=== PATIENT | female | born 1955 | race Caucasian/White ===

== ENCOUNTER 2017-12-07 09:56 | Day surgery (SDC) | payer SELFPAY ==
[2017-12-07] VITALS (9 sets, daily range): BP systolic 157–193; BP diastolic 56–84; PULSE 61–69; RESP 16–18; TEMP 35.9–36.9; O2SAT 90–99; BMI 27.3
--- NOTE | 2017-12-07 | THYROID_PTH ---
PATIENT: ABISAI LAMAS [place]: [facility] [place][id number] AGE/SX: 62/F ROOM: RE12/07/[address]: Dr. Anatoliy Becerra MD : [id number] BED: DIS: 12/08/2017 SPEC #: [id number] RECD: 12/07/17 12:52 STATUS: ZACHARIAH SIMONE #: [id number] LARA: 12/07/17 00:[address]: Anatoliy Becerra DEPT: SURGICAL PATHOLOGY RECD BY: Franca Srinivasan ENTERED: 12/07/17 15:34 SP TYPE: THYROID OTHR DR: Dr. Gunnar Mabry III, MD Tissues: Thyroid gland, NOS Procedures: Frozen Section (charge) Surgery Specimen Level V Frozen (no charge) HEADER OPERATION: Thyroidectomy, lobectomy PRE-OP DIAGNOSIS: Multinodular goiter TISSUE SUBMITTED: Thyroid, right lobe, sent to lab for FS at 1250 FROZEN SECTION DIAGNOSIS Right lobe of thyroid, lobectomy: Colloid nodule. AM:hayden 12/07/17 MICROSCOPIC DIAGNOSIS Right lobe of thyroid, lobectomy: Colloid nodule with degenerative change (2.5 cm in greatest dimension). Isthmic margin with no significant pathologic change. Remainder of thyroid gland with smaller colloid nodules. AM:hayden 12/09/17 COMMENT No parathyroid glands are identified. Case has been reviewed in consultation with Dr. Johnson who concurs with the above diagnosis. IDC:SJ MICROSCOPIC DESCRIPTION Slides are reviewed. GROSS DESCRIPTION Received fresh for frozen section consultation labeled with the patient's name is a specimen designated right thyroid lobe. The specimen consists of a lobe of thyroid measuring 7 x 3 x 2 cm and weighing 12.7 gm. The specimen is differentially inked as follows: anterior ? blue, posterior ? black and isthmus ? yellow. The specimen is serially sectioned to reveal a gelatinous, ojeda nodule measuring 2.5 x 2 cm. User Experience Architect section of the nodule is submitted for frozen section consultation in one block. The remainder of the nodule is submitted in cassettes 2-4, 5 ? isthmus, 6-8 ? remainder of the specimen. / AM:hayden 12/07/17 TC:1 CPT: 63324, 90031
--- NOTE | 2017-12-07 10:13 | EKG12_ITS ---
Test Reason : PREOP Blood Pressure : / mmHG Vent. Rate : 071 BPM Atrial Rate : 071 BPM P-R Int : 166 ms QRS Dur : 076 ms QT Int : 390 ms P-R-T Axes : 042 012 050 degrees QTc Int : 423 ms Normal sinus rhythm Poor R wave progression Confirmed by CINDY DIXON, DEVYN ([id number]), copy editor MICHELE LAMAS ([id number]) on 12/08/2017 1:38:09 PM Referred By: Anatoliy Becerra Confirmed By:DEVYN WHITE MD
[2017-12-07 10:29] LABS: Hematocrit 39.6 % (37-47); Hemoglobin 13.1 g/dl (12.0-15.0); Mean Corp Hgb Conc 33.1 g/gl (32-36); Mean Corpuscular Hgb 28.7 pg (27.0-32.0); Mean Corpuscular Volume 86.7 fL (81-99); Mean Platelet Vol. 9.7 fl (6.2-12.0); Platelet Count 196 K/mm3 (150-450); RBC Distribution Width CV 15.2 % (11.6-14.6); RBC Distribution Width SD 48.1 fl (35.1-43.9); Red Blood Count 4.57 M/mm3 (4.2-5.4); White Blood Count 5.2 K/mm3 (4.4-11.0)
[2017-12-07 10:32] LABS: Scan Indicated on CBC? Y/N NO
[2017-12-07 10:36] LABS: Prothrombin Time (Protime)PT. 13.1 SECONDS (11.7-14.9)
[2017-12-07 10:37] LABS: Partial Thromboplast Time 32.6 Seconds (24.1-36.2)
[2017-12-07 10:43] LABS: Anion Gap 8 (5-15); BUN 18 mg/dL (7-18); Calcium,Total 9.5 mg/dL (8.5-10.1); Chloride 101 mmol/L (98-107); Creatinine, Serum 0.62 mg/dL (0.55-1.02); EST Glomerular Filtration Rate 104 mL/min (>60); Est Glom Filt Rate - Afr Amer 126 mL/min (>60); Glucose 179 mg/dL (74-106); Potassium 4.3 mmol/L (3.5-5.1); Sodium Level 138 mmol/L (136-145)
[2017-12-07 11:11] LABS: Bedside Glucose 183 mg/dL (70-110)
[2017-12-07] MEDS: Cefazolin 2 GM in 0.9% Normal Saline 100 ML IV (12:01)
--- NOTE | 2017-12-07 12:13 | OP.PCM_ITS ---
Problem List (1) Multinodular goiter (nontoxic) Status: Acute Report of Operation Date of Procedure: 12/07/17 Pre-Operative Diagnosis: e04.2 multinodular goiter Post-Operative Diagnosis: Name Surgery/Procedure Performed:: 66991 Right thyroid lobectomy Type of Anesthesia:: General Anesthesiologist: Arash Wells Estimated Blood Loss (mL): < 25 cc Description of Procedure: Patient was brought into the operating room and placed in the supine position. Under excellent general endotracheal intubation towel was placed underneath the shoulder blades and neck was extended and sterilely prepped and draped in the usual fashion. Local was injected a cervical incision was created. Subplatysmal flaps were created with use of electrocautery and Gelpi retractor was placed inside the wound. Midline strap muscles were opened. I started on the right side I dissected the strap muscles off of the thyroid itself I went to the superior pole vessels and took these down with a harmonic dissector. I stay directly onto the gland making sure to spare the superior parathyroid gland. Went to the inferior thyroid gland of the inferior thyroid vessels down with a harmonic dissector once again staying directly on the gland making sure not to injure the inferior parathyroid. I came up took the gland off of Joshi' s ligaments identifying the recurrent laryngeal nerve and the process. I took down Joshi's ligaments with a harmonic dissector. I came to the left side of the thyroid. I transected the isthmus with a harmonic dissector. I inspected the gland I did not see any parathyroid tissue. I sent this for frozen section. The frozen section came back as a goiter with nothing that looks suspicious for papillary thyroid cancer. I placed a few small clips on a superficial vein. I irrigated out the wound. I placed Surgicel in the wound. Midline strap muscles were brought together with a 2-0 Vicryl. Local was injected. Subplatysmal flaps were brought together with 3-0 Vicryl. Deep dermal stitches of 3-0 Vicryl on the skin. Then a running 4-0 Monocryl on the skin. Dermabond was applied. Sterile dressings were applied. The patient tolerated the procedure well. - Admit VTE Documentation VTE Present on Admission: No VTE Mechan Device Prophylaxis: SCD's VTE Pharm Prophylaxis ordered?: No Reason prophylaxis not ordered:: Treatment Not Indicated
[2017-12-07 13:51] LABS: Bedside Glucose 162 mg/dL (70-110)
[2017-12-07] MEDS: Ondansetron 4 MG/2 ML Vial IV (14:46)
[2017-12-07] MEDS: Lactated Ringers 1,000 ML 65 ML IV (14:50)
[2017-12-07] MEDS: BUPIVACAINE LIPOSOME/PF 20 ML VIAL OPERA.SITE (15:10)
[2017-12-07 17:46] LABS: Bedside Glucose 158 mg/dL (70-110)
[2017-12-07] MEDS: Carvedilol 3.125 MG TABLET PO (19:31)
[2017-12-07] MEDS: Cefazolin 1 GM/50 ML BAG IV (19:36)
[2017-12-07] MEDS: Atorvastatin Calcium 20 MG Tablet PO (21:16)
[2017-12-07] MEDS: FLUoxetine 10 MG Capsule PO (21:16)
[2017-12-07] MEDS: HYDROcodone Bitartrate/Apap 5/325 Tablet PO (21:21)
[2017-12-08 03:10] VITALS: BP 144/54; PULSE 69; RESP 16; TEMP 36.9; O2SAT 97
[2017-12-08] MEDS: Cefazolin 1 GM/50 ML BAG IV (03:15)
--- NOTE | 2017-12-08 06:57 | PN.SURG_ITS ---
Patient Problems: Active and Suspected Problems (Last Reviewed 11/18/17 @ 09:30 by Carlton Meade MD ) Multinodular goiter (nontoxic) (Acute) Subjective: Patient evaluated resting comfortably in bed. She notes sore throat. She denies fever, nausea, vomiting. She denies incisional discomfort. - Physical Exam General: Alert, Oriented x3, Cooperative Neck: - - Anterior cervicla neck incision- c/d/i. Minimal amount of ecchymosis. No infection noted Vital Signs Temp Pulse Resp BP Pulse Ox 98.5 F 69 16 144/54 H 97 12/08/17 03:10 12/08/17 03:10 12/08/17 03:10 12/08/17 03:10 12/08/17 03:10 Oxygen Flow Rate 2 Oxygen Delivery Method Room Air Weight: 159 lb 2.78 oz Body Mass Index (BMI) 27.3 Finger Stick Blood Glucose 162 Intake and Output for Last 24 Hours 12/06/17 12/07/17 12/08/17 23:59 23:59 23:59 Intake Total 1800 / 1800 1825 / 1825 Output Total 1800 / 1800 900 / 900 Balance 0 / 0 925 / 925 Laboratory Tests Past 24 Hrs 12/07/17 12/07/17 12/07/17 10:20 10:20 10:20 WBC 5.2 RBC 4.57 Hgb 13.1 Hct 39.6 MCV 86.7 MCH 28.7 MCHC 33.1 RDW 15.2 H RDW Differential 48.1 H Plt Count 196 MPV 9.7 PT 13.1 INR 1.0 APTT 32.6 Sodium 138 Potassium 4.3 Chloride 101 Carbon Dioxide 29.0 Anion Gap 8 BUN 18 Creatinine 0.62 Est GFR (MDRD) Af Amer 126 Est GFR (MDRD) Non-Af 104 BUN/Creatinine Ratio 29.0 H Glucose 179 H Hemoglobin A1c Calcium 9.5 12/07/17 10:20 WBC RBC Hgb Hct MCV MCH MCHC RDW RDW Differential Plt Count MPV PT INR APTT Sodium Potassium Chloride Carbon Dioxide Anion Gap BUN Creatinine Est GFR (MDRD) Af Amer Est GFR (MDRD) Non-Af BUN/Creatinine Ratio Glucose Hemoglobin A1c 8.0 H Calcium POC Glucose 12/07/17 12/07/17 12/07/17 17:39 13:47 10:42 POC Glucose 158 H 162 H 183 H Assessment/Plan Active and Suspected Problems (Last Reviewed 11/18/17 @ 09:30 by Carlton Meade MD ) Multinodular goiter (nontoxic) (Acute) I am following this patient in conjunction with Dr. Becerra. S/p right thyroid lobectomy Ready for discharge Patient has declined discharge narcotic pain medication and will take Motrin at home as needed for pain
--- NOTE | 2017-12-08 06:57 | PCM.DC.GS ---
Discharge Diet: Light diet - advance as tolerated - Soft foods for 2 days until sore throat resolves Discharge Activity: May Not Drive - for 5 days May shower in (days): 1 Lifting Restrictions: 10 pounds Call your doctor if your incision/area has: Continuous Slow Oozing, Increased Pain/ Swelling, Increased Redness, Foul Smelling Discharge Suture Line Care: Avoid Pulling/Pushing, Avoid Pinching/Bending Allergies/Adverse Reactions: Allergies lisinopril Adverse Reaction (Intermediate, Verified 11/23/17 13:26) cough Medications to take at Discharge Aspirin [Aspirin, Baby] 81 mg PO DAILY@0800 07/02/15 Carvedilol [Coreg (Beta Ceasar)] 3.125 mg PO BID 07/02/15 Clopidogrel Bisulfate [Plavix] 75 mg PO DAILY 07/02/15 Docusate Sodium [Dok] 100 mg PO BID PRN PRN 07/02/15 Folic Acid 0.8 mg PO DAILY 07/02/15 Glimepiride [Amaryl] 2 mg PO BIDAC 07/02/15 Lovastatin [Mevacor] 40 mg PO DAILY 07/02/15 Metformin HCl [Glucophage] 1,000 mg PO BIDCM 07/02/15 cholecalciferol (vitamin D3) 5,000 unit capsule 5,000 unit PO DAILY 11/05/17 ferrous sulfate 325 mg (65 mg iron) tablet 325 mg PO DAILY tab 11/05/17 fluoxetine 10 mg capsule 10 mg PO QHS 11/05/17 losartan 25 mg tablet 25 mg PO QDAY 11/05/17 multivitamin tablet 1 tab PO QAM 11/05/17 Primary Care Physician: Gunnar Mabry III, MD [Primary Care Provider] - Please Follow Up With: Joyce Yu PA-C - [phone] When: 7-10 days Proposed Discharge Date: 12/08/17
[2017-12-08 08:12] VITALS: BP 157/65; PULSE 68; RESP 16; TEMP 36.9; O2SAT 95
[2017-12-08] MEDS: Losartan Potassium 25 MG Tablet PO (08:21)
[2017-12-08] MEDS: Carvedilol 3.125 MG TABLET PO (08:21)
[2017-12-08] MEDS: metFORMIN HCl 1,000 MG Tablet 1000 MG PO (08:21)
[2017-12-08] MEDS: Glimepiride 2 MG Tablet PO (08:21)
== END 2017-12-08 09:24 | disposition home or self-care (01) ==
LOC: SDC 10:01 → AC 10:02 → MS2 10:31
PROVIDERS: Anesthesiology; Family Provider Family Medicine; PCP Family Medicine; Visit Provider Surgery
PROC: (CPT 60220; principal; 2017-12-07 11:45)
DX: E04.2 Nontoxic multinodular goiter (principal); I25.10 Atherosclerotic heart disease of native coronary artery without angina pectoris; I49.9 Cardiac arrhythmia, unspecified; I10 Essential (primary) hypertension; Z95.1 Presence of aortocoronary bypass graft; E11.9 Type 2 diabetes mellitus without complications; Z79.84 Long term (current) use of oral hypoglycemic drugs; I69.311 Memory deficit following cerebral infarction; I69.398 Other sequelae of cerebral infarction; R26.81 Unsteadiness on feet; D68.9 Coagulation defect, unspecified; E78.00 Pure hypercholesterolemia, unspecified; F41.9 Anxiety disorder, unspecified; E06.9 Thyroiditis, unspecified; Z79.01 Long term (current) use of anticoagulants; Z79.82 Long term (current) use of aspirin; Z79.899 Other long term (current) drug therapy; Z80.3 Family history of malignant neoplasm of breast
CPT/HCPCS: 60220; 80048; 82962; 83036; 85027; 85610; 85730; 88307; 88331; 93005; J7120; J2405

== ENCOUNTER → 2021-06-12 09:18 | Outpatient (CLI) | payer OTHER, SELFPAY ==
[2021-06-12 11:20] LABS: AST(SGOT) 29 U/L (15-37); Alanine Aminotransfer ALT/SGPT 51 U/L (13-56); Albumin, Serum 3.8 g/dL (3.2-5.0); Alkaline Phosphatase 56 U/L (45-117); Bilirubin, Direct 0.11 mg/dL (0.00-0.30); Cholesterol 140 mg/dL (200); Globulin 3.3 g/dL (2.2-4.2); High Density Lipoprotein 53 mg/dL; Protein, Total 7.1 g/dL (6.4-8.2); Triglycerides 128 mg/dL; Very Low Density Lipoprotein 26 mg/dL (5-40)
== END ==
PROVIDERS: Referring Provider Internal Medicine Cardiovascular Disease; Visit Provider Internal Medicine Cardiovascular Disease
DX: E78.00 Pure hypercholesterolemia, unspecified (principal)
CPT/HCPCS: 36415; 80061; 80076

== ENCOUNTER 2025-04-22 20:20 | Emergency (ER) | payer OTHER, SELFPAY ==
[2025-04-22 20:22] VITALS: BP 161/87; PULSE 78; RESP 18; TEMP 37.1; O2SAT 97
--- NOTE | 2025-04-22 20:40 | CT_ITS ---
PROCEDURE: CT CHEST, ABD, PEL W/CONTRAST 04/22/2025 REASON FOR EXAM: FALL ON WEDNESDAY, RIGHT RIB PAIN, RIGHT SIDE PAIN TECHNIQUE: Chest, abdomen and pelvis CT with intravenous contrast. Coronal and Sagittal reconstruction series were provided. One or more dose reduction techniques were used (e.g., Automated exposure control, adjustment of the mA and/or kV according to patient size, use of iterative reconstruction technique. PATIENT PREPARATION: Per protocol ORAL CONTRAST TYPE: None. AMOUNT: mL CONTRAST: Isovue 370 VOLUME: 97mL Gauge IV RADIATION DOSE SUMMARY: CTDlvol: 60 mGy DLP: 1594 mGycm COMPARISON: No FINDINGS: Unremarkable base of neck and axilla. Thoracic spine scoliosis and degeneration. Normal esophagus. Borderline prominent heart size. Status post CABG. No acute vascular injury. Acute right 10th and 11th rib fracture. Central airways are patent. Dependent atelectasis. No contusion, pneumothorax,. Tiny right-sided effusion. Status post cholecystectomy. Upper abdominal solid organs show no acute findings. Bilateral renal scarring. No hydronephrosis. Unremarkable bladder. Normal uterus and ovaries. No retroperitoneal or pelvic adenopathy. No free air. Nondistended bowel. Moderate stool. No acute large bowel findings otherwise. Lumbar spine degeneration. CT/CT Chest, Abd, Pel w/Contrast IMPRESSION: Right-sided chest wall injury and tiny right effusion. Reading Location: [place] [address]
[2025-04-22 20:42] LABS: Bacteria 0 SEEN /hpf (None Seen); Mucous, Urine 0 SEEN /hpf (<or=2+); Red Blood Cells-Urine 0 SEEN /hpf (0-5)
--- NOTE | 2025-04-22 20:46 | EX.ED.DYSGE1 ---
HPI History of Present Illness Chief Complaint: Abd Pain Narrative Narrative: Patient is a 69-year-old female with past medical history of CVA, hypothyroidism, type 2 diabetes, hypertension, CAD who presents to the emergency department the chief complaint of right-sided abdominal pain and rib pain. States on she slipped and fell down concrete stairs and originally states that she was having right sided flank pain. She notes that she originally started to get better however noted that recently the pain became severe again prompting her to come here for further evaluation management. She states that the Motrin is not helping her pain anymore. [facility] Medical History Anemia History of CVA (cerebrovascular accident) (06/2015) Hypothyroidism Type 2 diabetes mellitus Essential (primary) hypertension Multinodular goiter (nontoxic) Atherosclerotic heart disease of [place] coronary artery without angina pectoris Home Medications ?Medication ?Instructions ?Recorded ?Last Taken ?Type aspirin 81 mg chewable tablet 81 mg PO DAILY@0800 07/02/15 07/02/15 History folic acid 0.8 mg capsule 0.8 mg PO DAILY 07/02/15 07/02/15 History lovastatin 40 mg tablet 40 mg PO DAILY 07/02/15 07/01/15 History metformin 1,000 mg tablet 1,000 mg PO BIDCM 07/02/15 07/02/15 History cholecalciferol (vitamin D3) 125 5,000 unit PO DAILY 11/05/17 Unknown History mcg (5,000 unit) capsule ferrous sulfate 325 mg (65 mg 325 mg PO DAILY 11/05/17 Unknown History iron) tablet fluoxetine 10 mg capsule 10 mg PO QHS 11/05/17 Unknown History multivitamin 1 tab PO QAM 11/05/17 Unknown History insulin glargine 100 unit/mL (3 unit subcut 10/14/23 Unknown History mL) subcutaneous pen (Lantus Solostar U-100 Insulin) insulin lispro 100 unit/mL 1 sliding scale dose subcut 10/14/23 Unknown History subcutaneous pen (Admelog SoloStar U-100 Insulin lispro) levothyroxine 25 mcg tablet 50 mcg PO DAILY 10/14/23 Unknown History carvedilol 6.25 mg tablet 6.25 mg PO BID #180 tabs 05/29/24 Unknown Rx losartan 50 mg tablet See Rx Instructions .Route 05/29/24 Unknown Rx .COMPLEX #90 tabs clopidogrel 75 mg tablet 75 mg PO DAILY #90 tabs 03/21/25 Unknown Rx cyclobenzaprine 10 mg tablet 10 mg PO TID PRN muscle spasm #14 04/22/25 Unknown Rx tabs lidocaine 5 % topical patch 1 patch topical DAILY #15 ea 04/22/25 Unknown Rx (Lidoderm) ondansetron 4 mg disintegrating 4 mg PO Q6H PRN nausea and 04/22/25 Unknown Rx tablet vomiting #20 tabs oxycodone-acetaminophen 5 mg-325 1 tab PO Q6H PRN pain 3 days #12 04/22/25 Unknown Rx mg tablet (Endocet) tabs Allergy/AdvReac Type Severity Reaction Status Date / Time lisinopril AdvReac Intermediate cough Verified 04/22/25 20:22 Family History Sister Breast cancer Brother Diabetes Cancer Father CAD (coronary artery disease) Surgical History History of bilateral cataract extraction H/O partial thyroidectomy History of tonsillectomy History of cholecystectomy History of appendectomy H/O coronary artery bypass surgery (06/25/15) History of left heart catheterization (06/25/15) Hx of biopsy Hx of section Social History household members: spouse housing: house Smoking Status: Never smoker second hand exposure: No alcohol intake: never substance use type: does not use caffeine: No what type of physical activity do you participate in: none frequency: does not exercise seatbelt use: always ROS ROS ED ROS Narrative Constitutional: Denies any fevers, chills Eyes: Denies changes double vision blurred vision Cardiovascular: Denies chest pain Respiratory: Denies shortness of breath Abdomen: Complains of right side abdominal pain as noted above : Denies urinary symptoms Neurological: Denies numbness, weeks, tingling Musculoskeletal: Complains of right flank pain/rib pain as noted above Skin: Denies any rashes or lesions EXAM Physical Exam Narrative Exam Narrative: General: Patient was lying bed rest comfortably did appear to be uncomfortable secondary to her pain Head: Atraumatic, normocephalic Eyes: PERRL bilaterally, EOMI bilaterally, no conjunctival injection noted Neck: Soft, supple, trachea midline Cardiovascular: Regular rate and rhythm Respiratory: Clear to auscultation bilaterally Abdomen: Soft, nondistended, tenderness to palpation the right upper quadrant and lower quadrant no rebound or guarding on exam Musculoskeletal: Patient has tenderness palpation over the right rib cage Extremities: +5/5 strength noted in the bilateral upper and lower extremities Neurological: Patient following commands and that she was at [facility] year is 2024 Skin: Warm, dry, tact no rashes or lesions noted no bruising or ecchymosis noted Const Vital Signs: 04/22/25 20:22 04/22/25 20:26 Temperature 98.7 F Temperature Source Oral Pulse Rate 78 Respiratory Rate 18 Respiratory Effort Normal Non-Labored Respiratory Depth Normal Respiratory Pattern Normal Blood Pressure 161/87 H Blood Pressure Mean 111 Pulse Ox 97 Oxygen Delivery Method Room Air MDM MDM MDM Narrative Medical decision making narrative: Patient is a 69-year-old female who presented to the emergency department with a chief complaint of right rib pain and back/abdomen pain after a fall on . On the differential diagnosis includes but not limited to rib fractures, pneumothorax, liver laceration, cholecystitis, pancreatitis. Once workup is obtained reviewed she will be reevaluated. Patient given IV fluids, morphine Zofran. Patient's CBC reviewed showed no evidence of leukocytosis white blood count normal at 6.5, hemoglobin was stable at 12.7, platelet count was 245. Patient's INR normal at 0.9, PT 12.7. Patient sodium was normal 139, potassium normal 4.8, creatinine normal at 0.88. Patient's AST and ALT were 32 and 20 respectively. Patient lipase normal at 42, urinalysis reviewed and showed no evidence of infection. Patient's CT chest, abdomen and pelvis was reviewed which showed acute right 10th and 11th rib fractures tiny right sided effusion. Discussed results with the patient she would like to go home at this point in time we will use multimodal pain therapy with rotating Tylenol and ibuprofen [id number], Lidoderm patch, Endocet and Zofran for severe pain. She is encouraged to use the incentive spirometer as well. She was encouraged follow-up with her doctor outpatient setting return with worsening symptoms or concerns. She is agreeable to plan all question concerns answered she was discharged home in stable condition. Lab Data Labs: Laboratory Results - last 24 hr 04/22/25 04/22/25 20:32 20:48 WBC 6.5 RBC 4.52 Hgb 12.7 Hct 38.5 MCV 85.2 MCH 28.1 MCHC 33.0 RDW Std Deviation 45.3 H RDW Coeff of Michael 14.7 H Plt Count 245 MPV 10.1 Immature Gran % (Auto) 0.500 Neut % (Auto) 56.6 Lymph % (Auto) 26.8 [place] % (Auto) 7.2 Eos % (Auto) 8.1 H Baso % (Auto) 0.8 Absolute Neuts (auto) 3.7 Absolute Lymphs (auto) 1.75 Nucleated RBC % 0 PT 12.7 INR 0.9 APTT 25.7 Sodium 139 Potassium 4.8 Chloride 103 Carbon Dioxide 22.2 Anion Gap 14 BUN 22 H Creatinine 0.88 Est GFR (MDRD) Non-Af 72 BUN/Creatinine Ratio 24.7 H Glucose 177 H Calcium 9.3 Total Bilirubin 0.52 AST 32 ALT 20 Alkaline Phosphatase 65 Total Protein 6.9 Albumin 4.1 Globulin 2.9 Albumin/Globulin Ratio 1.4 Lipase 42 Urine Color Yellow Urine Clarity Clear Urine pH 6.5 Ur Specific [place] 1.010 Urine Protein 15 H Urine Glucose (UA) 50 H Urine Ketones Negative Urine Occult Blood Negative Urine Nitrite Negative Urine Bilirubin Negative Urine Urobilinogen Normal Ur Leukocyte Esterase Negative Urine RBC 0 SEEN Urine WBC 0-5 SEEN Ur Squamous Epith Cells 0-5 SEEN Urine Bacteria 0 SEEN Urine Mucus 0 SEEN Radiography Diagnostic Testing: Clinical Impression(s) from Imaging Studies Chest/Abdomen/Pelvis CT 04/22/25 20:40 IMPRESSION: Right-sided chest wall injury and tiny right effusion. Reading Location: [place] [address] Discharge Plan Triage Chief Complaint: Abd Pain Other Complaint: Fall ED Provider: Nilson Grullon Dx/Rx/DC Orders Clinical Impression: Fracture, ribs, Essential (primary) hypertension, Fall, Pleural effusion Prescriptions: New lidocaine [Lidoderm] 5 % adhesive patch,medicated 1 patch topical DAILY Qty: 15 0RF Rx Instructions: leave on most painful area for up to 12 hrs oxycodone-acetaminophen [Endocet] 5-325 mg tablet 1 tab PO Q6H PRN (Reason: pain) 3 Days Qty: 12 0RF ondansetron 4 mg tablet,disintegrating 4 mg PO Q6H PRN (Reason: nausea and vomiting) Qty: 20 0RF cyclobenzaprine 10 mg tablet 10 mg PO TID PRN (Reason: muscle spasm) Qty: 14 0RF No Action fluoxetine 10 mg capsule 10 mg PO QHS cholecalciferol (vitamin D3) 5,000 unit capsule 5,000 unit PO DAILY multivitamin tablet 1 tab PO QAM levothyroxine 25 mcg tablet 50 mcg PO DAILY Patient Comments: take 1 tablet by mouth once daily insulin lispro [Admelog SoloStar U-100 Insulin] 100 unit/mL insulin pen 1 sliding scale dose subcut Patient Comments: inject 4 to 6 units subcutaneously three times a day before meals as directed insulin glargine [Lantus Solostar U-100 Insulin] 100 unit/mL (3 mL) insulin pen subcut Patient Comments: inject 18 units subcutaneously once daily lovastatin 40 MG tablet 40 mg PO DAILY Patient Comments: cholesterol metformin 1,000 MG tablet 1,000 mg PO BIDCM Patient Comments: diabetes aspirin 81 MG tablet,chewable 81 mg PO DAILY@0800 Patient Comments: WILL STOP 1 WEEK PRIOR TO SURGERY folic acid 0.8 MG capsule 0.8 mg PO DAILY Patient Comments: supplement ferrous sulfate 325 MG tablet 325 mg PO DAILY Patient Comments: supplement losartan 50 mg tablet See Rx Instructions .ROUTE .COMPLEX Qty: 90 3RF Dose Instruction: take 1 tablet by mouth once daily Rx Instructions: take 1 tablet by mouth once daily carvedilol 6.25 mg tablet 6.25 mg PO BID Qty: 180 3RF clopidogrel 75 mg tablet 75 mg PO DAILY Qty: 90 3RF Primary Care Provider: Joyce Washburn NP Referrals: Care Physician,No Primary [Non-Staff] - Activity Restrictions/Additional Instructions: Follow-up your doctor in outpatient setting. Your CT scan did show that you broke your 10th and 11th rib on the right side. Use incentive spirometry as we discussed. Rotate Tylenol and ibuprofen [id number] when you do this can take some every 3 hours max dose of Tylenol in 24 hours 4000 mg max dose of ibuprofen in 24 hours 3200 mg. Use the Endocet and Zofran for severe pain. Use the muscle relaxer as prescribed. Return with worsening symptoms and concerns Print Language: [place] Disposition Disposition: Home, Self Care
[2025-04-22] MEDS: Morphine 4 MG/ML Syringe IV ×2 (20:52→22:38)
[2025-04-22] MEDS: Ondansetron 4 MG/2 ML Vial IV ×2 (20:52→22:37)
[2025-04-22 20:53] LABS: Color, Urine Yellow (Yellow); Glucose, Dipstick 50 mg/dl (Normal); Ketone-Dipstick Negative (Negative); Leukocyte Esterase-Dipstick Negative /ul (Negative); Nitrite-Dipstick Negative (Negative); Occult Blood-Urine Negative /ul (Negative); Protein-Dipstick 15 mg/dl (Negative); Urine Bilirubin Dipstick Negative (Negative); Urine Clarity Clear (Clear); Urine Urobilinogen Normal (Normal); Urine pH 6.5 (5.0 - 8.0)
[2025-04-22] MEDS: 0.9% Normal Saline (1000mL) 1,000 ML 999 ML IV (20:53)
--- OUTSIDE RECORDS SUMMARY | 2025-04-22 20:54 | XMS RPT_ITS | CCD ---
Author Organization [facility] Care Team Providers Care Water Team Leader Name Role Phone Jj, Jennifer Unavailable Unavailable Jj, Jennifer Unavailable Unavailable Jj, Jennifer Unavailable Unavailable Jj, Jennifer Unavailable Unavailable DeFinis, Harumi Y Unavailable Unavailable JUSTYNA DIXON, KARTHIKEYAN Rosenthal III Primary Care Physician JUSTYNA DIXON, KARTHIKEYAN Rosenthal III Primary Care Physician ANNA DIXON, ROHAN Attending Sadia JANSEN MD, KARTHIKEYAN Rosenthal III Primary Care Unavaildawn CASTILLO MD, ROHAN Attending Sadia JANSEN MD, KARTHIKEYAN Rosenthal III Primary Care UnavailBing Hein Attending Unavail able Care Physician, No Primary Referring Unava ilable Care Physician, No Primary Primary Care Unava ilable Allergies Allergy Classification Reported Allergen(s) Allergy Type Date of Onset Reaction(s) Facility (6 sources) lisinopril; 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: [lisinopril] drug allergy 06-19-2015 cough [facility] Work Phone: (4 sources) NKDA drug allergy 06-19-2015 [facility] Work Phone: Medications Current Medications Medication Drug Class(es) Dates Sig (Normalized) Sig (Original) carvedilol 3.125 mg oral tablet (13 sources) alpha-Adrenergic Ceasar, beta-Adrenergic Ceasar Start: 08-21-2021 take 1 tablet by mouth twice daily carvedilol 3.125 mg oral tablet take 1 tablet by mouth twice a day Start Date: 08/21/21 Status: Ordered Start: 08-21-2021 take 1 tablet by [facility] twice daily carvedilol 3.125 mg oral tablet take 1 tablet by mouth twice a day Start Date: 08/21/21 Status: Ordered Start: 07-08-2015 take 1 tablet by dwayne th twice daily COREG 3.125 MG TABS One tablet by mouth twice daily CARVEDILOL [id number] Bing Peace PA-C clopidogrel 75 mg oral tablet (13 sources) P2Y12 Platelet Inhibitor Start: 06-30-2015 Plavix 75 mg oral tablet Dose : 75 mg = 1 tab(s), Oral, qDay, # 30 tab(s), 0 Refill(s) Start Date: 06/30/15 Status: Ordered FLUoxetine 10 mg oral tablet (3 sources) Serotonin Reuptake Inhibitor Start: 02-02-2022 FLUoxetine 10 mg ora l tablet Dose : 10 mg = 1 tab(s), Oral, qHS, # 90 tab(s), 3 Refill(s), Pharmacy: [id number] 162.7, cm, 12/18/21 10:28:00 EST, Height, kg, 12/18/21 10:28:00 EST, Dosing Weight Start Date: 02/02/22 Status: Ordered Start: 10-24-2021 FLUoxetine 10 mg oral tablet Dose : 10 mg = 1 tab(s), Oral, qHS, # 90 tab(s), 3 Refill(s), called to pharmacy (Rx), Dosing Weight Start Date: 10/24/21 Status: Ordered glimepiride 4 mg oral tablet (11 sources) Sulfonylurea Start: 03-27-2021 take 1 tablet by mouth twice daily glimepiride 4 mg oral tablet See Instructions, take 1 tablet by mouth twice a day, # 60 tab(s), 3 Refill(s), Pharmacy: [facility] 162.6, cm, 03/18/21 10:50:00 EDT, Height, kg, 03/18/21 10:50:00 EDT, Dosing Weight Start Date: 03/27/21 Status: Ordered Start: 06-19-2015 take 1 tablet by dwayne th twice daily GLIMEPIRIDE 1 MG TABS One tablet by mouth twice daily GLIMEPIRIDE [id number] Jerrica Jorge RN Start: 06-19-2015 take 1 tablet by dwayne th twice daily GLIMEPIRIDE 2 MG TABS One tablet by mouth twice daily GLIMEPIRIDE [id number] Carlton Meade MD 3 ml insulin isophane, human 70 unt/ml / insulin, regular, human 30 unt/ml pen injector (2 sources) Insulin Start: 06-08-2022 ReliOn/NovLIN 70/30 FlexPen subcutaneous suspension 20-15 unit(s), Subcutaneous, BIDAC, # 15 mL, 4 Refill(s), [facility]: [facility] #[id number], 163, cm, 04/16/22 11:39:00 EDT, Height, kg, 04/16/22 11:39:00 EDT, Dosing Weight Start Date: 06/08/22 Status: Ordered Start: 12-18-2021 ReliOn/NovLIN 70/30 FlexPen subcutaneous suspension Dose : 18 unit(s) =, Subcutaneous, BIDAC, # 15 mL, 4 Refill(s), [facility]acy: [facility] [facility], 162.7, cm, 12/18/21 10:28:00 EST, Height, kg, 12/18/21 10:28:00 EST, Dosing Weight Start Date: 12/18/21 Status: Ordered levothyroxine sodium 0.025 mg oral tablet (3 sources) l-Thyroxine Start: 10-01-2022 levothyroxine 25 mcg (0.025 mg) oral tablet Dose : 25 mcg = 1 tab(s), Oral, qDay, take 1 tablet by mouth daily, # 90 tab(s), 2 Refill(s), [facility]: [facility] #[id number], Hypothyroid, 163, cm, 04/16/22 11:39:00 EDT, Height, kg, 04/16/22 11:39:00 EDT, Dosing Weight Start Date: 10/01/22 Status: Ordered Start: 01-19-2022 levothyroxine 25 mcg (0.025 mg) oral tablet Dose : 25 mcg = 1 tab(s), Oral, qDay, take 1 tablet by mouth daily, # 90 tab(s), 2 Refill(s), called to pharmacy (Rx), Hypothyroid, Dosing Weight Start Date: 01/19/22 Status: Ordered Start: 04-24-2021 levothyroxine 25 mcg (0.025 mg) oral tablet Dose : 25 mcg = 1 tab(s), Oral, qDay, take 1 tablet by mouth daily, # 90 tab(s), 2 Refill(s), Pharmacy: [facility] Hypothyroid, 162.6, cm, 03/18/21 10:50:00 EDT, Height, kg, 03/18/21 10:50:00 EDT, Dosing Weight Start Date: 04/24/21 Status: Ordered losartan potassium 25 mg oral tablet (13 sources) Angiotensin 2 Receptor Ceasar Start: 08-21-2021 take 1 tablet by mouth once daily losartan 25 mg oral tablet take 1 tablet by mouth once daily Start Date: 08/21/21 Status: Ordered Start: 10-10-2015 take 1 tablet by dwayne once daily LOSARTAN POTASSIUM 25 MG TABS One tablet by mouth daily LOSARTAN POTASSIUM [id number] CODY FofanaC lovastatin 40 mg oral tablet (8 sources) HMG-CoA Reductase Inhibitor Start: 10-01-2022 take 1 tablet by mouth once daily lovastatin 40 mg oral tablet See Instructions, take 1 tablet by mouth once daily, # 30 tab(s), 3 Refill(s), Pharmacy: [facility] #[id number], 163, cm, 04/16/22 11:39:00 EDT, Height, kg, 04/16/22 11:39:00 EDT, Dosing Weight Start Date: 10/01/22 Status: Ordered Start: 02-02-2022 take 1 tablet by dwayne once daily lovastatin 40 mg oral tablet See Instructions, take 1 tablet by mouth once daily, # 30 tab(s), 3 Refill(s), Pharmacy: [facility] 162.7, cm, 12/18/21 10:28:00 EST, Height, kg, 12/18/21 10:28:00 EST, Dosing Weight Start Date: 02/02/22 Status: Ordered Start: 10-02-2021 take 1 tablet by dwayne once daily lovastatin 40 mg oral tablet See Instructions, take 1 tablet by mouth once daily, # 30 tab(s), 3 Refill(s), Pharmacy: [facility] 162.6, cm, 08/21/21 11:42:00 EDT, Height, kg, 08/21/21 11:42:00 EDT, Dosing Weight Start Date: 10/02/21 Status: Ordered Start: 06-19-2015 take 1 tablet by dwayne th once daily LOVASTATIN 40 MG TABS One tablet by mouth daily LOVASTATIN [id number] Carlton Meade MD metFORMIN hydrochloride 1000 mg oral tablet (8 sources) Biguanide Start: 07-07-2022 take 1 tablet by mouth twice daily metFORMIN 1000 mg oral tablet (IR) See Instructions, take 1 tablet by mouth twice a day, # 240 tab(s), 2 Refill(s), Pharmacy: [facility] #[id number], 163, cm, 04/16/22 11:39:00 EDT, Height, kg, 04/16/22 11:39:00 EDT, Dosing Weight Start Date: 07/07/22 Status: Ordered Start: 04-24-2021 take 1 tablet by dwayne th twice daily metFORMIN 1000 mg oral tablet (IR) See Instructions, take 1 tablet by mouth twice a day, # 240 tab(s), 2 Refill(s), Pharmacy: [facility] 162.6, cm, 03/18/21 10:50:00 EDT, Height, kg, 03/18/21 10:50:00 EDT, Dosing Weight Start Date: 04/24/21 Status: Ordered Start: 06-19-2015 take 1 tablet by dwayne th twice daily GLUCOPHAGE 1000 MG TABS One tablet by mouth twice daily METFORMIN HCL [id number] Jerrica Jorge RN potassium chloride 10 meq or al tablet (3 sources) Start: 06-30-2015 potassium chlo ride 10 mEq oral tablet, extended release Dose : 10 mEq = 1 tab(s), Oral, qDay, # 10 tab(s), 0 Refill(s) Start Date: 06/30/15 Status: Ordered Completed/Discontinued Medications Medication Drug Class(es) Dates Sig (Normalized) Sig (Original) HYDROCODONE-ACETAM INOPHEN (10 sources) Opioid Agonist Start: 07-08-2015 take 1 tablet by mouth every four hours as needed NORCO 5-325 MG TABS One tablet by mouth every 4 hours as needed HYDROCODONE-ACETAMI NOPHEN [id number] Jerrica Jorge RN Start: 07-08-2015 End: 07-18-2015 take 1 tablet by mouth every four hours as needed NORCO 5-325 MG TABS One tablet by mouth every 4 hours as needed HYDROCODONE-ACETAMINOPHEN [id number] Carlton Meade MD Start: 07-08-2015 End: 07-18-2015 take 1 tablet by mouth every four hours as needed NORCO 5-325 MG TABS One tablet by mouth every 4 hours as needed HYDROCODONE-ACETAMINOPHEN [id number] Jerrica Jorge RN ALPRAZolam 0.25 mg oral tablet (5 sources) Benzodiazepine Start: 07-18-2015 XANAX 0.25 MG TABS As needed ALPRAZOLAM [id number] Carlton Meade MD aspirin 81 mg oral strip (18 sources) Platelet Aggregation Inhibitor, Nonsteroidal Anti-inflammatory Drug Start: 07-08-2015 take 1 tablet by mouth once daily ASPIRIN 81 MG TABS One tablet by mouth daily ASPIRIN [id number] Alana Ware RN Start: 07-08-2015 take 1 tablet by dwayne th once daily ASPIRIN EC 81 MG TBEC One tablet by mouth daily ASPIRIN [id number] Keyonna Busby RN Start: 06-25-2015 aspirin 81 mg oral tablet (chewable) Dose : 81 mg = 1 tab(s), Oral, Daily, 0 Refill(s) Start Date: 06/25/15 Status: Ordered docusate sodium 100 mg oral tablet (10 sources) Start: 07-08-2015 End: 10-10-2015 take 1 tablet by mouth twice daily COLACE 100 MG CAPS One tablet by mouth twice daily DOCUSATE SODIUM [id number] Carlton Meade MD Start: 07-08-2015 End: 10-10-2015 take 1 tablet by mouth twice daily COLACE 100 MG CAPS One tablet by mouth twice daily DOCUSATE SODIUM [id number] Jerrica Jorge RN ferrous sulfate (20 sources) Start: 05-01-2016 take 1 tablet by dwayne th once daily IRON 325 (65 Fe) MG TABS One tablet by mouth daily FERROUS SULFATE [id number] Carlton Meade MD Start: 05-01-2016 take 1 tablet by dwayne th every other day IRON 325 (65 Fe) MG TABS One tablet by mouth every other day FERROUS SULFATE [id number] Bing Peace PA-C Start: 07-08-2015 End: 10-10-2015 take 1 tablet by mouth twice daily FERROUS SULFATE 325 (65 Fe) MG TABS One tablet by mouth twice daily FERROUS SULFATE [id number] Jerrica Jorge RN Start: 06-30-2015 ferrous sulfat e 325 mg (65 mg elemental iron) oral tablet Dose : 325 mg = 1 tab(s), Oral, BIDM, # 60 tab(s), 0 Refill(s) Start Date: 06/30/15 Status: Ordered folic acid 0.8 mg oral tablet (8 sources) Start: 07-08-2015 take 1 tablet by mouth once daily FOLIC ACID 800 MCG TABS One tablet by mouth daily FOLIC ACID [id number] Jerrica Jorge RN Start: 06-30-2015 folic acid 0.8 mg oral tablet Dose : 0.8 mg = 1 tab(s), Oral, Daily, # 30 tab(s), 0 Refill(s) Start Date: 06/30/15 Status: Ordered furosemide 20 mg oral tablet (10 sources) Loop Diuretic Start: 07-08-2015 End: 07-18-2015 take 1 tablet by mouth once daily LASIX 20 MG TABS One tablet by mouth daily FUROSEMIDE [id number] Carlton Meade MD insulin, regular, human 100 unt/ml injectable solution (1 source) Insulin Start: 08-21-2021 ReliOn/NovoLIN R FlexPen 100 units/mL injectable solution See Instructions, 10 units at breakfast BG 80-100- takes 8 units BG 100-150- take -10 units BG 150-200- take -13 units BG 200-250- take -15 units, # 15 mL, 1 Refill(s), Pharmacy: [facility] [id number] [facility], 162.6, cm, 08/21/21 11:42:00 Shannon CAGE Start Date: 08/21/21 Status: Ordered lisinopril 2.5 mg oral tablet (10 sources) Angiotensin Converting Enzyme Inhibitor Start: 07-08-2015 End: 07-18-2015 take 1 tablet by mouth once daily LISINOPRIL 2.5 MG TABS One tablet by mouth daily LISINOPRIL [id number] Carlton Meade MD Problems Active Problems Problem Classification Problem Date Documented Date Episodic/Chronic Acute cerebrovascular disease (5 sources) Cerebrovascular accident; 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: [Cerebral infarction, unspecified] Onset: 07-02-2015 07-02-2015 Chronic Coronary atherosclerosis and other heart disease (11 sources) 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; 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: [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] Onset: 07-02-2015 07-02-2015 Chronic Diabetes mellitus without complication (8 sources) Diabetes mellitus; 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: [Type 2 diabetes mellitus without complications] Onset: 06-19-2015 06-19-2015 Chronic Disorders of lipid metabolism (8 sources) Hyperlipidemia; 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: [Hyperlipidemia, unspecified] Onset: 06-19-2015 06-19-2015 Chronic Essential hypertension (1 source) Essential (primary) hypertension; 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: [Essential (primary) hypertension] Onset: 10-12-2024 Chronic Nutritional deficiencies (4 sources) Vitamin D deficiency 01-24-2020 Chronic Thyroid disorders (3 sources) Goiter 01-24-2020 Chronic Unclassified (1 source) Long-term drug therapy; 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: [Other prison (current) drug therapy] Onset: 06-19-2015 06-19-2015 Past or Other Problems Problem Classification Problem Date Documented Da te Episodic/Chronic Coronary atherosclerosis and other heart disease (5 sources) Presence of aortocoronary bypass graft; 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: [Presence of aortocoronary bypass graft] Onset: 07-02-2015 07-02-2015 Episodic Nonspecific chest pain (20 sources) Chest discomfort; 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: [Other chest pain] Onset: 06-18-2015 Resolved: 05-01-2016 06-19-2015 Episodic Other aftercare (4 sources) Other prison (current) drug therapy; 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: [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] Onset: 06-19-2015 06-19-2015 Episodic Other nutritional; endocrine; and metabolic disorders (4 sources) Body mass index (BMI) 27.0-27.9, adult; 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: [Body mass index (BMI) 27.0-27.9, adult] Onset: 04-30-2017 04-30-2017 Episodic Other screening for suspected conditions (not mental disorders or infectious disease) (10 sources) Abnormal result of cardiovascular function study, unspecified; 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: [Abnormal result of cardiovascular function study, unspecified] Onset: 06-24-2015 Resolved: 10-05-2015 10-05-2015 Episodic Results Test Name Value Interpretation Reference Range Facility Cardiology Visit Reporton Cardiology Visit Report [facility] [place] [id number] [facility] [place] [address] OFFICE VISIT Date of Service: 10/12/24 MR#: [id number] Acct: [id number] Name: ABISAI LAMAS Rep #: [id number] : 1955 Provider: BRIONNA Giles Age/Sex: 68/F Location[place] [facility] Status: Signed HPI HPI History of Present Illness Details: ABISAI LAMAS, is a 68 F who presents to the office today for follow-up visit. She has a history of coronary artery bypass surgery in 2004 with a left internal mammary artery to the left anterior descending artery, saphenous vein graft to first diagonal vessel, saphenous vein grafts to ramus intermedius, saphenous vein graft to lateral circumflex artery. She unfortunately did have a postoperative cerebrovascular accident for which she has recovered. She tells me that she did undergo a right thyroid lobectomy. She has been following with the rouge sifter regarding her thyroid issues. She tells me that she has discontinued the glimepiride. She does have chest burning with the cold air. She does not have have these symptoms with warm air. She is able to do chores without issues. She does not have any palpitations. She does not have any worsening SOB. She does not have any lightheadedness/diz ziness. 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 Required: No Is patient in pain?: No Allergies lisinopril Adverse Reaction (Intermediate, Verified 10/12/24 14:22) cough Medications ???Medication ???Instructions ???Recorded ???Confirmed ???Type aspirin 81 mg chewable tablet 81 mg PO DAILY@0800 07/02/15 10/12/24 History folic acid 0.8 mg capsule 0.8 mg PO DAILY 07/02/15 10/12/24 History lovastatin 40 mg tablet 40 mg PO DAILY 07/02/15 10/12/24 History metformin 1,000 mg tablet 1,000 mg PO BIDCM 07/02/15 10/12/24 History cholecalciferol (vitamin D3) 125 5,000 unit PO DAILY 11/05/17 10/12/24 History mcg (5,000 unit) capsule ferrous sulfate 325 mg (65 mg 325 mg PO DAILY 11/05/17 10/12/24 History iron) tablet fluoxetine 10 mg capsule 10 mg PO QHS 11/05/17 10/12/24 History multivitamin 1 tab PO QAM 11/05/17 10/12/24 History insulin glargine 100 unit/mL (3 unit subcut 10/14/23 10/12/24 History mL) subcutaneous pen (Lantus Solostar U-100 Insulin) insulin lispro 100 unit/mL 1 sliding scale dose subcut 10/14/23 10/12/24 History subcutaneous pen (Admelog SoloStar U-100 Insulin lispro) levothyroxine 25 mcg tablet 50 mcg PO DAILY 10/14/23 10/12/24 History clopidogrel 75 mg tablet 75 mg PO DAILY #90 tabs 02/09/24 10/12/24 Rx carvedilol 6.25 mg tablet 6.25 mg PO BID #180 tabs 05/29/24 10/12/24 Rx losartan 50 mg tablet See Rx Instructions .Route 05/29/24 10/12/24 Rx .COMPLEX #90 tabs Have you fallen in the past year?: No PFSH Medical History Anemia History of CVA (cerebrovascular accident) (06/2015) Hypothyroidism Type 2 diabetes mellitus Essential (primary) hypertension Multinodular goiter (nontoxic) 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 Surgical History History of bilateral cataract extraction H/O partial thyroidectomy History of tonsillectomy History of cholecystectomy History of appendectomy H/O coronary artery bypass surgery (06/25/15) History of left heart catheterization (06/25/15) Hx of biopsy Hx of section Family History Sister Breast cancer Brother Diabetes Cancer Father CAD (coronary artery disease) Social History Smoking Status: Never smoker second hand exposure: No alcohol intake: never substance use type: does not use caffeine: No what type of physical activity do you participate in: none frequency: does not exercise seatbelt use: always ROS Const Const: Negative for fatigue, weakness, headache(s), daytime sleepiness or difficulty sleeping Eyes Eyes: Negative for change in vision ENT ENT: Negative for headache(s), dizziness or Nosebleed/epistaxis Cardio Chest Pain: No Palpitations: No Edema: None Resp Respiratory: Negative for SOB with activity, SOB at rest, SOB orthopnea SOB lying down or Cough GI GI: Negative nausea, vomiting or heartburn Neuro Neuro: Negative for dizziness, lightheadedness, near syncope, headache(s) or wea (more content not included)... Normal [facility] A1Con 09-15-2023 HbA1c (Bld) [Mass fraction] 8.8 % High 4.3-6.4 [facility] ([place]) Comment on above: Performed By: #### L IPID, TSH, A1C #### [address] [place], [place] [address] LIPIDon 09-15-2023 Cholesterol [Mass/Vol] 158 mg/dL Normal 0-200 [facility] ([place]) Comment on above: Result Comment: Chol esterol Reference Interval: Less than 200 Desirable 200-239 Borderline high risk 240 and above High risk Performed By: #### L IPID, TSH, A1C #### [address] [address] Cholesterol in HDL [Mass/Vol] 63 mg/dL High 40-60 [facility] ([place] Comment on above: Performed By: #### L IPID, TSH, A1C #### [address] [address] Cholesterol in LDL [Mass/Vol] 66 mg/dL Normal 0-130 [facility] ([place] Comment on above: Performed By: #### L IPID, TSH, A1C #### [address] [address] Triglyceride [Mass/Vol] 144 mg/dL Normal 0-150 [facility] ([place]) Comment on above: Result Comment: Trig lyceride Reference Interval: Less than 150 Normal 150-199 Borderline high risk 200-499 High risk 500 or higher Very high risk Performed By: #### L IPID, TSH, A1C #### [address] [address] MALBRon 09-15-2023 U Creatinine 24.5 mg/dL Low 28.0-117.0 [facility] ([place]) Comment on above: Performed By: #### G FR, TSH, A1C, CMP, LIPID, VIDH, FT4 #### [address] [address] U Microalb 832 mcg/dL Normal [facility] ([place]) Comment on above: Performed By: #### G FR, TSH, A1C, CMP, LIPID, VIDH, FT4 #### [address] [address] U Ratio Alb/Cre 34 mcg/mg High 0-30 [facility] ([place]) Comment on above: Performed By: #### G FR, TSH, A1C, CMP, LIPID, VIDH, FT4 #### [address] [address] TSHon 09-15-2023 TSH Qn 0.97 m[IU]/L Normal 0.36-3.74 [facility] ([place]) Comment on above: Performed By: #### L IPID, TSH, A1C #### [address] [address] .GFRon 11-20-2022 GFR 91 ml/min/1.73sqm Normal [facility] ([place]) Comment on above: Result Comment: GFR Population mean for , Non- Americans Ages 20-29 = 116 mL/min/1.73 sq.m. Ages 30-39 = 107 mL/min/1.73 sq.m. Ages 40-49 = 99 mL/min/1.73 sq.m. Ages 50-59 = 93 mL/min/1.73 sq.m. Ages 60-69 = 85 mL/min/1.73 sq.m. Ages 70+ = 75 mL/min/1.73 sq.m. Chronic Kidney Disease: Less than 60 mL/min/1.73 square meters End Stage Renal Disease: Less than 15 mL/min/1.73 square meters Performed By: #### G FR, TSH, A1C, CMP, LIPID, VIDH, FT4 #### [address] [address] GFR Non- 75 ml/min/1.73sqm Normal [facility] ([place]) Comment on above: Result Comment: GFR Population mean for , Non- Americans Ages 20-29 = 116 mL/min/1.73 sq.m. Ages 30-39 = 107 mL/min/1.73 sq.m. Ages 40-49 = 99 mL/min/1.73 sq.m. Ages 50-59 = 93 mL/min/1.73 sq.m. Ages 60-69 = 85 mL/min/1.73 sq.m. Ages 70+ = 75 mL/min/1.73 sq.m. Chronic Kidney Disease: Less than 60 mL/min/1.73 square meters End Stage Renal Disease: Less than 15 mL/min/1.73 square meters Performed By: #### G FR, TSH, A1C, CMP, LIPID, VIDH, FT4 #### [address] [address] A1Con 11-20-2022 HbA1c (Bld) [Mass fraction] 9.6 % High 4.3-6.4 [facility] ([place]) Comment on above: Performed By: #### G FR, TSH, A1C, CMP, LIPID, VIDH, FT4 #### [address] [address] CMPon 11-20-2022 Albumin Level 3.8 G/dL Normal 3.4-4.8 [facility] ([place]) Comment on above: Performed By: #### G FR, TSH, A1C, CMP, LIPID, VIDH, FT4 #### [address] [address] Albumin/Globulin [Mass ratio] 1.3 {ratio} Normal 1.1-2.5 [facility] ([place]) Comment on above: Performed By: #### G FR, TSH, A1C, CMP, LIPID, VIDH, FT4 #### [address] [address] ALP [Catalytic activity/Vol] 54 U/L Normal 40-135 [facility] ([place]) Comment on above: Performed By: #### G FR, TSH, A1C, CMP, LIPID, VIDH, FT4 #### [address] [address] ALT [Catalytic activity/Vol] 44 U/L Normal 14-59 [facility] ([place]) Comment on above: Performed By: #### G FR, TSH, A1C, CMP, LIPID, VIDH, FT4 #### [address] [address] AST [Catalytic activity/Vol] 29 U/L Normal 10-40 [facility] ([place]) Comment on above: Performed By: #### G FR, TSH, A1C, CMP, LIPID, VIDH, FT4 #### [address] [address] Bili Total 0.7 mg/dL Normal 0.2-1.0 [facility] ([place]) Comment on above: Result Comment: Use of this assay is not recommended for patients undergoing treatment with eltrombopag due to the potential for falsely elevated results. Performed By: #### G FR, TSH, A1C, CMP, LIPID, VIDH, FT4 #### [address] [address] BUN/Creatinine Ratio 21 ratio Normal 7-27 [facility] ([place]) Comment on above: Performed By: #### G FR, TSH, A1C, CMP, LIPID, VIDH, FT4 #### [address] [address] Calcium [Mass/Vol] 9.0 mg/dL Normal 8.4-10.2 [facility] ([place]) Comment on above: Performed By: #### G FR, TSH, A1C, CMP, LIPID, VIDH, FT4 #### [address] [address] Chloride [Moles/Vol] 102 mmol/L Normal 98-107 [facility] ([place]) Comment on above: Performed By: #### G FR, TSH, A1C, CMP, LIPID, VIDH, FT4 #### [address] [address] CO2 [Moles/Vol] 30 mmol/L Normal 23-31 [facility] ([place]) Comment on above: Performed By: #### G FR, TSH, A1C, CMP, LIPID, VIDH, FT4 #### [address] [address] Creatinine [Mass/Vol] 0.77 mg/dL Normal 0.55-1.02 [facility] ([place]) Comment on above: Performed By: #### G FR, TSH, A1C, CMP, LIPID, VIDH, FT4 #### [address] [address] Electrolyte Balance 8.0 mEq/L Normal 4.0-15.0 [facility] [facility] ([place]) Comment on above: Performed By: #### G FR, TSH, A1C, CMP, LIPID, VIDH, FT4 #### [address] [address] Globulin 2.9 G/dL Normal [facility] ([place]) Comment on above: Performed By: #### G FR, TSH, A1C, CMP, LIPID, VIDH, FT4 #### [address] [address] Glucose [Mass/Vol] 159 mg/dL High 80-115 [facility] ([place]) Comment on above: Performed By: #### G FR, TSH, A1C, CMP, LIPID, VIDH, FT4 #### [address] [address] Potassium [Moles/Vol] 4.5 mmol/L Normal 3.5-5.1 [facility] ([place]) Comment on above: Performed By: #### G FR, TSH, A1C, CMP, LIPID, VIDH, FT4 #### [address] [address] Sodium [Moles/Vol] 140 mmol/L Normal 136-145 [facility] ([place]) Comment on above: Performed By: #### G FR, TSH, A1C, CMP, LIPID, VIDH, FT4 #### [address] [address] Total Protein 6.7 G/dL Normal 6.4-8.2 [facility] ([place]) Comment on above: Performed By: #### G FR, TSH, A1C, CMP, LIPID, VIDH, FT4 #### [address] [address] Urea nitrogen [Mass/Vol] 16 mg/dL Normal 7-18 [facility] ([place]) Comment on above: Performed By: #### G FR, TSH, A1C, CMP, LIPID, VIDH, FT4 #### [address] [address] FT4on 11-20-2022 Free T4 [Mass/Vol] 0.85 ng/dL Normal 0.76-1.46 [facility] ([place]) Comment on above: Performed By: #### G FR, TSH, A1C, CMP, LIPID, VIDH, FT4 #### [address] [place] [address] LABORATORYOrdered By: SYSTEM SYSTEM on 11-20-2022 Albumin BCP dye [Mass/Vol] 3.8 G/dL Invalid Interpretation Code 3.4 - 4.8 G/dL AO ADM SS Albumin/Globulin [Mass ratio] 1.3 {ratio} Invalid Interpretation Code 1.1 - 2.5 ratio AO ADM SS ALP [Catalytic activity/Vol] 54 U/L Invalid Interpretation Code 40 - 135 U/L AO ADM SS ALT With P-5'-P [Catalytic activity/Vol] 44 U/L Invalid Interpretation Code 14 - 59 U/L AO ADM SS AST With P-5'-P [Catalytic activity/Vol] 29 U/L Invalid Interpretation Code 10 - 40 U/L AO ADM SS Bilirubin [Mass/Vol] 0.7 mg/dL Invalid Interpretation Code 0.2 - 1.0 mg/dL AO ADM SS Calcium [Mass/Vol] 9.0 mg/dL Invalid Interpretation Code 8.4 - 10.2 mg/dL AO ADM SS Chloride [Moles/Vol] 102 mmol/L Invalid Interpretation Code 98 - 107 mmol/L AO ADM SS CO2 [Moles/Vol] 30 mmol/L Invalid Interpretation Code 23 - 31 mmol/L AO ADM SS Creatinine [Mass/Vol] 0.77 mg/dL Invalid Interpretation Code 0.55 - 1.02 mg/dL AO ADM SS Electrolyte Balance 8.0 mEq/L Invalid Interpretation Code 4.0 - 15.0 mEq/L AO ADM SS Free T4 [Mass/Vol] 0.85 ng/dL Invalid Interpretation Code 0.76 - 1.46 ng/dL AO ADM SS GFR 91 ml/min/1.73sqm Invalid Interpretation Code AO Chemistry S GFR Non- 75 ml/min/1.73sqm Invalid Interpretation Code AO Chemistry S Globulin 2.9 G/dL Invalid Interpretation Code AO ADM SS Glucose [Mass/Vol] 159 mg/dL Invalid Interpretation Code 80 - 115 mg/dL AO ADM SS HbA1c (Bld) [Mass fraction] 9.6 % Invalid Interpretation Code 4.3 - 6.4 % AO ADM SS Potassium [Moles/Vol] 4.5 mmol/L Invalid Interpretation Code 3.5 - 5.1 mmol/L AO ADM SS Protein [Mass/Vol] 6.7 G/dL Invalid Interpretation Code 6.4 - 8.2 G/dL AO ADM SS Sodium [Moles/Vol] 140 mmol/L Invalid Interpretation Code 136 - 145 mmol/L AO ADM SS TSH Qn 1.68 m[IU]/L Invalid Interpretation Code 0.36 - 3.74 mcIU/mL AO ADM SS Urea nitrogen [Mass/Vol] 16 mg/dL Invalid Interpretation Code 7 - 18 mg/dL AO ADM SS Urea nitrogen/Creatinine [Mass ratio] 21 ratio Invalid Interpretation Code 7 - 27 ratio AO ADM SS Vit. D 25-Hydroxy 104.6 ng/mL Invalid Interpretation Code AO ADM SS LABORATORYOrdered By: Kerry Sandy on 11-20-2022 Cholesterol [Mass/Vol] 154 mg/dL Invalid Interpretation Code 0 - 200 mg/dL AO ADM SS Cholesterol in HDL [Mass/Vol] 70 mg/dL Invalid Interpretation Code 40 - 60 mg/dL AO ADM SS Cholesterol in LDL [Mass/Vol] 64 mg/dL Invalid Interpretation Code 0 - 130 mg/dL AO ADM SS Triglyceride [Mass/Vol] 101 mg/dL Invalid Interpretation Code 0 - 150 mg/dL AO ADM SS LIPIDon 11-20-2022 Cholesterol [Mass/Vol] 154 mg/dL Normal 0-200 [facility] ([place]) Comment on above: Result Comment: Chol esterol Reference Interval: Less than 200 Desirable 200-239 Borderline high risk 240 and above High risk Performed By: #### G FR, TSH, A1C, CMP, LIPID, VIDH, FT4 #### [address] [address] Cholesterol in HDL [Mass/Vol] 70 mg/dL High 40-60 [facility] ([place]) Comment on above: Performed By: #### G FR, TSH, A1C, CMP, LIPID, VIDH, FT4 #### [id number] [place], [place] [address] Cholesterol in LDL [Mass/Vol] 64 mg/dL Normal 0-130 [facility] ([place]) Comment on above: Performed By: #### G FR, TSH, A1C, CMP, LIPID, VIDH, FT4 #### [address] [place], [place] [address] Triglyceride [Mass/Vol] 101 mg/dL Normal 0-150 [facility] ([place]) Comment on above: Result Comment: Trig lyceride Reference Interval: Less than 150 Normal 150-199 Borderline high risk 200-499 High risk 500 or higher Very high risk Performed By: #### G FR, TSH, A1C, CMP, LIPID, VIDH, FT4 #### [address] [place], [place] [address] TSHon 11-20-2022 TSH Qn 1.68 m[IU]/L Normal 0.36-3.74 [facility] ([place]) Comment on above: Performed By: #### G FR, TSH, A1C, CMP, LIPID, VIDH, FT4 #### [address] [place], [place] [address] VIDHon 11-20-2022 Vit. D 25-Hydroxy 104.6 ng/mL Normal [facility] ([place]) Comment on above: Result Comment: Inte rpretive Values Based on Total 25(OH) Vitamin D: Deficient <20 ng/mL Insufficient 20 - <30 ng/mL Sufficient 30-100 ng/mL Performed By: #### G FR, TSH, A1C, CMP, LIPID, VIDH, FT4 #### [address] [place], [place] [address] LABORATORYOrdered By: Alix Ferris on 04-10-2022 Albumin BCP dye [Mass/Vol] 4.0 G/dL Invalid Interpretation Code 3.4 - 4.8 G/dL AO ADM SS Albumin/Globulin [Mass ratio] 1.5 {ratio} Invalid Interpretation Code 1.1 - 2.5 ratio AO ADM SS ALP [Catalytic activity/Vol] 48 U/L Invalid Interpretation Code 40 - 135 U/L AO ADM SS ALT With P-5'-P [Catalytic activity/Vol] 37 U/L Invalid Interpretation Code 14 - 59 U/L AO ADM SS AST With P-5'-P [Catalytic activity/Vol] 31 U/L Invalid Interpretation Code 10 - 40 U/L AO ADM SS Bilirubin [Mass/Vol] 0.6 mg/dL Invalid Interpretation Code 0.2 - 1.0 mg/dL AO ADM SS Calcium [Mass/Vol] 9.4 mg/dL Invalid Interpretation Code 8.4 - 10.2 mg/dL AO ADM SS Chloride [Moles/Vol] 105 mmol/L Invalid Interpretation Code 98 - 107 mmol/L AO ADM SS CO2 [Moles/Vol] 27 mmol/L Invalid Interpretation Code 23 - 31 mmol/L AO ADM SS Creatinine [Mass/Vol] 0.77 mg/dL Invalid Interpretation Code 0.55 - 1.02 mg/dL AO ADM SS Electrolyte Balance 10.0 mEq/L Invalid Interpretation Code 4.0 - 15.0 mEq/L AO ADM SS Free T4 [Mass/Vol] 0.81 ng/dL Invalid Interpretation Code 0.76 - 1.46 ng/dL AO ADM SS Globulin 2.6 G/dL Invalid Interpretation Code AO ADM SS Glucose [Mass/Vol] 114 mg/dL Invalid Interpretation Code 80 - 115 mg/dL AO ADM SS HbA1c (Bld) [Mass fraction] 7.5 % Invalid Interpretation Code 4.3 - 6.4 % AO ADM SS Potassium [Moles/Vol] 4.1 mmol/L Invalid Interpretation Code 3.5 - 5.1 mmol/L AO ADM SS Protein [Mass/Vol] 6.6 G/dL Invalid Interpretation Code 6.4 - 8.2 G/dL AO ADM SS Sodium [Moles/Vol] 142 mmol/L Invalid Interpretation Code 136 - 145 mmol/L AO ADM SS TSH Qn 1.69 m[IU]/L Invalid Interpretation Code 0.36 - 3.74 mcIU/mL AO ADM SS Urea nitrogen [Mass/Vol] 19 mg/dL Invalid Interpretation Code 7 - 18 mg/dL AO ADM SS Urea nitrogen/Creatinine [Mass ratio] 25 ratio Invalid Interpretation Code 7 - 27 ratio AO ADM SS LABORATORYOrdered By: SYSTEM SYSTEM on 04-10-2022 GFR 91 ml/min/1.73sqm Invalid Interpretation Code AO Chemistry S GFR Non- 75 ml/min/1.73sqm Invalid Interpretation Code AO Chemistry S LABORATORYOrdered By: Kerry Sandy on 12-11-2021 Albumin BCP dye [Mass/Vol] 3.9 G/dL Invalid Interpretation Code 3.4 - 4.8 G/dL AO ADM SS Albumin/Globulin [Mass ratio] 1.4 {ratio} Invalid Interpretation Code 1.1 - 2.5 ratio AO ADM SS ALP [Catalytic activity/Vol] 52 U/L Invalid Interpretation Code 40 - 135 U/L AO ADM SS ALT With P-5'-P [Catalytic activity/Vol] 45 U/L Invalid Interpretation Code 14 - 59 U/L AO ADM SS AST With P-5'-P [Catalytic activity/Vol] 32 U/L Invalid Interpretation Code 10 - 40 U/L AO ADM SS Bilirubin [Mass/Vol] 0.7 mg/dL Invalid Interpretation Code 0.2 - 1.0 mg/dL AO ADM SS Calcium [Mass/Vol] 9.3 mg/dL Invalid Interpretation Code 8.4 - 10.2 mg/dL AO ADM SS Chloride [Moles/Vol] 104 mmol/L Invalid Interpretation Code 98 - 107 mmol/L AO ADM SS Cholesterol [Mass/Vol] 156 mg/dL Invalid Interpretation Code 0 - 200 mg/dL AO ADM SS Cholesterol in HDL [Mass/Vol] 64 mg/dL Invalid Interpretation Code 40 - 60 mg/dL AO ADM SS Cholesterol in LDL [Mass/Vol] 78 mg/dL Invalid Interpretation Code 0 - 130 mg/dL AO ADM SS CO2 [Moles/Vol] 29 mmol/L Invalid Interpretation Code 23 - 31 mmol/L AO ADM SS Creatinine [Mass/Vol] 0.77 mg/dL Invalid Interpretation Code 0.55 - 1.02 mg/dL AO ADM SS Electrolyte Balance 11.0 mEq/L Invalid Interpretation Code 4.0 - 15.0 mEq/L AO ADM SS Globulin 2.8 G/dL Invalid Interpretation Code AO ADM SS Glucose [Mass/Vol] 83 mg/dL Invalid Interpretation Code 80 - 115 mg/dL AO ADM SS HbA1c (Bld) [Mass fraction] 8.7 % Invalid Interpretation Code 4.3 - 6.4 % AO ADM SS Potassium [Moles/Vol] 4.3 mmol/L Invalid Interpretation Code 3.5 - 5.1 mmol/L AO ADM SS Protein [Mass/Vol] 6.7 G/dL Invalid Interpretation Code 6.4 - 8.2 G/dL AO ADM SS Sodium [Moles/Vol] 144 mmol/L Invalid Interpretation Code 136 - 145 mmol/L AO ADM SS Triglyceride [Mass/Vol] 72 mg/dL Invalid Interpretation Code 0 - 150 mg/dL AO ADM SS Urea nitrogen [Mass/Vol] 14 mg/dL Invalid Interpretation Code 7 - 18 mg/dL AO ADM SS Urea nitrogen/Creatinine [Mass ratio] 18 ratio Invalid Interpretation Code 7 - 27 ratio AO ADM SS Vit. D 25-Hydroxy 67.8 ng/mL Invalid Interpretation Code AO ADM SS LABORATORYOrdered By: SYSTEM SYSTEM on 12-11-2021 GFR 91 ml/min/1.73sqm Invalid Interpretation Code AO Chemistry S GFR Non- 75 ml/min/1.73sqm Invalid Interpretation Code AO Chemistry S Office Visit: [facility] 04-30-20 17 Documentation of current medications (procedure) Done Invalid Interpretation Code [employer] Phone: Fall risk assessment No Invalid Interpretation Code [employer] Work Phone: Replaced Document: Brenda Nicholson CG Observationson 04-30-2017 electrocardiogram interpretation Sinus Rhythm WITHIN NORMAL LIMITS Invalid Interpretation Code [employer] Phone: GE use only - for [employer] import when terms are not otherwise specified 401 ms Invalid Interpretation Code [employer] Phone: P wave axis, electrocardiogram 50 deg Invalid Interpretation Code [employer] Phone: CO interval, electrocardiogram 164 ms Invalid Interpretation Code [employer] Work Phone: Pulse (Heart Rate) 62 /min Invalid Interpretation Code [employer] Phone: QRS axis, electrocardiogram 5 deg Invalid Interpretation Code [employer] Phone: QRS duration, electrocardiogram 86 ms Invalid Interpretation Code [employer] Work Phone: QT interval, electrocardiogram new path ms Invalid Interpretation Code [employer] Phone: T wave axis, electrocardiogram 41 deg Invalid Interpretation Code [employer] Phone: Office Visiton 10-29-2016 Documentation of current medications (procedure) Done Invalid Interpretation Code [employer] Phone: Protein mass conc Done [employer] Phone: Office Visit: [facility] 05-01-20 16 Tobacco smoking status NHIS Never smoker [employer] Work Phone: Tobacco use CPHS Never smoker Invalid Interpretation Code [employer] Phone: Clinical Lists Update: 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 Left ventricular Ejection fraction 65 % Invalid Interpretation Code [employer] Work Phone: Office Visiton 10-10-2015 Dietary management education, guidance, and counseling (procedure) yes Invalid Interpretation Code [employer] Work Phone: Office Visiton 07-18-2015 General cardiovascular disease 10Y risk [#] CodeyChrystalNikiMillydonovan N/A Invalid Interpretation Code [employer] Work Phone: Clinical Lists Update: 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 07-04-2015 Anion gap 6 mmol/L Invalid Interpretation Code [employer] Work Phone: Anion gap molar conc 6 mmol/L [employer] Work Phone: basophils as percent of blood leukocytes, manual count 0.3 % Invalid Interpretation Code [employer] Work Phone: Calcium mass conc 8.8 mg/dL Invalid Interpretation Code [employer] Work Phone: Chloride molar conc 104 mmol/L Invalid Interpretation Code [employer] Work Phone: CO2 28.0 mmol/L Invalid Interpretation Code [employer] Work Phone: CO2 ppres (BldV) 28.0 mmol/L [employer] Work Phone: Creatinine mass conc 0.60 mg/dL Invalid Interpretation Code [employer] Work Phone: eGFR (non-black) 133 mL/min/{1.73_m2} Invalid Interpretation Code [employer] Work Phone: eosinophils as percent of blood leukocytes, manual count 4.2 % Invalid Interpretation Code [employer] Work Phone: Erythrocyte distribution width Ratio (RBC) 14.9 % High [employer] Work Phone: Erythrocytes (RBC) 3.35 10*6/uL Low [employer] Work Phone: GFR/1.73 sq M predicted among non-blacks MDRD vol rate/area (S/P/Bld) 110 mL/min/{1.73_m2} Invalid Interpretation Code [employer] Work Phone: Glomerular Filtration Rate 133 mL/min/1.73m2 [facility] Work Phone: Glucose 206 mg/dL High [facility] Work Phone: Glucose mass conc 206 mg/dL High [facility] Work Phone: Hematocrit (HCT) 28.3 % Low [facility] Work Phone: Hematocrit Volume Fraction (Bld) 28.3 % Low [facility] Work Phone: Hemoglobin mass conc (Bld) 9.2 g/dL Low [facility] Work Phone: Lymphocytes/100 leukocytes 28.5 % Invalid Interpretation Code [facility] Work Phone: Lymphocytes/100 WBC (Bld) 28.5 % [facility] Work Phone: MCH 27.5 pg Invalid Interpretation Code [facility] Work Phone: MCH Entitic mass (RBC) 27.5 pg [facility] Work Phone: MCHC 32.5 g/dL Invalid Interpretation Code [facility] Work Phone: MCHC mass conc (RBC) 32.5 g/dL [facility] Work Phone: MCV 84.5 fL Invalid Interpretation Code [facility] Work Phone: MCV Entitic volume (RBC) 84.5 fL [facility] Work Phone: Monocytes/100 leukocytes 11.1 % High [facility] Work Phone: Monocytes/100 WBC (Bld) 11.1 % High [facility] Work Phone: neutrophils, band form as percent of blood leukocytes, manual count 53.3 % Invalid Interpretation Code [facility] Work Phone: Platelet mean volume Entitic volume (Bld) 8.5 fL [facility] Work Phone: Platelets 273 10*3/mm3 Invalid Interpretation Code [facility] Work Phone: Platelets #/vol (Bld) 273 10*3/mm3 [facility] Work Phone: PMV by Justyn 8.5 fL Invalid Interpretation Code [facility] Work Phone: Potassium molar conc 4.4 mmol/L Invalid Interpretation Code [facility] Work Phone: RBC #/vol (Bld) 3.35 10*6/uL Low [facility] Work Phone: RDW-CA 14.9 % High [facility] Work Phone: Sodium molar conc 138 mmol/L Invalid Interpretation Code [facility] Work Phone: Urea nitrogen mass conc 11 mg/dL Invalid Interpretation Code [facility] Work Phone: Urea nitrogen/Creatinine mass ratio 18.3 mg/mg Invalid Interpretation Code [facility] Work Phone: WBC #/vol (Bld) 5.8 10*3/uL [facility] Work Phone: WBC (Leukocytes) 5.8 10*3/uL Invalid Interpretation Code [facility] Work Phone: Lab Report: Serum Creatinine AND GFRon 07-02-2015 eGFR (non-black) 84 mL/min/{1.73_m2} Invalid Interpretation Code >60 [facility] Work Phone: EST GFR - AA 84 mL/min >60 [facility] Work Phone: GFR/1.73 sq M predicted among non-blacks MDRD vol rate/area (S/P/Bld) 69 mL/min/{1.73_m2} Invalid Interpretation Code >60 [facility] Work Phone: Lab Report: CBC-Complete Blo od Cnt No Diffon 06-24-2015 Erythrocyte distribution width Ratio (RBC) 42.6 fL 35.1-43.9 [facility] Work Phone: red blood cell distribution width, size density 42.6 fL Invalid Interpretation Code 35.1-43.9 [facility] Work Phone: Lab Report: Prothrombin Time w/INRon 06-24-2015 INR Coag RelTime (PPP) 1.0 {INR} [facility] Work Phone: INR in blood by coagulation 1.0 {INR} Invalid Interpretation Code [facility] Work Phone: Prothrombin time (PT) Coag time (PPP) 13.2 s Invalid Interpretation Code 11.7-14.9 [facility] Work Phone: Office Visiton 06-19-2015 cardiac risk group C Invalid Interpretation Code [facility] Work Phone: Replaced Document: Midmark E CG Observationson 06-19-2015 EKG QRS axis 19 deg [facility] Work Phone: Interpretation Sinus Rhythm WITHIN NORMAL LIMITS [facility] Work Phone: P Armbrust -1 deg [facility] Work Phone: CO Interval 142 ms [facility] Work Phone: QRS Duration 86 ms [facility] Work Phone: QT Interval new path ms [facility] Work Phone: QTc Coles 402 ms [facility] Work Phone: T Armbrust 34 deg [facility] Work Phone: Vital Signs Date Time Vital Sign Value Performing Clinician Daniel alberto 04-30-2017 09:22-0400 BMI (Body Mass Index) 27.19 kg/m2 [facility] Work Phone: 04-30-2017 09:22-0400 BP Diastolic 62 mm[Hg] Jennifer [facility] Work Phone: 04-30-2017 09:22-0400 BP Systolic 140 mm[Hg] Jenniferzeeshan Jj [facility] Work Phone: 04-30-2017 09:22-0400 Height 162.56 cm Jennifer Parviz [facility] Work Phone: 04-30-2017 09:22-0400 Pulse (Heart Rate) 62 /min Jennifer Jj [facility] Work Phone: 04-30-2017 09:22-0400 Respiratory Rate 18 /min [facility] Work Phone: 04-30-2017 09:22-0400 Weight 71.85 kg Jennifer [facility] Work Phone: 10-29-2016 09:38-0500 BMI (Body Mass Index) 27.29 kg/m2 Daryl DeFinlino [facility] Work Phone: 10-29-2016 09:38-0500 BP Diastolic 60 mm[Hg] Alexumi DeFinis [facility] Work Phone: 10-29-2016 09:38-0500 BP Systolic 124 mm[Hg] Alexumi DeFinis [facility] Work Phone: 10-29-2016 09:38-0500 BSA (Body Surface Area) 1.78 m2 Daryl DeFinis [facility] Work Phone: 10-29-2016 09:38-0500 Pulse (Heart Rate) 68 /min Alexumi DeFinis [facility] Work Phone: 10-29-2016 09:38-0500 Respiratory Rate 20 /min Alexumi DeFinis [facility] Work Phone: 10-29-2016 09:38-0500 Weight 72.12 kg Alexumi DeFinis [facility] Work Phone: 05-01-2016 08:42-0400 Height 162.56 cm Alexumi DeFinis [facility] Work Phone: 07-18-2015 15:23-0400 Pulse Oximetry 97 % Harumi DeFinis [facility] Work Phone: 06-19-2015 10:16-0400 Heart rate 76 /min Harumi DeFinis [facility] Work Phone: Encounters Encounter Date Encounter Type Care Provider Facility Start: 10-12-2024 End: 10-12-2024 ambulatory Bing STATON Facility:[facility] Start: 09-15-2023 End: 09-16-2023 ambulatory ROHAN CASTILLO MD Facility:[facility] Start: 11-20-2022 End: 11-21-2022 ambulatory ROHAN CASTILLO MD Facility:[facility] Start: 11-20-2022 End: 11-20-2022 Patient encounter procedure ROHAN CASTILLO MD [facility] Start: 04-10-2022 End: 04-10-2022 Patient encounter procedure ROHAN CASTILLO MD [facility] Start: 12-11-2021 End: 12-11-2021 Patient encounter procedure ROHAN CASTILLO MD [facility] Procedures Date Procedure Procedure Detail Performing Clinician Start: 12-07-2017 Thyroidectomy ROHAN HIDALGO MD Start: 04-30-2017 End: 04-30-2017 FIELD MACHINISTMarkel Peace PA-C Work Phone: Start: 04-30-2017 End: 04-30-2017 Electrocardiogram, complete Bing Peace PA-C Work Phone: Start: 04-30-2017 End: 04-30-2017 Follow Up Appt 6 months Bing reece PA-C Work Phone: Start: 10-29-2016 End: 10-29-2016 Follow Up Appt 6 months Dakota Vazquez Start: 10-29-2016 End: 10-29-2016 MARCELLE Meade MD Start: 05-01-2016 End: 05-01-2016 CHESTER Peace PA-C Work Phone: Start: 05-01-2016 End: 05-01-2016 Follow Up Appt 6 months Bing reece PA-C Work Phone: Start: 10-10-2015 End: 10-10-2015 Dietary management education, guidance, and counseling Daryl Gil Start: 10-10-2015 End: 10-10-2015 Follow Up Appt 6 months Dakota Vazquez Start: 10-10-2015 End: 10-10-2015 MMM Carlton Meade MD Start: 07-18-2015 End: 07-18-2015 FIELD MACHINIST Carlton Meade MD Start: 07-18-2015 End: 07-19-2015 Documentation of current medications Carlton Meade MD Start: 07-18-2015 End: 07-18-2015 Follow Up Appt 3 months Dakota Vazquez Start: 07-18-2015 End: 07-19-2015 Pedal pulse taking Carlton Meade MD Start: 07-02-2015 End: 07-18-2015 *Creatinine, Serum Carlton Meade MD Start: 07-02-2015 End: 07-18-2015 Mri brain w/dye Carlton Meade MD Start: 06-25-2015 Coronary artery bypa ss grafts x 4 ROHAN CASTILLO MD Comment on above: emergent LAI LSVG Start: 06-24-2015 End: 07-02-2015 Left Heart Cath Carlton Meade MD Start: 06-24-2015 End: 06-24-2015 Nurse, Teaching, Wound Check (no charge) Carlton Meade MD Start: 06-19-2015 End: 06-20-2015 Documentation of current medications Carlton Meade MD Start: 06-19-2015 End: 06-19-2015 Electrocardiogram, complete Carlton Meade MD Start: 06-19-2015 End: 06-19-2015 Follow Up Appt 6 weeks Carlton Meade MD Start: 06-19-2015 End: 06-19-2015 MMM Carlton Meade MD Start: 06-19-2015 End: 06-20-2015 Pedal pulse taking Carlton Meade MD Start: 06-19-2015 End: 06-24-2015 Stress Echocardiogram (treadmill) Carlton Meade MD 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 ) ROHAN CASTILLO MD Tonsillectomy ROHAN ORTIZ MD Plan of Treatment Date Care Activity Detail Author Start: 11-18-2017 End: 11-18-2017 Appointment Appointment [facility] Work Phone: Start: 04-30-2017 End: 04-30-2017 Appointment Appointment [facility] Work Phone: Start: 04-30-2017 End: 04-30-2017 FIELD MACHINIST FIELD MACHINIST [facility] Work Phone: Start: 04-30-2017 End: 04-30-2017 Electrocardiogram, complete EKG (In office) [facility] Work Phone: Start: 04-30-2017 End: 04-30-2017 Follow Up Appt 6 months Follow Up Appt 6 months [facility] Work Phone: Start: 10-29-2016 End: 10-29-2016 Follow Up Appt 6 months Follow Up Appt 6 months [facility] Work Phone: Start: 10-29-2016 End: 10-29-2016 MMM MMM [facility] Work Phone: Start: 05-01-2016 End: 05-01-2016 FIELD MACHINIST FIELD MACHINIST [facility] Work Phone: Start: 05-01-2016 End: 05-01-2016 Follow Up Appt 6 months Follow Up Appt 6 months [facility] Work Phone: Start: 10-10-2015 End: 10-10-2015 Follow Up Appt 6 months Follow Up Appt 6 months [facility] Work Phone: Start: 10-10-2015 End: 10-10-2015 MMM MMM [facility] Work Phone: Start: 07-18-2015 End: 07-18-2015 FIELD MACHINIST FIELD MACHINIST [facility] [employer] Work Phone: Start: 07-18-2015 End: 07-18-2015 Follow Up Appt 3 months Follow Up Appt 3 months [facility] [employer] Work Phone: Start: 07-02-2015 End: 07-18-2015 *Creatinine, Serum *Creatinine, Serum [facility] [employer] Work Phone: Start: 07-02-2015 End: 07-02-2015 Mri brain w/dye MRI Brain with and without Contrast [facility] [employer] Work Phone: Start: 06-24-2015 End: 07-02-2015 Left Heart Cath Left Heart Cath [facility] [employer] Work Phone: Start: 06-19-2015 End: 06-19-2015 Electrocardiogram, complete EKG (In office) [facility] [employer] Work Phone: Start: 06-19-2015 End: 06-19-2015 Follow Up Appt 6 weeks Follow Up Appt 6 weeks [facility] [employer] Work Phone: Start: 06-19-2015 End: 06-19-2015 MMM MMM [facility] [employer] Work Phone: Start: 06-19-2015 End: 06-19-2015 Stress Echocardiogram (treadmill) Stress Echocardiogram (treadmill) [facility] [employer] Work Phone: Payers Date Payer Category Payer Self-pay 2024 Unknown [id number] 2022 Unknown [id number] 1955 Unknown [id number] 1955 Unknown [id number] Unknown [id number] Social History Date Type Detail Facility Start: 01-24-2020 Never smoked t obacco (finding) [facility] Sex Assigned At Female [facility] Evaluation + Plan note Note Date & Type Note Facility Evaluation + Plan note Future Appointments Appointment Date:12/18/2021 10:30:00 AM Scheduled Provider:ROHAN CASTILLO MD Location:[facility] Appointment Type:ENDO OV [facility] Evaluation + Plan note Laboratory Note Date & Type Note Facility Evaluation + Plan note Future Appointments Appointment Date:04/16/2022 11:30:00 AM Scheduled Provider:ROHAN CASTILLO MD Location:[facility] Appointment Type:ENDO OV Future Scheduled TestsThyroid Stimulating Hormone 03/17/22 [facility] Evaluation + Plan note Laboratory Note Date & Type Note Facility Evaluation + Plan note Future Appointments Appointment Date:11/26/2022 10:15:00 AM Scheduled Provider:ROHAN CASTILLO MD Location:[facility] Appointment Type:ENDO OV Future Scheduled TestsThyroid Stimulating Hormone 03/17/22Microalbumin Level Urine 10/16/22 [facility] Hospital course Narrative Note Date & Type Note Facility Hospital course Narrative No data available for this section [facility] Hospital Discharge instructions Note Date & Type Note Facility Hospital Discharge instructions No data available for this section [facility] Progress note Note Date & Type Note Facility Progress note No data available for this section [facility] Summary Purpose Family History No Family History Records FoundNo Family History Records Found Advance Directives No Advanced Directives Records FoundNo Advanced Directives Records Found Additional Source Comments Care Team (unrecognized sect ion and content) Personnel Name: KARTHIKEYAN JANSEN III, MD Address: [address] [place] [address]- Care Team (unrecognized sect ion and content) Care Team Personnel Name: KARTHIKEYAN JANSEN III, MD Member Role: Primary Care Physician Address: Address: [address] [place] [id number]- Care Team Related Persons Name: VÍCTOR LAMAS Address: Home [address] [place] [phone] INFORMATION SOURCE (unrecogn ized section and content) DATE CREATED AUTHOR 09/19/2023 [facility] ([place]) DATE CREATED AUTHOR AUTHOR'S ORGANIZ ATION 10/15/2024 [facility] FOR RECORDS PERTAINING TO PATIENTS WHO ARE OR HAVE BEEN ENROLLED IN A CHEMICAL DEPENDENCY/SUBSTANCEABUSE PROGRAM, SOME INFORMATION MAY BE OMITTED. This clinical summary was aggregated from multiple sources. Caution should be exercised in using it in the provision of clinical care. This summary normalizes information from multiple sources, and as a consequence, information in this document may materially change the coding, format and clinical context of patient data. In addition, data may be omitted in some cases. CLINICAL DECISIONS SHOULD BE BASED ON THE PRIMARY CLINICAL RECORDS. [facility] [employer] provides no warranty or guarantee of the accuracy or completeness of information in this document.
[2025-04-22 21:00] LABS: Absolute Lymphocyte Count 1.75 X10^3/uL (0.83-4.51); Absolute Neutrophil Count 3.7 X10^3/uL (2.0-7.7); Basophil# 0.05 X10^3/uL; Basophil% 0.8 % (0-1); Eosinophil# 0.53 X10^3/uL; Eosinophils% 8.1 % (0-5); Hematocrit 38.5 % (37-47); Hemoglobin 12.7 g/dL (12.0-15.0); Lymphocyte # 1.75 X10^3/ul (0.83-4.51); Lymphocyte % 26.8 % (19-41); Mean Corpuscular Hgb 28.1 pg (27.0-32.0); Mean Corpuscular Volume 85.2 fL (81-99); Mean Platelet Vol. 10.1 fl (6.2-12.0); Monocyte# 0.47 X10^3/uL; Monocyte% 7.2 % (0-10); NRBC Flagged by Analyzer 0 % (0-5); Neutrophil # 3.71 X10^3/uL (2.7-7.7); Neutrophil % 56.6 % (47-70); Platelet Count 245 K/mm3 (150-450); RBC Distribution Width CV 14.7 % (11.6-14.6); RBC Distribution Width SD 45.3 fl (35.1-43.9); Red Blood Count 4.52 M/mm3 (4.2-5.4); White Blood Count 6.5 K/mm3 (4.4-11.0)
[2025-04-22 21:38] LABS: International Normalized Ratio 0.9; Partial Thromboplast Time 25.7 Seconds (24.1-36.2); Prothrombin Time (Protime)PT. 12.7 SECONDS (11.7-14.9)
[2025-04-22 21:40] LABS: Squamous Epithelial Cells - UA 0-5 SEEN /hpf (5-10); White Blood Cells 0-5 SEEN /hpf (0-5)
[2025-04-22 21:45] LABS: Lipase 42 U/L (13-75)
[2025-04-22 21:46] LABS: ALB/GLOB Ratio 1.4 RATIO (0.9-2.4); AST(SGOT) 32 U/L (<=31); Alanine Aminotransfer ALT/SGPT 20 U/L (<=34); Albumin, Serum 4.1 g/dL (3.4-4.8); Alkaline Phosphatase 65 U/L (35-104); Anion Gap 14 (5-15); BUN 22 mg/dL (4-19); BUN/Creat Ratio 24.7 RATIO (10-20); Calcium,Total 9.3 mg/dL (7.6-11.0); Carbon Dioxide 22.2 mmol/L (21.0-32.0); Chloride 103 mmol/L (98-108); Creatinine, Serum 0.88 mg/dL (0.70-1.20); EST Glomerular Filtration Rate 72 (>60); Globulin 2.9 g/dL (2.2-4.2); Glucose 177 mg/dL (70-99); Potassium 4.8 mmol/L (3.3-5.1); Protein, Total 6.9 g/dL (5.9-8.4); Sodium Level 139 mmol/L (133-145); Total Bilirubin 0.52 mg/dL (0.00-1.30)
[2025-04-22 22:21] VITALS: BP 128/70; PULSE 70; RESP 16; O2SAT 99
[2025-04-22 22:34] VITALS: BP 128/70; PULSE 70; RESP 16; TEMP 37; O2SAT 99
== END 2025-04-22 22:41 | disposition home or self-care (01) ==
PROVIDERS: Emergency Provider Emergency Medicine; PCP Nurse Practitioner Family; Visit Provider Emergency Medicine
DX: S22.41XA Multiple fractures of ribs, right side, initial encounter for closed fracture (principal); E11.9 Type 2 diabetes mellitus without complications; Z79.4 Long term (current) use of insulin; W10.8XXA Fall (on) (from) other stairs and steps, initial encounter; J90 Pleural effusion, not elsewhere classified; I25.10 Atherosclerotic heart disease of native coronary artery without angina pectoris; I10 Essential (primary) hypertension; Z79.02 Long term (current) use of antithrombotics/antiplatelets; Z79.82 Long term (current) use of aspirin; Z79.84 Long term (current) use of oral hypoglycemic drugs; Z79.899 Other long term (current) drug therapy
CPT/HCPCS: 71260; 74177; 80053; 81001; 83690; 85025; 85610; 85730; 96361; 96374; 96375; 96376; 99284; Q9967; A4216; J2405

== ENCOUNTER 2025-08-20 11:35 | Emergency (ER) | payer OTHER, SELFPAY ==
[2025-08-20] VITALS (7 sets, daily range): BP systolic 121–200; BP diastolic 56–83; PULSE 74–82; RESP 15–18; TEMP 36.6; O2SAT 96–98; BMI 30.4
--- NOTE | 2025-08-20 12:03 | CT_ITS ---
EXAM: NONCONTRAST CT SCAN OF THE HEAD CLINICAL HISTORY: Trauma COMPARISON: None TECHNIQUE: Serial axial series through the head were obtained without contrast. 2-D coronal and sagittal reformats were then obtained. DLP = 779 mGy-cm FINDINGS: Brain: There is acute subdural hemorrhage in the left posterior parietal and occipital region, measuring 0.4 cm in depth, image 30/42. There is no acute large territorial infarct, intracranial hemorrhage, midline shift or mass effect. There are atherosclerotic vascular calcifications involving the bilateral carotid siphons. The sella and pineal gland regions appear unremarkable. There is no evidence of cerebellar tonsillar herniation. Ventricles: There is no acute hydrocephalus. Basilar cisterns are patent. Paranasal sinuses: Mucosal thickening is visible in the right maxillary sinus. Mastoid air cells: Well-aerated. Calvarium: The bony calvarium is intact. There is a 1.8 x 1.2 cm subcutaneous hematoma overlying the left orbit, with adjacent significant soft tissue swelling. There is no associated fracture. Orbits: The bilateral globes are symmetric, without retrobulbar compressive mass lesion or hemorrhage. CT/Brain/Head without Contrast IMPRESSION: There is acute subdural hemorrhage in the left posterior parietal and occipital region, measuring 0.4 cm in depth, image 30/42. There is a 1.8 x 1.2 cm subcutaneous hematoma overlying the left orbit, with ad jacent significant soft tissue swelling. There is no associated fracture. Critical results were discussed with Dr. Bass by Dr. Stewart at the time o f dictation. Reading Location: [facility]
--- NOTE | 2025-08-20 12:05 | EX.ED.GENINJ ---
HPI History of Present Illness Chief Complaint: Trauma Informant: patient and family Narrative Narrative: Patient is a 69-year-old female with a history of DM, HTN, and CABG presenting after being trampled by a horse. Patient is accompanied by a family member who is supplementing history. - Incident occurred while handling a horse; horse became startled. - Horse attempted to pass , who was unaware of 's position behind her; patient was knocked down and trampled. - Unsure if the horse struck her head; family member reports possible brief loss of consciousness, but very brief if occured; patient remembers the event. - Sustained injuries to the face, knees, and abdomen; reports significant pain in the forehead and knees. - Denies chest, arm, neck, or back pain. - Able to ambulate since the incident. - Taking metformin, losartan, carvedilol, and a diuretic. - Underwent CABG in 2014. 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 Home Medications ?Medication ?Instructions ?Recorded ?Last Taken ?Type aspirin 81 mg chewable tablet 81 mg PO DAILY@0800 07/02/15 07/02/15 History folic acid 0.8 mg capsule 0.8 mg PO DAILY 07/02/15 07/02/15 History lovastatin 40 mg tablet 40 mg PO DAILY 07/02/15 07/01/15 History metformin 1,000 mg tablet 1,000 mg PO BIDCM 07/02/15 07/02/15 History cholecalciferol (vitamin D3) 125 5,000 unit PO DAILY 11/05/17 Unknown History mcg (5,000 unit) capsule ferrous sulfate 325 mg (65 mg 325 mg PO DAILY 11/05/17 Unknown History iron) tablet fluoxetine 10 mg capsule 10 mg PO QHS 11/05/17 Unknown History multivitamin 1 tab PO QAM 11/05/17 Unknown History insulin glargine 100 unit/mL (3 unit subcut 10/14/23 Unknown History mL) subcutaneous pen (Lantus Solostar U-100 Insulin) insulin lispro 100 unit/mL 1 sliding scale dose subcut 10/14/23 Unknown History subcutaneous pen (Admelog SoloStar U-100 Insulin lispro) clopidogrel 75 mg tablet 75 mg PO DAILY #90 tabs 03/21/25 Unknown Rx lidocaine 5 % topical patch 1 patch topical DAILY #15 ea 04/22/25 Unknown Rx (Lidoderm) ondansetron 4 mg disintegrating 4 mg PO Q6H PRN nausea and 04/22/25 Unknown Rx tablet vomiting #20 tabs oxycodone-acetaminophen 5 mg-325 1 tab PO Q6H PRN pain 3 days #12 04/22/25 Unknown Rx mg tablet (Endocet) tabs carvedilol 6.25 mg tablet 6.25 mg PO BID #180 tabs 06/18/25 Unknown Rx losartan 50 mg tablet See Rx Instructions .Route 06/18/25 Unknown Rx .COMPLEX #90 tabs insulin human U-100 NPH-regulr subcut 08/20/25 Unknown History 70-30 mix 100 unit/mL subcutaneous susp (Novolin 70/30 U-100 Insulin) levothyroxine 50 mcg tablet 50 mcg PO DAILY 08/20/25 Unknown History Allergy/AdvReac Type Severity Reaction Status Date / Time lisinopril AdvReac Intermediate cough Verified 08/20/25 11:38 Family History Sister Breast cancer Brother Diabetes Cancer Father CAD (coronary artery disease) Surgical History History of bilateral cataract extraction H/O partial thyroidectomy History of tonsillectomy History of cholecystectomy History of appendectomy H/O coronary artery bypass surgery (06/25/15) History of left heart catheterization (06/25/15) Hx of biopsy Hx of section Social History household members: spouse housing: house Smoking Status: Never smoker second hand exposure: No alcohol intake: never substance use type: does not use caffeine: No what type of physical activity do you participate in: none frequency: does not exercise seatbelt use: always ROS ROS ED Constitutional Constitutional ED: Denies chills or fever(s) Eyes Eyes: Reports other Details: Trouble seeing out of left eye due to swelling from trauma ; Denies change in vision or diplopia ENT ENT ED: Reports facial pain; Denies ear pain, epistaxis or rhinorrhea Cardiovascular Cardiovascular: Denies chest pain or palpitations Respiratory/Chest Respiratory/Chest: Denies cough or dyspnea Gastrointestinal Gastrointestinal: Reports abdominal pain; Denies diarrhea, melena, nausea or vomiting Genitourinary Genitourinary ED: Denies dysuria or hematuria Musculoskeletal Musculoskeletal: Reports extremity pain; Denies back pain or neck pain Integumentary Reports Abrasions; Denies abscess, laceration or rash Neurologic Neurologic: Denies confusion, headache(s), paresthesias or weakness EXAM Physical Exam Const Vital Signs: 08/20/25 11:36 08/20/25 11:46 08/20/25 11:46 Temperature 97.8 F Temperature Source Temporal Pulse Rate 76 74 Respiratory Rate 16 16 Respiratory Effort Normal Non-Labored Respiratory Depth Normal Respiratory Pattern Normal Blood Pressure 121/67 H 200/83 H Blood Pressure Mean 85 122 Pulse Ox 98 98 Oxygen Delivery Method Room Air Room Air Room Air 08/20/25 12:33 08/20/25 13:35 08/20/25 14:00 Temperature Temperature Source Pulse Rate 74 74 74 Respiratory Rate 16 15 18 Respiratory Effort Respiratory Depth Respiratory Pattern Blood Pressure 173/62 H 139/61 H 166/64 H Blood Pressure Mean 99 87 98 Pulse Ox 96 96 98 Oxygen Delivery Method Room Air Room Air Room Air Positive well nourished and well developed General Appearance ED: well developed and NAD HEENT Reports TM's clear and nasal mucous membranes and turbinates normal HEENT Narrative: Left periorbital ecchymosis to the point where her upper eyelid is swollen shut. Unable to lift it and verify her eye appears to be intact and atraumatic. There is tenderness at the superior orbital brim and the forehead around the left eyebrow, but no infraorbital hypoesthesia or tenderness, no zygomatic arch tenderness, no nasal tenderness or epistaxis or mid facial instability. No enophthalmos or exophthalmos. No hemotympanum no Dangelo sign. No other signs of head trauma. Face and Sinus: facial tenderness Tympanic Membrane ED: Yes TM's clear Eyes PERRL and EOMs intact bilaterally Visual Acuity: other Other Details: no entrapment or pain with extraocular movements Neck full ROM and supple General: Negative for tenderness Chest Wall inspection of chest normal and palpation of chest normal Chest: symmetrical chest wall rise; Negative for crepitus or tenderness Resp normal respiratory effort and clear to auscultation bilaterally Percussion: other equal BS bilat Cardio no murmurs Rate: regular rate Rhythm: regular rhythm GI soft to palpation GI Narrative: Soft no guarding or rebound tenderness but there is significant ecchymosis in the left lower quadrant and tenderness there. Abdomen is nondistended. Back/Spine normal ROM Cervical Spine: Negative for cervical spine tenderness Thoracic Spine / Upper Back: Negative for thoracic spinal tenderness Lumbar Spine / Lower Back: Negative for lumbar spinal tenderness Extremity normal to inspection and full ROM Extremity Narrative: Mild tenderness contusion medial right knee, no effusion full range of motion no other bony tenderness there. Full range of motion to the other extremities of the legs bilaterally, including the left knee which has some more minor abrasions and contusions of the lateral aspect without bony tenderness. Upper extremities are atraumatic. General Extremety ED: Negative for tenderness Neuro oriented x3, CN's II-XII intact bilaterally, moves all extremities, no focal motor deficits and no sensory deficits noted Andrea Coma Scale: document GCS findings Spontaneous Obeys Commands Oriented 15 Sensorium / Orientation: awake and alert Psych mental status grossly normal and thought process normal Skin no wounds Lesions: no lesions Rashes: no rashes MDM MDM MDM Narrative Medical decision making narrative: Assessment: The patient is a 69-year-old female with PMH of type 2 diabetes, hypertension, and coronary artery disease status post triple CABG in 2014 presenting for head, abdominal, and extremity trauma after being knocked down and stepped on by a horse. CT head demonstrates a small left subdural hematoma with approximately 3 mm midline shift; CT abdomen/pelvis shows an abdominal wall hematoma and suspected mild active bleeding or bruising near the left iliacus, correlating with her left thigh pain. Bilateral knee radiographs and chest radiograph are negative for acute injury. Hemoglobin is 11.8 g/dL and vital signs remain stable (BP 139/61 mmHg, HR 74). Given the intracranial hemorrhage and potential intra-abdominal bleeding, transfer to a trauma center for higher level care is warranted. Plan: - Administered 1 L IV crystalloid while in ED - Offered analgesia and antiemetics as needed - No antihypertensives or platelet products given at this time per discussion with accepting trauma service - Accepted for transfer to [facility] ICU for trauma/neurosurgical management; arranging transport Diagnostics: - Bilateral knee x-rays (4 views each): no acute fracture or dislocation. Independently interpreted by Ti castro; radiology concurs - Chest x-ray (1 view): no acute intrathoracic pathology. Independently interpreted by Ti castro - CT head without contrast: small left subdural hematoma with ~3 mm midline shift per radiology - CT abdomen/pelvis with IV contrast: abdominal wall hematoma; suspected mild active bleeding/bruising near left iliacus per radiology - Hemoglobin 11.8 g/dL Consultations: - Trauma surgery, Dr. Patel at [facility] ? accepted patient to ICU and agreed with no reversal agents prior to transfer Lab Data Attestation: I reviewed the patient's lab results. Labs: Laboratory Results - last 24 hr 08/20/25 08/20/25 12:25 13:45 WBC 12.5 H RBC 4.03 L Hgb 11.8 L Hct 35.3 L MCV 87.6 MCH 29.3 MCHC 33.4 RDW Std Deviation 46.3 H RDW Coeff of Michael 14.3 Plt Count 239 MPV 9.7 Immature Gran % (Auto) 0.400 Neut % (Auto) 80.7 H Lymph % (Auto) 11.1 L Saline % (Auto) 5.8 Eos % (Auto) 1.8 Baso % (Auto) 0.2 Absolute Neuts (auto) 10.1 H Absolute Lymphs (auto) 1.39 Nucleated RBC % 0 PT 14.6 INR 1.1 APTT 28.2 Sodium 139 Potassium 4.9 Chloride 101 Carbon Dioxide 27.2 Anion Gap 11 BUN 24 H Creatinine 0.79 Estim Creat Clear Calc 69.96 Est GFR (MDRD) Non-Af 83 BUN/Creatinine Ratio 30.2 H Glucose 250 H Calcium 9.2 Total Bilirubin 0.65 AST 36 H ALT 34 Alkaline Phosphatase 60 Total Protein 6.7 Albumin 4.1 Globulin 2.5 Albumin/Globulin Ratio 1.6 Urine Color Yellow Urine Clarity Clear Urine pH 6.0 Ur Specific [place] 1.015 Urine Protein 30 H Urine Glucose (UA) 250 H Urine Ketones Negative Urine Occult Blood Negative Urine Nitrite Negative Urine Bilirubin Negative Urine Urobilinogen Normal Ur Leukocyte Esterase Negative Urine RBC 0 SEEN Urine WBC 0 SEEN Ur Squamous Epith Cells 0-5 SEEN Urine Bacteria 0 SEEN Urine Mucus 0 SEEN Blood Type A POSITIVE Antibody Screen NEGATIVE Radiography Diagnostic Testing: Clinical Impression(s) from Imaging Studies Brain CT 10/27/25 12:03 IMPRESSION: There is acute subdural hemorrhage in the left posterior parietal and occipital region, measuring 0.4 cm in depth, image 30/42. There is a 1.8 x 1.2 cm subcutaneous hematoma overlying the left orbit, with adjacent significant soft tissue swelling. There is no associated fracture. Critical results were discussed with Dr. Bass by Dr. Stewart at the time of dictation. Reading Location[facility] Abdomen/Pelvis CT 08/20/25 12:50 IMPRESSION: Findings suggestive of subcutaneous hematoma and edema overlying the left lower abdominal wall with extension into the musculature at that site. There is thickening of the left iliacus muscle with possible focal bleeding site within it. Reading Location: [id number] Chest X-Ray 08/20/25 13:00 IMPRESSION: No acute abnormality Reading Location: [id number] Knee X-Ray 08/20/25 13:00 IMPRESSION: No fracture. Mild osteoarthritis patellofemoral joint. Advanced atherosclerosis. Reading Location: [id number] Knee X-Ray 08/20/25 13:00 IMPRESSION: No acute abnormality. Advanced atherosclerosis. Reading Location: [id number] Rhythm Strip Rhythm Strip: Sinus Rhythm Rate: 76 Ectopy: None EKG Initial EKG: Attestation: I personally reviewed and interpreted this EKG as follows: Interpretation: Sinus Rhythm and No Acute Injury Pattern Comments: Nml axis & intervals; nml EKG Management Discussion w/another healthcare provider: Dry House Tender (trauma surgery dr. patel, Odilon Olguin) and Radiologist Critical Care Time Critical Care Time: Yes Critical care time (excluding procedures): 30-74 minutes (35 min), Including time spent:, Discussing w/Patient &/or Family/Cod Clerk, Discussing w/Consultants, Arranging Admission or Transfer and Performing Direct Patient Care at Bedside Discharge Plan Triage Chief Complaint: Trauma ED Provider: Ti Bass Dx/Rx/DC Orders Clinical Impression: Traumatic subdural hematoma (SDH), Abdominal wall hematoma, Hematoma of left iliopsoas muscle, Victim of trampling from animal Prescriptions: No Action fluoxetine 10 mg capsule 10 mg PO QHS cholecalciferol (vitamin D3) 5,000 unit capsule 5,000 unit PO DAILY multivitamin tablet 1 tab PO QAM insulin lispro [Admelog SoloStar U-100 Insulin] 100 unit/mL insulin pen 1 sliding scale dose subcut Patient Comments: inject 4 to 6 units subcutaneously three times a day before meals as directed insulin glargine [Lantus Solostar U-100 Insulin] 100 unit/mL (3 mL) insulin pen subcut Patient Comments: inject 18 units subcutaneously once daily lovastatin 40 MG tablet 40 mg PO DAILY Patient Comments: cholesterol metformin 1,000 MG tablet 1,000 mg PO BIDCM Patient Comments: diabetes aspirin 81 MG tablet,chewable 81 mg PO DAILY@0800 Patient Comments: WILL STOP 1 WEEK PRIOR TO SURGERY folic acid 0.8 MG capsule 0.8 mg PO DAILY Patient Comments: supplement ferrous sulfate 325 MG tablet 325 mg PO DAILY Patient Comments: supplement lidocaine [Lidoderm] 5 % adhesive patch,medicated 1 patch topical DAILY Qty: 15 0RF Rx Instructions: leave on most painful area for up to 12 hrs oxycodone-acetaminophen [Endocet] 5-325 mg tablet 1 tab PO Q6H PRN (Reason: pain) 3 Days Qty: 12 0RF ondansetron 4 mg tablet,disintegrating 4 mg PO Q6H PRN (Reason: nausea and vomiting) Qty: 20 0RF Novolin 70/30 U-100 Insulin 100 unit/mL (70-30) suspension SUBCUT Patient Comments: inject SUBCUTANEOUSLY 20 units IN THE MORNING, AND 10 units IN THE EVENING levothyroxine 50 mcg tablet 50 mcg PO DAILY clopidogrel 75 mg tablet 75 mg PO DAILY Qty: 90 3RF carvedilol 6.25 mg tablet 6.25 mg PO BID Qty: 180 3RF losartan 50 mg tablet See Rx Instructions .ROUTE .COMPLEX Qty: 90 3RF Dose Instruction: take 1 tablet by mouth once daily Rx Instructions: take 1 tablet by mouth once daily Primary Care Provider: Joyce Washburn [facility] MATE Referrals: Joyce Washburn [facility] MATE, [facility]ATE-C [Primary Care Provider, Medical] Print Language: Guamanian Disposition Disposition: Acute Care Hospital
[2025-08-20] MEDS: 0.9% Normal Saline (1000mL) 1,000 ML 1000 ML IV (12:32)
--- NOTE | 2025-08-20 12:36 | CM.ED ---
Social work Reason for referral: trauma Referral source: case find SW identified patient presenting to [facility] ED after being trampled by a horse. FROYLAN called [facility] Liaison, Solange, at 1145 to inform Solange. Per RN at 1155, there was plenty of family support and SW should check in later. Around 1230, SW entered patient's room, introducing self and role at [facility]. Patient was observed sitting up in bed with family member holding ice pack on face. Patient and family denied needs at this time and thanked FROYLAN for support. Emma English, BOTTOM SAW OPERATOR, [employer]
[2025-08-20 12:39] LABS: Hematocrit 35.3 % (37-47); Hemoglobin 11.8 g/dL (12.0-15.0); Immature Granulocytes Count 0.050 X10^3/uL (0.0-0.0); Mean Corp Hgb Conc 33.4 g/dL (32-36); Mean Corpuscular Volume 87.6 fL (81-99); Mean Platelet Vol. 9.7 fl (6.2-12.0); NRBC Flagged by Analyzer 0 % (0-5); Platelet Count 239 K/mm3 (150-450); RBC Distribution Width CV 14.3 % (11.6-14.6); RBC Distribution Width SD 46.3 fl (35.1-43.9); Red Blood Count 4.03 M/mm3 (4.2-5.4); White Blood Count 12.5 K/mm3 (4.4-11.0)
[2025-08-20 12:42] LABS: Prothrombin Time (Protime)PT. 14.6 SECONDS (11.7-14.9)
[2025-08-20 12:43] LABS: Partial Thromboplast Time 28.2 Seconds (24.1-36.2)
--- NOTE | 2025-08-20 12:50 | CT_ITS ---
PROCEDURE: ABDOMEN/PELVIS W IV CONT ONLY 08/20/2025 REASON FOR EXAM: BLUNT TRAUMA, LLQ PAIN/TEND TECHNIQUE: Procedure Code: [id number] Modality: CT Procedure: ABDOMEN/PELVIS W IV CONT ONLY Coronal and Sagittal reconstruction series were provided. CONTRAST: Isovue-300 VOLUME: 95 mL One or more dose reduction techniques were used (e.g., Automated exposure control, adjustment of the mA and/or kV according to patient size, use of iterative reconstruction technique. RADIATION DOSE SUMMARY: CTDlvol: 22.6 mGy DLP: 1266.82 mGycm COMPARISON: Prior study dated April 22, 2025. FINDINGS: Lung bases: The lung bases are clear. Coronary artery calcification. Liver: Diffuse fatty infiltration. Borderline hepatomegaly Gallbladder: Surgically absent. Spleen: Borderline splenomegaly. Pancreas: Normal size without evidence of mass surrounding inflammation or ductal dilation. Adrenals: Unremarkable Kidneys: Stable focal scarring in the upper lateral aspect of the right kidney. Bladder: Unremarkable Reproductive Organs: Fibroid uterus. Bowel: Colonic diverticulosis without diverticulitis. Appendix: Status post appendectomy. Lymph nodes: Unremarkable Vasculature: Mild diffuse atherosclerotic calcifications are noted. Atherosclerotic calcification of the celiac and superior mesenteric arteries. Peritoneum / Retroperitoneum: There is evidence of soft tissue prominence overlying the subcutaneous fat in the left lower quadrant with thickening of the adjacent musculature. There is enlargement of the left iliacus muscle suggestive of possible hematoma. A focal area of increased attenuation is seen within the muscle. This may represent a possible active bleeding site. Bones: Unremarkable CT/Abdomen/Pelvis W IV Cont ONLY IMPRESSION: Findings suggestive of subcutaneous hematoma and edema overlying the left lower abdominal wall with extension into the musculature at that site. There is thickening of the left iliacus muscle with possible focal bleeding site within it. Reading Location: [facility]
[2025-08-20 12:54] LABS: AST(SGOT) 36 U/L (<=31); Alanine Aminotransfer ALT/SGPT 34 U/L (<=34); Albumin, Serum 4.1 g/dL (3.4-4.8); Alkaline Phosphatase 60 U/L (35-104); Anion Gap 11 (5-15); BUN 24 mg/dL (4-19); BUN/Creat Ratio 30.2 RATIO (10-20); Calcium,Total 9.2 mg/dL (7.6-11.0); Carbon Dioxide 27.2 mmol/L (21.0-32.0); Chloride 101 mmol/L (98-108); Estimated Creatinine Clearance 69.96 ml/min (50-250); Globulin 2.5 g/dL (2.2-4.2); Glucose 250 mg/dL (70-99); Potassium 4.9 mmol/L (3.3-5.1)
--- NOTE | 2025-08-20 13:00 | RAD_ITS ---
PROCEDURE: KNEE 4 OR MORE VIEWS 08/20/2025 REASON FOR EXAM: INJURY TECHNIQUE: Procedure Code: RADKN Modality: DX Procedure: KNEE 4 OR MORE VIEWS Laterality: Left COMPARISON: None FINDINGS: Bones: No fracture Joints: Mild joint space narrowing at the patellofemoral joint mainly at the lateral facet. Effusion: Small suprapatellar joint effusion. Soft tissues: Atherosclerosis of the arterial structures. Surgical clip adjacent to the medial femoral condyle. RAD/Knee 4 or More Views IMPRESSION: No fracture. Mild osteoarthritis patellofemoral joint. Advanced atheroscleros is. Reading Location: [id number]
--- NOTE | 2025-08-20 13:00 | RAD_ITS ---
PROCEDURE: CHEST 1 VIEW (PORTABLE) 08/20/2025 REASON FOR EXAM: FALL/TRAUMA TECHNIQUE: Frontal view of the chest. COMPARISON: April 22, 2025 FINDINGS: Hardware: EKG leads Heart: Mildly enlarged status post median sternotomy Lungs: Clear. No pneumothorax or pleural effusion Bones: The bones are unremarkable. RAD/Chest 1 View (Portable) IMPRESSION: No acute abnormality Reading Location: [id number]
--- NOTE | 2025-08-20 13:00 | RAD_ITS ---
PROCEDURE: KNEE 4 OR MORE VIEWS 08/20/2025 REASON FOR EXAM: INJURY TECHNIQUE: Procedure Code: RADKN Modality: DX Procedure: KNEE 4 OR MORE VIEWS Laterality: Right COMPARISON: None FINDINGS: Bones: No fracture seen Joints: Normal alignment. Effusion: No effusion. Soft tissues: Advanced atherosclerosis. Other: No foreign body RAD/Knee 4 or More Views IMPRESSION: No acute abnormality. Advanced atherosclerosis. Reading Location: [id number]
[2025-08-20 13:48] LABS: Mucous, Urine 0 SEEN /hpf (<or=2+); Red Blood Cells-Urine 0 SEEN /hpf (0-5)
[2025-08-20 13:58] LABS: Color, Urine Yellow (Yellow); Glucose, Dipstick 250 mg/dl (Normal); Ketone-Dipstick Negative (Negative); Leukocyte Esterase-Dipstick Negative /ul (Negative); Nitrite-Dipstick Negative (Negative); Occult Blood-Urine Negative /ul (Negative); Protein-Dipstick 30 mg/dl (Negative); Specific Gravity, Urine 1.015 (1.002-1.030); Urine Bilirubin Dipstick Negative (Negative)
[2025-08-20 14:06] LABS: Squamous Epithelial Cells - UA 0-5 SEEN /hpf (5-10)
--- NOTE | 2025-08-20 15:01 | ED.RN ---
Report called to receiving nurse at [phone].
[2025-08-20] MEDS: fentaNYL 100 MCG/2 ML Ampul 50 MCG IV (15:05)
== END 2025-08-20 15:21 | disposition short-term general hospital (02) ==
PROVIDERS: Emergency Provider Emergency Medicine; PCP Nurse Practitioner Family; Visit Provider Emergency Medicine
DX: S06.5X0A Traumatic subdural hemorrhage without loss of consciousness, initial encounter (principal); E11.9 Type 2 diabetes mellitus without complications; Z79.4 Long term (current) use of insulin; I10 Essential (primary) hypertension; Z79.899 Other long term (current) drug therapy; Z95.1 Presence of aortocoronary bypass graft; I25.10 Atherosclerotic heart disease of native coronary artery without angina pectoris; Z79.84 Long term (current) use of oral hypoglycemic drugs; S30.11XA Contusion of abdominal wall, initial encounter; W55.89XA Other contact with other mammals, initial encounter; Z86.73 Personal history of transient ischemic attack (TIA), and cerebral infarction without residual deficits; Z79.82 Long term (current) use of aspirin; Z79.02 Long term (current) use of antithrombotics/antiplatelets; E03.9 Hypothyroidism, unspecified; Z79.890 Hormone replacement therapy; Z98.41 Cataract extraction status, right eye; Z98.42 Cataract extraction status, left eye; Z90.49 Acquired absence of other specified parts of digestive tract; S70.02XA Contusion of left hip, initial encounter
CPT/HCPCS: 70450; 71045; 73564; 74177; 80053; 81001; 85025; 85610; 85730; 86850; 86900; 86901; 93005; 96361; 96374; 96375; 99285; A4216; J2405; J2597

== ENCOUNTER → 2025-09-04 | Outpatient (CLI) | payer SELFPAY, OTHER ==
--- NOTE | 2025-09-04 17:37 | CT_ITS ---
PROCEDURE: BRAIN/HEAD WITHOUT CONTRAST 09/04/2025 REASON FOR EXAM: SDH, STRUCK BY HORSE TECHNIQUE: Procedure Code: CTBR Modality: CT Procedure: BRAIN/HEAD WITHOUT CONTRAST Coronal and Sagittal reconstruction series were provided. One or more dose reduction techniques were used (e.g., Automated exposure control, adjustment of the mA and/or kV according to patient size, use of iterative reconstruction technique. RADIATION DOSE SUMMARY: DLP: 813 mGycm COMPARISON: None available at the time of this study FINDINGS: There is no acute infarct, intracranial hemorrhage, or mass effect. There is no hydrocephalus or significant midline shift. No acute, depressed calvarial fractures. Mild left zygomatic arch soft tissue contusion. The paranasal sinuses are clear. CT/Brain/Head without Contrast IMPRESSION: No acute intracranial process. Interval resolution of previously seen subdural hematoma. Reading Location: [facility]
--- OUTSIDE RECORDS SUMMARY | 2025-09-04 17:49 | XMS RPT_ITS | CCD ---
Author Organization [facility] Inform ion [facility] Care Team Providers Care Technical Training Coordinator Name Role Phone Jj, Jennifer Unavailable Unavailable Jj, Jennifer Unavailable Unavailable Jj, Ejnnifer Unavailable Unavailable Jj, Jennifer Unavailable Unavailable Daryl Gil Y Unavailable Unavailable JUSTYNA DIXON, KARTHIKEYAN Rosenthal III Primary Care Physician [phone] JUSTYNA DIXON, KARTHIKEYAN Rosenthal III Primary Care Physician ANNA DIXON, ROHAN Attending Sadia JANSEN MD, KATRHIKEYAN Rosenthal III Primary Care Unavaildawn CASTILLO MD, ROHAN Attending Sadia JANSEN MD, KARTHIKEYAN Rosenthal III Primary Care UnavailDr. Nilson Sands DO Emergency Provider [phone] Wu LICENSED CLINICIAN-C, Joyce Marte Primary Care Provider [phone] Unavailable Primary Care Provider UnavailELIO Mcallister Admitting Unavailable ELIO WILLS Attending Unavailable NONE, PCP Referring Unavailable CRUZ MARTINEZ Consulting Unavailable Wu LICENSED CLINICIAN, Joycemaria e Marte Primary Care UnavailTi Clark Attending Unavailable Wu [facility] UnavailNilson Sands Attending Unavailable Wu [facility], [facility] Primary Care UnavailJosé Miguel Garduno Referring Unavailable José Miguel GAONA Attending Unavailable Care Physician, No Primary Referring Unava ilable Care Physician, No Primary Primary Care Unava ilable Kobi STATON, Bing Duncan Attending Unavail able Allergies Allergy Classification Reported Allergen(s) Allergy Type Date of Onset Reaction(s) Facility (10 sources) lisinopril; 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: [lisinopril] drug allergy 06-19-2015 [facility] Work Phone: (4 sources) NKDA drug allergy 06-19-2015 [facility] Work Phone: (3 sources) Morphine Drug Allergy 08-20-2025 Vomiting Only [facility] (1 source) Morphine Drug Allergy 08-20-2025 [facility] Repository Medications Current Medications Medication Drug Class(es) Dates Sig (Normalized) Sig (Original) acetaminophen 325 mg / oxyCODONE hydrochloride 5 mg oral tablet (1 source) Opioid Agonist Start: 04-22-2025 take 1 tablet by mouth every six hours as needed for pain Oxycodone-Acetaminop hen (Endocet) 5-325 mg tablet Active 1 {tbl} PO EVERY 6 HOURS as needed for pain 12 3 0 April 22, 2025 Fall Fracture of multiple ribs Unspecified fall, initial encounter cholecalciferol 0.125 mg oral capsule (4 sources) Vitamin D Start: 11-05-2017 take 1 capsule by mouth once daily Cholecalciferol (Vitamin D3) 5,000 unit capsule Active 5000 U PO DAILY November 05, 2017 1:00am take 1 tablet by mouth once taiwo y cholecalciferol (Vitamin D-3) 125 MCG (5000 UT) tablet Take 5,000 Units by mouth daily. Active clopidogrel 75 mg oral tablet (20 sources) P2Y12 Platelet Inhibitor Start: 06-30-2015 End: 03-21-2025 take 1 tablet by mouth once daily Clopidogrel 75 mg tablet Active 75 mg PO DAILY 90 3 March 21, 2025 2:43pm cyclobenzaprine hydrochloride 10 mg oral tablet (1 source) Muscle Relaxant Start: 04-22-2025 take 1 tablet by mouth three times daily as needed for muscle spasms Cyclobenzaprine 10 mg tablet Active 10 mg PO THREE TIMES A DAY as needed for muscle spasm 14 0 April 22, 2025 12:00am ferrous sulfate 325 mg oral tablet (20 sources) Start: 05-01-2016 take 1 tablet by mouth once daily IRON 325 (65 Fe) MG TABS One tablet by mouth daily FERROUS SULFATE [id number] Carlton Meade MD Start: 05-01-2016 take 1 tablet by dwayne th every other day IRON 325 (65 Fe) MG TABS One tablet by mouth every other day FERROUS SULFATE [id number] Bing Peace PA-C Start: 07-02-2015 End: 11-05-2017 take 1 tablet by mouth twice daily FERROUS SULFATE 325 (65 Fe) MG TABS One tablet by mouth twice daily FERROUS SULFATE [id number] Jerrica Jorge RN Start: 06-30-2015 take 1 tablet by dwayne th once daily Ferrous Sulfate 325 MG tablet Active 325 mg PO DAILY November 05, 2017 12:22pm glimepiride 4 mg oral tablet (12 sources) Sulfonylurea Start: 03-27-2021 take 1 tablet by mouth twice daily glimepiride 4 mg oral tablet See Instructions, take 1 tablet by mouth twice a day, # 60 tab(s), 3 Refill(s), Pharmacy: [address], 162.6, cm, 03/18/21 10:50:00 EDT, Height, kg, 03/18/21 10:50:00 EDT, Dosing Weight Start Date: 03/27/21 Status: Ordered Start: 06-19-2015 End: 06-12-2021 take 1 tablet by mouth twice daily before mealtime Glimepiride 2 MG tablet Discontinued 2 mg PO TWICE DAILY BEFORE MEALS July 02, 2015 12:00am June 12, 2021 8:51am Start: 06-19-2015 take 1 tablet by dwayne th twice daily GLIMEPIRIDE 1 MG TABS One tablet by mouth twice daily GLIMEPIRIDE [id number] Jerrica Jorge RN 3 ml insulin glargine 100 unt/ml pen injector (4 sources) Insulin Analog Start: 10-14-2023 Insulin Glargi ne (Lantus Solostar U-100 Insulin) 100 unit/mL (3 mL) insulin pen Active U SC October 14, 2023 1:00am insulin glargine (Lantus) 100 UNIT/ML injection Inject under the skin Nightly. Active insulin isophane, human 100 unt/ml injectable suspension (3 sources) insulin NPH, Iso phane, (HumuLIN N,NovoLIN N) 100 UNIT/ML injection Inject under the skin 2 times daily (before meals). Active 3 ml insulin isophane, human 70 unt/ml / insulin, regular, human 30 unt/ml pen injector (3 sources) Insulin Start: 06-08-2022 ReliOn/NovLIN 70/30 FlexPen subcutaneous suspension 20-15 unit(s), Subcutaneous, BIDAC, # 15 mL, 4 Refill(s), [facility]: [facility][id number], 163, cm, 04/16/22 11:39:00 EDT, Height, kg, 04/16/22 11:39:00 EDT, Dosing Weight Start Date: 06/08/22 Status: Ordered Start: 02-18-2022 End: 10-14-2023 Insulin Nph And Regular Deanna n (Novolin 70-30 Flexpen U-100) 100 unit/mL (70-30) insulin pen Discontinued 0 SC .COMPLEX February 18, 2022 12:00am October 14, 2023 2:58pm inject 18 units subcutaneously AM and 10 units with dinner. Varies based on meals Start: 12-18-2021 ReliOn/NovLIN 70/30 FlexPen subcutaneous suspension Dose : 18 unit(s) =, Subcutaneous, BIDAC, # 15 mL, 4 Refill(s), Pharmacy: [facility] 162.7, cm, 12/18/21 10:28:00 EST, Height, kg, 12/18/21 10:28:00 EST, Dosing Weight Start Date: 12/18/21 Status: Ordered lidocaine 0.05 mg/mg medicated patch (1 source) Antiarrhythmic, Amide Local Anesthetic Start: 04-22-2025 Lidocaine (Lidoderm) 5 % adhesive patch,medicated Active 1 NMA TOPICAL DAILY 15 0 April 22, 2025 12:00am leave on most painful area for up to 12 hrs lovastatin 40 mg oral tablet (12 sources) HMG-CoA Reductase Inhibitor Start: 06-19-2015 take 1 tablet by mouth once daily lovastatin 40 mg oral tablet See Instructions, take 1 tablet by mouth once daily, # 30 tab(s), 3 Refill(s), [facility]: [facility] #[id number], 163, cm, 04/16/22 11:39:00 EDT, Height, kg, 04/16/22 11:39:00 EDT, Dosing Weight Start Date: 10/01/22 Status: Ordered metFORMIN hydrochloride 1000 mg oral tablet (12 sources) Biguanide Start: 06-19-2015 take 1 tablet by mouth twice daily metFORMIN 1000 mg oral tablet (IR) See Instructions, take 1 tablet by mouth twice a day, # 240 tab(s), 2 Refill(s), [facility]acy: [facility] #[id number], 163, cm, 04/16/22 11:39:00 EDT, Height, kg, 04/16/22 11:39:00 EDT, Dosing Weight Start Date: 07/07/22 Status: Ordered take 2 tablets by [facility] twice daily at mealtime metFORMIN (Glucophage) 500 MG tablet Markel e 1,000 mg by mouth 2 times daily (with meals). Active multivitamin (Theragran) tablet (3 sources) take 1 tablet by mouth once daily multivitamin (Theragran) tablet Take 1 tablet by mouth daily. Active Multivitamin tablet (1 source) Start: 11-05-19 Multivitamin tablet Active 1 {tbl} PO EVERY MORNING November 05, 2017 1:00am ondansetron 4 mg disintegrating oral tablet (1 source) Serotonin-3 Receptor Antagonist Start: 04-22-20 take 1 tablet by mouth every six hours as needed for nausea and vomiting Ondansetron 4 mg tablet,disintegratin g Active 4 mg PO EVERY 6 HOURS as needed for nausea and vomiting April 22, 2025 12:00am oxyCODONE hydrochloride 5 mg oral tablet (6 sources) Opioid Agonist Start: 08-21-20 End: 08-26-20 take 1 tablet by mouth every four hours as needed for pain oxyCODONE (Roxicodone) 5 MG immediate release tablet Indications: Struck by horse, initial encounter Take 1 tablet (5 mg) by mouth every 4 hours as needed for moderate pain (4-6) for up to 5 days. 10 tablet 08/21/2025 08/26/2025 Active Start: 08-20-2025 End: 08-21-2025 take 1 tablet by mouth every four hours as needed for pain oxyCODONE (Roxicodone) immediate release tablet 5 mg Completed/Discontinued Medications Medication Drug Class(es) Dates Sig (Normalized) Sig (Original) acetaminophen 500 mg oral tablet (2 sources) Start: 08-20-2025 End: 08-21-2025 take 1 tablet by mouth every eight hours 1,000 mg, Oral, Every 8 hours, First dose on 08/20/25 at 1630, Maximum dose of acetaminophen is 4000 mg from all sources in 24 hours. HYDROCODONE-ACETAMIN OPHEN (11 sources) Opioid Agonist Start: 07-08-2015 take 1 tablet by mouth every four hours as needed NORCO 5-325 MG TABS One tablet by mouth every 4 hours as needed HYDROCODONE-ACETAMI NOPHEN [id number] Jerrica Jorge RN Start: 07-08-2015 End: 07-18-2015 take 1 tablet by mouth every four hours as needed NORCO 5-325 MG TABS One tablet by mouth every 4 hours as needed HYDROCODONE-ACETAMINOPHEN [id number] Carlton Meade MD Start: 07-02-2015 End: 11-05-2017 take 1 tablet by mouth every four hours as needed NORCO 5-325 MG TABS One tablet by mouth every 4 hours as needed HYDROCODONE-ACETAMINOPHEN [id number] Jerrica Jorge RN ALPRAZolam 0.25 mg oral tablet (5 sources) Benzodiazepine Start: 07-18-2015 XANAX 0.25 MG TABS As needed ALPRAZOLAM [id number] Carlton Meade MD aspirin 81 mg oral strip (20 sources) Platelet Aggregation Inhibitor, Nonsteroidal Anti-inflammatory Drug Start: 07-08-2015 take 1 tablet by mouth once daily ASPIRIN 81 MG TABS One tablet by mouth daily ASPIRIN [id number] Alana Ware RN Start: 07-08-2015 take 1 tablet by dwayne th once daily ASPIRIN EC 81 MG TBEC One tablet by mouth daily ASPIRIN [id number] Keyonna Busby RN Start: 07-02-2015 take 1 tablet by dwayne th once daily Aspirin 81 MG tablet,chewable Active 81 mg PO DAILY@0800 July 02, 2015 12:00am Start: 06-25-2015 aspirin 81 mg oral tablet (chewable) Dose : 81 mg = 1 tab(s), Oral, Daily, 0 Refill(s) Start Date: 06/25/15 Status: Ordered atorvastatin 10 mg oral tablet (2 sources) HMG-CoA Reductase Inhibitor Start: 08-20-2025 End: 08-21-2025 10 mg, Oral, Nightly, First dose on Wed08/20/25 at 2100, Substituted for lovastatin (Mevacor). carvedilol 6.25 mg oral tablet (20 sources) alpha-Adrenergic Ceasar, beta-Adrenergic Ceasar Start: 08-20-2025 End: 08-21-2025 Start: 02-18-2022 End: 05-29-2024 take 1 tablet by mouth twice daily Carvedilol 6.25 mg tablet Discontinued 6.25 mg PO TWICE A DAY 180 3 May 29, 2024 10:54am May 29, 2024 11:44am Start: 08-21-2021 take 1 tablet by dwayne th twice daily carvedilol 3.125 mg oral tablet take 1 tablet by mouth twice a day Start Date: 08/21/21 Status: Ordered Start: 08-21-2021 take 1 tablet by dwayne th twice daily carvedilol 3.125 mg oral tablet take 1 tablet by mouth twice a day Start Date: 08/21/21 Status: Ordered Start: 07-02-2015 End: 02-18-2022 take 1 tablet by mouth twice daily Carvedilol 3.125 mg tablet Discontinued 3.125 mg PO TWICE A DAY 180 3 February 02, 2022 2:33pm February 18, 2022 2:58pm cholecalciferol 9.52 unt/ml / glucose 357 mg/ml oral gel (2 sources) Vitamin D Start: 08-20-2025 End: 08-21-2025 15 g, Oral, As needed, low blood sugar, Starting on 08/20/25 at 1655, If blood glucose less than 50 mg/dL and patient ALERT and NOT NPO, give 2 tubes glucose gel. If blood glucose less than 70 mg/dL and patient ALERT and NOT NPO, give 1 tube glucose gel. Repeat blood glucose in 15 minutes. If blood glucose is less than 70 mg/dL, repeat treatment and recheck blood glucose in 15 minutes x2 and notify provider. docusate sodium 100 mg oral tablet (11 sources) Start: 07-08-2015 End: 10-10-2015 take 1 tablet by mouth twice daily COLACE 100 MG CAPS One tablet by mouth twice daily DOCUSATE SODIUM [id number] Carlton Meade MD Start: 07-02-2015 End: 06-12-2021 take 1 tablet by mouth twice daily COLACE 100 MG CAPS One tablet by mouth twice daily DOCUSATE SODIUM [id number] Jerrica Jorge RN FLUoxetine 10 mg oral capsule (9 sources) Serotonin Reuptake Inhibitor Start: 02-02-2022 FLUoxetine 10 mg ora l tablet Dose : 10 mg = 1 tab(s), Oral, qHS, # 90 tab(s), 3 Refill(s), Pharmacy: [facility] [id number] [facility], 162.7, cm, 12/18/21 10:28:00 EST, Height, kg, 12/18/21 10:28:00 EST, Dosing Weight Start Date: 02/02/22 Status: Ordered Start: 10-24-2021 FLUoxetine 10 mg oral tablet Dose : 10 mg = 1 tab(s), Oral, qHS, # 90 tab(s), 3 Refill(s), called to pharmacy (Rx), Dosing Weight Start Date: 10/24/21 Status: Ordered Start: 11-05-2017 End: 08-21-2025 take 10 mg by mouth once daily 10 mg, Oral, Nightly, F irst dose on 08/20/25 at 2100 folic acid 0.8 mg oral tablet (12 sources) Start: 07-08-2015 take 1 tablet by mouth once daily FOLIC ACID 800 MCG TABS One tablet by mouth daily FOLIC ACID [id number] Jerrica Jorge RN Start: 07-02-2015 take 1 capsule by [facility] once daily Folic Acid 0.8 MG capsule Active 0.8 mg PO DAILY July 02, 2015 12:00am Start: 06-30-2015 folic acid 0.8 mg oral tablet Dose : 0.8 mg = 1 tab(s), Oral, Daily, # 30 tab(s), 0 Refill(s) Start Date: 06/30/15 Status: Ordered take 0.8 mg by mouth once daily folic acid (Folvite) 800 MCG tablet Take 0.8 mg by mouth daily. Active furosemide 20 mg oral tablet (11 sources) Loop Diuretic Start: 07-02-2015 End: 11-05-2017 take 1 tablet by mouth once daily LASIX 20 MG TABS One tablet by mouth daily FUROSEMIDE [id number] Carlton Meade MD glucagon (rdna) 1 mg injection (2 sources) Antihypoglycemic Agent Start: 08-20-2025 End: 08-21-2025 1 mg, IntraMUSCular, PRN, low blood sugar, Blood glucose less than 70 mg/dL and patient NOT ALERT or NPO and does not have IV access., Starting on Wed08/20/25 at 1655, After administration, attempt intravenous access and start D5W at 100 mL/hr. Repeat blood glucose in 15 minutes x2 and notify provider. 50 ml glucose 50 mg/ml injection (4 sources) Start: 08-20-2025 End: 08-21-2025 100 mL/hr, IntraVENous, PRN, Blood sugar less than 70mg/dL, Starting on Wed08/20/25 at 1655, Start infusion following administration of dextrose 50% or glucagon. Start: 08-20-2025 End: 08-21-2025 12.5 g, IntraVENous, PRN, lo w blood sugar, Blood glucose less than 70 mg/dL and patient NOT ALERT or NPO., Starting on Wed08/20/25 at 1655, If patient does not respond within 5 minutes, repeat dose x1. Start D5W at 100 mL/hour until ordering provider can be reached. Repeat blood glucose in 15 minutes. If blood glucose is less than 70 mg/dL, repeat treatment and recheck blood glucose in 15 minutes x2. If using Glucostabilizer, dose as instructed per system. 1 ml hydrALAZINE hydrochloride 20 mg/ml injection (2 sources) Arteriolar Vasodilator Start: 08-20-2025 End: 08-21-2025 10 mg, IntraVENous, Every 2 hour PRN, high blood pressure, Second line, give for blood pressure greater than 140 hold for heart greater than 100 bpm, Starting on Wed08/20/25 at 1647 insulin lispro 100 unt/ml injectable solution (6 sources) Insulin Analog Start: 08-20-2025 End: 08-21-2025 0-12 Units, SubCUTAneous, Every 6 hours, First dose on Wed08/20/25 at 1700, NPO Medium Dose Correction Algorithm Glucose: Dose: If LESS than 150 No Insulin 150-199 2 Units 200-249 4 Units 250-299 6 Units 300-349 8 Units 350-400 10 Units Above 400 12 Units Start: 10-14-2023 Insulin Lispro (Admelog Solostar U-100 Insulin) 100 unit/mL insulin pen Active 1 sliding scale dose SC October 14, 2023 1:00am Insulin Lispro ( Humalog) 100 UNIT/ML solution injection Inject under the skin 3 times daily (with meals). Active insulin, regular, human 100 unt/ml injectable solution (1 source) Insulin Start: 08-21-2021 ReliOn/NovoLIN R FlexPen 100 units/mL injectable solution See Instructions, 10 units at breakfast BG 80-100- takes 8 units BG 100-150- take -10 units BG 150-200- take -13 units BG 200-250- take -15 units, # 15 mL, 1 Refill(s), Pharmacy: [facility] [id number] [facility], 162.6, cm, 08/21/21 11:42:00 EDTSukhi... Start Date: 08/21/21 Status: Ordered iopamidol (Isovue-370) 76 % injection 75 mL (2 sources) Start: 08-20-2025 End: 08-20-2025 take 75 mL intravenously once as needed 75 mL, IntraVENous, IMG once PRN, contrast, Starting on Wed08/20/25 at 2018, For 1 dose labetalol hydrochloride 5 mg/ml injectable solution (2 sources) beta-Adrenerg ic Ceasar Start: 08-20-2025 End: 08-21-2025 10 mg, IntraVENous, Every 2 hour PRN, high blood pressure, First line, give for blood pressure greater than 140 hold for heart rate less than 60 bpm, Starting on Wed08/20/25 at 1647 levothyroxine sodium 0.025 mg oral tablet (11 sources) l-Thyroxine Start: 08-21-2025 End: 08-21-2025 take 50 ug by mouth once daily 50 mcg, Oral, Daily, First dose on Wed08/21/25 at 0900, Tube feeding (TF) interaction, obtain physician order to manage, recommend holding TF for 30 minutes before and after dose. Start: 10-14-2023 take 2 tablets by [facility] once daily Levothyroxine 25 mcg tablet Active 50 ug PO DAILY October 14, 2023 2:59pm Start: 10-01-2022 levothyroxine 25 mcg (0.025 mg) oral tablet Dose : 25 mcg = 1 tab(s), Oral, qDay, take 1 tablet by mouth daily, # 90 tab(s), 2 Refill(s), [facility]: [facility][id number], Hypothyroid, 163, cm, 04/16/22 11:39:00 EDT, Height, kg, 04/16/22 11:39:00 EDT, Dosing Weight Start Date: 10/01/22 Status: Ordered Start: 02-18-2022 End: 10-14-2023 take 1 tablet by mouth once daily Levothyroxine 25 mcg tablet Discontinued 25 ug PO DAILY February 18, 2022 12:00am October 14, 2023 2:59pm Start: 01-19-2022 levothyroxine 25 mcg (0.025 mg) [...] # 90 tab(s), 2 Refill(s), Pharmacy: [facility] [facility], Hypothyroid, 162.6, cm, 03/18/21 10:50:00 EDT, Height, kg, 03/18/21 10:50:00 EDT, Dosing Weight Start Date: 04/24/21 Status: Ordered Start: 06-07-2020 End: 02-18-2022 take 1 capsule by mouth once daily Levothyroxine 25 mcg capsule Discontinued 25 ug PO DAILY June 07, 2020 12:00am February 18, 2022 2:22pm take 1 tablet by dwayne th once daily levothyroxine (Synthroid, Levoxyl) 50 MCG tablet Take 50 mcg by mouth daily. Active lisinopril 2.5 mg oral tablet (11 sources) Angiotensin Converting Enzyme Inhibitor Start: 07-04-2015 End: 11-05-2017 take 1 tablet by mouth once daily LISINOPRIL 2.5 MG TABS One tablet by mouth daily LISINOPRIL [id number] Carlton Meade MD losartan potassium 25 mg oral tablet (20 sources) Angiotensin 2 Receptor Ceasar Start: 08-21-2025 End: 08-21-2025 take 50 mg by mouth once daily 50 mg, Oral, Daily, First dose on Wed08/21/25 at 0900 Start: 08-21-2021 take 1 tablet by dwayne th once daily losartan 25 mg oral tablet take 1 tablet by mouth once daily Start Date: 08/21/21 Status: Ordered Start: 06-12-2021 End: 05-29-2024 take 1 tablet by mouth once daily Losartan 50 mg tablet Discontinued 0 .ROUTE .COMPLEX 90 3 May 29, 2024 10:54am May 29, 2024 11:44am take 1 tablet by mouth once daily Start: 11-05-2017 End: 06-12-2021 take 1 tablet by mouth once daily Losartan 25 mg tablet Discontinued 25 mg PO daily 90 3 March 27, 2021 9:37am June 12, 2021 9:14am Start: 10-10-2015 take 1 tablet by dwayne th once daily LOSARTAN POTASSIUM 25 MG TABS One tablet by mouth daily LOSARTAN POTASSIUM [id number] Bing Peace PA-C meclizine hydrochloride 12.5 mg oral tablet (1 source) Antiemetic Start: 07-02-2015 End: 11-05-2017 take 1 tablet by mouth three times daily as needed for dizziness Meclizine 12.5 MG tablet Discontinued 12.5 mg PO 3 TIMES DAILY NEEDED as needed for Dizziness July 02, 2015 12:00am November 05, 2017 10:36am methocarbamol 500 mg oral tablet (2 sources) Muscle Relaxant Start: 08-21-2025 End: 08-21-2025 take 1 dose by mouth three times daily 500 mg, Oral, Every 8 hours scheduled (3 times per day), First dose on Wed08/21/25 at 0630 mupirocin 0.02 mg/mg topical ointment (2 sources) RNA Synthetase Inhibitor Antibacterial Start: 08-20-2025 End: 08-21-2025 1 Application, Nasal, 2 times daily, First dose on Wed08/20/25 at 2100, For 5 days, Apply to: nares, Indications: MRSA Nasal Decolonization 1 ml naloxone hydrochloride 0.4 mg/ml injection (2 sources) Opioid Antagonist Start: 08-20-2025 End: 08-21-2025 0.4 mg, IntraVENous, Every 5 min PRN, opioid reversal, respiratory depression, Starting on Wed08/20/25 at 1633, +++ For RR ondansetron ODT (Zofran-ODT) disintegrating tablet 4 mg (2 sources) Start: 08-20-2025 End: 08-21-2025 take 1 tablet by mouth every eight hours as needed for nausea and vomiting ondansetron ODT (Zofran-ODT) disintegrating tablet 4 mg polyethylene glycol [id number] mg powder for oral solution (2 sources) Osmotic Laxative Start: 08-20-2025 End: 08-21-2025 take 17 g by mouth every twenty-four hours as needed for constipation 17 g, Oral, Daily PRN, constipation, Starting on Wed08/20/25 at 1624, 1st line for treatment of constipation - give scheduled if no bowel movement in past 24 hours. potassium chloride 10 meq extended release oral tablet (4 sources) Start: 07-02-2015 End: 07-04-2015 Potassium Chloride (K-Tab Er) 10 MEQ Tablet.Er Discontinued 10 meq PO DAILY July 02, 2015 12:00am July 04, 2015 1:03pm Start: 06-30-2015 potassium chlo ride 10 mEq oral tablet, extended release Dose : 10 mEq = 1 tab(s), Oral, qDay, # 10 tab(s), 0 Refill(s) Start Date: 06/30/15 Status: Ordered 50 ml sodium chloride 9 mg/ml injection (2 sources) Start: 08-20-2025 End: 08-21-2025 take 100 mL intravenously every hour 100 mL/hr, IntraVENous, Continuous, Starting on Wed08/20/25 at 1645 Problems Active Problems Problem Classification Problem Date Documented Date Episodic/Chronic Acute cerebrovascular disease (9 sources) Cerebrovascular accident; 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: [Hematoma of subdural space of neuraxis] Onset: 07-02-2015 07-02-2015 Chronic Coronary atherosclerosis and other heart disease (12 sources) Atherosclerotic heart disease of lime coronary artery without angina pectoris; 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: [Coronary atherosclerosis] Onset: 07-02-2015 07-02-2015 Chronic Diabetes mellitus without complication (8 sources) Diabetes mellitus; 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: [Type 2 diabetes mellitus without complications] Onset: 06-19-2015 06-19-2015 Chronic Disorders of lipid metabolism (8 sources) Hyperlipidemia; 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: [Hyperlipidemia, unspecified] Onset: 06-19-2015 06-19-2015 Chronic E Codes: Fall (1 source) Fall; 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: [Unspecified fall, initial encounter] 04-22-2025 Episodic E Codes: Natural/environment (10 sources) Struck by horse, initial encounter; 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: [Other specified injury caused by animal] Onset: 08-20-2025 08-21-2025 Episodic Essential hypertension (2 sources) Essential hypertension; 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: [Essential (primary) hypertension] Onset: 10-12-2024 06-13-2021 Chronic Intracranial injury (4 sources) Traumatic hematoma of subdural space of neuraxis; 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: [Traumatic subdural hemorrhage with loss of consciousness of 30 minutes or less, initial encounter] Onset: 08-21-2025 08-21-2025 Episodic Nutritional deficiencies (4 sources) Vitamin D deficiency 01-24-2020 Chronic Other female genital disorders (3 sources) Pelvic hematoma; 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: [Other specified conditions associated with female genital organs and menstrual cycle] Onset: 08-21-2025 08-21-2025 Episodic Other fractures (1 source) Fracture of multiple ribs ; 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: [Multiple fractures of ribs, unspecified side, initial encounter for closed fracture] 04-22-2025 Episodic Pleurisy; pneumothorax; pulmonary collapse (1 source) Pleural effusion; 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: [Pleural effusion, not elsewhere classified] 04-22-2025 Episodic Thyroid disorders (3 sources) Goiter 01-24-2020 Chronic Unclassified (1 source) Long-term drug therapy; 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: [Other emt intermediate (current) drug therapy] Onset: 06-19-2015 06-19-2015 Unclassified (1 source) Traumatic subdural hemorrhage with loss of consciousness status unknown, initial encounter ([facility]); 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: [Traumatic subdural hemorrhage with loss of consciousness status unknown, initial encounter ([facility])] Onset: 08-20-2025 Unclassified (1 source) Traumatic subdural hemorrhage with loss of consciousness status unknown, initial encounter; 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: [Traumatic subdural hemorrhage with loss of consciousness status unknown, initial encounter] Onset: 08-31-2025 Past or Other Problems Problem Classification Problem Date Documented Date Episodic/Chronic Abdominal pain (1 source) Unspecified abdominal pain; 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: [Unspecified abdominal pain] Onset: 04-25-2025 Episodic Coronary atherosclerosis and other heart disease (5 sources) Presence of aortocoronary bypass graft; 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: [Presence of aortocoronary bypass graft] Onset: 07-02-2015 07-02-2015 Episodic Nonspecific chest pain (20 sources) Chest discomfort; 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: [Other chest pain] Onset: 06-18-2015 Resolved: 05-01-2016 06-19-2015 Episodic Other aftercare (4 sources) Other prison (current) drug therapy; 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: [Other prison (current) drug therapy] Onset: 06-19-2015 06-19-2015 Episodic Other circulatory disease (1 source) History of cerebrovascular accident; 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: [Personal history of transient ischemic attack (TIA), and cerebral infarction without residual deficits] Onset: 06-25-2015 06-06-2020 Episodic Comment on above: post op CABG Other nutritional; endocrine; and metabolic disorders (4 sources) Body mass index (BMI) 27.0-27.9, adult; 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: [Body mass index (BMI) 27.0-27.9, adult] Onset: 04-30-2017 04-30-2017 Episodic Other screening for suspected conditions (not mental disorders or infectious disease) (10 sources) Abnormal result of cardiovascular function study, unspecified; 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: [Abnormal result of cardiovascular function study, unspecified] Onset: 06-24-2015 Resolved: 10-05-2015 10-05-2015 Episodic Unclassified (2 sources) Struck by horse, initial encounter 08-21-2025 Unclassified (1 source) Traumatic subdural hemorrhage with loss of consciousness status unknown, initial encounter ([facility]); 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: [Traumatic subdural hemorrhage with loss of consciousness status unknown, initial encounter ([facility])] Onset: 08-20-2025 Results Test Name Value Interpretation Reference Range Facility 36on 08-30-[address] head wo contrast order and demographics faxed to [facility] per pt request [phone], . [facility] 36on 08-29-2025 36 Pt. Was seen in the ER for a head bleed. Pt. Has a hospital follow up appointment on 09/11. Pt. Needs an order for a CT head to be done at [facility] and pt. will get it on a disc and bring it to her appointment. Pt. is requesting the order be faxed to him at [phone] [facility] 36 Name of Caller: Christina Contact Reason for Appointment: Spouse called to scheduled LICENSED CLINICIAN appointment as follow up from ER. Please call Christina back to schedule Office Name: Neurosurgery [facility] [id number] 08-21-2025 [id number] Care Managment Initial Assessment Date: 08/21/2025 Patient Name: Abisai Lamas : 1955 Patient Information Source of Information: Patient Cognition/Language: WFL - Within Functional Limits Permission given to speak with patient dental detail representative/careg iver as indicated: Yes Confirmation of Payer with patient/family: Yes Payer Name: [employer] [facility] [place]: No Confirmation of Primary Care Physician: Confirmed PCP Name: Katherine Elkins Seen in last 2 years?: Yes Primary Caregiver: Self If assistance needed, confirmed caregiver ready, willing and able to care for patient at discharge: Yes Confirmed with: Abisai Living Arrangements Current Residence: House Number of Floors 1 Number of Entry Steps: 1 Bed/Bath Levels: Both first floor Facility: Facility Name: Plan to Return: Lives with: Spouse/significant other Support Systems: Spouse/significant other, Family members Activities of Daily Living Ambulation: Independent Bathing/Dressing: Independent Elimination/Continen ce/Toileting: Independent Feeding: Independent Who Assists with Activities of Daily Living: Abisai Instrumental Activities of Daily Living Prescription Coverage: Yes Pharmacy Used: [facility] [place], [place] - [address] Medication Management: Independent Transportation/Shopp ing: Independent Transportation Mode: Car Needs Assistance with Transportation at Discharge: No Meal Preparation: Independent Laundry/Cleaning: Independent Finances/Bill Paying: Independent Communication: Independent Types of Care Services/Equipment Utilized Care Services: Dialysis Type: Durable Medical Equipment: Patient's Goal/Discharge Plan Patient expects to be discharged to: home Discharge Planning Actions: Continue to follow Patient's Choice Rights and [employer] and Collaborative Relationships Disclosed as Indicated for Post-Acute Care: Interdisciplinary Team Engagement: PT/OT, Geriatric Assessment Social Work Referral for: Additional Information: Pt admitted s/p trampled by horse, L SDH, iliacus and rectus hematoma. Introduced myself and role. Pt lives with , who can provide assistance. Pt verbalizes she will have a ride home. PT/OT is pending. Will follow. Normal [facility] BASIC METABOLIC PANELon 10-2 Anion gap [Moles/Vol] 5 mmol/L Normal 3-13 [facility] Comment on above: Performed By: #### L AB15 ####Firer Low Pressure: CLARISA MABRY ([id number])[facility])[address] [place] [address] Calcium [Mass/Vol] 7.8 mg/dL Low 8.8-10.0 [facility] Comment on above: Performed By: #### L AB15 ####Firer Low Pressure: CLARISA MABRY ([id number])[facility])[address] [place] [address] Chloride [Moles/Vol] 107 mmol/L Normal 98-107 [facility] Comment on above: Performed By: #### L AB15 ####Firer Low Pressure: CLARISA MABRY ([id number])[facility])[address] [place] [address] CO2 [Moles/Vol] 26 mmol/L Normal 23-31 [facility] Comment on above: Performed By: #### L AB15 ####Firer Low Pressure: CLARISA MABRY ([id number])[facility])[address] [place] [address] Creatinine [Mass/Vol] 0.66 mg/dL Normal 0.58-1.12 [facility] Comment on above: Performed By: #### L AB15 ####Firer Low Pressure: CLARISA MABRY ([id number])[facility])[address] [place] [address] GLOMERULAR FILTRATION RATE ML/MIN/1.73 SQ M.PREDICTED >90.0 Normal >60.0 [facility] Comment on above: Result Comment: Calc ulation based on the Chronic Kidney Disease Epidemiology Collaboration (CKD-EPI) equation refit without adjustment for race Performed By: #### L AB15 ####Firer Low Pressure: CLARISA MABRY ([id number])[facility] ([facility])[address] [place] [address] Glucose [Mass/Vol] 127 mg/dL High 82-115 [facility] Comment on above: Performed By: #### L AB15 ####Firer Low Pressure: CLARISA MABRY ([id number])[facility])[address] [place] [address] Potassium [Moles/Vol] 3.7 mmol/L Normal 3.5-5.1 [facility] Comment on above: Result Comment: [facility] potassium values may be up to 0.5 mmol/L lower than serum values. Performed By: #### L AB15 ####Firer Low Pressure: CLARISA MABRY ([id number])[facility] ([facility])[address] [place] [address] Sodium [Moles/Vol] 138 mmol/L Normal 136-145 [facility] Comment on above: Performed By: #### L AB15 ####Firer Low Pressure: CLARISA MABRY ([id number])[facility])[address] [place] [address] Urea nitrogen [Mass/Vol] 25 mg/dL High 9-23 [facility] Comment on above: Performed By: #### L AB15 ####Firer Low Pressure: CLARISA MABRY ([id number])[facility])[address] [place] [address] Basic metabolic 1998 panelon 08-21-2025 Anion gap [Moles/Vol] 5 mmol/L 3 - 13 mmol/L [facility] Calcium [Mass/Vol] 7.8 mg/dL Low 8.8 - 10. 0 mg/dL [facility] Chloride [Moles/Vol] 107 mmol/L 98 - 10 7 mmol/L [facility] CO2 [Moles/Vol] 26 mmol/L 23 - 31 mmol/L [facility] Creatinine [Mass/Vol] 0.66 mg/dL 0.58 - 1.12 mg/dL [facility] [employer] GFR/1.73 sq M.predicted (S/P/Bld) [Vol rate/Area] - PINF [facility] Comment on above: Calculation based on the Chronic Kidney Disease Epidemiology Collaboration (CKD-EPI) equation refit without adjustment for race Glucose [Mass/Vol] 127 mg/dL High 82 - 115 mg/dL [facility] Interpretation and review of laboratory results Abnormal [facility] Potassium [Moles/Vol] 3.7 mmol/L 3.5 - 5.1 mmol/L [facility] Comment on above: Plasma potassium faby ues may be up to 0.5 mmol/L lower than serum values. Sodium [Moles/Vol] 138 mmol/L 136 - 145 mmol/L [facility] Urea nitrogen [Mass/Vol] 25 mg/dL High 9 - 23 mg/dL [facility] [employer] Consulton 08-21-2025 Consult [facility] Geriatric Medicine Inpatient Consult Service Admission Date:08/20/2025 Admission Status: INPATIENT Chief Complaint: injury from horse Reason for Appointment Geriatrics consulted for Trauma Assessment Principal Problem: Struck by horse, initial encounter Plan Acute pain due to trauma - patient reports pain is well controlled at time of visit - agree with scheduled acetaminophen - monitor closely for oversedation/confusi on with use of scheduled methocarbamol - PRN low dose oxycodone- assess for need for scheduled bowel regimen in setting of PRN opioid use L SDH/IPH - seen by neurosurgery- per note, no neurosurgical intervention indicated at this time - plan for outpatient follow up with neurosurgery for repeat head CT At risk for delirium - increased risk for delirium in setting of head injury, ICU environment - recommend delirium order set while inpatient - continue to assess and treat for pain - monitor for urinary retention/constipati on - Avoid sedating/anticholine rgic medications, encourage sleep hygiene, encourage family visits, optimize sensory input and access to assistive devices where indicated, encourage time up in chair as able and D/c Casarez, restraints, IV lines, as able Follow-up: will sign off, please call if questions Subjective: HPI 69 y.o. year-old female with past medical history of hypothyroidism, hypertension, type 2 diabetes mellitus presented from home for injury. Per review of H&P patient tripped near a horse and was trampled with + head stroke. Imaging revealed L subdural hematoma, CT abdomen and pelvis showing soft tissue injury to LLQ/L flank with multiple areas of active extravasation within the abdominal muscles and iliacus muscle. Soft tissue injury to R hip. Neurosurgery consulted- no neurosurgical intervention indicated at this time. Patient reports that her pain is well controlled at this time, reports that she was able to get some sleep overnight, appetite is good, she knows that she is in [place] at the hospital. She is eager to return to home- reports that she is very functional and independent in ADLs and IADLs at baseline. Hsb is at bedside at time of visit- reports there are no stairs in home and they have good family support with children living nearby and grandchildren that are able to assist if needed. Labs reviewed: Hgb 8.1, Hematocrit- 25.1 Allergies[1] Current Medications[2] Medical History[3] Surgical History[4] Social History Social History Tobacco Use Smoking status: Not on file Smokeless tobacco: Not on file Substance Use Topics Alcohol use: Not on file Social History Social History Narrative Not on file Family History Family History[5] No family status information on file. Family history reviewed as above Review of Systems Constitutional: Negative for appetite change and fatigue. HENT: Negative for trouble swallowing. Eyes: Negative for visual disturbance. Respiratory: Negative for cough and shortness of breath. Gastrointestinal: Negative for constipation and nausea. Genitourinary: Negative for difficulty urinating. Musculoskeletal: Positive for arthralgias. Negative for gait problem. Neurological: Negative for dizziness. Psychiatric/Behavior al: Negative for confusion and sleep disturbance. Objective: BP (!) 133/47 Pulse 78 Temp 36.7 ?C (98.1 ?F) (Temporal) Resp 16 Ht 5' 4 (1.626 m) Wt 180 lb 1.9 oz (81.7 kg) SpO2 92% BMI 30.92 kg/m? Intake/Output Summary (Last 24 hours) at 08/21/2025 1438 Last data filed at 08/21/2025 0600 Gross per 24 hour Intake 1503 ml Output 325 ml Net 1178 ml Wt Readings from Last 3 Encounters: 08/20/25 180 lb 1.9 oz (81.7 kg) Physical Exam Constitutional: General: She is not in acute distress. Comments: Sitting up in bedside chair, alert and cooperative with exam, family at bedside HENT: Right Ear: External ear normal. Left Ear: External ear normal. Mouth/Throat: Mouth: Mucous membranes are moist. Eyes: Comments: L periorbital ecchymosis Cardiovascular: Rate and Rhythm: Normal rate. Pulmonary: Effort: Pulmonary effort is normal. No respiratory distress. Breath sounds: No wheezing, rhonchi or rales. Comments: Auscultated anteriorly Abdominal: Comments: Abdominal binder in place Musculoskeletal: Right lower leg: No edema. Left lower leg: No edema. Skin: General: Skin is warm. Neurological: Mental Status: She is alert and oriented to person, place, and time. Sensory: No sensory deficit. Psychiatric: Attention and Perception: Attention normal. Mood and Affect: Mood normal. Behavior: Behavior normal. Labs and Imaging: Recent Results (from the past 24 hours) CBC Collection Time: 08/20/25 5:15 PM Result Value Ref Range Auto WBC 8.3 3.6 - 10.7 10*3/uL RBC 3.06 (L) 3.80 - 5.20 10*6/uL Hemoglobin 8.7 (L) 11.7 - 16.0 g/dL Hematocrit 26.9 (L) 35.0 - 47.0 % MCV (more content not included)... Normal [facility] Consult Palliative Care Initial Consult Chief Complaint: Abisai Lamas is a 69 y.o. female with chief complaint of trampled by horse. Palliative Care is signing off, please re-consult if needed. (add SIGNOFFTRANSITION dotphrase below) Assessment/Plan Goals of care Abisai Lamas retains capacity for medical decision-making -legal surrogate decision maker is , Christina Lamas [phone], does not have HCPOA filled out, would be NOK -see subjective for details of conversation -goals of care include: 1) continue current management 2) to remain independent at home 3) remain full code Acute pain -scheduled robaxin 500mg TID, tylenol 1g TID, oxycodone 5-10mg q4h PRN -pt reports only mild pain in left frontotemporal region and left flank/hip has not needed oxycodone pain controlled with tyelnol L SDH/IPH -on asa/plavix s/p DDAVP -Ct head stable, NSGY evaluated and no need for intervention or AED, followup outpatient CT and consider resuming ASA/plavix Palliative Care Encounter -Code Status: Full Code - will continue to follow for ongoing monitoring of progression of Pain as well as for appropriateness for hospice care due to Head Trauma Total of 45 minutes spent on this encounter including Chart review, Patient visit and exam, Documentation in EHR, Care coordination, Communicating with primary attending or other consultants, Obtaining and/or reviewing separately obtained history, and Counseling and educating patient/family/careg iver. Discharge planning: Signing off, discharge disposition per primary team Patient meets criteria for general inpatient hospice care: No Palliative Care IDT members involved: None Discussed the plan of care with the other interdisciplinary team (IDT) members of the Palliative Care and Hospice teams and Patient and Family. Subjective: Subjective/Events Abisai Lamas is a 69 y.o. female with Pmhx of DMII, hypothyroidism, HTN, CAD s/p CABG, hx of CVA who presented after accident on 08/20 where she fell and was stepped on by a horse found to have traumatic L SDH, L periorbital ecchymosis, L soft tissue injury to abdominal wall/iliacus muscle, and b/l knee echymoses/abrasions. Palliative care consulted for GOC. 08/21/25 Patient sitting up in chair. Reports mild pain in left side of head and left flank/hip but well controlled with tylenol. Feels her left eye swelling has improved s/p ice packs today. Pt accompanied by her at bedside. Shows me picture of her newest granddaughter and states she has 19 grandchildren total. Pt denies any CP, SOB, n/v. States they were updated on clinical plan and hoping to be able to go home today. No recent hospitalizations or decline in health. Pt has not filled out HCPOA/LW but is and is NOK. Pain Assessment Location: left forehead/periorbital Description: throbbing, aching Frequency:Daily Duration: day(s) Alleviating Factors: tylenol Exacerbating Factors: movement Effect:N/A Palliative Care Assessments: Goals of care: Continue Current Management and Remain at Home Advanced Directives: No Known Advance Directive Functional Assessment: PPS 80% Full Amb; Normal activity with effort, Some disease; Full Self-Care; Normal Intake; Full LOC Prognosis: years Spiritual Assessment: No spiritual distress identified Bereavement and Grief: Low Risk Bereavement PDMP/OARRS Reviewed: Xsg-Ubmuxhqfi-ljahtf inophen 5-325mg #12x 3d on 04/23/25 Social history: Marital status: Children: 5 adult child(chaz) and 19 grandchildren Living status: at home with family Work history: not assessed [place] status: No Islam: Zoroastrian ROS: See palliative care ROS/ESAS below; All other systems were reviewed and are negative. [place] Symptom Assessment Score [place] Score Pain Score (if non-verbal, add .FLACC below) 3 Tiredness Score 2 Nausea Score 0 Depression Score 0 Anxiety Score 0 Drowsiness Score 0 Anorexia Score (0= eating well, 10= not eating) 0 Wellbeing Score (10= worst sense of well-being) 0 Constipation 0 Dyspnea Score (0= no shortness of breath) 0 Family Meeting: Participants: NA Medical History[1] Surgical History[2] Family History[3] Unable to obtain family history due to N/A- family history available Allergies[4] Objective: BP 133/56 Pulse 78 Temp 36.7 ?C (98.1 ?F) (Temporal) Resp 18 Ht 1.626 m (5' 4) Wt 81.7 kg (180 lb 1.9 oz) SpO2 95% BMI 30.92 kg/m? Physical Exam General: Awake, resting in bed, NAD HEENT: left periorbital ecchymosis, MMM, no JVD Cards: RRR, no M/R/G Pulm: Lungs CTAB, no wheezes, rhonchi, on RA, no conversational dyspnea Abdominal: Soft, non-tender, abdominal binder in place, left flank ecchymosis, +BS x 4 Extremities: no edema in b/l LE's, DP pulses 2+ b/l Neuro: A&Ox3, MAEx4, no focal deficits Skin: no rashes, no lesions Psych: normal mood/ affect Medication information: 24-hour PRN med (more content not included)... Normal [facility] Consult NEUROSURGERY and SPINE CONSULT NOTE Patient Name: Abisai aLmas Patient : 1955 PCP: No primary care provider on file. Chief Complaint: trampled by horse History of Present Illness: 69 y.o. female with a PMHX as listed below presents from OSH s/p being trampled by horse. Pt states pt got spooked and pushed her over and was kicked and stepped on in the head and left hip. CT head shows a left SDH and small IVH. Pt is currently without any neuro deficits. at bedside. Pt does take asa/plavix daily-reversed with DDAVP Past Medical History: Medical History[1] Past Surgical History: Surgical History[2] Home Medications: Prior to Admission medications Medication Sig Start Date End Date Taking? Authorizing Provider aspirin 81 MG EC tablet Take 81 mg by mouth daily. Historical ProviderMD carvedilol (Coreg) 6.25 MG tablet Take 6.25 mg by mouth 2 times daily (with meals). Historical ProviderMD cholecalciferol (Vitamin D-3) 125 MCG (5000 UT) tablet Take 5,000 Units by mouth daily. Historical ProviderMD clopidogrel (Plavix) 75 MG tablet Take 75 mg by mouth daily. Historical ProviderMD FLUoxetine (PROzac) 10 MG capsule Take 10 mg by mouth Nightly. Historical ProviderMD folic acid (Folvite) 800 MCG tablet Take 0.8 mg by mouth daily. Historical ProviderMD insulin glargine (Lantus) 100 UNIT/ML injection Inject under the skin Nightly. Historical ProviderMD Insulin Lispro (Humalog) 100 UNIT/ML solution injection Inject under the skin 3 times daily (with meals). Historical ProviderMD insulin NPH, Isophane, (HumuLIN N,NovoLIN N) 100 UNIT/ML injection Inject under the skin 2 times daily (before meals). Historical ProviderMD levothyroxine (Synthroid, Levoxyl) 50 MCG tablet Take 50 mcg by mouth daily. Historical ProviderMD losartan (Cozaar) 50 MG tablet Take 50 mg by mouth daily. Historical ProviderMD lovastatin (Mevacor) 40 MG tablet Take 40 mg by mouth Nightly. Historical ProviderMD metFORMIN (Glucophage) 500 MG tablet Take 1,000 mg by mouth 2 times daily (with meals). Historical ProviderMD multivitamin (Theragran) tablet Take 1 tablet by mouth daily. Historical ProviderMD Allergies: Lisinopril and Morphine Social History: TOBACCO: has no history on file for tobacco use. ETOH: has no history on file for alcohol use. RECREATIONAL DRUG USE: Social History Substance and Sexual Activity Drug Use Not on file Family History: Family History[3] ROS: Left hip pain Physical Examination: Vitals: 08/21/25 0600 BP: 141/55 Pulse: 76 Resp: 16 Temp: SpO2: 95% Physical Exam Left eye ecchymosis NEURO: A&O x4 ARCE Strength 5/5 in all ext-pt is cautious with LLE due to left hip pain but does have 5/5 strength Sensation intact No drift noted Results Labs: Last 24hrs Recent Results (from the past 24 hours) CBC Collection Time: 08/20/25 5:15 PM Result Value Ref Range Auto WBC 8.3 3.6 - 10.7 10*3/uL RBC 3.06 (L) 3.80 - 5.20 10*6/uL Hemoglobin 8.7 (L) 11.7 - 16.0 g/dL Hematocrit 26.9 (L) 35.0 - 47.0 % MCV 87.9 77.0 - 99.0 fL MCH 28.4 26.0 - 34.0 pg MCHC 32.3 30.5 - 36.0 % RDW 14.4 11.5 - 15.0 % Platelets 190 140 - 440 10*3/uL MPV 9.7 9.0 - 12.7 fL Basic metabolic panel Collection Time: 08/20/25 5:15 PM Result Value Ref Range SODIUM 141 136 - 145 mmol/L POTASSIUM 3.6 3.5 - 5.1 mmol/L CHLORIDE 112 (H) 98 - 107 mmol/L CARBON DIOXIDE 23 23 - 31 mmol/L UREA NITROGEN 21 9 - 23 mg/dL CREATININE 0.58 0.58 - 1.12 mg/dL GLUCOSE 177 (H) 82 - 115 mg/dL CALCIUM 7.0 (L) 8.8 - 10.0 mg/dL ANION GAP 6 3 - 13 mmol/L eGFR >90.0 >60.0 mL/min/1.73m*2 Hemoglobin A1c Collection Time: 08/20/25 5:15 PM Result Value Ref Range HEMOGLOBIN A1C 7.7 (H) <5.7 %HbA1C ESTIMATED AVERAGE GLUCOSE 174 mg/dL Ethanol Collection Time: 08/20/25 5:15 PM Result Value Ref Range ETHANOL IN SER/PLAS <10 <10 mg/dL Type and Screen Collection Time: 08/20/25 5:16 PM Result Value Ref Range ABO Grouping A Antibody Screen NEG Rh Type POS Confirmatory ABO/Rh Collection Time: 08/20/25 5:16 PM Result Value Ref Range ABO Grouping A Rh Type POS POCT glucose meter Collection Time: 08/20/25 9:35 PM Result Value Ref Range Glucose 180 (H) 70 - 100 mg/dL CBC Collection Time: 08/20/25 10:39 PM Result Value Ref Range Auto WBC 6.9 3.6 - 10.7 10*3/uL RBC 2.94 (L) 3.80 - 5.20 10*6/uL Hemoglobin 8.5 (L) 11.7 - 16.0 g/dL Hematocrit 25.8 (L) 35.0 - 47.0 % MCV 87.8 77.0 - 99.0 fL MCH 28.9 26.0 - 34.0 pg MCHC 32.9 30.5 - 36.0 % RDW 14.6 11.5 - 15.0 % Platelets 199 140 - 440 10*3/uL MPV 9.5 9.0 - 12.7 fL Hemoglobin and hematocrit, blood Collection Time: 08/21/25 5:26 AM Result Value Ref Range Hemoglobin 8.1 (L) 11.7 - 16.0 g/dL Hematocrit 25.1 (L) 35.0 - 47.0 % Basic metabolic panel Collection Time: 08/21/25 5:26 AM Result Value Ref Range SODIUM 138 136 - 145 mmol/L POTASS (more content not included)... Normal [facility] HEMOGLOBIN AND HEMATOCRIT, B Ney 08-21-2025 Hematocrit (Bld) [Volume fraction] 25.1 % Low 35.0-47.0 [facility] Comment on above: Performed By: #### L [id number] ####Firer Low Pressure: CLARISA MABRY ([id number])[address] Hemoglobin (Bld) [Mass/Vol] 8.1 g/dL Low 11.7-16.0 [facility] Comment on above: Performed By: #### L AB753 ####Firer Low Pressure: CLARISA MABRY ([id number])[facility] ([facility])[address] [place] [address] Hemoglobin (Bld) [Mass/Vol]o n 08-21-2025 Hematocrit (Bld) [Volume fraction] 25.1 % Low 35.0 - 47.0 % [facility] Interpretation and review of laboratory results Abnormal [facility] Laboratory - Chemistry and C hemistry - challengeon 08-21-2025 Glucose [Mass/Vol] 142 mg/dL High 70 - 100 mg/dL [facility] Laboratory - Hematology and Cell countson 08-21-2025 Hemoglobin (Bld) [Mass/Vol] 8.1 g/dL Low 11.7 - 16.0 g/dL [facility] No Panel Informationon 08-21 Interpretation and review of laboratory results Abnormal [facility] Performed by: [facility], [address] [place] [address] CLIA ID: [id number] [facility] Nursing Noteon 08-21-2025 Nursing Note Patient discharged to home. Instructions and medications reviewed with the patient. No questions voiced. Patient waiting for transportation. Normal [facility] Progress Noteon 08-21-2025 Progress Note Low Risk Nutrition Note Nutrition Assessment/Recommend ations/Plan: pt with PMH significant for hypothyroidism, depression, DM (on metformin and insulin), CAD (s/p three-vessel bypass), HTN, stroke (residual right sided weakness for which she takes aspirin and plavix) and anemia who presented directly to [facility] ICU on 08/20/25 status post assault by horse, incident happened around 9AM on 08/20/25- pt was standing near a horse that her was showing to a potential customer and the horse got spooked and then proceeded to trample the pt, stated she did hit her head and had a brief moment of loss of consciousness however does recall the events that preceded, pt stated she fell backwards and the horse began to step on her, pt sustained the following injuries: L SDH, L IPH, L iliacus and rectus muscle injuries with active extravasation, R hip soft tissues injury, L periorbital ecchymosis and bilateral knee abrasions and ecchymosis, Neurosurgery consulted- noted stable SDH and IVH on imaging and no neurosurgical intervention indicated at this time, no need for AED, may start DVT ppx tomorrow evening, recs to hold asa/plavix until OP follow up with CT but otherwise ok for d/c from NSGY standpoint, Palliative Care consulted however signed off given clear GOC- Full Code in place, pt is hopeful for d/c today, in terms of nutrition pt initially NPO however Regular Diet now initiated and pt endorsing hunger/appetite, was eating breakfast at time of assessment, pt CBW 180# bedscale 08/20, no weight history in chart to review but no reports of weight loss MINISTER ASSISTANT, will assign patient to a Level 1 and refer to the dietetic intern for ongoing monitoring/screening throughout admit, RD is available as needed per re-consult. Reason for Visit: Initial (ICU screen) Current Nutrition Therapies: Adult diet Regular Diagnosis: No nutrition diagnosis at this time. Monitoring and Evaluation: Patient will be monitored per nutrition standards of care. Consult Dietitian if nutrition intervention essential to patient care is needed. Discharge Planning: No needs available via [employer] [place] or *[id number] [facility] Progress Note Attestation signed by Oscar Ronquillo MD at 08/21/2025 10:17 PM ATTENDING ADDENDUM Active Diagnoses/Problems this Admission: Problem List[1] I personally supervised the resident physician in the evaluation and development of a treatment plan for this patient on the same day of service as above. I personally discussed the review of systems and interviewed the patient along with performing a physical examination. I reviewed the recent events, imaging, labs, vital signs. In addition, I discussed the patient's condition and treatment options with him/her when possible. I have also reviewed and agree with the past medical, family, and social history unless otherwise noted. All of the patient's questions were answered and family updated when appropriate and possible. A complete review of systems was obtained and is negative except as stated in HPI and/or Subjective Section. Please note that the plan below is highlights/weems components and corrections; see the main resident note for the full Assessment/Plan. -as per Dr. Johansen's note -I evaluated patient on 08/21/25 -Chief Complaint: trampled by horse, SDH, soft tissue/RP hematoma -patient admitted yesterday afternoon -SDH/IPH: Neurosurgery consulted, no acute intervention, bleeds are stable on repeat CT head, okay for q4 hour neuro checks, no AED -L soft tissue/RP hematoma: stable in appearance, Hgb stable in the 8s x3, continue external compression with binder, no plan for other intervention, Lovenox tomorrow if still here -multi-modal analgesia regimen as below -on regular diet; tolerating, on bowel regimen -DM: ISS -patient overall feeling well, passed PT/OT for home with assist -anticipate discharge home today -discussed return precautions and importance of outpatient follow-up Total Care Time throughout the day today was >= 30 minutes (including chart/data review/analysis, care coordination, and xuxr-zv-xdro encounter), and was spent discussing/counselin g the patient/family regarding the care plan for Abisai Lamas. I examined the patient independently. I reviewed relevant data myself and may have also done so in the context of team rounds. A full chart review was performed. I personally spent greater than 30 minutes involved with discharge planning, education, and coordination in arranging this patient's discharge today. Oscar Ronquillo MD, FACS Trauma, Surgical Critical Care, & Acute Care Surgery Department of Surgery [facility] Pager: [phone] ~~~~~~~~~~~~~~~~~~~~ ~~~~~~~~~~~~~~~~~~~~ ~~~~~~~~~~~~~~~~~~~~ ~ This note may have been dictated using [employer] Medical Practice Edition 2.6 and/or [employer] Voice Recognition Feature. The document was proofread; however, unrecognized voice recognition managing partner errors may be present. [1] Patient Active Problem List Diagnosis Struck by horse, initial encounter Traumatic subdural hematoma with loss of consciousness of 30 minutes or less (CMS/HCC) Pelvic hematoma in female Daily Trauma Progress Note Resident 08/21/2025 6:13 AM Admit Date: 08/20/2025 Post Trauma Day 1 Other trampled by horse HISTORY OF TRAUMATIC EVENT: 69 y.o. female status post assault by horse. The incident happened around 9 AM on 08/20/2025 at. When the event happened the patient was standing near a horse that her was showing to a potential customer. The horse got spooked and then proceeded to trampled the patient. She states she did hit her head and had a brief moment of loss of consciousness however does recall the events that preceded. Patient states she fell backwards and the horse began to step on her. Patient pain level currently is 6/10. Past medical history includes hypothyroidism, depression, and diabetes for which patient takes metformin and insulin. Patient did have a three-vessel bypass surgery and a stroke with some residual right sided weakness for which she takes aspirin and Plavix. INJURIES: L SDH L IPH L iliacus and rectus muscle injuries with active extravasation R hip soft tissues injury L periorbital ecchymosis Bilateral knee abrasions and ecchymosis PROCEDURES: N/A INCIDENTAL FINDINGS: N/A CHIEF COMPLAINT: headache, L flank pain PREVIOUS 24 HOUR EVENTS: Admitted to SICU Repeat CTH stable Consults: IP CONSULT TO WOUND PREVENTION IP CONSULT TO GERIATRICS IP CONSULT TO PALLIATIVE CARE MEDICATIONS: Current Medications[1] ARE THERE PERTINENT UPDATES TO PAST,FAMILY, OR SOCIAL HISTORY?: No Subjective: Feeling ok this morning, slight headache and feeling sore but pain otherwise controlled with medications Review of Systems Constitutional: Awake and alert, feeling better, endorses hunger HENT: Positive for facial swelling. Eyes: Positive for p (more content not included)... Normal [facility] ABO and Rh group Confirm Nom (Bld)on 08-20-2025 ABO group Nom (Bld) A [facility] D Ag Ql (RBC) Positive [facility] Abdomen/Pelvis W IV Cont ONL Yon 08-20-2025 Abdomen/Pelvis W IV Cont ONLY [facility] Imaging Services [address] [place], [place] [address] Abdomen/Pelvis W IV Cont ONLY MR#: [id number] Acct: [id number] Name: ABISAI LAMAS Rep #: [id number] : 1955 F 69 From: Foreign pacheco MD PCP: Joyce Washburn, LICENSED CLINICIAN-C Status: REG ER Study: Abdomen/Pelvis W IV Cont ONLY Date of Exam: Exam# [id number] Ordering Dr: Ti Bass MD PROCEDURE: ABDOMEN/PELVIS W IV CONT ONLY 08/20/2025 REASON FOR EXAM: BLUNT TRAUMA, LLQ PAIN/TEND TECHNIQUE: Procedure Code: CTABDPELIV Modality: CT Procedure: ABDOMEN/PELVIS W IV CONT ONLY Coronal and Sagittal reconstruction series were provided. CONTRAST: Isovue-300 VOLUME: 95 mL One or more dose reduction techniques were used (e.g., Automated exposure control, adjustment of the mA and/or kV according to patient size, use of iterative reconstruction technique. RADIATION DOSE SUMMARY: CTDlvol: 22.6 mGy DLP: 1266.82 mGycm COMPARISON: Prior study dated April 22, 2025. FINDINGS: Lung bases: The lung bases are clear. Coronary artery calcification. Liver: Diffuse fatty infiltration. Borderline hepatomegaly Gallbladder: Surgically absent. Spleen: Borderline splenomegaly. Pancreas: Normal size without evidence of mass surrounding inflammation or ductal dilation. Adrenals: Unremarkable Kidneys: Stable focal scarring in the upper lateral aspect of the right kidney. Bladder: Unremarkable Reproductive Organs: Fibroid uterus. Bowel: Colonic diverticulosis without diverticulitis. Appendix: Status post appendectomy. Lymph nodes: Unremarkable Vasculature: Mild diffuse atherosclerotic calcifications are noted. Atherosclerotic calcification of the celiac and superior mesenteric arteries. Peritoneum / Retroperitoneum: There is evidence of soft tissue prominence overlying the subcutaneous fat in the left lower quadrant with thickening of the adjacent musculature. There is enlargement of the left iliacus muscle suggestive of possible hematoma. A focal area of increased attenuation is seen within the muscle. This may represent a possible active bleeding site. Bones: Unremarkable CT/Abdomen/Pelvis W IV Cont ONLY IMPRESSION: Findings suggestive of subcutaneous hematoma and edema overlying the left lower abdominal wall with extension into the musculature at that site. There is thickening of the left iliacus muscle with possible focal bleeding site within it. Reading Location: [id number] CC: KAMINI Washburn; Dr. Ti Bass MD Quality Control Inspector Heading: Signed Normal [facility] BASIC METABOLIC PANELon 10-2 Anion gap [Moles/Vol] 6 mmol/L Normal 3-13 [facility] Comment on above: Performed By: #### L AB46, LAB15 ####Firer Low Pressure: CLARISA MABRY ([id number])[facility])[address] [place] [address] Calcium [Mass/Vol] 7.0 mg/dL Low 8.8-10.0 [facility] Comment on above: Performed By: #### L AB46, LAB15 ####Firer Low Pressure: CLARISA MABRY ([id number])[facility] ([facility])[address] [place] [address] Chloride [Moles/Vol] 112 mmol/L High 98-107 [facility] Comment on above: Performed By: #### L AB46, LAB15 ####Firer Low Pressure: CLARISA MABRY ([id number])[facility] ([facility])[address] [place] [address] CO2 [Moles/Vol] 23 mmol/L Normal 23-31 [facility] Comment on above: Performed By: #### L AB46, LAB15 ####Firer Low Pressure: CLARISA MABRY ([id number])[facility] ([facility])[address] [place] [address] Creatinine [Mass/Vol] 0.58 mg/dL Normal 0.58-1.12 [facility] Comment on above: Performed By: #### L AB46, LAB15 ####Firer Low Pressure: CLARISA MABRY ([id number])[facility])[address] [place] [address] GLOMERULAR FILTRATION RATE ML/MIN/1.73 SQ M.PREDICTED >90.0 Normal >60.0 [facility] Comment on above: Result Comment: Calc ulation based on the Chronic Kidney Disease Epidemiology Collaboration (CKD-EPI) equation refit without adjustment for race Performed By: #### L AB46, LAB15 ####Firer Low Pressure: CLARISA MABRY ([id number])[facility])[address] [place] [address] [place] Glucose [Mass/Vol] 177 mg/dL High 82-115 [facility] Comment on above: Performed By: #### L AB46, LAB15 ####Firer Low Pressure: CLARISA MABRY ([id number])[facility])[address] [place] [address] Potassium [Moles/Vol] 3.6 mmol/L Normal 3.5-5.1 [facility] Comment on above: Result Comment: [facility] potassium values may be up to 0.5 mmol/L lower than serum values. Performed By: #### L AB46, LAB15 ####Firer Low Pressure: CLARISA MABRY ([id number])[facility] ([facility])[address] [place] [address] [place] Sodium [Moles/Vol] 141 mmol/L Normal 136-145 [facility] Comment on above: Performed By: #### L AB46, LAB15 ####Firer Low Pressure: CLARISA MABRY ([id number])[facility] ([facility])[address] [place] [address] [place] Urea nitrogen [Mass/Vol] 21 mg/dL Normal 9-23 [facility] Comment on above: Performed By: #### L AB46, LAB15 ####Firer Low Pressure: CLARISA MABRY ([id number])[facility])[address] [place] [address] BLOOD TYPE AND SCREEN GELon 08-20-2025 ABO GROUPING A Normal [facility] Comment on above: Performed By: #### L AB276 #### Firer Low Pressure: CLARISA MABRY ([id number]) [facility] ([facility]) [address] [place] [address] [place] RH TYPE IN BLOOD Positive Normal [facility] Comment on above: Performed By: #### L AB276 #### Firer Low Pressure: CLARISA MABRY ([id number]) [facility] ([facility]) [address] Basic metabolic 1998 panelon 08-20-2025 Anion gap [Moles/Vol] 6 mmol/L 3 - 13 mmol/L [facility] Calcium [Mass/Vol] 7 mg/dL Low 8.8 - 10. 0 mg/dL [facility] Chloride [Moles/Vol] 112 mmol/L High 98 - 10 7 mmol/L [facility] CO2 [Moles/Vol] 23 mmol/L 23 - 31 mmol/L [facility] Creatinine [Mass/Vol] 0.58 mg/dL 0.58 - 1.12 mg/dL [facility] GFR/1.73 sq M.predicted (S/P/Bld) [Vol rate/Area] - PINF [facility] Comment on above: Calculation based on the Chronic Kidney Disease Epidemiology Collaboration (CKD-EPI) equation refit without adjustment for race Glucose [Mass/Vol] 177 mg/dL High 82 - 115 mg/dL [facility] Interpretation and review of laboratory results Abnormal [facility] Potassium [Moles/Vol] 3.6 mmol/L 3.5 - 5.1 mmol/L [facility] Comment on above: Plasma potassium faby ues may be up to 0.5 mmol/L lower than serum values. Sodium [Moles/Vol] 141 mmol/L 136 - 145 mmol/L [facility] Urea nitrogen [Mass/Vol] 21 mg/dL 9 - 23 mg/dL [facility] Blood type and Crossmatch pa charleen (Bld)on 08-20-2025 ABO group Nom (Bld) A [facility] Blood group antibody screen GEL Ql Negative [facility] D Ag Ql (RBC) Positive [facility] Brain/Head without Contrasto n 08-20-2025 Brain/Head without Contrast [facility] Imaging Services [address] [place] [address] Brain/Head without Contrast MR#: [id number] Acct: [id number] Name: ABISAI LAMAS Rep #: [id number] : 1955 F 69 From: Jesús Stewart MD PCP: Joyce Washburn, LICENSED CLINICIAN-C Status: REG ER Study: Brain/Head without Contrast Date of Exam: 07/26 05/18 Exam# [id number] Ordering Dr: Ti Bass MD EXAM: NONCONTRAST CT SCAN OF THE HEAD CLINICAL HISTORY: Trauma COMPARISON: None TECHNIQUE: Serial axial series through the head were obtained without contrast. 2-D coronal and sagittal reformats were then obtained. DLP = 779 mGy-cm FINDINGS: Brain: There is acute subdural hemorrhage in the left posterior parietal and occipital region, measuring 0.4 cm in depth, image 30/42. There is no acute large territorial infarct, intracranial hemorrhage, midline shift or mass effect. There are atherosclerotic vascular calcifications involving the bilateral carotid siphons. The sella and pineal gland regions appear unremarkable. There is no evidence of cerebellar tonsillar herniation. Ventricles: There is no acute hydrocephalus. Basilar cisterns are patent. Paranasal sinuses: Mucosal thickening is visible in the right maxillary sinus. Mastoid air cells: Well-aerated. Calvarium: The bony calvarium is intact. There is a 1.8 x 1.2 cm subcutaneous hematoma overlying the left orbit, with adjacent significant soft tissue swelling. There is no associated fracture. Orbits: The bilateral globes are symmetric, without retrobulbar compressive mass lesion or hemorrhage. CT/Brain/Head without Contrast IMPRESSION: There is acute subdural hemorrhage in the left posterior parietal and occipital region, measuring 0.4 cm in depth, image 30/42. There is a 1.8 x 1.2 cm subcutaneous hematoma overlying the left orbit, with adjacent significant soft tissue swelling. There is no associated fracture. Critical results were discussed with Dr. Bass by Dr. Stewart at the time of dictation. Reading Location: [facility] CC: LICENSED CLINICIAN-C Joyce Washburn; Dr. Ti Bass MD Quality Control Inspector Heading: Signed Normal [facility] CBC (HEMOGRAM)on 08-20-2025 Erythrocyte distribution width (RBC) [Ratio] 14.6 % Normal 11.5-15.0 [facility] Comment on above: Performed By: #### L AB294 ####Firer Low Pressure: CLARISA MABRY ([id number])[facility])[address] [place] [address] Hematocrit (Bld) [Volume fraction] 25.8 % Low 35.0-47.0 [facility] Comment on above: Performed By: #### L AB294 ####Firer Low Pressure: CLARISA MABRY ([id number])[facility])[address] [place] [address] Hemoglobin (Bld) [Mass/Vol] 8.5 g/dL Low 11.7-16.0 [facility] Comment on above: Performed By: #### L AB294 ####Firer Low Pressure: CLARISA MABRY ([id number])[address] MCH (RBC) [Entitic mass] 28.9 pg Normal 26.0-34.0 [facility] Comment on above: Performed By: #### L AB294 ####Firer Low Pressure: CLARISA MABRY ([id number])[facility])[address] [place] [address] MCHC 32.9 % Normal 30.5-36.0 [facility] Comment on above: Performed By: #### L AB294 ####Firer Low Pressure: CLARISA MABRY ([id number])[facility])[address] [place] [address] MCV (RBC) [Entitic vol] 87.8 fL Normal 77.0-99.0 [facility] Comment on above: Performed By: #### L AB294 ####Firer Low Pressure: CLARISA MABRY ([id number])[address] Platelet mean volume (Bld) [Entitic vol] 9.5 fL Normal 9.0-12.7 [facility] Comment on above: Performed By: #### L AB294 ####Firer Low Pressure: CLARISA MABRY ([id number])[facility] ([facility])[address] [place] [address] Platelets (Bld) [#/Vol] 199 10*3/uL Normal 140-440 [facility] Comment on above: Performed By: #### L AB294 ####Firer Low Pressure: CLARISA MABRY ([id number])[facility])[address] [place] [address] RBC (Bld) [#/Vol] 2.94 10*6/uL Low 3.80-5.20 [facility] Comment on above: Performed By: #### L AB294 ####Firer Low Pressure: CLARISA MABRY ([id number])[facility] ([facility])[address] [place] [address] WBC (Bld) [#/Vol] 6.9 10*3/uL Normal 3.6-10.7 [facility] Comment on above: Performed By: #### L AB294 ####Firer Low Pressure: CLARISA MABRY ([id number])[facility] ([facility])[address] [place] [address] Erythrocyte distribution width (RBC) [Ratio] 14.4 % Normal 11.5-15.0 [facility] Comment on above: Performed By: #### L AB294 ####Firer Low Pressure: CLARISA MABRY ([id number])[facility])[address] [place] [address] Hematocrit (Bld) [Volume fraction] 26.9 % Low 35.0-47.0 [facility] Comment on above: Performed By: #### L AB294 ####Firer Low Pressure: CLARISA MABRY ([id number])[facility])[address] [place] [address] Hemoglobin (Bld) [Mass/Vol] 8.7 g/dL Low 11.7-16.0 [facility] Comment on above: Performed By: #### L AB294 ####Firer Low Pressure: CLARISA MABRY ([id number])[facility] [place] [address] MCH (RBC) [Entitic mass] 28.4 pg Normal 26.0-34.0 [facility] Comment on above: Performed By: #### L AB294 ####Firer Low Pressure: CLARISA MABRY ([id number])[facility] ([facility])[address] [place] [address] MCHC 32.3 % Normal 30.5-36.0 [facility] Comment on above: Performed By: #### L AB294 ####Firer Low Pressure: CLARISA MABRY ([id number])[facility] ([facility])[address] [place] [address] MCV (RBC) [Entitic vol] 87.9 fL Normal 77.0-99.0 [facility] Comment on above: Performed By: #### L AB294 ####Firer Low Pressure: CLARISA MABRY ([id number])[facility] ([facility])[address] [place] [address] Platelet mean volume (Bld) [Entitic vol] 9.7 fL Normal 9.0-12.7 [facility] Comment on above: Performed By: #### L AB294 ####Firer Low Pressure: CLARISA MABRY ([id number])[facility] ([facility])[address] [place] [address] Platelets (Bld) [#/Vol] 190 10*3/uL Normal 140-440 [facility] Comment on above: Performed By: #### L AB294 ####Firer Low Pressure: CLARISA MABRY ([id number])[facility] ([facility])[address] [place] [address] RBC (Bld) [#/Vol] 3.06 10*6/uL Low 3.80-5.20 [facility] Comment on above: Performed By: #### L AB294 ####Firer Low Pressure: CLARISA MABRY ([id number])[facility] ([facility])[address] [place] [address] WBC (Bld) [#/Vol] 8.3 10*3/uL Normal 3.6-10.7 [facility] Comment on above: Performed By: #### L AB294 ####Firer Low Pressure: CLARISA MABRY ([id number])[facility] ([facility])[address] [place] [address] CBC W/Diff, Automatedon 10-2 Absolute Lymph 1.39 X10 3/uL Normal 0.83-4.51 [facility] Comment on above: Performed By: #### L 300.3900, L100.0100, L500.4050, L300.4310, BTS #### [facility] Laboratory [address] [place], [address] Absolute Neut 10.1 X10 3/uL High 2.0-7.7 [facility] Comment on above: Performed By: #### L 300.3900, L100.0100, L500.4050, L300.4310, BTS #### [facility] [address] [place], [address] Basophils/100 WBC (Bld) 0.2 % Normal 0-1 [facility] Comment on above: Performed By: #### L 300.3900, L100.0100, L500.4050, L300.4310, BTS #### [facility] Laboratory [address] [place], [address] Eosinophils/100 WBC (Bld) 1.8 % Normal 0-5 [facility] Comment on above: Performed By: #### L 300.3900, L100.0100, L500.4050, L300.4310, BTS #### [facility] Laboratory [address] [place], [address] Erythrocyte distribution width (RBC) [Ratio] 14.3 % Normal 11.6-14.6 [facility] Comment on above: Performed By: #### L 300.3900, L100.0100, L500.4050, L300.4310, BTS #### [facility] Laboratory [address] [place], [address] Hematocrit (Bld) [Volume fraction] 35.3 % Low 37-47 [facility] Comment on above: Performed By: #### L 300.3900, L100.0100, L500.4050, L300.4310, BTS #### [facility] Laboratory [address] [place], [address] Hemoglobin (Bld) [Mass/Vol] 11.8 g/dL Low 12.0-15.0 [facility] Comment on above: Performed By: #### L 300.3900, L100.0100, L500.4050, L300.4310, BTS #### [facility] Laboratory [address] [place], [address] IG% 0.400 Normal 0.0-0.9 [facility] Comment on above: Result Comment: IG% - Immature Granulocytes (promyelocytes, myelocytes and metamyelocytes) > 1% indicates that a LEFT SHIFT is Present. Performed By: #### L 300.3900, L100.0100, L500.4050, L300.4310, BTS #### [facility] Laboratory [address] [place], [address] Lymphocytes/100 WBC (Bld) 11.1 % Low 19-41 [facility] Comment on above: Performed By: #### L 300.3900, L100.0100, L500.4050, L300.4310, BTS #### [facility] Laboratory [address] [place], [address] MCH (RBC) [Entitic mass] 29.3 pg Normal 27.0-32.0 [facility] Comment on above: Performed By: #### L 300.3900, L100.0100, L500.4050, L300.4310, BTS #### [facility] Laboratory [address] [place], [address] MCHC (RBC) [Mass/Vol] 33.4 g/dL Normal 32-36 [facility] Comment on above: Performed By: #### L 300.3900, L100.0100, L500.4050, L300.4310, BTS #### [facility] Laboratory [address] [place], [address] MCV (RBC) [Entitic vol] 87.6 fL Normal 81-99 [facility] Comment on above: Performed By: #### L 300.3900, L100.0100, L500.4050, L300.4310, BTS #### [facility] Laboratory [address] [place], [address] Monocytes/100 WBC (Bld) 5.8 % Normal 0-10 [facility] Comment on above: Performed By: #### L 300.3900, L100.0100, L500.4050, L300.4310, BTS #### [facility] Laboratory [address] [place], [address] Neutrophils/100 WBC (Bld) 80.7 % High 47-70 [facility] Comment on above: Performed By: #### L 300.3900, L100.0100, L500.4050, L300.4310, BTS #### [facility] Laboratory [address] [place], [address] Nucleated RBC (Bld) [#/Vol] 0 10*3/uL Normal 0-5 [facility] Comment on above: Performed By: #### L 300.3900, L100.0100, L500.4050, L300.4310, BTS #### [facility] Laboratory [address] [place], [address] Platelet mean volume (Bld) [Entitic vol] 9.7 fL Normal 6.2-12.0 [facility] Comment on above: Performed By: #### L 300.3900, L100.0100, L500.4050, L300.4310, BTS #### [facility] Laboratory [address] [place], [address] Platelets (Bld) [#/Vol] 239 10*3/uL Normal 150-450 [facility] Comment on above: Performed By: #### L 300.3900, L100.0100, L500.4050, L300.4310, BTS #### [facility] Laboratory [address] [place], [address] RBC (Bld) [#/Vol] 4.03 10*6/uL Low 4.2-5.4 [facility] Comment on above: Performed By: #### L 300.3900, L100.0100, L500.4050, L300.4310, BTS #### [facility] Laboratory [address] [place], [address] RDW SD 46.3 fl High 35.1-43.9 [facility] Comment on above: Performed By: #### L 300.3900, L100.0100, L500.4050, L300.4310, BTS #### [facility] Laboratory [address] [place], [address] WBC (Bld) [#/Vol] 12.5 10*3/uL High 4.4-11.0 [facility] Comment on above: Performed By: #### L 300.3900, L100.0100, L500.4050, L300.4310, BTS #### [facility] Laboratory [address] [place], [address] CBC panel Auto (Bld)on 08-20 Erythrocyte distribution width (RBC) [Ratio] 14.6 % 11.5 - 15.0 % [facility] Hematocrit (Bld) [Volume fraction] 25.8 % Low 35.0 - 47.0 % [facility] Hemoglobin (Bld) [Mass/Vol] 8.5 g/dL Low 11.7 - 16.0 g/dL [facility] Interpretation and review of laboratory results Abnormal [facility] MCH (RBC) [Entitic mass] 28.9 pg 26.0 - 34.0 pg [facility] MCHC (RBC) [Mass/Vol] 32.9 % 30.5 - 36.0 % [facility] MCV (RBC) [Entitic vol] 87.8 fL 77.0 - 99.0 fL [facility] Platelet mean volume (Bld) [Entitic vol] 9.5 fL 9.0 - 12.7 fL [facility] Platelets (Bld) [#/Vol] 199 10*3/uL 140 - 440 10*3/uL [facility] RBC (Bld) [#/Vol] 2.94 10*6/uL Low 3.80 - 5.2 0 10*6/uL [facility] WBC (Bld) [#/Vol] 6.9 10*3/uL 3.6 - 10.7 10*3/uL [facility] CBC panel Auto (Bld)Ordered By: Zoë Shi on 08-20-2025 Erythrocyte distribution width (RBC) [Ratio] 14.4 % 11.5 - 15.0 % [facility] Hematocrit (Bld) [Volume fraction] 26.9 % Low 35.0 - 47.0 % [facility] Hemoglobin (Bld) [Mass/Vol] 8.7 g/dL Low 11.7 - 16.0 g/dL [facility] Interpretation and review of laboratory results Abnormal [facility] MCH (RBC) [Entitic mass] 28.4 pg 26.0 - 34.0 pg [facility] MCHC (RBC) [Mass/Vol] 32.3 % 30.5 - 36.0 % [facility] MCV (RBC) [Entitic vol] 87.9 fL 77.0 - 99.0 fL [facility] Platelet mean volume (Bld) [Entitic vol] 9.7 fL 9.0 - 12.7 fL [facility] Platelets (Bld) [#/Vol] 190 10*3/uL 140 - 440 10*3/uL [facility] RBC (Bld) [#/Vol] 3.06 10*6/uL Low 3.80 - 5.2 0 10*6/uL [facility] WBC (Bld) [#/Vol] 8.3 10*3/uL 3.6 - 10.7 10*3/uL [facility] CT CERVICAL SPINE WO IV CONT RASTon 08-20-2025 CT CERVICAL SPINE WO IV CONTRAST Patient Name: ABISAI LAMAS : 1955 Exam Date/Time: 08/20/2025 20:11 Procedure: CT CERVICAL SPINE WO IV CONTRAST Ordering Provider: WILLS KATIE Reason For Exam: s/p trauma CT CERVICAL SPINE WITHOUT CONTRAST CLINICAL INDICATION: s/p trauma, pain TECHNIQUE: CT scan of the cervical spine without IV contrast. Multiplanar reformations. Dose reduction was employed with automated exposure control. COMPARISON: None. FINDINGS: Multilevel degenerative disc disease and spondylosis. No acute compression deformity or gross malalignment of cervical vertebral bodies. No acute fracture. No acute, osseous central spinal canal encroachment. Paraspinal soft tissues grossly unremarkable. Bilateral carotid calcifications. Right thyroid lobe diminutive or surgically absent. IMPRESSION: 1. No acute compression deformity or apparent fracture in the cervical spine. 2. Degenerative spondylosis. Report Dictated on Electronically Signed By: Bebeto Mirza MD Electronically Signed Date/Time: 08/20/2025 11:48 PM EDT Normal [facility] CT Cervical spine WO contras ton 08-20-2025 1. No acute compression deformity or apparent fracture in the cervical spine. 2. Degenerative spondylosis. Report Dictated on Electronically Signed By: Bebeto Mirza MD Electronically Signed Date/Time: 08/20/2025 11:48 PM EDT [facility] Patient Name: ABISAI LAMAS : 1955 Exam Date/Time: 08/20/2025 20:11 Procedure: CT CERVICAL SPINE WO IV CONTRAST Ordering Provider: WILLS KATIE Reason For Exam: s/p trauma CT CERVICAL SPINE WITHOUT CONTRAST CLINICAL INDICATION: s/p trauma, pain TECHNIQUE: CT scan of the cervical spine without IV contrast. Multiplanar reformations. Dose reduction was employed with automated exposure control. COMPARISON: None. FINDINGS: Multilevel degenerative disc disease and spondylosis. No acute compression deformity or gross malalignment of cervical vertebral bodies. No acute fracture. No acute, osseous central spinal canal encroachment. Paraspinal soft tissues grossly unremarkable. Bilateral carotid calcifications. Right thyroid lobe diminutive or surgically absent. [facility] Bebeto Mirza MD - 08/20/2025 Patient Name: ABISAI LAMAS : 1955 Exam Date/Time: 08/20/2025 20:11 Procedure: CT CERVICAL SPINE WO IV CONTRAST Ordering Provider: WILLS KATIE Reason For Exam: s/p trauma CT CERVICAL SPINE WITHOUT CONTRAST CLINICAL INDICATION: s/p trauma, pain TECHNIQUE: CT scan of the cervical spine without IV contrast. Multiplanar reformations. Dose reduction was employed with automated exposure control. COMPARISON: None. FINDINGS: Multilevel degenerative disc disease and spondylosis. No acute compression deformity or gross malalignment of cervical vertebral bodies. No acute fracture. No acute, osseous central spinal canal encroachment. Paraspinal soft tissues grossly unremarkable. Bilateral carotid calcifications. Right thyroid lobe diminutive or surgically absent. IMPRESSION: 1. No acute compression deformity or apparent fracture in the cervical spine. 2. Degenerative spondylosis. Report Dictated on Electronically Signed By: Bebeto Mirza MD Electronically Signed Date/Time: 08/20/2025 11:[address] [facility] [address] Cervical spine WO contras tOrdered By: Bebeto Mirza on 08-20-2025 [facility] Work Phone: CT HEAD NECK ANGIO W AND WO IV CONTRASTon 08-20-2025 CT HEAD NECK ANGIO W AND WO IV CONTRAST Patient Name: ABISAI LAMAS : 1955 Exam Date/Time: 08/20/2025 20:11 Procedure: CT HEAD NECK ANGIO W AND WO IV CONTRAST Ordering Provider: WILLS KATIE Reason For Exam: s/p trauma CTA OF THE HEAD AND NECK WITH IV CONTRAST CLINICAL INDICATION: s/p trauma, head and neck pain TECHNIQUE: Routine CTA of the head and neck with IV contrast. Multiplanar reformations. 3-D reformations. Dose reduction was employed with automated exposure control. COMPARISON: None FINDINGS: CTA neck: Status post sternotomy. Coronary artery calcifications noted. Vertebral arteries are patent bilaterally throughout the neck, no dissection or significant stenosis seen. Vertebral arteries are codominant. Moderate carotid bifurcation plaque bilaterally. RIGHT carotid bifurcation stenosis estimated at about 25 percent. LEFT carotid bifurcation stenosis estimated at about 30 percent. CTA brain: Distal vertebral arteries, basilar artery, visualized basilar artery branches, and posterior cerebral arteries appear patent. Distal internal carotid arteries, anterior, and middle cerebral arteries appear patent. No aneurysm, high grade stenosis, or large vessel occlusion seen. IMPRESSION: 1. No large vessel occlusion. No hemodynamically significant carotid stenosis. Reference: Measurement of carotid stenosis is based on conventional angiographic data from the NASCET trials. Report Dictated on Electronically Signed By: Terrell Bowers MD Electronically Signed Date/Time: 08/20/2025 11:[address] [facility] CT HEAD WO IV CONTRASTon CT HEAD WO IV CONTRAST [facility] 1955 [id number] Exam Date/Time: 08/20/2025 20:11 Procedure: CT HEAD WO IV CONTRAST Ordering Provider: WILLS KATIE Reason For Exam: s/p trauma CT BRAIN WITHOUT CONTRAST CLINICAL INDICATION: s/p trauma, pain, injury TECHNIQUE: Noncontrast CT scan of the brain. Multiplanar reformations. Dose reduction was employed with automated exposure control. COMPARISON: Outside study from 08/20/2025 FINDINGS: Acute subdural hemorrhage, mixed attenuation, over LEFT convexity. Maximal thickness is about 5 mm. No midline shift. No hydrocephalus. Basilar cisterns are not effaced. Likely a small amount of intraventricular hemorrhage in the temporal horn on either side. No evidence of acute infarct. IMPRESSION: 1. LEFT convexity subdural hemorrhage, mixed attenuation measuring about 5 mm in maximal thickness. No significant midline shift. Suspect small amount of intraventricular hemorrhage bilaterally.. Findings do not appear significantly changed compared to the previous study. CRITICAL TEST RESULT COMMUNICATION: Notification of these findings was made to ELIO WILLS via [employer] on 08/20/2025 11:31 PM EDT. Report Dictated on Electronically Signed By: Terrell Bowers MD Electronically Signed Date/Time: 08/20/2025 11:[address] [facility] CT Head WO contraston 2024 1. LEFT convexity subdural hemorrhage, mixed attenuation measuring about 5 mm in maximal thickness. No significant midline shift. Suspect small amount of intraventricular hemorrhage bilaterally.. Findings do not appear significantly changed compared to the previous study. CRITICAL TEST RESULT COMMUNICATION: Notification of these findings was made to ELIO WILLS via [employer] on 08/20/2025 11:31 PM EDT. Report Dictated on Electronically Signed By: Terrell Bowers MD Electronically Signed Date/Time: 08/20/2025 11:37 PM EDT [facility] [employer] [facility] Patient Name: ABISAI LAMAS : 1955 Exam Date/Time: 08/20/2025 20:11 Procedure: CT HEAD WO IV CONTRAST Ordering Provider: WILLS KATIE Reason For Exam: s/p trauma CT BRAIN WITHOUT CONTRAST CLINICAL INDICATION: s/p trauma, pain, injury TECHNIQUE: Noncontrast CT scan of the brain. Multiplanar reformations. Dose reduction was employed with automated exposure control. COMPARISON: Outside study from 08/20/2025 FINDINGS: Acute subdural hemorrhage, mixed attenuation, over LEFT convexity. Maximal thickness is about 5 mm. No midline shift. No hydrocephalus. Basilar cisterns are not effaced. Likely a small amount of intraventricular hemorrhage in the temporal horn on either side. No evidence of acute infarct. [facility] Terrell Bowers MD - 08/20/2025 Patient Name: ABISAI LAMAS : 1955 Exam Date/Time: 08/20/2025 20:11 Procedure: CT HEAD WO IV CONTRAST Ordering Provider: WILLS KATIE Reason For Exam: s/p trauma CT BRAIN WITHOUT CONTRAST CLINICAL INDICATION: s/p trauma, pain, injury TECHNIQUE: Noncontrast CT scan of the brain. Multiplanar reformations. Dose reduction was employed with automated exposure control. COMPARISON: Outside study from 08/20/2025 FINDINGS: Acute subdural hemorrhage, mixed attenuation, over LEFT convexity. Maximal thickness is about 5 mm. No midline shift. No hydrocephalus. Basilar cisterns are not effaced. Likely a small amount of intraventricular hemorrhage in the temporal horn on either side. No evidence of acute infarct. IMPRESSION: 1. LEFT convexity subdural hemorrhage, mixed attenuation measuring about 5 mm in maximal thickness. No significant midline shift. Suspect small amount of intraventricular hemorrhage bilaterally.. Findings do not appear significantly changed compared to the previous study. CRITICAL TEST RESULT COMMUNICATION: Notification of these findings was made to ELIO WILLS via [employer] on 08/20/2025 11:31 PM EDT. Report Dictated on Electronically Signed By: Terrell Bowers MD Electronically Signed Date/Time: 08/20/2025 11:[address] [facility] [address] Head WO contrastOrdered B y: Terrell Bowers on 08-20-2025 [facility] Work Phone: CT MAXILLOFACIAL WO IV CONTR Ankush 08-20-2025 CT MAXILLOFACIAL WO IV CONTRAST [facility] 1955 [id number] Exam Date/Time: 08/20/2025 22:03 Procedure: CT MAXILLOFACIAL WO IV CONTRAST Ordering Provider: WILLS KATIE Reason For Exam: Trauma/Injury to Face; facial pain MAXILLOFACIAL CT SCAN WITHOUT CONTRAST CLINICAL INDICATION: Trauma/Injury to Face; facial pain, facial pain TECHNIQUE: Maxillofacial CT scan without contrast. Multiplanar reformations. Dose reduction was employed with automated exposure control. COMPARISON: None FINDINGS: No acute facial bone fracture. Globes appear intact. LEFT periorbital soft tissue swelling. LEFT supraorbital soft tissue hematoma measuring 1.9 x 1.0 cm in size. IMPRESSION: 1. LEFT periorbital soft tissue swelling and hematoma. Report Dictated on Electronically Signed By: Terrell Bowers MD Electronically Signed Date/Time: 08/20/2025 11:[address] [facility] CT Maxillofacial region WO maryann clark 08-20-2025 1. LEFT periorbital soft tissue swelling and hematoma. Report Dictated on Electronically Signed By: Terrell Bowers MD Electronically Signed Date/Time: 08/20/2025 11:24 PM EDT [facility] Patient Name: ABISAI LAMAS : 1955 Exam Date/Time: 08/20/2025 22:03 Procedure: CT MAXILLOFACIAL WO IV CONTRAST Ordering Provider: WILLS KATIE Reason For Exam: Trauma/Injury to Face; facial pain MAXILLOFACIAL CT SCAN WITHOUT CONTRAST CLINICAL INDICATION: Trauma/Injury to Face; facial pain, facial pain TECHNIQUE: Maxillofacial CT scan without contrast. Multiplanar reformations. Dose reduction was employed with automated exposure control. COMPARISON: None FINDINGS: No acute facial bone fracture. Globes appear intact. LEFT periorbital soft tissue swelling. LEFT supraorbital soft tissue hematoma measuring 1.9 x 1.0 cm in size. [facility] Terrell Bowers MD - 08/20/2025 Patient Name: ABISAI LAMAS : 1955 Exam Date/Time: 08/20/2025 22:03 Procedure: CT MAXILLOFACIAL WO IV CONTRAST Ordering Provider: WILLS KATIE Reason For Exam: Trauma/Injury to Face; facial pain MAXILLOFACIAL CT SCAN WITHOUT CONTRAST CLINICAL INDICATION: Trauma/Injury to Face; facial pain, facial pain TECHNIQUE: Maxillofacial CT scan without contrast. Multiplanar reformations. Dose reduction was employed with automated exposure control. COMPARISON: None FINDINGS: No acute facial bone fracture. Globes appear intact. LEFT periorbital soft tissue swelling. LEFT supraorbital soft tissue hematoma measuring 1.9 x 1.0 cm in size. IMPRESSION: 1. LEFT periorbital soft tissue swelling and hematoma. Report Dictated on Electronically Signed By: Terrell Bowers MD Electronically Signed Date/Time: 08/20/2025 11:24 PM EDT [facility] Radiology Study observation (narrative) [facility] alth CTA Head vessels and Neck ve ssels WO and W contrast Issa 08-20-2025 1. No large vessel occlusion. No hemodynamically significant carotid stenosis. Reference: Measurement of carotid stenosis is based on conventional angiographic data from the NASCET trials. Report Dictated on Electronically Signed By: Terrell Bowers MD Electronically Signed Date/Time: 08/20/2025 11:47 PM EDT [facility] [employer] [facility] Patient Name: ABISAI LAMAS : 1955 Exam Date/Time: 08/20/2025 20:11 Procedure: CT HEAD NECK ANGIO W AND WO IV CONTRAST Ordering Provider: WILLS KATIE Reason For Exam: s/p trauma CTA OF THE HEAD AND NECK WITH IV CONTRAST CLINICAL INDICATION: s/p trauma, head and neck pain TECHNIQUE: Routine CTA of the head and neck with IV contrast. Multiplanar reformations. 3-D reformations. Dose reduction was employed with automated exposure control. COMPARISON: None FINDINGS: CTA neck: Status post sternotomy. Coronary artery calcifications noted. Vertebral arteries are patent bilaterally throughout the neck, no dissection or significant stenosis seen. Vertebral arteries are codominant. Moderate carotid bifurcation plaque bilaterally. RIGHT carotid bifurcation stenosis estimated at about 25 percent. LEFT carotid bifurcation stenosis estimated at about 30 percent. CTA brain: Distal vertebral arteries, basilar artery, visualized basilar artery branches, and posterior cerebral arteries appear patent. Distal internal carotid arteries, anterior, and middle cerebral arteries appear patent. No aneurysm, high grade stenosis, or large vessel occlusion seen. [facility] [employer] [facility] Terrell Bowers MD - 08/20/2025 Patient Name: ABISAI LAMAS : 1955 Exam Date/Time: 08/20/2025 20:11 Procedure: CT HEAD NECK ANGIO W AND WO IV CONTRAST Ordering Provider: WILLS KATIE Reason For Exam: s/p trauma CTA OF THE HEAD AND NECK WITH IV CONTRAST CLINICAL INDICATION: s/p trauma, head and neck pain TECHNIQUE: Routine CTA of the head and neck with IV contrast. Multiplanar reformations. 3-D reformations. Dose reduction was employed with automated exposure control. COMPARISON: None FINDINGS: CTA neck: Status post sternotomy. Coronary artery calcifications noted. Vertebral arteries are patent bilaterally throughout the neck, no dissection or significant stenosis seen. Vertebral arteries are codominant. Moderate carotid bifurcation plaque bilaterally. RIGHT carotid bifurcation stenosis estimated at about 25 percent. LEFT carotid bifurcation stenosis estimated at about 30 percent. CTA brain: Distal vertebral arteries, basilar artery, visualized basilar artery branches, and posterior cerebral arteries appear patent. Distal internal carotid arteries, anterior, and middle cerebral arteries appear patent. No aneurysm, high grade stenosis, or large vessel occlusion seen. IMPRESSION: 1. No large vessel occlusion. No hemodynamically significant carotid stenosis. Reference: Measurement of carotid stenosis is based on conventional angiographic data from the NASCET trials. Report Dictated on Electronically Signed By: Terrell Bowers MD Electronically Signed Date/Time: 08/20/2025 11:47 PM EDT [facility] Chest 1 View (Portable)on Chest 1 View (Portable) [facility] Imaging Services [address] [place] [id number] Chest 1 View (Portable) MR#: [id number] Acct: [id number] Name: ABISAI LAMAS Rep #: [id number] : 1955 F 69 From: Abe Tavarez MD PCP: Joyce Washburn, LICENSED CLINICIAN-C Status: REG ER Study: Chest 1 View (Portable) Date of Exam: 08/20/25 Exam# [id number] Ordering Dr: Ti Bass MD PROCEDURE: CHEST 1 VIEW (PORTABLE) 08/20/2025 REASON FOR EXAM: FALL/TRAUMA TECHNIQUE: Frontal view of the chest. COMPARISON: April 22, 2025 FINDINGS: Hardware: EKG leads Heart: Mildly enlarged status post median sternotomy Lungs: Clear. No pneumothorax or pleural effusion Bones: The bones are unremarkable. RAD/Chest 1 View (Portable) IMPRESSION: No acute abnormality Reading Location: [id number] CC: KAMINI Washburn; Dr. Ti Bass MD Quality Control Inspector Heading: Signed Normal [facility] Comprehensive Metabolic Prof ilon 08-20-2025 Albumin [Mass/Vol] 4.1 g/dL Normal 3.4-4.8 [facility] Comment on above: Performed By: #### L 300.3900, L100.0100, L500.4050, L300.4310, BTS #### [facility] Laboratory [address] [place], [address] Albumin/Globulin [Mass ratio] 1.6 {ratio} Normal 0.9-2.4 [facility] Comment on above: Performed By: #### L 300.3900, L100.0100, L500.4050, L300.4310, BTS #### [facility] Laboratory [address] [place], [address] ALK PHOS 60 U/L Normal 35-104 [facility] Comment on above: Performed By: #### L 300.3900, L100.0100, L500.4050, L300.4310, BTS #### [facility] Laboratory [address] [place], [address] ALT [Catalytic activity/Vol] 34 U/L Normal <=34 [facility] Comment on above: Performed By: #### L 300.3900, L100.0100, L500.4050, L300.4310, BTS #### [facility] [facility] [address] [place], [address] AST [Catalytic activity/Vol] 36 U/L High <=31 [facility] Comment on above: Performed By: #### L 300.3900, L100.0100, L500.4050, L300.4310, BTS #### [facility] [address] [place], [address] Bilirubin [Mass/Vol] 0.65 mg/dL Normal 0.00-1.30 [facility] Comment on above: Performed By: #### L 300.3900, L100.0100, L500.4050, L300.4310, BTS #### [facility] [address] [place], [address] BUN/CRE 30.2 RATIO High 10-20 [facility] Comment on above: Performed By: #### L 300.3900, L100.0100, L500.4050, L300.4310, BTS #### [facility] [address] [place], [address] Calcium [Mass/Vol] 9.2 mg/dL Normal 7.6-11.0 [facility] Comment on above: Performed By: #### L 300.3900, L100.0100, L500.4050, L300.4310, BTS #### [facility] [address] [place], [address] Chloride [Moles/Vol] 101 mmol/L Normal 98-108 [facility] Comment on above: Performed By: #### L 300.3900, L100.0100, L500.4050, L300.4310, BTS #### [facility] [address] [place], [address] CO2 [Moles/Vol] 27.2 mmol/L Normal 21.0-32.0 [facility] Comment on above: Performed By: #### L 300.3900, L100.0100, L500.4050, L300.4310, BTS #### [facility] [address] [place], [address] Creatinine [Mass/Vol] 0.79 mg/dL Normal 0.70-1.20 [facility] Comment on above: Performed By: #### L 300.3900, L100.0100, L500.4050, L300.4310, BTS #### [facility] [address] [place], [address] ECRCL 69.96 ml/min Normal 50-250 [facility] Comment on above: Performed By: #### L 300.3900, L100.0100, L500.4050, L300.4310, BTS #### [facility] [address] [place], [address] GAP 11 Normal 5-15 [facility] Comment on above: Performed By: #### L 300.3900, L100.0100, L500.4050, L300.4310, BTS #### [facility] [address] [place], [address] GFR/1.73 sq M.predicted among non-blacks MDRD (S/P/Bld) [Vol rate/Area] 83 mL/min/{1.73_m2} Normal >60 [facility] Comment on above: Result Comment: mL/m in/1.73m2 CKD-EPI Creatinine Equation (2020) Performed By: #### L 300.3900, L100.0100, L500.4050, L300.4310, BTS #### [facility] [address] [place], [address] Globulin (S) [Mass/Vol] 2.5 g/dL Normal 2.2-4.2 [facility] Comment on above: Performed By: #### L 300.3900, L100.0100, L500.4050, L300.4310, BTS #### [facility] [address] [place], [address] Glucose [Mass/Vol] 250 mg/dL High 70-99 [facility] Comment on above: Performed By: #### L 300.3900, L100.0100, L500.4050, L300.4310, BTS #### [facility] [address] [place], [address] Potassium [Moles/Vol] 4.9 mmol/L Normal 3.3-5.1 [facility] Comment on above: Performed By: #### L 300.3900, L100.0100, L500.4050, L300.4310, BTS #### [facility] [address] [place], [address] Sodium [Moles/Vol] 139 mmol/L Normal 133-145 [facility] Comment on above: Performed By: #### L 300.3900, L100.0100, L500.4050, L300.4310, BTS #### [facility] [address] [place], [address] T PROT 6.7 g/dL Normal 5.9-8.4 [facility] Comment on above: Performed By: #### L 300.3900, L100.0100, L500.4050, L300.4310, BTS #### [facility] [address] [place], [address] Urea nitrogen [Mass/Vol] 24 mg/dL High 4-19 [facility] Comment on above: Performed By: #### L 300.3900, L100.0100, L500.4050, L300.4310, BTS #### [facility] [address] [place], [address] ETHANOLon 08-20-2025 ETHANOL IN SER/PLAS- LANIER <10 Normal <10 [facility] Comment on above: Result Comment: ORDE R COMMENTS: SHALE PLANER OPERATOR depression is seen >100 mg/dL. NOTE: This result is for medical treatment only. Analysis performed using non-forensic procedures. Performed By: #### L AB46, LAB15 ####Firer Low Pressure: CLARISA MABRY ([id number])[facility] ([address] Emergency Department Summary on 08-20-2025 Emergency Department Summary [facility] Medical Records Department [address] [place] [address] Emergency Department Summary 08/20/25 MR#: [id number] Acct: [id number] Name: ABISAI LAMAS Rep #: [id number] : 1955 69 From: Ti Bass MD PCP: KAMINI Samaniego Status:REG ER Location: ED ADDENDUM by Dr. Ti Bass MD on 08/20/25 at 1429 [facility] called back and requested that we try to give the patient a dose of DDAVP if available, to help reverse platelet malfunction. Therefore I am ordering 20 mcg IV is the max dose, as 0.3 mcg/kg would be 24 mcg for her, transport is and route and if it is available prior to that it will be administered. 08/20/25 1426 Cosigner Signature (if applicable): cc: LICENSED CLINICIAN-C Joyce Washburn * Signed HPI History of Present Illness Chief Complaint: Trauma Informant: patient and family Narrative Narrative: Patient is a 69-year-old female with a history of DM, HTN, and CABG presenting after being trampled by a horse. Patient is accompanied by a family member who is supplementing history. - Incident occurred while handling a horse; horse became startled. - Horse attempted to pass , who was unaware of 's position behind her; patient was knocked down and trampled. - Unsure if the horse struck her head; family member reports possible brief loss of consciousness, but very brief if occured; patient remembers the event. - Sustained injuries to the face, knees, and abdomen; reports significant pain in the forehead and knees. - Denies chest, arm, neck, or back pain. - Able to ambulate since the incident. - Taking metformin, losartan, carvedilol, and a diuretic. - Underwent CABG in 2014. 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 Home Medications ???Medication ???Instructions ???Recorded ???Last Taken ???Type aspirin 81 mg chewable tablet 81 mg PO DAILY@0800 07/02/1507/02 History folic acid 0.8 mg capsule 0.8 mg PO DAILY 07/02/15 07/02/15 History lovastatin 40 mg tablet 40 mg PO DAILY 07/02/15 07/01/15 H istory metformin 1,000 mg tablet 1,000 mg PO BIDCM 07/02/15 5 History cholecalciferol (vitamin D3) 125 5,000 unit PO DAILY 11/05/17 Unkno wn History mcg (5,000 unit) capsule ferrous sulfate 325 mg (65 mg 325 mg PO DAILY 11/05/17 Unknown H istory iron) tablet fluoxetine 10 mg capsule 10 mg PO QHS 11/05/17 Unknown Hist ory multivitamin 1 tab PO QAM 11/05/17 Unknown Hist ory insulin glargine 100 unit/mL (3 unit subcut 10/14/23 Unknown Histo ry mL) subcutaneous pen (Lantus Solostar U-100 Insulin) insulin lispro 100 unit/mL 1 sliding scale dose subcut Unknown History subcutaneous pen (Admelog SoloStar U-100 Insulin lispro) clopidogrel 75 mg tablet 75 mg PO DAILY #90 tabs 03/21/25 U nknown Rx lidocaine 5 % topical patch 1 patch topical DAILY #15 ea 04/22 Unknown Rx (Lidoderm) ondansetron 4 mg disintegrating 4 mg PO Q6H PRN nausea and 5 Unknown Rx tablet vomiting #20 tabs oxycodone-acetaminop hen 5 mg-325 1 tab PO Q6H PRN pain 3 days #12 0 04/22/25 Unknown Rx mg tablet (Endocet) tabs carvedilol 6.25 mg tablet 6.25 mg PO BID #180 tabs 06/18/25 Unknown Rx losartan 50 mg tablet See Rx Instructions .Route 5 Unknown Rx .COMPLEX #90 tabs insulin human U-100 NPH-regulr subcut 08/20/25 Unknown History 70-30 mix 100 unit/mL subcutaneous susp (Novolin 70/30 U-100 Insulin) levothyroxine 50 mcg tablet 50 mcg PO DAILY 08/20/25 Unknown H istory Allergy/AdvReac Type Severity Reaction Status Date / Time lisinopril AdvReac Intermediate cough Verified 08/20/25 11:38 Family History Sister Breast cancer Brother Diabetes Cancer Father CAD (coronary artery disease) Surgical History History of bilateral cataract extraction H/O partial thyroidectomy History of tonsillectomy History of cholecystectomy History of appendectomy H/O coronary artery bypass surgery (06/25/15) History of left heart catheterization (06/25/15) Hx of biopsy Hx of section Social History household members: spouse housing: house Smoking Status: Never smoker second hand exposure: No alcohol intake: never substance use type: does not use caffeine: No what type of physical activity do you participate in: none frequency: does not exercise seatbelt use: always (more content not included)... 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 NOTE: This result is for medical treatment only. Analysis performed using non-forensic procedures. [facility] HEMOGLOBIN A1Con 08-20-2025 Glucose [Mass/Vol] 174 mg/dL Normal [facility] Comment on above: Result Comment: QUINTEN Mcadams COMMENTS: If not done within the last 3 mos HbA1c values of 5.7-6.4 percent indicate an increased risk for developing diabetes mellitus. HbA1c values greater than or equal to 6.5 percent are diagnostic of diabetes mellitus. For diagnosis of diabetes in individuals without unequivocal hyperglycemia, results should be confirmed by repeat testing. Performed By: #### L AB90 ####Firer Low Pressure: CLARISA MABRY ([id number])[place] [id number] [place] HEMOGLOBIN A1C 7.7 %HbA1C High <5.7 [facility] Comment on above: Result Comment: Norm al less than 5.7% Prediabetes 5.7% to 6.4% Diabetes 6.5% or higher --HgbA1C levels may not be accurate in patients who have renal disease, received recent blood transfusions, are anemic, or who have dyshemoglobinemia. Performed By: #### L AB90 ####Firer Low Pressure: CLARISA MABRY ([id number])[facility] ([facility])[address] Knee 4 or More Viewson 08-20 Knee 4 or More Views [facility] Imaging Services [address] [place] [address] Knee 4 or More Views MR#: [id number] Acct: [id number] Name: ABISAI LAMAS Rep #: [id number] : 1955 F 69 From: Abe Tavarez MD PCP: Joyce Washburn, LICENSED CLINICIAN-C Status: REG ER Study: Knee 4 or More Views Date of Exam: 08/20/25 Exam# [id number] Ordering Dr: Ti Bass MD PROCEDURE: KNEE 4 OR MORE VIEWS 08/20/2025 REASON FOR EXAM: INJURY TECHNIQUE: Procedure Code: RADKN Modality: DX Procedure: KNEE 4 OR MORE VIEWS Laterality: Left COMPARISON: None FINDINGS: Bones: No fracture Joints: Mild joint space narrowing at the patellofemoral joint mainly at the lateral facet. Effusion: Small suprapatellar joint effusion. Soft tissues: Atherosclerosis of the arterial structures. Surgical clip adjacent to the medial femoral condyle. RAD/Knee 4 or More Views IMPRESSION: No fracture. Mild osteoarthritis patellofemoral joint. Advanced atherosclerosis. Reading Location: [id number] CC: LICENSED CLINICIAN-C Joyce Washburn; Dr. Ti Bass MD Quality Control Inspector Heading: Signed Normal [facility] Knee 4 or More Views [facility] Imaging Services [address] [place] [address] Knee 4 or More Views MR#: [id number] Acct: [id number] Name: ABISAI LAMAS Rep #: [id number] : 1955 F 69 From: Abe Tavarez MD PCP: Joyce Washburn, RYAN-C Status: REG ER Study: Knee 4 or More Views Date of Exam: 08/20/25 Exam# [id number] Ordering Dr: Ti Bass MD PROCEDURE: KNEE 4 OR MORE VIEWS 08/20/2025 REASON FOR EXAM: INJURY TECHNIQUE: Procedure Code: RADKN Modality: DX Procedure: KNEE 4 OR MORE VIEWS Laterality: Right COMPARISON: None FINDINGS: Bones: No fracture seen Joints: Normal alignment. Effusion: No effusion. Soft tissues: Advanced atherosclerosis. Other: No foreign body RAD/Knee 4 or More Views IMPRESSION: No acute abnormality. Advanced atherosclerosis. Reading Location: [id number] CC: LICENSED CLINICIAN-C Joyce Washburn; Dr. Ti Bass MD Quality Control Inspector Heading: Signed Normal [facility] Laboratory - Chemistry and C hemistry - challengeon 08-20-2025 Glucose [Mass/Vol] 180 mg/dL High 70 - 100 mg/dL [facility] Average glucose Estimated from glycated hemoglobin (Bld) [Mass/Vol] 174 mg/dL [facility] - Hematology and Cell countson 08-20-2025 HbA1c (Bld) [Mass fraction] 7.7 % High [facility] Comment on above: Normal less than 5.7 % Prediabetes 5.7% to 6.4% Diabetes 6.5% or higher --HgbA1C levels may not be accurate in patients who have renal disease, received recent blood transfusions, are anemic, or who have dyshemoglobinemia. No Panel Informationon 08-20 Interpretation and review of laboratory results Abnormal [facility] Performed by: [facility], [address] [place], [place] [id number] CLIA ID: [id number] [facility] Radiology Study observation (narrative) [facility] de Interpretation and review of laboratory results Abnormal [facility] HbA1c values of 5.7-6.4 percent indicate an increased risk for developing diabetes mellitus. HbA1c values greater than or equal to 6.5 percent are diagnostic of diabetes mellitus. For diagnosis of diabetes in individuals without unequivocal hyperglycemia, results should be confirmed by repeat testing. [facility] Nursing Noteon 08-20-2025 Nursing Note Patient to T2 ICU from [place] ED Normal [facility] Partial Thromboplast Timeon 08-20-2025 aPTT Coag (Bld) [Time] 28.2 s Normal 24.1-36.2 [facility] Comment on above: Performed By: #### L 300.3900, L100.0100, L500.4050, L300.4310, BTS #### [facility] [address] [place], [address] Progress Noteon 08-20-2025 Progress Note I was notified by the resident that the patient had arrived on T2 as a Direct Admit. I immediately came to T2 ICU to evaluate patient. I was at the bedside within 15 minutes of patient arrival. Please see H&P for further details. Normal [facility] Prothrombin Time w/INRon INR Coag (PPP) [Relative time] 1.1 {INR} Normal [facility] Comment on above: Performed By: #### L 300.3900, L100.0100, L500.4050, L300.4310, BTS #### [facility] [address] [place], [address] PT Coag (PPP) [Time] 14.6 s Normal 11.7-14.9 [facility] Comment on above: Performed By: #### L 300.3900, L100.0100, L500.4050, L300.4310, BTS #### [facility] [address] [place], [place], [address] Type AND Screenon 08-20-2025 ABO and Rh group Nom (Bld) Blood group A Rh(D) positive Normal [facility] Comment on above: Order Comment: Has p t arrived? YT Performed By: #### L 300.3900, L100.0100, L500.4050, L300.4310, BTS ####[facility] [address] [place], [address] Urinalysis, Completeon 08-20 EPI,SQUAMOUS 0-5 SEEN Normal 5-10 [facility] Comment on above: Order Comment: COLLE CTOR TO SPECIFY Performed By: #### L 400.0001 ####[facility] [address] [place], [address] BACTERIA 0 SEEN Normal None Seen [facility] Comment on above: Order Comment: COLLE CTOR TO SPECIFY Performed By: #### L 400.0001 ####[facility] [address] [place], [address] Mucus Ql (Urine sed) 0 SEEN Normal [facility] Comment on above: Order Comment: COLLE CTOR TO SPECIFY Performed By: #### L 400.0001 ####[facility] [address] [place], [address] RBC 0 SEEN Normal 0-5 [facility] Comment on above: Order Comment: COLLE CTOR TO SPECIFY Performed By: #### L 400.0001 ####[facility] [address] [place], [address] WBC 0 SEEN Normal 0-5 [facility] Comment on above: Order Comment: COLLE CTOR TO SPECIFY Performed By: #### L 400.0001 ####[facility] [address] [place], [address] XR KNEE 3 VIEWS LEFTon 08-20 XR KNEE 3 VIEWS LEFT Patient Name: ABISAI LAMAS : 1955 Exam Date/Time: 08/20/2025 16:49 Procedure: XR KNEE 3 VIEWS LEFT Ordering Provider: WILLS KATIE Reason For Exam: s/p trauma LEFT KNEE: CLINICAL INDICATION: Pain, trauma. TECHNIQUE: Three views of the left knee COMPARISON: None FINDINGS: There is cortical irregularity along the medial aspect of the left femoral metaphysis. No subluxation. No spurring or joint space narrowing is noted. There is a small joint effusion. No bone lesion is identified. There is a 5 mm linear radiopaque foreign body noted about the posterior medial left knee soft tissues about the level the femoral metaphysis. Vascular calcifications noted. IMPRESSION: 1. Cortical irregularity along the medial aspect of the left femoral metaphysis, which may suggest fracture. There is a small joint effusion. Recommend bilateral oblique views of left knee for further evaluation. 2. Small joint effusion. 3. Linear radiopaque foreign body within the posterior medial knee soft tissues as noted above. Report Dictated on Electronically Signed By: Warren Gonzales MD Electronically Signed Date/Time: 08/20/2025 9:[address] [facility] XR Knee - left 3 Viewson 1. Cortical irregularity along the medial aspect of the left femoral metaphysis, which may suggest fracture. There is a small joint effusion. Recommend bilateral oblique views of left knee for further evaluation. 2. Small joint effusion. 3. Linear radiopaque foreign body within the posterior medial knee soft tissues as noted above. Report Dictated on Electronically Signed By: Warren Gonzales MD Electronically Signed Date/Time: 08/20/2025 9:20 PM EDT [facility] [employer] [facility] 1955 [id number] Exam Date/Time: 08/20/2025 16:49 Procedure: XR KNEE 3 VIEWS LEFT Ordering Provider: WILLS KATIE Reason For Exam: s/p trauma LEFT KNEE: CLINICAL INDICATION: Pain, trauma. TECHNIQUE: Three views of the left knee COMPARISON: None FINDINGS: There is cortical irregularity along the medial aspect of the left femoral metaphysis. No subluxation. No spurring or joint space narrowing is noted. There is a small joint effusion. No bone lesion is identified. There is a 5 mm linear radiopaque foreign body noted about the posterior medial left knee soft tissues about the level the femoral metaphysis. Vascular calcifications noted. [facility] Warren Gonzales MD - 08/20/2025 Patient Name: ABISA[facility]AMAS : 1955 [id number] Exam Date/Time: 08/20/2025 16:49 Procedure: XR KNEE 3 VIEWS LEFT Ordering Provider: WILLS KATIE Reason For Exam: s/p trauma LEFT KNEE: CLINICAL INDICATION: Pain, trauma. TECHNIQUE: Three views of the left knee COMPARISON: None FINDINGS: There is cortical irregularity along the medial aspect of the left femoral metaphysis. No subluxation. No spurring or joint space narrowing is noted. There is a small joint effusion. No bone lesion is identified. There is a 5 mm linear radiopaque foreign body noted about the posterior medial left knee soft tissues about the level the femoral metaphysis. Vascular calcifications noted. IMPRESSION: 1. Cortical irregularity along the medial aspect of the left femoral metaphysis, which may suggest fracture. There is a small joint effusion. Recommend bilateral oblique views of left knee for further evaluation. 2. Small joint effusion. 3. Linear radiopaque foreign body within the posterior medial knee soft tissues as noted above. Report Dictated on Electronically Signed By: Warren Gonzales MD Electronically Signed Date/Time: 08/20/2025 9:20 PM EDT [facility] Radiology Study observation (narrative) [facility] He alth XR Knee - left 3 ViewsOrdere d By: Warren Gonzales on 08-20-2025 [facility] Work Phone: Absolute lymphocyte countOrd ered By: Nilson Grullon on 04-22-2025 Lymphocytes Auto (Unsp spec) [#/Vol] 1.75 10*3/uL 0.83-4.51 [facility] Absolute neutrophil countOrd ered By: Nilson Grullon on 04-22-2025 Neutrophils (Bld) [#/Vol] 3.7 10*3/uL 2.0-7.7 [facility] Activated partial thrombopla stin time (aPTT) in platelet poor plasma by coagulation aOrdered By: Nislon Grullon on 04-22-2025 aPTT Coag (PPP) [Time] 25.7 s 24.1-36.2 [facility] Anion gap in Serum or Plasma Ordered By: Nilson Grullon on 04-22-2025 Anion gap [Moles/Vol] 14 mmol/L 5-15 [facility] Automated blood erythrocyte countOrdered By: Nilson Grullon on 04-22-2025 RBC (Bld) [#/Vol] 4.52 10*6/uL Normal 4.2-5.4 [facility] Comment on above: Performed By: #### L 501.2450, L500.4050, L100.0100 ####[facility] [address] [place], [address] Automated blood hematocrit ( percentage)Ordered By: Nilson Grullon on 04-22-2025 Hematocrit (Bld) [Volume fraction] 38.5 % Normal 37-47 [facility] Comment on above: Performed By: #### L 501.2450, L500.4050, L100.0100 ####[facility] [address] [place], [place], [address] Automated lymphocyte count a s percentage of total leukocytesOrdered By: Nilson Grullon on 04-22-2025 Lymphocytes/100 WBC Auto (Unsp spec) 26.8 % 19-41 [facility] BUN/creatinine ratioOrdered By: Nilson Grullon on 04-22-2025 Urea nitrogen/Creatinine [Mass ratio] 24.7 mg/mg High 10-20 [facility] Basophil percentageOrdered B y: Nilson Grullon on 04-22-2025 Basophils/100 WBC (Bld) 0.8 % Normal 0-1 [facility] Comment on above: Performed By: #### L 501.2450, L500.4050, L100.0100 ####[facility] [address] [place], [address] Bilirubin Test strip Ql (U)O rdered By: Nilson Grullon on 04-22-2025 Bilirubin Ql (U) Negative Negative [facility] Bilirubin, totalOrdered By: Nilson Grullon on 04-22-2025 Bilirubin [Mass/Vol] 0.52 mg/dL 0.00-1.30 [facility] CBC W/Diff, Automatedon 06-2 Absolute Lymph 1.75 X10 3/uL Normal 0.83-4.51 [facility] Comment on above: Performed By: #### L 501.2450, L500.4050, L100.0100 ####[facility] [address] [place], [address] Absolute Neut 3.7 X10 3/uL Normal 2.0-7.7 [facility] Comment on above: Performed By: #### L 501.2450, L500.4050, L100.0100 ####[facility] [address] [place], [address] IG% 0.500 Normal 0.0-0.9 [facility] Comment on above: Result Comment: IG% - Immature Granulocytes (promyelocytes, myelocytes and metamyelocytes) > 1% indicates that a LEFT SHIFT is Present. Performed By: #### L 501.2450, L500.4050, L100.0100 ####[facility] [address] [place], [address] Lymphocytes/100 WBC (Bld) 26.8 % Normal 19-41 [facility] Comment on above: Performed By: #### L 501.2450, L500.4050, L100.0100 ####[facility] [address] [place], [address] Nucleated RBC (Bld) [#/Vol] 0 10*3/uL Normal 0-5 [facility] Comment on above: Performed By: #### L 501.2450, L500.4050, L100.0100 ####[facility] [address] [place], [address] RDW SD 45.3 fl High 35.1-43.9 [facility] Comment on above: Performed By: #### L 501.2450, L500.4050, L100.0100 ####[facility] [address] [place], [address] CT Chest, Abd, Pel w/Contras ton 04-22-2025 CT Chest, Abd, Pel w/Contrast [facility] Imaging Services [address] [place] [address] CT Chest, Abd, Pel w/Contrast MR#: [id number] Acct: [id number] Name: ABISAI LAMAS Rep #: [id number] : 1955 F 69 From: Daniel Nance MD PCP: AALIYAH SamaniegoC Status: REG ER Study: CT Chest, Abd, Pel w/Contrast Date of Exam: Exam# [id number] Ordering Dr: Nilson Grullon DO PROCEDURE: CT CHEST, ABD, PEL W/CONTRAST 04/22/2025 REASON FOR EXAM: FALL ON WEDNESDAY, RIGHT RIB PAIN, RIGHT SIDE PAIN TECHNIQUE: Chest, abdomen and pelvis CT with intravenous contrast. Coronal and Sagittal reconstruction series were provided. One or more dose reduction techniques were used (e.g., Automated exposure control, adjustment of the mA and/or kV according to patient size, use of iterative reconstruction technique. PATIENT PREPARATION: Per protocol ORAL CONTRAST TYPE: None. AMOUNT: mL CONTRAST: Isovue 370 VOLUME: 97mL Gauge IV RADIATION DOSE SUMMARY: CTDlvol: 60 mGy DLP: 1594 mGycm COMPARISON: No FINDINGS: Unremarkable base of neck and axilla. Thoracic spine scoliosis and degeneration. Normal esophagus. Borderline prominent heart size. Status post CABG. No acute vascular injury. Acute right 10th and 11th rib fracture. Central airways are patent. Dependent atelectasis. No contusion, pneumothorax,. Tiny right-sided effusion. Status post cholecystectomy. Upper abdominal solid organs show no acute findings. Bilateral renal scarring. No hydronephrosis. Unremarkable bladder. Normal uterus and ovaries. No retroperitoneal or pelvic adenopathy. No free air. Nondistended bowel. Moderate stool. No acute large bowel findings otherwise. Lumbar spine degeneration. CT/CT Chest, Abd, Pel w/Contrast IMPRESSION: Right-sided chest wall injury and tiny right effusion. Reading Location: [place] [address] CC: KAMINI Washburn; Dr. Nilson Grullon, DO Quality Control Inspector Heading: Signed Normal [facility] Carbon dioxide, total [Moles /volume] in Central venous bloodOrdered By: Nilson Grullon on 04-22-2025 CO2 [Moles/Vol] 22.2 mmol/L 21.0-32.0 [facility] Chloride assayOrdered By: Dima Grullon on 04-22-2025 Chloride [Moles/Vol] 103 mmol/L 98-108 [facility] Comprehensive Metabolic Prof ilon 04-22-2025 Albumin [Mass/Vol] 4.1 g/dL Normal 3.4-4.8 [facility] Comment on above: Performed By: #### L 501.2450, L500.4050, L100.0100 ####[facility] [address] [place], [address] Albumin/Globulin [Mass ratio] 1.4 {ratio} Normal 0.9-2.4 [facility] Comment on above: Performed By: #### L 501.2450, L500.4050, L100.0100 ####[facility] [address] [place], [address] ALK PHOS 65 U/L Normal 35-104 [facility] Comment on above: Performed By: #### L 501.2450, L500.4050, L100.0100 ####[facility] [address] [place], [address] ALT [Catalytic activity/Vol] 20 U/L Normal <=34 [facility] Comment on above: Result Comment: Hemo lysis present, Results??could be affected. ?? Performed By: #### L 501.2450, L500.4050, L100.0100 ####[facility] [address] [place], [address] AST [Catalytic activity/Vol] 32 U/L Normal <=31 [facility] Comment on above: Result Comment: Hemo lysis present, Results??could be affected. ?? Performed By: #### L 501.2450, L500.4050, L100.0100 ####[facility] [address] [place], [address] Bilirubin [Mass/Vol] 0.52 mg/dL Normal 0.00-1.30 [facility] Comment on above: Performed By: #### L 501.2450, L500.4050, L100.0100 ####[facility] [address] [place], [address] BUN/CRE 24.7 RATIO High 10-20 [facility] Comment on above: Performed By: #### L 501.2450, L500.4050, L100.0100 ####[facility] [address] [place], [address] Calcium [Mass/Vol] 9.3 mg/dL Normal 7.6-11.0 [facility] Comment on above: Performed By: #### L 501.2450, L500.4050, L100.0100 ####[facility] [address] [place], [address] Chloride [Moles/Vol] 103 mmol/L Normal 98-108 [facility] Comment on above: Performed By: #### L 501.2450, L500.4050, L100.0100 ####[facility] [address] [place], [address] CO2 [Moles/Vol] 22.2 mmol/L Normal 21.0-32.0 [facility] Comment on above: Performed By: #### L 501.2450, L500.4050, L100.0100 ####[facility] [address] [place], [address] Creatinine [Mass/Vol] 0.88 mg/dL Normal 0.70-1.20 [facility] Comment on above: Performed By: #### L 501.2450, L500.4050, L100.0100 ####[facility] [address] [place], [address] GAP 14 Normal 5-15 [facility] Comment on above: Performed By: #### L 501.2450, L500.4050, L100.0100 ####[facility] [address] [place], [address] GFR/1.73 sq M.predicted among non-blacks MDRD (S/P/Bld) [Vol rate/Area] 72 mL/min/{1.73_m2} Normal >60 [facility] Comment on above: Result Comment: mL/m in/1.73m2 CKD-EPI Creatinine Equation (2020) Performed By: #### L 501.2450, L500.4050, L100.0100 ####[facility] [address] [place], [address] Globulin (S) [Mass/Vol] 2.9 g/dL Normal 2.2-4.2 [facility] Comment on above: Performed By: #### L 501.2450, L500.4050, L100.0100 ####[facility] [address] [place], [address] Glucose [Mass/Vol] 177 mg/dL High 70-99 [facility] Comment on above: Performed By: #### L 501.2450, L500.4050, L100.0100 ####[facility] [address] [place], [address] Potassium [Moles/Vol] 4.8 mmol/L Normal 3.3-5.1 [facility] Comment on above: Result Comment: Hemo lysis present, Results??could be affected. ?? Performed By: #### L 501.2450, L500.4050, L100.0100 ####[facility] [address] [place], [address] Sodium [Moles/Vol] 139 mmol/L Normal 133-145 [facility] Comment on above: Performed By: #### L 501.2450, L500.4050, L100.0100 ####[facility] [address] [place], [address] T PROT 6.9 g/dL Normal 5.9-8.4 [facility] Comment on above: Performed By: #### L 501.2450, L500.4050, L100.0100 ####[facility] [address], [address] Urea nitrogen [Mass/Vol] 22 mg/dL High 4-19 [facility] Comment on above: Performed By: #### L 501.2450, L500.4050, L100.0100 ####[facility] [address] [place], [address] Emergency Department Summary on 04-22-2025 Emergency Department Summary [facility] Medical Records Department [address] [place] [address] Emergency Department Summary 04/22/25 MR#: [id number] Acct: [id number] Name: ABISAI LAMAS Rep #: [id number] : 1955 69 From: Nilson Grullon DO PCP: Joyce Washburn, LICENSED CLINICIAN-C Status:REG ER Location: ED HPI History of Present Illness Chief Complaint: Abd Pain Narrative Narrative: Patient is a 69-year-old female with past medical history of CVA, hypothyroidism, type 2 diabetes, hypertension, CAD who presents to the emergency department the chief complaint of right-sided abdominal pain and rib pain. States on she slipped and fell down concrete stairs and originally states that she was having right sided flank pain. She notes that she originally started to get better however noted that recently the pain became severe again prompting her to come here for further evaluation management. She states that the Motrin is not helping her pain anymore. 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 Home Medications ???Medication ???Instructions ???Recorded ???Last Taken ???Type aspirin 81 mg chewable tablet 81 mg PO DAILY@0800 07/02/1507/02 History folic acid 0.8 mg capsule 0.8 mg PO DAILY 07/02/15 07/02/15 History lovastatin 40 mg tablet 40 mg PO DAILY 07/02/15 07/01/15 H istory metformin 1,000 mg tablet 1,000 mg PO BIDCM 07/02/15 5 History cholecalciferol (vitamin D3) 125 5,000 unit PO DAILY 11/05/17 Unkno wn History mcg (5,000 unit) capsule ferrous sulfate 325 mg (65 mg 325 mg PO DAILY 11/05/17 Unknown H istory iron) tablet fluoxetine 10 mg capsule 10 mg PO QHS 11/05/17 Unknown Hist ory multivitamin 1 tab PO QAM 11/05/17 Unknown Hist ory insulin glargine 100 unit/mL (3 unit subcut 10/14/23 Unknown Histo ry mL) subcutaneous pen (Lantus Solostar U-100 Insulin) insulin lispro 100 unit/mL 1 sliding scale dose subcut Unknown History subcutaneous pen (Admelog SoloStar U-100 Insulin lispro) levothyroxine 25 mcg tablet 50 mcg PO DAILY 10/14/23 Unknown H istory carvedilol 6.25 mg tablet 6.25 mg PO BID #180 tabs 05/29/24 Unknown Rx losartan 50 mg tablet See Rx Instructions .Route 4 Unknown Rx .COMPLEX #90 tabs clopidogrel 75 mg tablet 75 mg PO DAILY #90 tabs 03/21/25 U nknown Rx cyclobenzaprine 10 mg tablet 10 mg PO TID PRN muscle spasm #14 04/22/25 Unknown Rx tabs lidocaine 5 % topical patch 1 patch topical DAILY #15 ea 04/22 Unknown Rx (Lidoderm) ondansetron 4 mg disintegrating 4 mg PO Q6H PRN nausea and 5 Unknown Rx tablet vomiting #20 tabs oxycodone-acetaminop hen 5 mg-325 1 tab PO Q6H PRN pain 3 days #12 0 04/22/25 Unknown Rx mg tablet (Endocet) tabs Allergy/AdvReac Type Severity Reaction Status Date / Time lisinopril AdvReac Intermediate cough Verified 04/22/25 20:22 Family History Sister Breast cancer Brother Diabetes Cancer Father CAD (coronary artery disease) Surgical History History of bilateral cataract extraction H/O partial thyroidectomy History of tonsillectomy History of cholecystectomy History of appendectomy H/O coronary artery bypass surgery (06/25/15) History of left heart catheterization (06/25/15) Hx of biopsy Hx of section Social History household members: spouse housing: house Smoking Status: Never smoker second hand exposure: No alcohol intake: never substance use type: does not use caffeine: No what type of physical activity do you participate in: none frequency: does not exercise seatbelt use: always ROS ROS ED ROS Narrative Constitutional: Denies any fevers, chills Eyes: Denies changes double vision blurred vision Cardiovascular: Denies chest pain Respiratory: Denies shortness of breath Abdomen: Complains of right side abdominal pain as noted above : Denies urinary symptoms Neurological: Denies numbness, weeks, tingling Musculoskeletal: Complains of right flank pain/rib pain as noted above Skin: Denies any rashes or lesions EXAM Physical Exam Narrative Exam Narrative: General: Patient was lying bed rest comfortably did appear to be uncomfortable secondary to her pain Head: Atraumatic, normocephalic Eyes: PERRL bilaterally, EOMI bilaterally, no conjunctival injection noted Neck: Soft, supple, trachea midline Cardiovascular: Regular rate an (more content not included)... Normal [facility] Eosinophil percentageOrdered By: Nilson Grullon on 04-22-2025 Eosinophils/100 WBC (Bld) 8.1 % High 0-5 [facility] Comment on above: Performed By: #### L 501.2450, L500.4050, L100.0100 ####[facility] [address] [place], [address] Erythrocyte distribution wid th ratioOrdered By: Nilson Grullon on 04-22-2025 Erythrocyte distribution width (RBC) [Ratio] 14.7 % High 11.6-14.6 [facility] Comment on above: Performed By: #### L 501.2450, L500.4050, L100.0100 ####[facility] [address] [place], [address] Erythrocyte distribution wid th standard deviationOrdered By: Nilson Grullon on 04-22-2025 Erythrocyte distribution width (RBC) [Ratio] 45.3 fl High 35.1-43.9 [facility] Glomerular filtration rate ( GFR) estimation/1.73 sq m using serum, plasma, or whole bOrdered By: Nilson Grullon on 04-22-2025 GFR/1.73 sq M.predicted among non-blacks MDRD (S/P/Bld) [Vol rate/Area] 72 mL/min/{1.73_m2} >60 [facility] Comment on above: mL/min/1.73m2 CKD-EP I Creatinine Equation (2020) Hemoglobin measurementOrdere d By: Nilson Grullon on 04-22-2025 Hemoglobin (Bld) [Mass/Vol] 12.7 g/dL Normal 12.0-15.0 [facility] Comment on above: Performed By: #### L 501.2450, L500.4050, L100.0100 ####[facility] [address] [place], [address] Immature granulocytes/100 WB C Auto (Bld)Ordered By: Nilson Grullon on 04-22-2025 Immature granulocytes/100 WBC (Bld) 0.500 % 0.0-0.9 [facility] Comment on above: IG% - Immature Granu locytes (promyelocytes, myelocytes and metamyelocytes) > 1% indicates that a LEFT SHIFT is Present. International normalized rat io (INR) calculationOrdered By: Nilson Grullon on 04-22-2025 INR Coag (Bld) [Relative time] 0.9 {INR} [facility] Ketones Test strip Ql (U)Ord ered By: Nilson Grullon on 04-22-2025 Ketones Ql (U) Negative Negative [facility] Laboratory - Chemistry and C hemistry - challengeOrdered By: Nilson Grullon on 04-22-2025 AST [Catalytic activity/Vol] 32 U/L <32 [facility] Comment on above: Hemolysis present, R esults could be affected. Lipaseon 04-22-2025 Lipase [Catalytic activity/Vol] 42 U/L Normal 13-75 [facility] Comment on above: Result Comment: Plea se note: LIPASE revised reference range effective 23. New Lipase methodology. Expected to produce lower values than the previous assay method. NEW Reference Range: 13 - 75 U/L Performed By: #### L 501.2450, L500.4050, L100.0100 ####[facility] [address] [place], [place], [phone] Lipase measurementOrdered By : Nilson Grullon on 04-22-2025 Lipase [Catalytic activity/Vol] 42 U/L 13-75 [facility] Comment on above: Please note:LIPASE r evised reference range effective 23. New Lipase methodology. Expected to produce lower values than the previous assay method. NEW Reference Range: 13 - 75 U/L MCV (mean corpuscular volume ) determinationOrdered By: Nilson Grullon on 04-22-2025 MCV (RBC) [Entitic vol] 85.2 fL Normal 81-99 [facility] Comment on above: Performed By: #### L 501.2450, L500.4050, L100.0100 ####[facility] [address] [place], [address] Mean corpuscular hemoglobin (MCH) determinationOrdered By: Nilson Grullon on 04-22-2025 MCH (RBC) [Entitic mass] 28.1 pg Normal 27.0-32.0 [facility] Comment on above: Performed By: #### L 501.2450, L500.4050, L100.0100 ####[facility] [address] [place], [place], [id number] Mean corpuscular hemoglobin concentration (MCHC) determinationOrdered By: Nilson Grullon on 04-22-2025 MCHC (RBC) [Mass/Vol] 33.0 g/dL Normal 32-36 [facility] Comment on above: Performed By: #### L 501.2450, L500.4050, L100.0100 ####[facility] [address] [place], [place], [phone] Mean platelet volume determi nationOrdered By: Nilson Grullon on 04-22-2025 Platelet mean volume (Bld) [Entitic vol] 10.1 fL Normal 6.2-12.0 [facility] Comment on above: Performed By: #### L 501.2450, L500.4050, L100.0100 ####[facility] [address] [place], [place], [phone] Microscopic analysis of urin e for red blood cells (RBC)Ordered By: Nilson Grullon on 04-22-2025 Microscopic analysis of urine for red blood cells (RBC) 0 SEEN /hpf 0-5 [facility] Monocyte percentageOrdered B y: Nilson Grullon on 04-22-2025 Monocytes/100 WBC (Bld) 7.2 % Normal 0-10 [facility] Comment on above: Performed By: #### L 501.2450, L500.4050, L100.0100 ####[facility] [address] [place], [place], [phone] Mucus LM Ql (Urine sed)Order ed By: Nilson Grullon on 04-22-2025 Mucus Ql (Urine sed) 0 SEEN /hpf [facility] Neutrophil percentageOrdered By: Nilson Grullon on 04-22-2025 Neutrophils/100 WBC (Bld) 56.6 % Normal 47-70 [facility] Comment on above: Performed By: #### L 501.2450, L500.4050, L100.0100 ####[facility] [address] [place], [address] Nitrite Test strip Ql (U)Ord ered By: Nilson Grullon on 04-22-2025 Nitrite Ql (U) Negative Negative [facility] Nucleated red blood cell per centageOrdered By: Nilson Grullon on 04-22-2025 Nucleated RBC/100 WBC (Bld) [Ratio] 0 % 0-5 [facility] Partial Thromboplast Timeon 04-22-2025 aPTT Coag (Bld) [Time] 25.7 s Normal 24.1-36.2 [facility] Comment on above: Performed By: #### L 300.3900, L300.4310 ####[facility] [address] [place], [address] Platelet countOrdered By: Dima Grullon on 04-22-2025 Platelets (Bld) [#/Vol] 245 10*3/uL Normal 150-450 [facility] Comment on above: Performed By: #### L 501.2450, L500.4050, L100.0100 ####[facility] [address] [place], [address] Potassium measurement (mass/ volume)Ordered By: Nilson Grullon on 04-22-2025 Potassium (Unsp spec) [Mass/Vol] 4.8 mmol/L 3.3-5.1 [facility] Comment on above: Hemolysis present, R esults could be affected. Protein Test strip Ql (U)Ord ered By: Nilson Grullon on 04-22-2025 Protein Ql (U) 15 mg/dl High Negative [facility] Prothrombin Time w/INRon INR Coag (PPP) [Relative time] 0.9 {INR} Normal [facility] Comment on above: Performed By: #### L 300.3900, L300.4310 ####[facility] [address] [place], [place], [phone] PT Coag (PPP) [Time] 12.7 s Normal 11.7-14.9 [facility] Comment on above: Performed By: #### L 300.3900, L300.4310 ####[facility] [address] [place], [place], [phone] Prothrombin timeOrdered By: Nilson Grullon on 04-22-2025 PT Coag (PPP) [Time] 12.7 s 11.7-14.9 [facility] Serum creatinine measurement (mass/volume)Ordered By: Nilson Grullon on 04-22-2025 Creatinine [Mass/Vol] 0.88 mg/dL 0.70-1.20 [facility] Serum globulin measurementOr dered By: Nilson Grullon on 04-22-2025 Globulin (S) [Mass/Vol] 2.9 g/dL 2.2-4.2 [facility] Serum glucose measurement (m ass/volume)Ordered By: Nilson Grullon on 04-22-2025 Glucose [Mass/Vol] 177 mg/dL High 70-99 [facility] Serum or plasma alanine davis otransferase (ALT) measurementOrdered By: Nilson Grullon on 04-22-2025 ALT [Catalytic activity/Vol] 20 U/L <35 [facility] Comment on above: Hemolysis present, R esults could be affected. Serum or plasma albumin mya urement (mass/volume)Ordered By: Nilson Grullon on 04-22-2025 Albumin [Mass/Vol] 4.1 g/dL 3.4-4.8 [facility] Serum or plasma albumin/glob ulin mass ratioOrdered By: Nilson Grullon on 04-22-2025 Albumin/Globulin [Mass ratio] 1.4 {ratio} 0.9-2.4 [facility] Serum or plasma alkaline mercedez sphatase measurementOrdered By: Nilson Grullon on 04-22-2025 ALP [Catalytic activity/Vol] 65 U/L 35-104 [facility] Serum or plasma calcium mya urement (mass/volume)Ordered By: Nilson Grullon on 04-22-2025 Calcium [Mass/Vol] 9.3 mg/dL 7.6-11.0 [facility] Serum or plasma urea nitroge n measurement (mass/volume)Ordered By: Nilson Grullon on 04-22-2025 Urea nitrogen [Mass/Vol] 22 mg/dL High 4-19 [facility] Sodium levelOrdered By: Rosangela Grullon on 04-22-2025 Sodium [Moles/Vol] 139 mmol/L 133-145 [facility] Squamous epithelial cells de tection in urine sediment by light microscopyOrdered By: Nilson Grullon on 04-22-2025 Epithelial cells.squamous LM Ql (Urine sed) 0-5 SEEN /hpf - [facility] Total proteinOrdered By: Floresita Grullon on 04-22-2025 Protein [Mass/Vol] 6.9 g/dL 5.9-8.4 [facility] Urinalysis, Completeon 04-22 EPI,SQUAMOUS 0-5 SEEN Normal 5-10 [facility] Comment on above: Order Comment: KARLENE CTOR TO SPECIFY Performed By: #### L 400.0001 ####[facility] [address] [place], [place], [phone] WBC 0-5 SEEN Normal 0-5 [facility] Comment on above: Order Comment: KARLENE CTOR TO SPECIFY Performed By: #### L 400.0001 ####[facility] [address] [place], [place], [phone] BILIRUBIN URINE Negative Normal Negative [facility] Comment on above: Order Comment: KARLENE CTOR TO SPECIFY Performed By: #### L 400.0001 ####[facility] [address] [place], [address] Clarity (U) Clear Normal Clear [facility] Comment on above: Order Comment: KARLENE CTOR TO SPECIFY Performed By: #### L 400.0001 ####[facility] [address] [place], [address] Color (U) Yellow Normal Yellow [facility] Comment on above: Order Comment: KARLENE CTOR TO SPECIFY Performed By: #### L 400.0001 ####[facility] [address] [place] [phone] GLUCOSE, UR 50 mg/dl Abnormal Normal [facility] Comment on above: Order Comment: COLLE CTOR TO SPECIFY Performed By: #### L 400.0001 ####[facility] [address] [place] [phone] KETONE UR Negative Normal Negative [facility] Comment on above: Order Comment: KALRENE CTOR TO SPECIFY Performed By: #### L 400.0001 ####[facility] [address] [place] [address] LEUK ESTERASE Negative Normal Negative [facility] Comment on above: Order Comment: KARLENE CTOR TO SPECIFY Performed By: #### L 400.0001 ####[facility] [address] [place] [address] Nitrite Ql (U) Negative Normal Negative [facility] Comment on above: Order Comment: KARLENE CTOR TO SPECIFY Performed By: #### L 400.0001 ####[facility] [address] [place], [address] OCCULT BLOOD-UR Negative Normal Negative [facility] Comment on above: Order Comment: KARLENE CTOR TO SPECIFY Performed By: #### L 400.0001 ####[facility] [address] [place] [address] pH UR 6.5 Normal 5.0 - 8.0 [facility] Comment on above: Order Comment: KARLENE CTOR TO SPECIFY Performed By: #### L 400.0001 ####[facility] [address] [place] [address] PROT DIPSTX 15 mg/dl Abnormal Negative [facility] Comment on above: Order Comment: KARLENE CTOR TO SPECIFY Performed By: #### L 400.0001 ####[facility] [address] [place], [address] SP.GR. DIPSTX 1.010 Normal 1.002-1.030 [facility] Comment on above: Order Comment: KARLENE CTOR TO SPECIFY Performed By: #### L 400.0001 ####[facility] [address] [place], [address] UROBILI Normal Normal Normal [facility] Comment on above: Order Comment: KARLENE CTOR TO SPECIFY Performed By: #### L 400.0001 ####[facility] [address] [place], [address] BACTERIA 0 SEEN Normal None Seen [facility] Comment on above: Order Comment: KARLENE CTOR TO SPECIFY Performed By: #### L 400.0001 ####[facility] [address] [place], [address] Mucus Ql (Urine sed) 0 SEEN Normal [facility] Comment on above: Order Comment: KARLENE CTOR TO SPECIFY Performed By: #### L 400.0001 ####[facility] [address] [place], [address] RBC 0 SEEN Normal 0-5 [facility] Comment on above: Order Comment: KARLENE CTOR TO SPECIFY Performed By: #### L 400.0001 ####[facility] [address] [place], [address] Urine clarityOrdered By: Floresita Grullon on 04-22-2025 Clarity (U) Clear Clear [facility] Urine color determinationOrd ered By: Nilson Grullon on 04-22-2025 Color (U) Yellow Yellow [facility] Urine glucose detectionOrder ed By: Nilson Grullon on 04-22-2025 Glucose Ql (U) 50 mg/dl High Normal [facility] Urine leukocyte esterase det ection by dipstickOrdered By: Nilson Grullon on 04-22-2025 Leukocyte esterase Test strip Ql (U) Negative Negative [facility] Urine pHOrdered By: Nilson robles on 04-22-2025 pH (U) 6.5 [pH] 5.0 - 8.0 [facility] Urine sediment bacteria coun t by microscopy (number/high power field)Ordered By: Nilson Grullon on 04-22-2025 Bacteria LM.HPF (Urine sed) [#/Area] 0 /[HPF] None Seen [facility] Urine specific gravity measu rementOrdered By: Nilson Grullon on 04-22-2025 Specific gravity (U) [Rel density] 1.010 1.002-1.030 [facility] Urine urobilinogen measureme ntOrdered By: Nilson Grullon on 04-22-2025 Urobilinogen Ql (U) Normal mg/dl Normal [facility] White blood cell (WBC) count Ordered By: Nilson Grullon on 04-22-2025 WBC (Bld) [#/Vol] 6.5 10*3/uL Normal 4.4-11.0 [facility] Comment on above: Performed By: #### L 501.2450, L500.4050, L100.0100 ####[facility] [address] [facility] [place], [address] White blood cell countOrdere d By: Nilson Grullon on 04-22-2025 White blood cell count 0-5 SEEN /hpf 0-5 [facility] Cardiology Visit Reporton Cardiology Visit Report [facility] [address] [place], [place] [address] OFFICE VISIT Date of Service: 10/12/24 MR#: [id number] Acct: [id number] Name: ABISAI LAMAS Rep #: [id number] : 1955 Provider: BRIONNA Giles Age/Sex: 68/F [place] [facility] Status: Signed HPI HPI History of Present [...] lobectomy. She has been following with the back joiner regarding her thyroid issues. She tells me that she has discontinued the glimepiride. She does have chest burning with the cold air. She does not have have these symptoms with warm air. She is able to do chores without issues. She does not have any palpitations. She does not have any worsening SOB. She does not have any lightheadedness/dizz iness. Intake Vital Signs 10/14/23 13:52 10/12/24 14:22 Height 5 ft 3 in 5 ft 3 in Weight: 175 lb 174 lb BMI 30.9 30.8 BP 178/73 H 145/79 H Blood Pressure Location Lt brachial Lt brachial Position Sitting Sitting Respiration 14 18 Pulse 74 73 Pulse Source Monitor Monitor Pulse Oximetry (%) 97 Intake Visit Reasons: 1 Y FU Litigation Legal Secretary Required: No Is patient in pain?: No [...] Multinodular goiter (nontoxic) Atherosclerotic heart disease of lime coronary artery without angina pectoris Surgical History [...] or wea (more content not included)... Normal [facility] A1Con 09-15-2023 HbA1c (Bld) [Mass fraction] 8.8 % High 4.3-6.4 Replaced By [facility] ([place]) Comment on above: Performed By: #### L IPID, TSH, A1C #### [address] [address] LIPIDon 09-15-2023 Cholesterol [Mass/Vol] 158 mg/dL Normal 0-200 [facility] ([place]) Comment on above: Result Comment: Chol esterol Reference Interval: Less than 200 Desirable 200-239 Borderline high risk 240 and above High risk Performed By: #### L IPID, TSH, A1C #### [address] [address] Cholesterol in HDL [Mass/Vol] 63 mg/dL High 40-60 Replaced By [facility] ([place]) Comment on above: Performed By: #### L IPID, TSH, A1C #### [address] [address] Cholesterol in LDL [Mass/Vol] 66 mg/dL Normal 0-130 Replaced By [facility] ([place]) Comment on above: Performed By: #### L IPID, TSH, A1C #### [address] [address] Triglyceride [Mass/Vol] 144 mg/dL Normal 0-150 [facility] ([place]) Comment on above: Result Comment: Trig lyceride Reference Interval: Less than 150 Normal 150-199 Borderline high risk 200-499 High risk 500 or higher Very high risk Performed By: #### L IPID, TSH, A1C #### [address] [address] MALBRon 09-15-2023 U Creatinine 24.5 mg/dL Low 28.0-117.0 Replaced By [facility] ([place]) Comment on above: Performed By: #### G FR, TSH, A1C, CMP, LIPID, VIDH, FT4 #### [address] [place], [place] [address] U Microalb 832 mcg/dL Normal Replaced By [facility] ([place]) Comment on above: Performed By: #### G FR, TSH, A1C, CMP, LIPID, VIDH, FT4 #### [place] [address] [place], [place] [address] U Ratio Alb/Cre 34 mcg/mg High 0-30 Replaced By [facility] ([place]) Comment on above: Performed By: #### G FR, TSH, A1C, CMP, LIPID, VIDH, FT4 #### [address] [address] TSHon 09-15-2023 TSH Qn 0.97 m[IU]/L Normal 0.36-3.74 Replaced By [facility] ([place]) Comment on above: Performed By: #### L IPID, TSH, A1C #### [address] [address] .GFRon 11-20-2022 GFR 91 ml/min/1.73sqm Normal Replaced By [facility] ([place]) Comment on above: Result Comment: GFR Population [...] TSH, A1C, CMP, LIPID, VIDH, FT4 #### [place] [address] [place], [place] [address] GFR Non- 75 ml/min/1.73sqm Normal Replaced By [facility] ([place]) Comment on above: Result Comment: GFR Population [...] TSH, A1C, CMP, LIPID, VIDH, FT4 #### [address] [address] A1Con 11-20-2022 HbA1c (Bld) [Mass fraction] 9.6 % High 4.3-6.4 Replaced By [facility] ([place]) Comment on above: Performed By: #### G FR, TSH, A1C, CMP, LIPID, VIDH, FT4 #### [address] [address] CMPon 11-20-2022 Albumin Level 3.8 G/dL Normal 3.4-4.8 Replaced By [facility] ([place]) Comment on above: Performed By: #### G FR, TSH, A1C, CMP, LIPID, VIDH, FT4 #### [address] [address] Albumin/Globulin [Mass ratio] 1.3 {ratio} Normal 1.1-2.5 Replaced By [facility] ([place]) Comment on above: Performed By: #### G FR, TSH, A1C, CMP, LIPID, VIDH, FT4 #### [address] [address] ALP [Catalytic activity/Vol] 54 U/L Normal 40-135 Replaced By [facility] ([place]) Comment on above: Performed By: #### G FR, TSH, A1C, CMP, LIPID, VIDH, FT4 #### [address] [address] ALT [Catalytic activity/Vol] 44 U/L Normal 14-59 Replaced By [facility] ([place]) Comment on above: Performed By: #### G FR, TSH, A1C, CMP, LIPID, VIDH, FT4 #### [address] [address] AST [Catalytic activity/Vol] 29 U/L Normal 10-40 Replaced By [facility] ([place]) Comment on above: Performed By: #### G FR, TSH, A1C, CMP, LIPID, VIDH, FT4 #### [address] [address] Bili Total 0.7 mg/dL Normal 0.2-1.0 Replaced By [facility] ([place]) Comment on above: Result Comment: Use of this assay is not recommended for patients undergoing treatment with eltrombopag due to the potential for falsely elevated results. Performed By: #### G FR, TSH, A1C, CMP, LIPID, VIDH, FT4 #### [address] [address] BUN/Creatinine Ratio 21 ratio Normal 7-27 [facility] ([place]) Comment on above: Performed By: #### G FR, TSH, A1C, CMP, LIPID, VIDH, FT4 #### [address] [address] Calcium [Mass/Vol] 9.0 mg/dL Normal 8.4-10.2 [facility] ([place]) Comment on above: Performed By: #### G FR, TSH, A1C, CMP, LIPID, VIDH, FT4 #### [address] [address] Chloride [Moles/Vol] 102 mmol/L Normal 98-107 [facility] ([place]) Comment on above: Performed By: #### G FR, TSH, A1C, CMP, LIPID, VIDH, FT4 #### [address] [address] CO2 [Moles/Vol] 30 mmol/L Normal 23-31 Replaced By [facility] ([place]) Comment on above: Performed By: #### G FR, TSH, A1C, CMP, LIPID, VIDH, FT4 #### [address] [address] Creatinine [Mass/Vol] 0.77 mg/dL Normal 0.55-1.02 [facility] ([place]) Comment on above: Performed By: #### G FR, TSH, A1C, CMP, LIPID, VIDH, FT4 #### [address] [address] Electrolyte Balance 8.0 mEq/L Normal 4.0-15.0 [facility] ([place]) Comment on above: Performed By: #### G FR, TSH, A1C, CMP, LIPID, VIDH, FT4 #### [address] [address] Globulin 2.9 G/dL Normal Replaced By [facility] ([place]) Comment on above: Performed By: #### G FR, TSH, A1C, CMP, LIPID, VIDH, FT4 #### [address] [address] Glucose [Mass/Vol] 159 mg/dL High 80-115 [facility] ([place]) Comment on above: Performed By: #### G FR, TSH, A1C, CMP, LIPID, VIDH, FT4 #### [address] [address] Potassium [Moles/Vol] 4.5 mmol/L Normal 3.5-5.1 [facility] ([place]) Comment on above: Performed By: #### G FR, TSH, A1C, CMP, LIPID, VIDH, FT4 #### [address] [address] Sodium [Moles/Vol] 140 mmol/L Normal 136-145 [facility] ([place]) Comment on above: Performed By: #### G FR, TSH, A1C, CMP, LIPID, VIDH, FT4 #### [address] [address] Total Protein 6.7 G/dL Normal 6.4-8.2 Replaced By [facility] ([place]) Comment on above: Performed By: #### G FR, TSH, A1C, CMP, LIPID, VIDH, FT4 #### [place] [address] [place], [place] [address] Urea nitrogen [Mass/Vol] 16 mg/dL Normal 7-18 Replaced By [facility] ([place]) Comment on above: Performed By: #### G FR, TSH, A1C, CMP, LIPID, VIDH, FT4 #### [address] [place] [address] [place], [place] [address] FT4on 11-20-2022 Free T4 [Mass/Vol] 0.85 ng/dL Normal 0.76-1.46 [facility] ([place]) Comment on above: Performed By: #### G FR, TSH, A1C, CMP, LIPID, VIDH, FT4 #### [place] [address] [place], [place] [address] LABORATORYOrdered By: SYSTEM SYSTEM on 11-20-2022 Albumin [...] 11-20-2022 Cholesterol [Mass/Vol] 154 mg/dL Normal 0-200 [facility] ([place]) Comment on above: Result Comment: Chol esterol Reference Interval: Less than 200 Desirable 200-239 Borderline high risk 240 and above High risk Performed By: #### G FR, TSH, A1C, CMP, LIPID, VIDH, FT4 #### [address] [address] Cholesterol in HDL [Mass/Vol] 70 mg/dL High 40-60 Replaced By [facility] ([place]) Comment on above: Performed By: #### G FR, TSH, A1C, CMP, LIPID, VIDH, FT4 #### [place] [address] Cholesterol in LDL [Mass/Vol] 64 mg/dL Normal 0-130 Replaced By [facility] ([place]) Comment on above: Performed By: #### G FR, TSH, A1C, CMP, LIPID, VIDH, FT4 #### [place] [address] Triglyceride [Mass/Vol] 101 mg/dL Normal 0-150 [facility] ([place]) Comment on above: Result Comment: Trig lyceride Reference Interval: Less than 150 Normal 150-199 Borderline high risk 200-499 High risk 500 or higher Very high risk Performed By: #### G FR, TSH, A1C, CMP, LIPID, VIDH, FT4 #### [place] [address] TSHon 11-20-2022 TSH Qn 1.68 m[IU]/L Normal 0.36-3.74 Replaced By [facility] ([place]) Comment on above: Performed By: #### G FR, TSH, A1C, CMP, LIPID, VIDH, FT4 #### [address] [address] VIDHon 11-20-2022 Vit. D 25-Hydroxy 104.6 ng/mL Normal [facility] ([place]) Comment on above: Result Comment: Inte rpretive Values Based on Total 25(OH) Vitamin D: Deficient <20 ng/mL Insufficient 20 - <30 ng/mL Sufficient 30-100 ng/mL Performed By: #### G FR, TSH, A1C, CMP, LIPID, VIDH, FT4 #### [place] [address] LABORATORYOrdered By: Alix Ferris on 04-10-2022 Albumin [...] Interpretation Code AO Chemistry S Office Visit: [facility] 04-30-20 17 Documentation of current medications (procedure) Done Invalid Interpretation Code [employer] Work Phone: [phone] Fall risk assessment No Invalid Interpretation Code [facility] Phone: [phone] Replaced Document: Brenda Rowlandon 04-30-2017 electrocardiogram interpretation Sinus Rhythm WITHIN NORMAL LIMITS Invalid Interpretation Code [facility] Phone: [phone] GE use only - for [employer] import when terms are not otherwise specified 401 ms Invalid Interpretation Code [facility] Phone: [phone] P wave axis, electrocardiogram 50 deg Invalid Interpretation Code [employer] Work Phone: [phone] PA interval, electrocardiogram 164 ms Invalid Interpretation Code [facility] Phone: [phone] Pulse (Heart Rate) 62 /min Invalid Interpretation Code [employer] Work Phone: [phone] QRS axis, electrocardiogram 5 deg Invalid Interpretation Code [facility] Phone: [phone] QRS duration, electrocardiogram 86 ms Invalid Interpretation Code [employer] Work Phone: [phone] QT interval, electrocardiogram new path ms Invalid Interpretation Code [facility] Work Phone: [phone] T wave axis, electrocardiogram 41 deg Invalid Interpretation Code [facility] Work Phone: [phone] Office Visiton 10-29-2016 Documentation of current medications (procedure) Done Invalid Interpretation Code [facility] Work Phone: [phone] Protein mass conc Done [facility] Work Phone: [phone] Office Visit: [facility] 05-01-20 16 Tobacco smoking status NHIS Never smoker [facility] Work Phone: [phone] Tobacco use CP Never smoker Invalid Interpretation Code [facility] Work Phone: [phone] 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 Left ventricular Ejection fraction 65 % Invalid Interpretation Code [facility] Work Phone: [phone] Office Visiton 10-10-2015 Dietary management education, guidance, and counseling (procedure) yes Invalid Interpretation Code [facility] Work Phone: [phone] Office Visiton 07-18-2015 General cardiovascular disease 10Y risk [#] [place]D'Agost[place] N/A Invalid Interpretation Code [facility] Work Phone: [phone] Clinical Lists Update: 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 07-04-2015 Anion gap 6 mmol/L Invalid Interpretation Code [facility] Work Phone: [phone] Anion gap molar conc 6 mmol/L [facility] Work Phone: [phone] basophils as percent of blood leukocytes, manual count 0.3 % Invalid Interpretation Code [facility] Work Phone: [phone] Calcium mass conc 8.8 mg/dL Invalid Interpretation Code [facility] Work Phone: [phone] Chloride molar conc 104 mmol/L Invalid Interpretation Code [facility] Work Phone: [phone] CO2 28.0 mmol/L Invalid Interpretation Code [facility] Work Phone: [phone] CO2 ppres (BldV) 28.0 mmol/L [facility] Work Phone: [phone] Creatinine mass conc 0.60 mg/dL Invalid Interpretation Code [facility] Work Phone: [phone] eGFR (non-black) 133 mL/min/{1.73_m2} Invalid Interpretation Code [facility] Work [phone] eosinophils as percent of blood leukocytes, manual count 4.2 % Invalid Interpretation Code [facility] Work Phone: [phone] Erythrocyte distribution width Ratio (RBC) 14.9 % High [facility] Work Phone: [phone] Erythrocytes (RBC) 3.35 10*6/uL Low [facility] Work Phone: [phone] GFR/1.73 sq M predicted among non-blacks MDRD vol rate/area (S/P/Bld) 110 mL/min/{1.73_m2} Invalid Interpretation Code [facility] Work Phone: [phone] Glomerular Filtration Rate 133 mL/min/1.73m2 [employer] Work Phone: [phone] Glucose 206 mg/dL High [employer] Work Phone: [phone] Glucose mass conc 206 mg/dL High [facility] Work Phone: [phone] Hematocrit (HCT) 28.3 % Low [facility] Work Phone: [phone] Hematocrit Volume Fraction (Bld) 28.3 % Low [facility] Work Phone: [phone] 0 Hemoglobin mass conc (Bld) 9.2 g/dL Low [facility] Work Phone: [phone] Lymphocytes/100 leukocytes 28.5 % Invalid Interpretation Code [facility] Work Phone: [phone] Lymphocytes/100 WBC (Bld) 28.5 % [facility] Work Phone: [phone] MCH 27.5 pg Invalid Interpretation Code [facility] Work Phone: [phone] MCH Entitic mass (RBC) 27.5 pg [facility] Work Phone: [phone] MCHC 32.5 g/dL Invalid Interpretation Code [facility] Work Phone: [phone] MCHC mass conc (RBC) 32.5 g/dL [facility] Work Phone: [phone] MCV 84.5 fL Invalid Interpretation Code [facility] Work Phone: [phone] MCV Entitic volume (RBC) 84.5 fL [facility] Work Phone: [phone] Monocytes/100 leukocytes 11.1 % High [facility] Work Phone: [phone] Monocytes/100 WBC (Bld) 11.1 % High [facility] Work Phone: [phone] neutrophils, band form as percent of blood leukocytes, manual count 53.3 % Invalid Interpretation Code [facility] Work Phone: [phone] Platelet mean volume Entitic volume (Bld) 8.5 fL [facility] Work Phone: [phone] Platelets 273 10*3/mm3 Invalid Interpretation Code [facility] Work Phone: [phone] Platelets #/vol (Bld) 273 10*3/mm3 [facility] Work Phone: [phone] PMV by Justyn 8.5 fL Invalid Interpretation Code [facility] Work Phone: [phone] Potassium molar conc 4.4 mmol/L Invalid Interpretation Code [facility] Work Phone: [phone] RBC #/vol (Bld) 3.35 10*6/uL Low [facility] Work Phone: [phone] RDW-CA 14.9 % High [facility] Work Phone: [phone] Sodium molar conc 138 mmol/L Invalid Interpretation Code [facility] Work Phone: [phone] Urea nitrogen mass conc 11 mg/dL Invalid Interpretation Code [facility] Work Phone: [phone] Urea nitrogen/Creatinine mass ratio 18.3 mg/mg Invalid Interpretation Code [facility] Work Phone: [phone] WBC #/vol (Bld) 5.8 10*3/uL [facility] Work Phone: [phone] WBC (Leukocytes) 5.8 10*3/uL Invalid Interpretation Code [facility] Work Phone: [phone] Lab Report: Serum Creatinine AND GFRon 07-02-2015 eGFR (non-black) 84 mL/min/{1.73_m2} Invalid Interpretation Code >60 [facility] Work Phone: [phone] EST GFR - AA 84 mL/min >60 [facility] Work Phone: [phone] GFR/1.73 sq M predicted among non-blacks MDRD vol rate/area (S/P/Bld) 69 mL/min/{1.73_m2} Invalid Interpretation Code >60 [facility] Work Phone: [phone] Lab Report: CBC-Complete Blo od Cnt No Diffon 06-24-2015 Erythrocyte distribution width Ratio (RBC) 42.6 fL 35.1-43.9 [facility] Work Phone: [phone] red blood cell distribution width, size density 42.6 fL Invalid Interpretation Code 35.1-43.9 [facility] Work Phone: [phone] Lab Report: Prothrombin Time w/INRon 06-24-2015 INR Coag RelTime (PPP) 1.0 {INR} [facility] Work Phone: [phone] INR in blood by coagulation 1.0 {INR} Invalid Interpretation Code [facility] Work Phone: [phone] Prothrombin time (PT) Coag time (PPP) 13.2 s Invalid Interpretation Code 11.7-14.9 [facility] Work Phone: [phone] Office Visiton 06-19-2015 cardiac risk group C Invalid Interpretation Code [facility] Work Phone: [phone] Replaced Document: Brenda Nicholson CG Observationson 06-19-2015 EKG QRS axis 19 deg [facility] Work Phone: [phone] Interpretation Sinus Rhythm WITHIN NORMAL LIMITS [facility] Work Phone: [phone] P [place] -1 deg [facility] Work Phone: [phone] PA Interval 142 ms [facility] Work Phone: [phone] QRS Duration 86 ms [facility] Work Phone: [phone] QT Interval new path ms [facility] Work Phone: [phone] QTc Coles 402 ms [facility] Work Phone: [phone] T [place] 34 deg [facility] Work Phone: [phone] Vital Signs Date Time Vital Sign Value Performing Clinician [facility] 08-21-2025 14:00-0400 Diastolic blood pressure 57 mm[Hg] Elio Wills MD Work Phone: [facility] 08-21-2025 14:00-0400 Heart rate 79 /min Elio Wills MD Work Phone: [facility] 08-21-2025 14:00-0400 Respiratory rate 14 /min Elio Wills MD Work Phone: [facility] 08-21-2025 14:00-0400 SaO2% (BldA) [Mass fraction] 93 % Elio Wills MD Work Phone: [facility] 08-21-2025 14:00-0400 Systolic blood pressure 140 mm[Hg] Elio Wills MD Work Phone: [facility] 08-21-2025 08:00-0400 Body temperature 98.1 [degF] Elio Wills MD Work Phone: [facility] 08-20-2025 16:22-0400 Body height 162.6 cm Elio Wills MD Work Phone: [facility] 08-20-2025 16:22-0400 Body mass index (BMI) [Ratio] 30.92 kg/m2 Elio Wills MD Work Phone: [facility] 08-20-2025 16:22-0400 Body weight 81.7 kg Elio Wills MD Work Phone: [facility] 04-22-2025 22:34-0400 Body temperature 98.6 [degF] Dr. Nilson Grullon DO Work Phone: [facility] 04-22-2025 22:34-0400 Diastolic blood pressure 70 mm[Hg] Dr. Nilson Grullon DO Work Phone: [facility] 04-22-2025 22:34-0400 Heart rate 70 /min Dr. Nilson Grullon DO Work Phone: [facility] 04-22-2025 22:34-0400 Respiratory rate 16 /min Dr. Nilson Grullon DO Work Phone: [facility] 04-22-2025 22:34-0400 SaO2% (BldA) [Mass fraction] 99 % Dr. Nilson Grullon DO Work Phone: [facility] 04-22-2025 22:34-0400 Systolic blood pressure 128 mm[Hg] Dr. Nilson Grullon DO Work Phone: [facility] 04-22-2025 20:22-0400 Body height 162.[address] Nilson Grullon DO Work Phone: [facility] 04-30-2017 09:22-0400 BMI (Body Mass Index) 27.19 kg/m2 Jennifer [facility] [employer] Work Phone: 04-30-2017 09:22-0400 BP Diastolic 62 mm[Hg] Jennifer Parviz [facility] Work Phone: 04-30-2017 09:22-0400 BP Systolic 140 mm[Hg] Jennifer Parviz [facility] Work Phone: 04-30-2017 09:22-0400 Height 162.56 cm Jennifer Parviz [facility] Work Phone: 04-30-2017 09:22-0400 Pulse (Heart Rate) 62 /min Jenniferzeeshan [facility] Work Phone: 04-30-2017 09:22-0400 Respiratory Rate 18 /min Jennifer Parviz [facility] Work Phone: 04-30-2017 09:22-0400 Weight 71.85 kg Jennifer [facility] Work Phone: 10-29-2016 09:38-0500 BMI (Body Mass Index) 27.29 kg/m2 Daryl [facility] Work Phone: 10-29-2016 09:38-0500 BP Diastolic 60 mm[Hg] Daryl [facility] Work Phone: 10-29-2016 09:38-0500 BP Systolic 124 mm[Hg] [facility] Work Phone: 10-29-2016 09:38-0500 BSA (Body Surface Area) 1.78 m2 [facility] Work Phone: 10-29-2016 09:38-0500 Pulse (Heart Rate) 68 /min [facility] Work Phone: 10-29-2016 09:38-0500 Respiratory Rate 20 /min [facility] Work Phone: 10-29-2016 09:38-0500 Weight 72.12 kg [facility] Work Phone: 05-01-2016 08:42-0400 Height 162.56 cm [facility] Work Phone: 07-18-2015 15:23-0400 Pulse Oximetry 97 % [facility] Work Phone: 06-19-2015 10:16-0400 Heart rate 76 /min [facility] Work Phone: Encounters Encounter Date Encounter Type Care Provider Facility Start: 09-04-2025 ambulatory Joyce Washburn NP Fa cility:[facility] Start: 08-29-2025 End: 08-29-2025 Telephone encounter Kelly Brumfield [facility] Start: 08-20-2025 End: 08-21-2025 Evaluation and management of inpatient Elio Wills MD Work Phone: [facility] Surgical Trauma Neuro Intensive Care Unit [facility] ICU T2 Comment on above: Struck by horse, ini tial encounter (Primary Dx); SDH (subdural hematoma) ([facility]) Start: 08-20-2025 End: 08-20-2025 Emergency department patient visit Joyce Washburn NP Facility:[facility] Start: 04-22-2025 End: 04-22-2025 Emergency department patient visit Dr. Nilson Grullon DO Work Phone: -Emergency Department Work Phone: Start: 10-12-2024 End: 10-12-2024 ambulatory No Primary Care Physician Facility:[facility] Start: 09-15-2023 End: 09-16-2023 ambulatory ROHAN CASTILLO MD Facility:[facility] Start: 11-20-2022 End: 11-21-2022 ambulatory ROHAN CASTILLO MD Facility:[facility] Start: 11-20-2022 End: 11-20-2022 Patient encounter procedure ROHAN CASTILLO MD [facility] Start: 04-10-2022 End: 04-10-2022 Patient encounter procedure ROHAN CASTILLO MD [facility] Start: 12-11-2021 End: 12-11-2021 Patient encounter procedure ROHAN CASTILLO MD [facility] Procedures Date Procedure Procedure Detail Performing Clinician Start: 08-21-2025 End: 08-21-2025 Basic metabolic panel calcium total Emani Aguilar MD Work Phone: Start: 08-20-2025 Blood count complete automated Emani Aguilar MD Work Phone: Start: 08-20-2025 Ct maxillofacial w/o contrast material Dayana Alanis MD Work Phone: Start: 08-20-2025 Glucose quantitative blood xcpt reagent strip Elio Wills MD Work Phone: Start: 08-20-2025 Ct angiography head w/contrast/noncontrast Emani Aguilar MD Work Phone: Start: 08-20-2025 Ct cervical spine w/ o contrast material Emani Aguilar MD Work Phone: Start: 08-20-2025 Antibody screen ELIO WHEAT Comment on above: Performed By: #### L [id number] #### Firer Low Pressure: CLARISA MABRY ([id number]) [facility] ([facility]) [address] [place] [address] Start: 08-20-2025 ABO and Rh group [Ty pe] in Blood by Confirmatory method Rikki Almanza MD Work Phone: Start: 08-20-2025 Basic metabolic pane l calcium total Emani Aguilar MD Work Phone: Start: 08-20-2025 End: 08-20-2025 Drug test def 1-7 classes Dayana Alanis MD Work Phone: Start: 08-20-2025 Radiologic examinati on knee 3 views Emani Aguilar MD Work Phone: Start: 04-22-2025 CT of thorax, abdome n and pelvis with contrast Dr. Nilson Grullon DO Work Phone: Start: 04-22-2025 Urnls dip stick/tabl et reagent auto microscopy Dr. Nilson Grullon DO Work Phone: Start: 12-07-2017 Thyroidectomy ROHAN HIDALGO MD Start: 04-30-2017 End: 04-30-2017 [employer] TECHNICIAN Bing Peace PA-C Work Phone: Start: 04-30-2017 [...] 10-10-2015 Follow Up Appt 6 months Dakota Vazqeuz Start: 10-10-2015 End: 10-10-2015 MMM Carlton Meade MD Start: 07-18-2015 End: 07-18-2015 [employer] TECHNICIAN Carlton Meade MD Start: 07-18-2015 End: 07-19-2015 Documentation of current medications Carlton Meade MD Start: 07-18-2015 End: 07-18-2015 Follow Up Appt 3 months Dakota Vazquez Start: 07-18-2015 End: 07-19-2015 Pedal pulse taking Carlton Meade MD Start: 07-02-2015 End: 07-18-2015 *Creatinine, Serum Carlton Meade MD Start: 07-02-2015 End: 07-18-2015 Mri brain w/dye Carlton Meade MD Start: 06-25-2015 History of coronary artery bypass grafting H/O coronary artery bypass surgery Dr. Nilson Grullon DO Work Phone: Comment on above: CABG x 4 LAI to LAD , SVG to D1, SVG to ramus, and SVG to lateral CX 06/25/2015 Start: 06-25-2015 Coronary artery bypa ss grafts [...] Treatment Date Care Activity Detail Author Start: 08-20-2035 DTaP/Tdap/Td Vaccine s (2 - Td or Tdap) DTaP/Tdap/Td Vaccines (2 - Td or Tdap) [facility] Start: 08-21-2026 Diabetes: Estimated Glomerular Filtration Rate for Kidney Health Diabetes: Estimated Glomerular Filtration Rate for Kidney Health [facility] Start: 08-20-2026 Hemoglobin A1c measurement Diabetes: Hemoglobin A1C [facility] Start: 09-11-2025 End: 09-11-2025 Patient encounter procedure 09/11/2025 10:30 AM EST Office Visit [facility] [address] [place] [address] Cruz Martinez MD [address] [place] [address] [facility] Start: 09-04-2025 End: 08-21-2026 CT Head WO contrast CT head wo IV contrast Imaging Routine Struck by horse, initial encounter SDH (subdural hematoma) ([facility]) Expected: 09/04/2025, Expires: 08/21/2026 [facility] Work Phone: Comment on above: Expected: 09/04/2025 , Expires: 08/21/2026 Start: 06-25-2025 COVID-19 Vaccine ( season) COVID-19 Vaccine ( season) [facility] Start: 06-25-2025 Influenza vaccination Influenza Vacc ine (#1) [facility] Start: 04-22-2025 [facility] Start: 11-18-2017 End: 11-18-2017 Appointment Appointment [facility] Work Phone: Start: 2017 RSV Immunization for Adults (1 - Risk 60-74 years 1-dose series) RSV Immunization for Adults (1 - Risk 60-74 years 1-dose series) [facility] Start: 04-30-2017 End: 04-30-2017 Appointment Appointment [facility] Work Phone: Start: 04-30-2017 End: 04-30-2017 [employer]AND [employer] RADIO TECHNICIAN L[employer] RADIO TECHNICIAN [facility] Work Phone: Start: 04-30-2017 End: 04-30-2017 Electrocardiogram, complete EKG (In office) [facility] Work Phone: Start: 04-30-2017 End: 04-30-2017 Follow Up Appt 6 months Follow Up Appt 6 months [facility] Work Phone: Start: 10-29-2016 End: 10-29-2016 Follow Up Appt 6 months Follow Up Appt 6 months [facility] Work Phone: Start: 10-29-2016 End: 10-29-2016 MMM MMM [facility] Work Phone: Start: 05-01-2016 End: 05-01-2016 L[employer] RADIO TECHNICIAN L[employer] RADIO TECHNICIAN [facility] Work Phone: Start: 05-01-2016 End: 05-01-2016 Follow Up Appt 6 months Follow Up Appt 6 months [facility] Work Phone: Start: 10-10-2015 End: 10-10-2015 Follow Up Appt 6 months Follow Up Appt 6 months [facility] Work Phone: Start: 10-10-2015 End: 10-10-2015 MMM MMM [facility] Work Phone: Start: 07-18-2015 End: 07-18-2015 [employer] [facility] Work Phone: Start: 07-18-2015 End: 07-18-2015 Follow Up Appt 3 months Follow Up Appt 3 months [facility] Work Phone: Start: 07-02-2015 End: 07-18-2015 *Creatinine, Serum *Creatinine, Serum [facility] Work Phone: Start: 07-02-2015 End: 07-02-2015 Mri brain w/dye MRI Brain with and without Contrast [facility] Work Phone: Start: 06-24-2015 End: 07-02-2015 Left Heart Cath Left Heart Cath [facility] Work Phone: Start: 06-19-2015 End: 06-19-2015 Electrocardiogram, complete EKG (In office) [facility] Work Phone: Start: 06-19-2015 End: 06-19-2015 Follow Up Appt 6 weeks Follow Up Appt 6 weeks [facility] Work Phone: Start: 06-19-2015 End: 06-19-2015 MMM MMM [facility] Work Phone: Start: 06-19-2015 End: 06-19-2015 Stress Echocardiogram (treadmill) Stress Echocardiogram (treadmill) [facility] Work Phone: Start: 2007 Pneumococcal Vaccine : 50+ Years (1 of 1 - PCV) Pneumococcal Vaccine: 50+ Years (1 of 1 - PCV) [facility] Start: 2007 Zoster Vaccines (1 of 2) Zoste r Vaccines (1 of 2) [facility] Start: 1997 Screening for malign ant neoplasm of breast Mammogram [facility] Start: 1975 Diabetes: Urine Albumin-Creatinine Ratio for Kidney Health Diabetes: Urine Albumin-Creatinine Ratio for Kidney Health [facility] Start: 1975 Hepatitis C screening Hepatitis C Sc reening [facility] Start: 1969 Depression Screening Depression Scre ening [facility] Start: 1967 Diabetic foot examination Diabetes: Foot Exam [facility] Start: 1967 Glaucoma screening Diabetes: R etinopathy Screening [facility] Start: 1967 Preventive dental service Diabetes: Dental Exam [facility] Start: 1958 MMR Vaccines (1 of 1 - Standard series) MMR Vaccines (1 of 1 - Standard series) [facility] Start: 1957 Lipid panel Lipid Panel [facility] Start: 1957 Screening for malign ant neoplasm of colon [facility] Start: 1957 Screening for osteoporosis Bone Density Scan [facility] Start: 1957 Thyroid stimulating hormone measurement TSH Level [facility] Immunizations Immunization Date Immunization Notes Care Provider Fa [facility] 08-20-2025 influenza vaccine A& B surf ant adjuvanted (Fluad) HIGH-DOSE injection 0.5 mL Elio Wills MD Work Phone: [facility] 08-20-2025 tetanus toxoid, redu loreta diphtheria toxoid, and acellular pertussis vaccine, adsorbed Elio Wills MD Work Phone: [facility] Payers Date Payer Category Payer Commercial Managed C are - O [facility] [address] [id number] 2024 Self-pay 2024 Unknown [id number] 2022 Unknown [id number] 1957 Unknown [id number] 1957 Unknown [id number] Unknown [id number] Unknown [id number] Unknown [id number] Unknown [id number] Social History Date Type Detail Facility Start: 01-24-2020 End: 04-22-2025 Never smoked tobacco (finding) [facility] Start: 1955 Sex Assigned At Female A [facility] Start: 07-03-2015 Alcohol Alcohol [facility] Start: 08-20-2025 Sex Female (finding) [facility] Start: 08-20-2025 Gender identity Identifies as female gender (finding) [facility] Start: 08-20-2025 Sexual orientation Heterosexual (fin ding) [facility] Medical Equipment Procedure Code Equipment Code Equipment Origin al Text Equipment Identifier Dates DRESSING,FIBRILL AR 1X2 1958 FDA Start: 12-07-2017 SUTURE,LIGA CLIP MED [id number] FDA Start: 12-07-2017 SUTURE,LIGA CLIP SM [id number] FDA Start: 12-07-2017 Clinical Notes 04-22-2025 to 08-30-2025 Telephone Encounter - Cristina Alfaro - 08/30/2025 8:08 AM ESTTelephone Encounter - Cristina Alfaro - 08/30/2025 8:08 AM ESTTelephone Encounter - Kelly Brumfield LPN - 08/29/2025 4:02 PM EST Note Date & Type Note Facility 08-30-[address] head wo contrast order and demographics faxed to [facility] per pt request [phone], . [facility] 08-30-[address] head wo contrast order and demographics faxed to [facility] per pt request [phone], . Pt. Was seen in the ER for a head bleed. Pt. Has a hospital follow up appointment on 09/11. Pt. Needs an order for a CT head to be done at [facility] and pt. will get it on a disc and bring it to her appointment. Pt. is requesting the order be faxed to him at [phone] documented in this encounter [facility] 08-29-2025 Telephone encounter Note Pt. Was seen in the ER for a head bleed. Pt. Has a hospital follow up appointment on 09/11. Pt. Needs an order for a CT head to be done at [facility] and pt. will get it on a disc and bring it to her appointment. Pt. is requesting the order be faxed to him at [phone] [facility] 08-21-2025 Nurse Note Patient discharged to home. Instructions and medications reviewed with the patient. No questions voiced. Patient waiting for transportation. [facility] 08-21-2025 Nurse Note Patient discharged to home. Instructions and medications reviewed with the patient. No questions voiced. Patient waiting for transportation. Patient to ICU from [facility] documented in this encounter [facility] 08-21-2025 Consult note Associated Order (s): IP CONSULT TO GERIATRICS [facility] Geriatric Medicine Inpatient Consult Service Admission Date:08/20/2025 Admission Status: INPATIENT Chief Complaint: injury from horse Reason for Appointment Geriatrics consulted for Trauma Assessment Principal Problem: Struck by horse, initial encounter Plan Acute pain due to trauma - patient reports pain is well controlled at time of visit - agree with scheduled acetaminophen - monitor closely for oversedation/confusion with use of scheduled methocarbamol - PRN low dose oxycodone- assess for need for scheduled bowel regimen in setting of PRN opioid use L SDH/IPH - seen by neurosurgery- per note, no neurosurgical intervention indicated at this time - plan for outpatient follow up with neurosurgery for repeat head CT At risk for delirium - increased risk for delirium in setting of head injury, ICU environment - recommend delirium order set while inpatient - continue to assess and treat for pain - monitor for urinary retention/constipation - Avoid sedating/anticholinergic medications, encourage sleep hygiene, encourage family visits, optimize sensory input and access to assistive devices where indicated, encourage time up in chair as able and D/c Casarez, restraints, IV lines, as able Follow-up: will sign off, please call if questions Subjective: HPI 69 y.o. year-old female with past medical history of hypothyroidism, hypertension, type 2 diabetes mellitus presented from home for injury. Per review of H&P patient tripped near a horse and was trampled with + head stroke. Imaging revealed L subdural hematoma, CT abdomen and pelvis showing soft tissue injury to LLQ/L flank with multiple areas of active extravasation within the abdominal muscles and iliacus muscle. Soft tissue injury to R hip. Neurosurgery consulted- no neurosurgical intervention indicated at this time. Patient reports that her pain is well controlled at this time, reports that she was able to get some sleep overnight, appetite is good, she knows that she is in [place] at the hospital. She is eager to return to home- reports that she is very functional and independent in ADLs and IADLs at baseline. Hsb is at bedside at time of visit- reports there are no stairs in home and they have good family support with children living nearby and grandchildren that are able to assist if needed. Labs reviewed: Hgb 8.1, Hematocrit- 25.1 Allergies[1] Current Medications[2] Medical History[3] Surgical History[4] Social History Social History Tobacco Use Smoking status: Not on file Smokeless tobacco: Not on file Substance Use Topics Alcohol use: Not on file Social History Social History Narrative Not on file Family History Family History[5] No family status information on file. Family history reviewed as above Review of Systems Constitutional: Negative for appetite change and fatigue. HENT: Negative for trouble swallowing. Eyes: Negative for visual disturbance. Respiratory: Negative for cough and shortness of breath. Gastrointestinal: Negative for constipation and nausea. Genitourinary: Negative for difficulty urinating. Musculoskeletal: Positive for arthralgias. Negative for gait problem. Neurological: Negative for dizziness. Psychiatric/Behavioral: Negative for confusion and sleep disturbance. Objective: BP (!) 133/47 Pulse 78 Temp 36.7 C (98.1 F) (Temporal) Resp 16 Ht 5' 4 (1.626 m) Wt 180 lb 1.9 oz (81.7 kg) SpO2 92% BMI 30.92 kg/m Intake/Output Summary (Last 24 hours) at 08/21/2025 1438 Last data filed at 08/21/2025 0600 Gross per 24 hour Intake 1503 ml Output 325 ml Net 1178 ml Wt Readings from Last 3 Encounters: 08/20/25 180 lb 1.9 oz (81.7 kg) Physical Exam Constitutional: General: She is not in acute distress. Comments: Sitting up in bedside chair, alert and cooperative with exam, family at bedside HENT: Right Ear: External ear normal. Left Ear: External ear normal. Mouth/Throat: Mouth: Mucous membranes are moist. Eyes: Comments: L periorbital ecchymosis Cardiovascular: Rate and Rhythm: Normal rate. Pulmonary: Effort: Pulmonary effort is normal. No respiratory distress. Breath sounds: No wheezing, rhonchi or rales. Comments: Auscultated anteriorly Abdominal: Comments: Abdominal binder in place Musculoskeletal: Right lower leg: No edema. Left lower leg: No edema. Skin: General: Skin is warm. Neurological: Mental Status: She is alert and oriented to person, place, and time. Sensory: No sensory deficit. Psychiatric: Attention and Perception: Attention normal. Mood and Affect: Mood normal. Behavior: Behavior normal. Labs and Imaging: Recent Results (from the past 24 hours) CBC Collection Time: 08/20/25 5:15 PM Result Value Ref Range Auto WBC 8.3 3.6 - 10.7 10*3/uL RBC 3.06 (L) 3.80 - 5.20 10*6/uL Hemoglobin 8.7 (L) 11.7 - 16.0 g/dL Hematocrit 26.9 (L) 35.0 - 47.0 % MCV 87.9 77.0 - 99.0 fL MCH 28.4 26.0 - 34.0 pg MCHC 32.3 30.5 - 36.0 % RDW 14.4 11.5 - 15.0 % Platelets 190 140 - 440 10*3/uL MPV 9.7 9.0 - 12.7 fL Basic metabolic panel Collection Time: 08/20/25 5:15 PM Result Value Ref Range SODIUM 141 136 - 145 mmol/L POTASSIUM 3.6 3.5 - 5.1 mmol/L CHLORIDE 112 (H) 98 - 107 mmol/L CARBON DIOXIDE 23 23 - 31 mmol/L UREA NITROGEN 21 9 - 23 mg/dL CREATININE 0.58 0.58 - 1.12 mg/dL GLUCOSE 177 (H) 82 - 115 mg/dL CALCIUM 7.0 (L) 8.8 - 10.0 mg/dL ANION GAP 6 3 - 13 mmol/L eGFR >90.0 >60.0 mL/min/1.73m*2 Hemoglobin A1c Collection Time: 08/20/25 5:15 PM Result Value Ref Range HEMOGLOBIN A1C 7.7 (H) <5.7 %HbA1C ESTIMATED AVERAGE GLUCOSE 174 mg/dL Ethanol Collection Time: 08/20/25 5:15 PM Result Value Ref Range ETHANOL IN SER/PLAS <10 <10 mg/dL Type and Screen Collection Time: 08/20/25 5:16 PM Result Value Ref Range ABO Grouping A Antibody Screen NEG Rh Type POS Confirmatory ABO/Rh Collection Time: 08/20/25 5:16 PM Result Value Ref Range ABO Grouping A Rh Type POS POCT glucose meter Collection Time: 08/20/25 9:35 PM Result Value Ref Range Glucose 180 (H) 70 - 100 mg/dL CBC Collection Time: 08/20/25 10:39 PM Result Value Ref Range Auto WBC 6.9 3.6 - 10.7 10*3/uL RBC 2.94 (L) 3.80 - 5.20 10*6/uL Hemoglobin 8.5 (L) 11.7 - 16.0 g/dL Hematocrit 25.8 (L) 35.0 - 47.0 % MCV 87.8 77.0 - 99.0 fL MCH 28.9 26.0 - 34.0 pg MCHC 32.9 30.5 - 36.0 % RDW 14.6 11.5 - 15.0 % Platelets 199 140 - 440 10*3/uL MPV 9.5 9.0 - 12.7 fL Hemoglobin and hematocrit, blood Collection Time: 08/21/25 5:26 AM Result Value Ref Range Hemoglobin 8.1 (L) 11.7 - 16.0 g/dL Hematocrit 25.1 (L) 35.0 - 47.0 % Basic metabolic panel Collection Time: 08/21/25 5:26 AM Result Value Ref Range SODIUM 138 136 - 145 mmol/L POTASSIUM 3.7 3.5 - 5.1 mmol/L CHLORIDE 107 98 - 107 mmol/L CARBON DIOXIDE 26 23 - 31 mmol/L UREA NITROGEN 25 (H) 9 - 23 mg/dL CREATININE 0.66 0.58 - 1.12 mg/dL GLUCOSE 127 (H) 82 - 115 mg/dL CALCIUM 7.8 (L) 8.8 - 10.0 mg/dL ANION GAP 5 3 - 13 mmol/L eGFR >90.0 >60.0 mL/min/1.73m*2 POCT glucose meter Collection Time: 08/21/25 5:32 AM Result Value Ref Range Glucose 142 (H) 70 - 100 mg/dL No results found for: TSH No components found for: B12 No results found for: VITD25 Reviewed: active problem list, medication list, allergies, notes from last encounter, lab results, imaging [1] Allergies Allergen Reactions Lisinopril Cough Morphine Vomiting Only [2] Current Facility-Administered Medications: acetaminophen (Tylenol) tablet 1,000 mg, 1,000 mg, Oral, q8h, 1,000 mg at 08/21/25 0818 OR [DISCONTINUED] Acetaminophen (Tylenol) 650 MG/20.3ML solution 1,000 mg, 1,000 mg, Per G Tube, q8h, Emani Aguilar MD atorvastatin (Lipitor) tablet 10 mg, 10 mg, Oral, Nightly, Emani Aguilar MD, 10 mg at 08/20/252112 [Held by provider] carvedilol (Coreg) tablet 6.25 mg, 6.25 mg, Oral, BID WC, Emani Aguilar MD dextrose 5 % infusion, 100 mL/hr, IntraVENous, PRN, Emani Aguilar MD dextrose 50 % solution 12.5 g, 12.5 g, IntraVENous, PRN, Emani Aguilar MD FLUoxetine (PROzac) capsule 10 mg, 10 mg, Oral, Nightly, Emani Aguilar MD, 10 mg at 08/20/252112 glucagon (human recombinant) injection 1 mg, 1 mg, IntraMUSCular, PRN, Emani Aguilar MD glucose oral gel 15 g, 15 g, Oral, PRN, Emani Aguilar MD hydrALAZINE (Apresoline) injection 10 mg, 10 mg, IntraVENous, q2h PRN, Emani Aguilar MD influenza vaccine A&B surf ant adjuvanted (Fluad) HIGH-DOSE injection 0.5 mL, 0.5 mL, IntraMUSCular, Prior to discharge, Emani Aguilar MD Insulin Lispro (Humalog) injection 0-12 Units, 0-12 Units, SubCUTAneous, q6h, Emani Aguilar MD, 2 Units at 08/20/252233 labetalol (Normodyne,Trandate) injection 10 mg, 10 mg, IntraVENous, q2h PRN, Emani Aguilar MD levothyroxine (Synthroid, Levoxyl) tablet 50 mcg, 50 mcg, Oral, Daily, Emani Aguilar MD, 50 mcg at 10/28/25 0818 losartan (Cozaar) tablet 50 mg, 50 mg, Oral, Daily, Emani Aguilar MD, 50 mg at 08/21/25 0818 methocarbamol (Robaxin) tablet 500 mg, 500 mg, Oral, 3 times per day, Emani Aguilar MD, 500 mg at 08/21/25 0818 mupirocin (Bactroban) 2 % ointment 1 Application, 1 Application, Nasal, BID, Emani Aguilar MD, 1 Application at 08/21/25 0820 naloxone (Narcan) injection 0.4 mg, 0.4 mg, IntraVENous, q5 min PRN, Emani Aguilar MD ondansetron ODT (Zofran-ODT) disintegrating tablet 4 mg, 4 mg, Oral, q8h PRN, 4 mg at 08/20/25 2141 OR ondansetron (Zofran) injection 4 mg, 4 mg, IntraVENous, q6h PRN, Emani Aguilar MD oxyCODONE (Roxicodone) immediate release tablet 5 mg, 5 mg, Oral, q4h PRN OR oxyCODONE (Roxicodone) immediate release tablet 10 mg, 10 mg, Oral, q4h PRN, Emani Aguilar MD polyethylene glycol (PEG) 3350 (Miralax) packet 17 g, 17 g, Oral, Daily PRN, Emani Aguilar MD sodium chloride 0.9 % infusion, 100 mL/hr, IntraVENous, Continuous, Emani Aguilar MD, Last Rate: 100 mL/hr at 08/20/25 1716, 100 mL/hr at 08/20/25 1716 [3] Past Medical History: Diagnosis Date Anemia Coronary artery disease Diabetes mellitus (HCC) Disease of thyroid gland Goiter Hypertension Stroke (HCC) [4] Past Surgical History: Procedure Laterality Date CARDIAC SURGERY THYROIDECTOMY, PARTIAL [5] No family history on file. [facility] Work Phone: 08-21-2025 Consult note Associated Order (s): IP CONSULT TO GERIATRICS [facility] Inpatient Consult Service Admission Date:08/20/2025 Admission Status: INPATIENT Chief Complaint: injury from horse Reason for Appointment Geriatrics consulted for Trauma Assessment Principal Problem: Struck by horse, initial encounter Plan Acute pain due to trauma - patient reports pain is well controlled at time of visit - agree with scheduled acetaminophen - monitor closely for oversedation/confusion with use of scheduled methocarbamol - PRN low dose oxycodone- assess for need for scheduled bowel regimen in setting of PRN opioid use L SDH/IPH - seen by neurosurgery- per note, no neurosurgical intervention indicated at this time - plan for outpatient follow up with neurosurgery for repeat head CT At risk for delirium - increased risk for delirium in setting of head injury, ICU environment - recommend delirium order set while inpatient - continue to assess and treat for pain - monitor for urinary retention/constipation - Avoid sedating/anticholinergic medications, encourage sleep hygiene, encourage family visits, optimize sensory input and access to assistive devices where indicated, encourage time up in chair as able and D/c Casarez, restraints, IV lines, as able Follow-up: will sign off, please call if questions Subjective: HPI 69 y.o. year-old female with past medical history of hypothyroidism, hypertension, type 2 diabetes mellitus presented from home for injury. Per review of H&P patient tripped near a horse and was trampled with + head stroke. Imaging revealed L subdural hematoma, CT abdomen and pelvis showing soft tissue injury to LLQ/L flank with multiple areas of active extravasation within the abdominal muscles and iliacus muscle. Soft tissue injury to R hip. Neurosurgery consulted- no neurosurgical intervention indicated at this time. Patient reports that her pain is well controlled at this time, reports that she was able to get some sleep overnight, appetite is good, she knows that she is in [place] at the hospital. She is eager to return to home- reports that she is very functional and independent in ADLs and IADLs at baseline. Hsb is at bedside at time of visit- reports there are no stairs in home and they have good family support with children living nearby and grandchildren that are able to assist if needed. Labs reviewed: Hgb 8.1, Hematocrit- 25.1 Allergies[1] Current Medications[2] Medical History[3] Surgical History[4] Social History Social History Tobacco Use Smoking status: Not on file Smokeless tobacco: Not on file Substance Use Topics Alcohol use: Not on file Social History Social History Narrative Not on file Family History Family History[5] No family status information on file. Family history reviewed as above Review of Systems Constitutional: Negative for appetite change and fatigue. HENT: Negative for trouble swallowing. Eyes: Negative for visual disturbance. Respiratory: Negative for cough and shortness of breath. Gastrointestinal: Negative for constipation and nausea. Genitourinary: Negative for difficulty urinating. Musculoskeletal: Positive for arthralgias. Negative for gait problem. Neurological: Negative for dizziness. Psychiatric/Behavioral: Negative for confusion and sleep disturbance. Objective: BP (!) 133/47 Pulse 78 Temp 36.7 C (98.1 F) (Temporal) Resp 16 Ht 5' 4 (1.626 m) Wt 180 lb 1.9 oz (81.7 kg) SpO2 92% BMI 30.92 kg/m Intake/Output Summary (Last 24 hours) at 08/21/2025 1438 Last data filed at 08/21/2025 0600 Gross per 24 hour Intake 1503 ml Output 325 ml Net 1178 ml Wt Readings from Last 3 Encounters: 08/20/25 180 lb 1.9 oz (81.7 kg) Physical Exam Constitutional: General: She is not in acute distress. Comments: Sitting up in bedside chair, alert and cooperative with exam, family at bedside HENT: Right Ear: External ear normal. Left Ear: External ear normal. Mouth/Throat: Mouth: Mucous membranes are moist. Eyes: Comments: L periorbital ecchymosis Cardiovascular: Rate and Rhythm: Normal rate. Pulmonary: Effort: Pulmonary effort is normal. No respiratory distress. Breath sounds: No wheezing, rhonchi or rales. Comments: Auscultated anteriorly Abdominal: Comments: Abdominal binder in place Musculoskeletal: Right lower leg: No edema. Left lower leg: No edema. Skin: General: Skin is warm. Neurological: Mental Status: She is alert and oriented to person, place, and time. Sensory: No sensory deficit. Psychiatric: Attention and Perception: Attention normal. Mood and Affect: Mood normal. Behavior: Behavior normal. Labs and Imaging: Recent Results (from the past 24 hours) CBC Collection Time: 08/20/25 5:15 PM Result Value Ref Range Auto WBC 8.3 3.6 - 10.7 10*3/uL RBC 3.06 (L) 3.80 - 5.20 10*6/uL Hemoglobin 8.7 (L) 11.7 - 16.0 g/dL Hematocrit 26.9 (L) 35.0 - 47.0 % MCV 87.9 77.0 - 99.0 fL MCH 28.4 26.0 - 34.0 pg MCHC 32.3 30.5 - 36.0 % RDW 14.4 11.5 - 15.0 % Platelets 190 140 - 440 10*3/uL MPV 9.7 9.0 - 12.7 fL Basic metabolic panel Collection Time: 08/20/25 5:15 PM Result Value Ref Range SODIUM 141 136 - 145 mmol/L POTASSIUM 3.6 3.5 - 5.1 mmol/L CHLORIDE 112 (H) 98 - 107 mmol/L CARBON DIOXIDE 23 23 - 31 mmol/L UREA NITROGEN 21 9 - 23 mg/dL CREATININE 0.58 0.58 - 1.12 mg/dL GLUCOSE 177 (H) 82 - 115 mg/dL CALCIUM 7.0 (L) 8.8 - 10.0 mg/dL ANION GAP 6 3 - 13 mmol/L eGFR >90.0 >60.0 mL/min/1.73m*2 Hemoglobin A1c Collection Time: 08/20/25 5:15 PM Result Value Ref Range HEMOGLOBIN A1C 7.7 (H) <5.7 %HbA1C ESTIMATED AVERAGE GLUCOSE 174 mg/dL Ethanol Collection Time: 08/20/25 5:15 PM Result Value Ref Range ETHANOL IN SER/PLAS <10 <10 mg/dL Type and Screen Collection Time: 08/20/25 5:16 PM Result Value Ref Range ABO Grouping A Antibody Screen NEG Rh Type POS Confirmatory ABO/Rh Collection Time: 08/20/25 5:16 PM Result Value Ref Range ABO Grouping A Rh Type POS POCT glucose meter Collection Time: 08/20/25 9:35 PM Result Value Ref Range Glucose 180 (H) 70 - 100 mg/dL CBC Collection Time: 08/20/25 10:39 PM Result Value Ref Range Auto WBC 6.9 3.6 - 10.7 10*3/uL RBC 2.94 (L) 3.80 - 5.20 10*6/uL Hemoglobin 8.5 (L) 11.7 - 16.0 g/dL Hematocrit 25.8 (L) 35.0 - 47.0 % MCV 87.8 77.0 - 99.0 fL MCH 28.9 26.0 - 34.0 pg MCHC 32.9 30.5 - 36.0 % RDW 14.6 11.5 - 15.0 % Platelets 199 140 - 440 10*3/uL MPV 9.5 9.0 - 12.7 fL Hemoglobin and hematocrit, blood Collection Time: 08/21/25 5:26 AM Result Value Ref Range Hemoglobin 8.1 (L) 11.7 - 16.0 g/dL Hematocrit 25.1 (L) 35.0 - 47.0 % Basic metabolic panel Collection Time: 08/21/25 5:26 AM Result Value Ref Range SODIUM 138 136 - 145 mmol/L POTASSIUM 3.7 3.5 - 5.1 mmol/L CHLORIDE 107 98 - 107 mmol/L CARBON DIOXIDE 26 23 - 31 mmol/L UREA NITROGEN 25 (H) 9 - 23 mg/dL CREATININE 0.66 0.58 - 1.12 mg/dL GLUCOSE 127 (H) 82 - 115 mg/dL CALCIUM 7.8 (L) 8.8 - 10.0 mg/dL ANION GAP 5 3 - 13 mmol/L eGFR >90.0 >60.0 mL/min/1.73m*2 POCT glucose meter Collection Time: 08/21/25 5:32 AM Result Value Ref Range Glucose 142 (H) 70 - 100 mg/dL No results found for: TSH No components found for: B12 No results found for: VITD25 Reviewed: active problem list, medication list, allergies, notes from last encounter, lab results, imaging [1] Allergies Allergen Reactions Lisinopril Cough Morphine Vomiting Only [2] Current Facility-Administered Medications: acetaminophen (Tylenol) tablet 1,000 mg, 1,000 mg, Oral, q8h, 1,000 mg at 08/21/25 0818 OR [DISCONTINUED] Acetaminophen (Tylenol) 650 MG/20.3ML solution 1,000 mg, 1,000 mg, Per G Tube, q8h, Emani Aguilar MD atorvastatin (Lipitor) tablet 10 mg, 10 mg, Oral, Nightly, Emani Aguilar MD, 10 mg at 08/20/252112 [Held by provider] carvedilol (Coreg) tablet 6.25 mg, 6.25 mg, Oral, BID WC, Emani Aguilar MD dextrose 5 % infusion, 100 mL/hr, IntraVENous, PRN, Emani Aguilar MD dextrose 50 % solution 12.5 g, 12.5 g, IntraVENous, PRN, Emani Aguilar MD FLUoxetine (PROzac) capsule 10 mg, 10 mg, Oral, Nightly, Emani Aguilar MD, 10 mg at 08/20/252112 glucagon (human recombinant) injection 1 mg, 1 mg, IntraMUSCular, PRN, Emani Aguilar MD glucose oral gel 15 g, 15 g, Oral, PRN, Emani Aguilar MD hydrALAZINE (Apresoline) injection 10 mg, 10 mg, IntraVENous, q2h PRN, Emani Aguilar MD influenza vaccine A&B surf ant adjuvanted (Fluad) HIGH-DOSE injection 0.5 mL, 0.5 mL, IntraMUSCular, Prior to discharge, Emani Aguilar MD Insulin Lispro (Humalog) injection 0-12 Units, 0-12 Units, SubCUTAneous, q6h, Emani Aguilar MD, 2 Units at 08/20/252233 labetalol (Normodyne,Trandate) injection 10 mg, 10 mg, IntraVENous, q2h PRN, Emani Aguilar MD levothyroxine (Synthroid, Levoxyl) tablet 50 mcg, 50 mcg, Oral, Daily, Emani Aguilar MD, 50 mcg at 08/21/25 0818 losartan (Cozaar) tablet 50 mg, 50 mg, Oral, Daily, Emani Aguilar MD, 50 mg at 08/21/25 0818 methocarbamol (Robaxin) tablet 500 mg, 500 mg, Oral, 3 times per day, Emani Aguilar MD, 500 mg at 08/21/25 0818 mupirocin (Bactroban) 2 % ointment 1 Application, 1 Application, Nasal, BID, Emani Aguilar MD, 1 Application at 08/21/25 0820 naloxone (Narcan) injection 0.4 mg, 0.4 mg, IntraVENous, q5 min PRN, Emani Aguilar MD ondansetron ODT (Zofran-ODT) disintegrating tablet 4 mg, 4 mg, Oral, q8h PRN, 4 mg at 08/20/25 2141 OR ondansetron (Zofran) injection 4 mg, 4 mg, IntraVENous, q6h PRN, Emani Aguilar MD oxyCODONE (Roxicodone) immediate release tablet 5 mg, 5 mg, Oral, q4h PRN OR oxyCODONE (Roxicodone) immediate release tablet 10 mg, 10 mg, Oral, q4h PRN, Emani Aguilar MD polyethylene glycol (PEG) 3350 (Miralax) packet 17 g, 17 g, Oral, Daily PRN, Emani Aguilar MD sodium chloride 0.9 % infusion, 100 mL/hr, IntraVENous, Continuous, Emani Aguilar MD, Last Rate: 100 mL/hr at 08/20/25 1716, 100 mL/hr at 08/20/25 1716 [3] Past Medical History: Diagnosis Date Anemia Coronary artery disease Diabetes mellitus (HCC) Disease of thyroid gland Goiter Hypertension Stroke (HCC) [4] Past Surgical History: Procedure Laterality Date CARDIAC SURGERY THYROIDECTOMY, PARTIAL [5] No family history on file. Associated Order(s): IP CONSULT TO PALLIATIVE CARE Images from the original note were not included. Palliative Care Initial Consult Chief Complaint: Abisai Lamas is a 69 y.o. female with chief complaint of trampled by horse. Palliative Care is signing off, please re-consult if needed. (add SIGNOFFTRANSITION dotphrase below) Assessment/Plan Goals of care Abisai Lamas retains capacity for medical decision-making -legal surrogate decision maker is , Christina Lamas [phone], does not have HCPOA filled out, would be NOK -see subjective for details of conversation -goals of care include: 1) continue current management 2) to remain independent at home 3) remain full code Acute pain -scheduled robaxin 500mg TID, tylenol 1g TID, oxycodone 5-10mg q4h PRN -pt reports only mild pain in left frontotemporal region and left flank/hip has not needed oxycodone pain controlled with tyelnol L SDH/IPH -on asa/plavix s/p DDAVP -Ct head stable, NSGY evaluated and no need for intervention or AED, followup outpatient CT and consider resuming ASA/plavix Palliative Care Encounter -Code Status: Full Code - will continue to follow for ongoing monitoring of progression of Pain as well as for appropriateness for hospice care due to Head Trauma Total of 45 minutes spent on this encounter including Chart review, Patient visit and exam, Documentation in EHR, Care coordination, Communicating with primary attending or other consultants, Obtaining and/or reviewing separately obtained history, and Counseling and educating patient/family/caregiver. Discharge planning: Signing off, discharge disposition per primary team Patient meets criteria for general inpatient hospice care: No Palliative Care IDT members involved: None Discussed the plan of care with the other interdisciplinary team (IDT) members of the Palliative Care and Hospice teams and Patient and Family. Subjective: Subjective/Events Abisai Lamas is a 69 y.o. female with Pmhx of DMII, hypothyroidism, HTN, CAD s/p CABG, hx of CVA who presented after accident on 08/20 where she fell and was stepped on by a horse found to have traumatic L SDH, L periorbital ecchymosis, L soft tissue injury to abdominal wall/iliacus muscle, and b/l knee echymoses/abrasions. Palliative care consulted for GOC. 08/21/25 Patient sitting up in chair. Reports mild pain in left side of head and left flank/hip but well controlled with tylenol. Feels her left eye swelling has improved s/p ice packs today. Pt accompanied by her at bedside. Shows me picture of her newest granddaughter and states she has 19 grandchildren total. Pt denies any CP, SOB, n/v. States they were updated on clinical plan and hoping to be able to go home today. No recent hospitalizations or decline in health. Pt has not filled out HCPOA/LW but is and is NOK. Pain Assessment Location: left forehead/periorbital Description: throbbing, aching Frequency:Daily Duration: day(s) Alleviating Factors: tylenol Exacerbating Factors: movement Effect:N/A Palliative Care Assessments: Goals of care: Continue Current Management and Remain at Home Advanced Directives: No Known Advance Directive Functional Assessment: PPS 80% Full Amb; Normal activity with effort, Some disease; Full Self-Care; Normal Intake; Full LOC Prognosis: years Spiritual Assessment: No spiritual distress identified Bereavement and Grief: Low Risk Bereavement PDMP/OARRS Reviewed: Gkm-Izhwvnbyq-zitlvmzbeksat 5-325mg #12x 3d on 04/23/25 Social history: Marital status: Children: 5 adult child(chaz) and 19 grandchildren Living status: at home with family Work history: not assessed [place] status: No Islam: Zoroastrian ROS: See palliative care ROS/ESAS below; All other systems were reviewed and are negative. [place] Symptom Assessment Score [place] Score Pain Score (if non-verbal, add .FLACC below) 3 Tiredness Score 2 Nausea Score 0 Depression Score 0 Anxiety Score 0 Drowsiness Score 0 Anorexia Score (0= eating well, 10= not eating) 0 Wellbeing Score (10= worst sense of well-being) 0 Constipation 0 Dyspnea Score (0= no shortness of breath) 0 Family Meeting: Participants: NA Medical History[1] Surgical History[2] Family History[3] Unable to obtain family history due to N/A- family history available Allergies[4] Objective: BP 133/56 Pulse 78 Temp 36.7 C (98.1 F) (Temporal) Resp 18 Ht 1.626 m (5' 4) Wt 81.7 kg (180 lb 1.9 oz) SpO2 95% BMI 30.92 kg/m Physical Exam General: Awake, resting in bed, NAD HEENT: left periorbital ecchymosis, MMM, no JVD Cards: RRR, no M/R/G Pulm: Lungs CTAB, no wheezes, rhonchi, on RA, no conversational dyspnea Abdominal: Soft, non-tender, abdominal binder in place, left flank ecchymosis, +BS x 4 Extremities: no edema in b/l LE's, DP pulses 2+ b/l Neuro: A&Ox3, MAEx4, no focal deficits Skin: no rashes, no lesions Psych: normal mood/ affect Medication information: 24-hour PRN meds received: reviewed zofran x 1 Results/Verification of Data Review Objective data reviewed (must include dates reviewed for labs, imaging reports and other specialty notes): (CBC, BMP), CT maxillofacial, CT C spine, CT head, CTA head, Xray b/l knee 08/20 reviewed 08/21/25 As above Data in Support of Terminal Illness: Is patient hospice appropriate? No Transition Note Initiated: No, signing off. Abisai Lamas has been seen in consultation by [facility] during their admission to [facility]. They currently have no uncontrolled symptoms and have established goals of care and we have signed off of their case. The patient has established follow-up with PCP. BRIONNA Fish [1] Past Medical History: Diagnosis Date Anemia Coronary artery disease Diabetes mellitus (HCC) Disease of thyroid gland Goiter Hypertension Stroke (HCC) [2] Past Surgical History: Procedure Laterality Date CARDIAC SURGERY THYROIDECTOMY, PARTIAL [3] No family history on file. [4] Allergies Allergen Reactions Lisinopril Cough Morphine Vomiting Only Cosigned by Philip Lindsay MD at 08/21/2025 10:49 AM EDT Associated Order(s): IP CONSULT TO NEUROSURGERY NEUROSURGERY and SPINE CONSULT NOTE Patient Name: Abisai Lamas Patient : 1955 PCP: No primary care provider on file. Chief Complaint: trampled by horse History of Present Illness: 69 y.o. female with a PMHX as listed below presents from OSH s/p being trampled by horse. Pt states pt got spooked and pushed her over and was kicked and stepped on in the head and left hip. CT head shows a left SDH and small IVH. Pt is currently without any neuro deficits. at bedside. Pt does take asa/plavix daily-reversed with DDAVP Past Medical History: Medical History[1] Past Surgical History: Surgical History[2] Home Medications: Prior to Admission medications Medication Sig Start Date End Date Taking? Authorizing Provider aspirin 81 MG EC tablet Take 81 mg by mouth daily. Historical Provider, carvedilol (Coreg) 6.25 MG tablet Take 6.25 mg by mouth 2 times daily (with meals). Historical ProviderMD cholecalciferol (Vitamin D-3) 125 MCG (5000 UT) tablet Take 5,000 Units by mouth daily. Historical ProviderMD clopidogrel (Plavix) 75 MG tablet Take 75 mg by mouth daily. Historical ProviderMD FLUoxetine (PROzac) 10 MG capsule Take 10 mg by mouth Nightly. Angelita Arauz MD folic acid (Folvite) 800 MCG tablet Take 0.8 mg by mouth daily. Historical ProviderMD insulin glargine (Lantus) 100 UNIT/ML injection Inject under the skin Nightly. Historical ProviderMD Insulin Lispro (Humalog) 100 UNIT/ML solution injection Inject under the skin 3 times daily (with meals). Historical ProviderMD insulin NPH, Isophane, (HumuLIN N,NovoLIN N) 100 UNIT/ML injection Inject under the skin 2 times daily (before meals). Historical ProviderMD levothyroxine (Synthroid, Levoxyl) 50 MCG tablet Take 50 mcg by mouth daily. Historical ProviderMD losartan (Cozaar) 50 MG tablet Take 50 mg by mouth daily. Historical ProviderMD lovastatin (Mevacor) 40 MG tablet Take 40 mg by mouth Nightly. Historical ProviderMD metFORMIN (Glucophage) 500 MG tablet Take 1,000 mg by mouth 2 times daily (with meals). Historical ProviderMD multivitamin (Theragran) tablet Take 1 tablet by mouth daily. Historical ProviderMD Allergies: Lisinopril and Morphine Social History: TOBACCO: has no history on file for tobacco use. ETOH: has no history on file for alcohol use. RECREATIONAL DRUG USE: Social History Substance and Sexual Activity Drug Use Not on file Family History: Family History[3] ROS: Left hip pain Physical Examination: Vitals: 08/21/25 0600 BP: 141/55 Pulse: 76 Resp: 16 Temp: SpO2: 95% Physical Exam Left eye ecchymosis NEURO: A&O x4 ARCE Strength 5/5 in all ext-pt is cautious with LLE due to left hip pain but does have 5/5 strength Sensation intact No drift noted Results Labs: Last 24hrs Recent Results (from the past 24 hours) CBC Collection Time: 08/20/25 5:15 PM Result Value Ref Range Auto WBC 8.3 3.6 - 10.7 10*3/uL RBC 3.06 (L) 3.80 - 5.20 10*6/uL Hemoglobin 8.7 (L) 11.7 - 16.0 g/dL Hematocrit 26.9 (L) 35.0 - 47.0 % MCV 87.9 77.0 - 99.0 fL MCH 28.4 26.0 - 34.0 pg MCHC 32.3 30.5 - 36.0 % RDW 14.4 11.5 - 15.0 % Platelets 190 140 - 440 10*3/uL MPV 9.7 9.0 - 12.7 fL Basic metabolic panel Collection Time: 08/20/25 5:15 PM Result Value Ref Range SODIUM 141 136 - 145 mmol/L POTASSIUM 3.6 3.5 - 5.1 mmol/L CHLORIDE 112 (H) 98 - 107 mmol/L CARBON DIOXIDE 23 23 - 31 mmol/L UREA NITROGEN 21 9 - 23 mg/dL CREATININE 0.58 0.58 - 1.12 mg/dL GLUCOSE 177 (H) 82 - 115 mg/dL CALCIUM 7.0 (L) 8.8 - 10.0 mg/dL ANION GAP 6 3 - 13 mmol/L eGFR >90.0 >60.0 mL/min/1.73m*2 Hemoglobin A1c Collection Time: 08/20/25 5:15 PM Result Value Ref Range HEMOGLOBIN A1C 7.7 (H) <5.7 %HbA1C ESTIMATED AVERAGE GLUCOSE 174 mg/dL Ethanol Collection Time: 08/20/25 5:15 PM Result Value Ref Range ETHANOL IN SER/PLAS <10 <10 mg/dL Type and Screen Collection Time: 08/20/25 5:16 PM Result Value Ref Range ABO Grouping A Antibody Screen NEG Rh Type POS Confirmatory ABO/Rh Collection Time: 08/20/25 5:16 PM Result Value Ref Range ABO Grouping A Rh Type POS POCT glucose meter Collection Time: 08/20/25 9:35 PM Result Value Ref Range Glucose 180 (H) 70 - 100 mg/dL CBC Collection Time: 08/20/25 10:39 PM Result Value Ref Range Auto WBC 6.9 3.6 - 10.7 10*3/uL RBC 2.94 (L) 3.80 - 5.20 10*6/uL Hemoglobin 8.5 (L) 11.7 - 16.0 g/dL Hematocrit 25.8 (L) 35.0 - 47.0 % MCV 87.8 77.0 - 99.0 fL MCH 28.9 26.0 - 34.0 pg MCHC 32.9 30.5 - 36.0 % RDW 14.6 11.5 - 15.0 % Platelets 199 140 - 440 10*3/uL MPV 9.5 9.0 - 12.7 fL Hemoglobin and hematocrit, blood Collection Time: 08/21/25 5:26 AM Result Value Ref Range Hemoglobin 8.1 (L) 11.7 - 16.0 g/dL Hematocrit 25.1 (L) 35.0 -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 trauma CTA OF THE HEAD AND NECK WITH IV CONTRAST CLINICAL INDICATION: s/p trauma, head and neck pain TECHNIQUE: Routine CTA of the head and neck with IV contrast. Multiplanar reformations. 3-D reformations. Dose reduction was employed with automated exposure control. COMPARISON: None FINDINGS: CTA neck: Status post sternotomy. Coronary artery calcifications noted. Vertebral arteries are patent bilaterally throughout the neck, no dissection or significant stenosis seen. Vertebral arteries are codominant. Moderate carotid bifurcation plaque bilaterally. RIGHT carotid bifurcation stenosis estimated at about 25 percent. LEFT carotid bifurcation stenosis estimated at about 30 percent. CTA brain: Distal vertebral arteries, basilar artery, visualized basilar artery branches, and posterior cerebral arteries appear patent. Distal internal carotid arteries, anterior, and middle cerebral arteries appear patent. No aneurysm, high grade stenosis, or large vessel occlusion seen. 1. No large vessel occlusion. No hemodynamically significant carotid stenosis. Reference: Measurement of carotid stenosis is based on conventional angiographic data from the NASCET trials. Report Dictated on Electronically Signed By: Terrell Bowers MD Electronically Signed Date/Time: 08/20/2025 11:[address] head wo IV contrast Result Date: 08/20/2025 Patient Name: ABISAI LAMAS : 1955 [facility]#: [id number] Exam Date/Time: 08/20/2025 20:11 Procedure: CT HEAD WO IV CONTRAST Ordering Provider: WILLS KATIE Reason For Exam: s/p trauma CT BRAIN WITHOUT CONTRAST CLINICAL INDICATION: s/p trauma, pain, injury TECHNIQUE: Noncontrast CT scan of the brain. Multiplanar reformations. Dose reduction was employed with automated exposure control. COMPARISON: Outside study from 08/20/2025 FINDINGS: Acute subdural hemorrhage, mixed attenuation, over LEFT convexity. Maximal thickness is about 5 mm. No midline shift. No hydrocephalus. Basilar cisterns are not effaced. Likely a small amount of intraventricular hemorrhage in the temporal horn on either side. No evidence of acute infarct. 1. LEFT convexity subdural hemorrhage, mixed attenuation measuring about 5 mm in maximal thickness. No significant midline shift. Suspect small amount of intraventricular hemorrhage bilaterally.. Findings do not appear significantly changed compared to the previous study. CRITICAL TEST RESULT COMMUNICATION: Notification of these findings was made to ELIO ELMA via [employer] on 08/20/2025 11:31 PM EDT. Report Dictated on Electronically Signed By: Terrell Bowers MD Electronically Signed Date/Time: 08/20/2025 11:[address] maxillofacial wo IV contrast Result Date: 08/20/2025 Patient Name: ABISAI LAMAS : 1955 Exam Date/Time: 08/20/2025 22:03 Procedure: CT MAXILLOFACIAL WO IV CONTRAST Ordering Provider: WILLS KATIE Reason For Exam: Trauma/Injury to Face; facial pain MAXILLOFACIAL CT SCAN WITHOUT CONTRAST CLINICAL INDICATION: Trauma/Injury to Face; facial pain, facial pain TECHNIQUE: Maxillofacial CT scan without contrast. Multiplanar reformations. Dose reduction was employed with automated exposure control. COMPARISON: None FINDINGS: No acute facial bone fracture. Globes appear intact. LEFT periorbital soft tissue swelling. LEFT supraorbital soft tissue hematoma measuring 1.9 x 1.0 cm in size. 1. LEFT periorbital soft tissue swelling and hematoma. Report Dictated on Electronically Signed By: Terrell Bowers MD Electronically Signed Date/Time: 08/20/2025 11:24 PM EDT POCT glucose meter Result Date: 08/20/2025 Performed by: [facility], [address] [place] [address] CLIA ID: [id number] XR knee 3 views left Result Date: 08/20/2025 Patient Name: ABISAI LAMAS : 1955 Exam Date/Time: 08/20/2025 16:49 Procedure: XR KNEE 3 VIEWS LEFT Ordering Provider: WILLS KATIE Reason For Exam: s/p trauma LEFT KNEE: CLINICAL INDICATION: Pain, trauma. TECHNIQUE: Three views of the left knee COMPARISON: None FINDINGS: There is cortical irregularity along the medial aspect of the left femoral metaphysis. No subluxation. No spurring or joint space narrowing is noted. There is a small joint effusion. No bone lesion is identified. There is a 5 mm linear radiopaque foreign body noted about the posterior medial left knee soft tissues about the level the femoral metaphysis. Vascular calcifications noted. 1. Cortical irregularity along the medial aspect of the left femoral metaphysis, which may suggest fracture. There is a small joint effusion. Recommend bilateral oblique views of left knee for further evaluation. 2. Small joint effusion. 3. Linear radiopaque foreign body within the posterior medial knee soft tissues as noted above. Report Dictated on Electronically Signed By: Warren Gonzales MD Electronically Signed Date/Time: 08/20/2025 9:20 PM EDT Problem List[2] ASSESSMENT: 69 year old female s/p trampling by horse with L SDH, LLQ/flank areas of soft tissue injury with multiple areas of extravasation in rectus and iliacus muscles, and soft tissue injury to R hip PLAN: Neuro / Spine # Left subdural hematoma #Acute pain - Repeat CT head yesterday evening stable- IVH present; discussed with radiology, was present but not called on initial scan -CT C-spine and max/face without acute traumatic findings - Neurosurgery consulted - no neurosurgical intervention indicated at this time, no need for AED, may start DVT ppx tomorrow, hold ASA/Plavix until OP follow up with CT - Seizure ppx: Not indicated at this time - Pain control: Scheduled Tylenol, oxycodone as needed for breakthrough - Elevate HOB 30 degrees - Neuro checks q4h - Add 500mg robaxin q8h # History of stroke with right-sided residual weakness - Continue home atorvastatin 10 mg nightly and losartan 50 mg daily #Depression - Resume home fluoxetine HEENT # Left periorbital ecchymosis -CT max/face with L periorbital soft tissue swelling and hematoma - Ice to area PRN Cardiovascular # History of three-vessel bypass surgery #Hypertension # Hyperlipidemia - Continue home losartan and atorvastatin - Hold home Coreg - Hemodynamically stable - BP Goal <150 SBP - Labetalol/hydralazine prn - Telemetry Pulmonary - Standard O2 protocol - IS FEN/GI -Regular Diet - dc mIVF - Zofran PRN - Daily BMP, CBC, Mg, Phos - Senna and MiraLAX daily - No acute issues - Monitor I/Os - Goal UOP > 0.5 ml/kg/hr Endocrine # DM -ISS - Eppsk-xz-siqu glucose test # Hypothyroidism - Continue home Synthroid Heme # Left iliacus hematoma - Hgb stable - No transfusions indicated - Serial H&H q6 to monitor - change to CBC in the morning - Application of abdominal binder ID - No acute issues -Tdap given - Mupirocin prophylaxis for 5 days Lines/Devices: - PIVs Prophylaxis: DVT: SCDs, no chemoppx - lovenox start tomorrow morning 9 am Has DVT PPX been started? Yes If no, why? Patient with Acute Head Bleed GI: Protonix Pressure Ulcer: Continue to monitor, q2 turns Musculoskeletal: - PT/OT - needs to be seen by PT/OT prior to discharge - Up with assist - Left knee x-ray with cortical irregularity, does not appear as acute fracture and patient is asymptomatic on the L side, ambulating appropriately. - WBAT Is the patient in restraints?: No Medications Reconciled- Yes [x] NO [], why Disposition: Transfer to [address] [place] [address] This result has been reviewed by Angel Johansen MD, MD on 08/21/25 at 11:09 AM. [1] Current Facility-Administered Medications: acetaminophen (Tylenol) tablet 1,000 mg, 1,000 mg, Oral, q8h, 1,000 mg at 08/21/25 0105 OR [DISCONTINUED] Acetaminophen (Tylenol) 650 MG/20.3ML solution 1,000 mg, 1,000 mg, Per G Tube, q8h, Emani Aguilar MD atorvastatin (Lipitor) tablet 10 mg, 10 mg, Oral, Nightly, Emani Aguilar MD, 10 mg at 08/20/253 [Held by provider] carvedilol (Coreg) tablet 6.25 mg, 6.25 mg, Oral, BID WC, Emani Aguilar MD dextrose 5 % infusion, 100 mL/hr, IntraVENous, PRN, Emani Aguilar MD dextrose 50 % solution 12.5 g, 12.5 g, IntraVENous, PRN, Emani Aguilar MD FLUoxetine (PROzac) capsule 10 mg, 10 mg, Oral, Nightly, Emani Aguilar MD, 10 mg at 08/20/252112 glucagon (human recombinant) injection 1 mg, 1 mg, IntraMUSCular, PRN, Emani Aguilar MD glucose oral gel 15 g, 15 g, Oral, PRN, Emani Aguilar MD hydrALAZINE (Apresoline) injection 10 mg, 10 mg, IntraVENous, q2h PRN, Emani Aguilar MD influenza vaccine A&B surf ant adjuvanted (Fluad) HIGH-DOSE injection 0.5 mL, 0.5 mL, IntraMUSCular, Prior to discharge, Emani Aguilar MD Insulin Lispro (Humalog) injection 0-12 Units, 0-12 Units, SubCUTAneous, q6h, Emani Aguilar MD, 2 Units at 08/20/25 223 labetalol (Normodyne,Trandate) injection 10 mg, 10 mg, IntraVENous, q2h PRN, Emani Aguilar MD levothyroxine (Synthroid, Levoxyl) tablet 50 mcg, 50 mcg, Oral, Daily, Emani Aguilar MD losartan (Cozaar) tablet 50 mg, 50 mg, Oral, Daily, Emani Aguilar MD mupirocin (Bactroban) 2 % ointment 1 Application, 1 Application, Nasal, BID, Emani Aguilar MD, 1 Application at 08/20/252130 naloxone (Narcan) injection 0.4 mg, 0.4 mg, IntraVENous, q5 min PRN, Emani Aguilar MD ondansetron ODT (Zofran-ODT) disintegrating tablet 4 mg, 4 mg, Oral, q8h PRN, 4 mg at 08/20/25 214 OR ondansetron (Zofran) injection 4 mg, 4 mg, IntraVENous, q6h PRN, Emani Aguilar MD oxyCODONE (Roxicodone) immediate release tablet 5 mg, 5 mg, Oral, q4h PRN OR oxyCODONE (Roxicodone) immediate release tablet 10 mg, 10 mg, Oral, q4h PRN, Emani Aguilar MD polyethylene glycol (PEG) 3350 (Miralax) packet 17 g, 17 g, Oral, Daily PRN, Emani Aguilar MD sodium chloride 0.9 % infusion, 100 mL/hr, IntraVENous, Continuous, James Aguilar MD, Last Rate: 100 mL/hr at 08/20/25 171, 100 mL/hr at 08/20/251715 [2] Patient Active Problem List Diagnosis Struck by horse, initial encounter Cosigned by Oscar Ronquillo MD at 08/21/2025 10:17 PM EDT Associated attestation - Oscar Ronquillo MD - 08/21/2025 10:17 PM EDT ATTENDING ADDENDUM Active Diagnoses/Problems this Admission: Problem List[1] I personally supervised the resident physician in the evaluation and development of a treatment plan for this patient on the same day of service as above. I personally discussed the review of systems and interviewed the patient along with performing a physical examination. I reviewed the recent events, imaging, labs, vital signs. In addition, I discussed the patient's condition and treatment options with him/her when possible. I have also reviewed and agree with the past medical, family, and social history unless otherwise noted. All of the patient's questions were answered and family updated when appropriate and possible. A complete review of systems was obtained and is negative except as stated in HPI and/or Subjective Section. Please note that the plan below is highlights/weems components and corrections; see the main resident note for the full Assessment/Plan. -as per Dr. Johansen's note -I evaluated patient on 08/21/25 -Chief Complaint: trampled by horse, SDH, soft tissue/RP hematoma -patient admitted yesterday afternoon -SDH/IPH: Neurosurgery consulted, no acute intervention, bleeds are stable on repeat CT head, okay for q4 hour neuro checks, no AED -L soft tissue/RP hematoma: stable in appearance, Hgb stable in the 8s x3, continue external compression with binder, no plan for other intervention, Lovenox tomorrow if still here -multi-modal analgesia regimen as below -on regular diet; tolerating, on bowel regimen -DM: ISS -patient overall feeling well, passed PT/OT for home with assist -anticipate discharge home today -discussed return precautions and importance of outpatient follow-up Total Care Time throughout the day today was >= 30 minutes (including chart/data review/analysis, care coordination, and mljx-dd-ffmn encounter), and was spent discussing/counseling the patient/family regarding the care plan for Abisai Lamas. I examined the patient independently. I reviewed relevant data myself and may have also done so in the context of team rounds. A full chart review was performed. I personally spent greater than 30 minutes involved with discharge planning, education, and coordination in arranging this patient's discharge today. Oscar Ronquillo MD, FACS Trauma, Surgical Critical Care, & Acute Care Surgery Department of Surgery [facility] Pager: [phone] ~~~~~~~~~~~~~~~~~~~~~~~~~~~~~~~~~ ~~~~~~~~~~~~~~~~~~~~~~~~~~~~ This note may have been dictated using [employer] Medical Practice Edition 2.6 and/or [employer] Voice Recognition Feature. The document was proofread; however, unrecognized voice recognition managing partner errors may be present. [1] Patient Active Problem List Diagnosis Struck by horse, initial encounter Traumatic subdural hematoma with loss of consciousness of 30 minutes or less (CMS/HCC) Pelvic hematoma in female I was notified by the resident that the patient had arrived on T2 as a Direct Admit. I immediately came to T2 ICU to evaluate patient. I was at the bedside within 15 minutes of patient arrival. Please see H&P for further details. documented in this encounter [facility] 08-21-2025 Hospital Discharg e instructions Emani James Aguilar MD - 08/21/2025 2:02 PM EDT Images from the original note were not included. Discharge Instructions Call your surgeon in 1 to 2 days to schedule a follow-up appointment in 1-2 weeks. OK for diet as tolerated, we recommend taking it slow and starting with soft foods, if you get nauseated try only clear liquids for a few hours. OK for activity as tolerated. Constipation is very common with opiate (oxycodone, norco, hydrocodone, percocet) medications, you may take an over the counter stool softener while on narcotics for constipation as needed (colace, miralax, etc). Call your Physician or return to the Emergency Room if you experience: -New or increased pain. -New or increased bleeding. -Nausea & vomiting. -Fever & chills. -Shortness of breath. -Chest pain. -Abdominal distention. The following attachments cannot be sent through Care Everywhere.Acute Pain Discharge Instructions, Adult (Azerbaijani)documented in this encounter [facility] 08-21-2025 Note Attestation signed by Oscar Ronquillo MD at 08/22/2025 8:03 PM ATTENDING ADDENDUM (Please note that this attestation is also on the Daily Progress Note for today) Active Diagnoses/Problems this Admission: Problem List[1] I personally supervised the resident physician in the evaluation and development of a treatment plan for this patient on the same day of service as above. I personally discussed the review of systems and interviewed the patient along with performing a physical examination. I reviewed the recent events, imaging, labs, vital signs. In addition, I discussed the patient's condition and treatment options with him/her when possible. I have also reviewed and agree with the past medical, family, and social history unless otherwise noted. All of the patient's questions were answered and family updated when appropriate and possible. A complete review of systems was obtained and is negative except as stated in HPI and/or Subjective Section. Please note that the plan below is highlights/weems components and corrections; see the main resident note for the full Assessment/Plan. -as per Dr. Johansen's note -I evaluated patient on 08/21/25 -Chief Complaint: trampled by horse, SDH, soft tissue/RP hematoma -patient admitted yesterday afternoon -SDH/IPH: Neurosurgery consulted, no acute intervention, bleeds are stable on repeat CT head, okay for q4 hour neuro checks, no AED -L soft tissue/RP hematoma: stable in appearance, Hgb stable in the 8s x3, continue external compression with binder, no plan for other intervention, Lovenox tomorrow if still here -multi-modal analgesia regimen as below -on regular diet; tolerating, on bowel regimen -DM: ISS -patient overall feeling well, passed PT/OT for home with assist -anticipate discharge home today -discussed return precautions and importance of outpatient follow-up Total Care Time throughout the day today was >= 30 minutes (including chart/data review/analysis, care coordination, and yflw-dx-ixdu encounter), and was spent discussing/counseling the patient/family regarding the care plan for Abisai Lamas. I examined the patient independently. I reviewed relevant data myself and may have also done so in the context of team rounds. A full chart review was performed. I personally spent greater than 30 minutes involved with discharge planning, education, and coordination in arranging this patient's discharge today. Oscar Ronquillo MD, FACS Trauma, Surgical Critical Care, & Acute Care Surgery Department of Surgery [facility] Pager: [phone] ~~~~~~~~~~~~~~~~~~~~~~~~~~~~~~~~~ ~~~~~~~~~~~~~~~~~~~~~~~~~~~~ This note may have been dictated using [employer] Medical Practice Edition 2.6 and/or [employer] Voice Recognition Feature. The document was proofread; however, unrecognized voice recognition managing partner errors may be present. [1] Patient Active Problem List Diagnosis Struck by horse, initial encounter Traumatic subdural hematoma with loss of consciousness of 30 minutes or less (CMS/HCC) Pelvic hematoma in female Department of Trauma / Critical Care Discharge Summary Name: Abisai Lamas Date: 08/21/2025 2:01 PM : 1955 Age/Sex: 69 y.o. female Admit Date: 08/20/2025 Discharge Date: 08/21/2025 Attending: Elio Wills MD Discharge Diagnosis: 1. Struck by horse, initial encounter 2. SDH (subdural hematoma) (CMS/[facility]) Problem List[1] Body mass index is 30.92 kg/m?. BMI Classification: Overweight (BMI 25.0-29.9) Reason for Hospitalization: The patient was admitted for ICU monitoring and further workup after being trampled by a horse. Hospital Course (Care, treatment and services provided): Please see H&P and prior notes for more detailed summary of previous investigations and clinical assessment prior to this admission. Brief HPI 69 y.o. female status post assault by horse. The incident happened around 9 AM on 08/20/2025 at. When the event happened the patient was standing near a horse that her was showing to a potential customer. The horse got spooked and then proceeded to trampled the patient. She states she did hit her head and had a brief moment of loss of consciousness however does recall the events that preceded. Patient states she fell backwards and the horse began to step on her. Incidental Findings: N/A Hospital course: Pt was a direct admit from [facility] after being assaulted by a horse. She was found to have a L SDH, L IPH, L iliacus and rectus hematoma, and notable L periorbital ecchymosis. Pt had CT max/face, CT C-spine, and CTA head/neck which were all benign in nature. Her repeat CT head showed stability of the respective hematomas. Neurosurgery was consulted and final recs included fo (more content not included)... [facility] 08-21-2025 Note OCCUPATIONAL THERAPY [facility] Initial Evaluation Name/MRN: Abisai Lamas ([id number]) Evaluation Date: 08/21/2025 Date of : 1955 Admission Date: 08/20/2025 4:07 PM Age: 69 y.o. Room/Bed: T2-201/T2-201 A Discharge Recommendation: Home with assist PRN Equipment Needed: (FWW is recommended but pt declining need) Assessment IMPRESSION: Pt is able to complete most OOB ADL activity this date at SBA level or better. Okay for home with initial PRN assist due to ongoing left hemibody/knee pain. Pt did better with walker but declines need. Admitting Diagnosis: Struck by horse resulting in left SDH and left iliacus/abdominal hematoma. Performance Deficits /Impairments: Increased Pain, Decreased Functional Mobility, Decreased ADL status, Decreased Strength, Decreased Endurance, Decreased Balance, Decreased High Level IADLs, and Decreased Vision/Visual Deficit Prognosis: Good Decision Making: Low Complexity Subjective Pt is pleasant and agreeable to OT. C/o left facial pain and left hemibody. Pain: Brown-Coffman Pain Ratin = Hurts little more Past Medical History: Medical History[1] Past Surgical History: Surgical History[2] Admission Diagnosis: Patient Active Problem List Diagnosis Date Noted Struck by horse, initial encounter 08/20/2025 Medical Precautions: No active isolations Proper PPE donned/doffed in accordance with facility standards. Fall Risk: Mendoza Fall Risk Score: 35 (Medium Risk) Precautions/Restrictions: Fall Precautions Family/Caregiver Present: spouse Overall Cognitive Status: WFL Overall Orientation Status: Oriented x4 Social/Functional History Patient admitted from home. Lives With: Family Type of Home: single family home Home Layout: Single Level Home Home Access: Level Entry Bathroom Shower/Tub: Tub/Shower Combo, Shower Chair with Back, and Walk in Shower Toilet: Standard Home Equipment: none Homemaking Responsibilities: Independent Receives Help From: None Prior Level of Function Prior Level of ADL Function: Independent Prior Level of Mobility: Independent; Device: None Prior Level of Transfers: Independent Objective ADLs LE Dressing: Supervision, socks donned Grooming: Supervision, hand hygiene standing at sink Upper Extremity Assessment AROM: WFL PROM: WFL Strength: WFL Coordination: WFL finger to nose FMC:WFL opposition Sensation: WFL (+) 3/3 light touch bilateral UE Tone: Normal tone Vision Functional Vision: (+) ID badge and writing on whiteboard Visual fixation: WFL Smooth Pursuits:WFL *Pt denies acute changes with exception to moderate left orbital edema hindering vision Vision Functional Vision: Visual fixation: Smooth Pursuits: Saccades: Confrontation Testing: Peripheral Looney: Bed Mobility Pt up in chair upon arrival Transfers/Mobility Sit to stand: SBA Stand to sit: SBA Toilet: SBA Functional mobility: CGA to/from bathroom with pt compensating due to left knee pain. Trial with FWW and pt improving to SBA. AM-PAC AM-PAC Inpatient Daily Activity Raw Score: 24 ADL Inpatient CMS G-Code Modifier: CH Plan Pt would benefit from skilled acute OT services to address Strengthening, ROM, Balance Training, Self-Care/ADL Training, Functional Mobility Training, Endurance Training, Safety Education and Training, Pain Management, Equipment Evaluation/Education, Neuromuscular Re-Education Training, Home Management Training, Patient/Caregiver Training, Cognitive/Perceptual Training, Positioning, and Sensory Integration Frequency: 2x/week for 4 weeks Barriers: Pain, Impaired balance, and Lower extremity weakness Safety/Education Safety Safety Devices in place: call light within reach, left in chair, gait belt, patient at risk for falls, nurse notified, and no alarms engaged upon entry Restraints: N/A Education Education Given To: patient Education Provided: OT Role, Plan of Care, Equipment, and Discharge Recommendations Education Method: Verbal Barriers to Learning: None Education Outcome: Verbalized Understanding Goals Patient Stated Goal: Home Encounter Problems Encounter Problems (Active) OT Misc Item retrieval mod indep. Start: 08/21/25 Expected End: 09/18/25 Simulated light home making task mod indep. Start: 08/21/25 Expected End: 09/18/25 GOOD ADL standing tolerance x 10 minutes. Start: 08/21/25 Expected End: 09/18/25 Therapy Time Individual Co-Treatment Co-Evaluation Time In 1059 Time Out 1116 Minutes 17 Patient's Occupational Therapy Plan of Care supervision is transferred to a [facility] Occupational Therapist. Goals and/or treatment plan was established in collaboration with patient/family/other representatives. Mimi Boyce OTR/L \ [1] Past Medical History: Diagnosis Date Anemia Coronary artery disease Diabetes mellitus (HCC) Disease of thyroid gland Goiter Hypertension Stroke (HCC) [ (more content not included)... [facility] 08-21-2025 Progress note Formatting of t his note might be different from the original. Care Managment Initial Assessment Date: 08/21/2025 Patient Name: Abisai Lamas : 1955 Patient Information Source of Information: Patient Cognition/Language: WFL - Within Functional Limits Permission given to speak with patient dental detail representative/caregiver as indicated: Yes Confirmation of Payer with patient/family: Yes Payer Name: Rashad Altamirano [facility] [place]: No Confirmation of Primary Care Physician: Confirmed PCP Name: Katherine Elkins Seen in last 2 years?: Yes Primary Caregiver: Self If assistance needed, confirmed caregiver ready, willing and able to care for patient at discharge: Yes Confirmed with: Abisai Living Arrangements Current Residence: House Number of Floors 1 Number of Entry Steps: 1 Bed/Bath Levels: Both first floor Facility: Facility Name: Plan to Return: Lives with: Spouse/significant other Support Systems: Spouse/significant other, Family members Activities of Daily Living Ambulation: Independent Bathing/Dressing: Independent Elimination/Continence/Toileting: Independent Feeding: Independent Who Assists with Activities of Daily Living: Abisai Instrumental Activities of Daily Living Prescription Coverage: Yes Pharmacy Used: [facility] [address] Medication Management: Independent Transportation/Shopping: Independent Transportation Mode: Car Needs Assistance with Transportation at Discharge: No Meal Preparation: Independent Laundry/Cleaning: Independent Finances/Bill Paying: Independent Communication: Independent Types of Care Services/Equipment Utilized Care Services: Dialysis Type: Durable Medical Equipment: Patient's Goal/Discharge Plan Patient expects to be discharged to: home Discharge Planning Actions: Continue to follow Patient's Choice Rights and [employer] and Collaborative Relationships Disclosed as Indicated for Post-Acute Care: Interdisciplinary Team Engagement: PT/OT, Geriatric Assessment Social Work Referral for: Additional Information: Pt admitted s/p trampled by horse, L SDH, iliacus and rectus hematoma. Introduced myself and role. Pt lives with , who can provide assistance. Pt verbalizes she will have a ride home. PT/OT is pending. Will follow. [facility] 08-21-2025 Miscellaneous Notes Care Managment Initial Assessment Date: 08/21/2025 Patient Name: Abisai Lamas : 1955 Patient Information Source of Information: Patient Cognition/Language: WFL - Within Functional Limits Permission given to speak with patient dental detail representative/caregiver as indicated: Yes Confirmation of Payer with patient/family: Yes Payer Name: [employer] [facility] : No Confirmation of Primary Care Physician: Confirmed PCP Name: Katherine Severo Seen in last 2 years?: Yes Primary Caregiver: Self If assistance needed, confirmed caregiver ready, willing and able to care for patient at discharge: Yes Confirmed with: Abisai Living Arrangements Current Residence: House Number of Floors 1 Number of Entry Steps: 1 Bed/Bath Levels: Both first floor Facility: Facility Name: Plan to Return: Lives with: Spouse/significant other Support Systems: Spouse/significant other, Family members Activities of Daily Living Ambulation: Independent Bathing/Dressing: Independent Elimination/Continence/Toileting: Independent Feeding: Independent Who Assists with Activities of Daily Living: Abisai Instrumental Activities of Daily Living Prescription Coverage: Yes Pharmacy Used: [facility] [address] Medication Management: Independent Transportation/Shopping: Independent Transportation Mode: Car Needs Assistance with Transportation at Discharge: No Meal Preparation: Independent Laundry/Cleaning: Independent Finances/Bill Paying: Independent Communication: Independent Types of Care Services/Equipment Utilized Care Services: Dialysis Type: Durable Medical Equipment: Patient's Goal/Discharge Plan Patient expects to be discharged to: home Discharge Planning Actions: Continue to follow Patient's Choice Rights and [employer] and Collaborative Relationships Disclosed as Indicated for Post-Acute Care: Interdisciplinary Team Engagement: PT/OT, Geriatric Assessment Social Work Referral for: Additional Information: Pt admitted s/p trampled by horse, L SDH, iliacus and rectus hematoma. Introduced myself and role. Pt lives with , who can provide assistance. Pt verbalizes she will have a ride home. PT/OT is pending. Will follow. documented in this encounter [facility] 08-21-2025 Consult note Associated Order (s): IP CONSULT TO PALLIATIVE CARE Images from the original note were not included. Palliative Care Initial Consult Chief Complaint: Abisai Lamas is a 69 y.o. female with chief complaint of trampled by horse. Palliative Care is signing off, please re-consult if needed. (add SIGNOFFTRANSITION dotphrase below) Assessment/Plan Goals of care Abisai Lamas retains capacity for medical decision-making -legal surrogate decision maker is , Christina Lamas [phone], does not have HCPOA filled out, would be NOK -see subjective for details of conversation -goals of care include: 1) continue current management 2) to remain independent at home 3) remain full code Acute pain -scheduled robaxin 500mg TID, tylenol 1g TID, oxycodone 5-10mg q4h PRN -pt reports only mild pain in left frontotemporal region and left flank/hip has not needed oxycodone pain controlled with tyelnol L SDH/IPH -on asa/plavix s/p DDAVP -Ct head stable, NSGY evaluated and no need for intervention or AED, followup outpatient CT and consider resuming ASA/plavix Palliative Care Encounter -Code Status: Full Code - will continue to follow for ongoing monitoring of progression of Pain as well as for appropriateness for hospice care due to Head Trauma Total of 45 minutes spent on this encounter including Chart review, Patient visit and exam, Documentation in EHR, Care coordination, Communicating with primary attending or other consultants, Obtaining and/or reviewing separately obtained history, and Counseling and educating patient/family/caregiver. Discharge planning: Signing off, discharge disposition per primary team Patient meets criteria for general inpatient hospice care: No Palliative Care IDT members involved: None Discussed the plan of care with the other interdisciplinary team (IDT) members of the Palliative Care and Hospice teams and Patient and Family. Subjective: Subjective/Events Abisai Lamas is a 69 y.o. female with Pmhx of DMII, hypothyroidism, HTN, CAD s/p CABG, hx of CVA who presented after accident on 08/20 where she fell and was stepped on by a horse found to have traumatic L SDH, L periorbital ecchymosis, L soft tissue injury to abdominal wall/iliacus muscle, and b/l knee echymoses/abrasions. Palliative care consulted for GOC. 08/21/25 Patient sitting up in chair. Reports mild pain in left side of head and left flank/hip but well controlled with tylenol. Feels her left eye swelling has improved s/p ice packs today. Pt accompanied by her at bedside. Shows me picture of her newest granddaughter and states she has 19 grandchildren total. Pt denies any CP, SOB, n/v. States they were updated on clinical plan and hoping to be able to go home today. No recent hospitalizations or decline in health. Pt has not filled out HCPOA/LW but is and is NOK. Pain Assessment Location: left forehead/periorbital Description: throbbing, aching Frequency:Daily Duration: day(s) Alleviating Factors: tylenol Exacerbating Factors: movement Effect:N/A Palliative Care Assessments: Goals of care: Continue Current Management and Remain at Home Advanced Directives: No Known Advance Directive Functional Assessment: PPS 80% Full Amb; Normal activity with effort, Some disease; Full Self-Care; Normal Intake; Full LOC Prognosis: years Spiritual Assessment: No spiritual distress identified Bereavement and Grief: Low Risk Bereavement PDMP/OARRS Reviewed: Dgv-Oxcugnnry-azmincycklhtr 5-325mg #12x 3d on 04/23/25 Social history: Marital status: Children: 5 adult child(chaz) and 19 grandchildren Living status: at home with family Work history: not assessed [place] status: No Islam: Zoroastrian ROS: See palliative care ROS/ESAS below; All other systems were reviewed and are negative. [place] Symptom Assessment Score [place] Score Pain Score (if non-verbal, add .FLACC below) 3 Tiredness Score 2 Nausea Score 0 Depression Score 0 Anxiety Score 0 Drowsiness Score 0 Anorexia Score (0= eating well, 10= not eating) 0 Wellbeing Score (10= worst sense of well-being) 0 Constipation 0 Dyspnea Score (0= no shortness of breath) 0 Family Meeting: Participants: NA Medical History[1] Surgical History[2] Family History[3] Unable to obtain family history due to N/A- family history available Allergies[4] Objective: BP 133/56 Pulse 78 Temp 36.7 C (98.1 F) (Temporal) Resp 18 Ht 1.626 m (5' 4) Wt 81.7 kg (180 lb 1.9 oz) SpO2 95% BMI 30.92 kg/m Physical Exam General: Awake, resting in bed, NAD HEENT: left periorbital ecchymosis, MMM, no JVD Cards: RRR, no M/R/G Pulm: Lungs CTAB, no wheezes, rhonchi, on RA, no conversational dyspnea Abdominal: Soft, non-tender, abdominal binder in place, left flank ecchymosis, +BS x 4 Extremities: no edema in b/l LE's, DP pulses 2+ b/l Neuro: A&Ox3, MAEx4, no focal deficits Skin: no rashes, no lesions Psych: normal mood/ affect Medication information: 24-hour PRN meds received: reviewed zofran x 1 Results/Verification of Data Review Objective data reviewed (must include dates reviewed for labs, imaging reports and other specialty notes): (CBC, BMP), CT maxillofacial, CT C spine, CT head, CTA head, Xray b/l knee 08/20 reviewed 08/21/25 As above Data in Support of Terminal Illness: Is patient hospice appropriate? No Transition Note Initiated: No, signing off. Abisai Lamas has been seen in consultation by [facility]iative [facility] during their admission to [facility]. They currently have no uncontrolled symptoms and have established goals of care and we have signed off of their case. The patient has established follow-up with PCP. BRIONNA Fish [1] Past Medical History: Diagnosis Date Anemia Coronary artery disease Diabetes mellitus (HCC) Disease of thyroid gland Goiter Hypertension Stroke (HCC) [2] Past Surgical History: Procedure Laterality Date CARDIAC SURGERY THYROIDECTOMY, PARTIAL [3] No family history on file. [4] Allergies Allergen Reactions Lisinopril Cough Morphine Vomiting Only Cosigned by Philip Lindsay MD at 08/21/2025 10:49 AM EDT [facility] Work Phone: 08-21-2025 Consult note Associated Order (s): IP CONSULT TO NEUROSURGERY NEUROSURGERY and SPINE CONSULT NOTE Patient Name: Abisai Lamas Patient : 1955 PCP: No primary care provider on file. Chief Complaint: trampled by horse History of Present Illness: 69 y.o. female with a PMHX as listed below presents from OSH s/p being trampled by horse. Pt states pt got spooked and pushed her over and was kicked and stepped on in the head and left hip. CT head shows a left SDH and small IVH. Pt is currently without any neuro deficits. at bedside. Pt does take asa/plavix daily-reversed with DDAVP Past Medical History: Medical History[1] Past Surgical History: Surgical History[2] Home Medications: Prior to Admission medications Medication Sig Start Date End Date Taking? Authorizing Provider aspirin 81 MG EC tablet Take 81 mg by mouth daily. Historical Provider, carvedilol (Coreg) 6.25 MG tablet Take 6.25 mg by mouth 2 times daily (with meals). Historical Provider, cholecalciferol (Vitamin D-3) 125 MCG (5000 UT) tablet Take 5,000 Units by mouth daily. Historical Provider, clopidogrel (Plavix) 75 MG tablet Take 75 mg by mouth daily. Historical Provider, FLUoxetine (PROzac) 10 MG capsule Take 10 mg by mouth Nightly. Historical Provider, folic acid (Folvite) 800 MCG tablet Take 0.8 mg by mouth daily. Historical Provider, insulin glargine (Lantus) 100 UNIT/ML injection Inject under the skin Nightly. Historical Provider, Insulin Lispro (Humalog) 100 UNIT/ML solution injection Inject under the skin 3 times daily (with meals). Historical Provider, insulin NPH, Isophane, (HumuLIN N,NovoLIN N) 100 UNIT/ML injection Inject under the skin 2 times daily (before meals). Historical ProviderMD levothyroxine (Synthroid, Levoxyl) 50 MCG tablet Take 50 mcg by mouth daily. Historical ProviderMD losartan (Cozaar) 50 MG tablet Take 50 mg by mouth daily. Historical Provider, lovastatin (Mevacor) 40 MG tablet Take 40 mg by mouth Nightly. Historical ProviderMD metFORMIN (Glucophage) 500 MG tablet Take 1,000 mg by mouth 2 times daily (with meals). Historical ProviderMD multivitamin (Theragran) tablet Take 1 tablet by mouth daily. Historical Provider, Allergies: Lisinopril and Morphine Social History: TOBACCO: has no history on file for tobacco use. ETOH: has no history on file for alcohol use. RECREATIONAL DRUG USE: Social History Substance and Sexual Activity Drug Use Not on file Family History: Family History[3] ROS: Left hip pain Physical Examination: Vitals: 08/21/25 0600 BP: 141/55 Pulse: 76 Resp: 16 Temp: SpO2: 95% Physical Exam Left eye ecchymosis NEURO: A&O x4 ARCE Strength 5/5 in all ext-pt is cautious with LLE due to left hip pain but does have 5/5 strength Sensation intact No drift noted Results Labs: Last 24hrs Recent Results (from the past 24 hours) CBC Collection Time: 08/20/25 5:15 PM Result Value Ref Range Auto WBC 8.3 3.6 - 10.7 10*3/uL RBC 3.06 (L) 3.80 - 5.20 10*6/uL Hemoglobin 8.7 (L) 11.7 - 16.0 g/dL Hematocrit 26.9 (L) 35.0 - 47.0 % MCV 87.9 77.0 - 99.0 fL MCH 28.4 26.0 - 34.0 pg MCHC 32.3 30.5 - 36.0 % RDW 14.4 11.5 - 15.0 % Platelets 190 140 - 440 10*3/uL MPV 9.7 9.0 - 12.7 fL Basic metabolic panel Collection Time: 08/20/25 5:15 PM Result Value Ref Range SODIUM 141 136 - 145 mmol/L POTASSIUM 3.6 3.5 - 5.1 mmol/L CHLORIDE 112 (H) 98 - 107 mmol/L CARBON DIOXIDE 23 23 - 31 mmol/L UREA NITROGEN 21 9 - 23 mg/dL CREATININE 0.58 0.58 - 1.12 mg/dL GLUCOSE 177 (H) 82 - 115 mg/dL CALCIUM 7.0 (L) 8.8 - 10.0 mg/dL ANION GAP 6 3 - 13 mmol/L eGFR >90.0 >60.0 mL/min/1.73m*2 Hemoglobin A1c Collection Time: 08/20/25 5:15 PM Result Value Ref Range HEMOGLOBIN A1C 7.7 (H) <5.7 %HbA1C ESTIMATED AVERAGE GLUCOSE 174 mg/dL Ethanol Collection Time: 08/20/25 5:15 PM Result Value Ref Range ETHANOL IN SER/PLAS <10 <10 mg/dL Type and Screen Collection Time: 08/20/25 5:16 PM Result Value Ref Range ABO Grouping A Antibody Screen NEG Rh Type POS Confirmatory ABO/Rh Collection Time: 08/20/25 5:16 PM Result Value Ref Range ABO Grouping A Rh Type POS POCT glucose meter Collection Time: 08/20/25 9:35 PM Result Value Ref Range Glucose 180 (H) 70 - 100 mg/dL CBC Collection Time: 08/20/25 10:39 PM Result Value Ref Range Auto WBC 6.9 3.6 - 10.7 10*3/uL RBC 2.94 (L) 3.80 - 5.20 10*6/uL Hemoglobin 8.5 (L) 11.7 - 16.0 g/dL Hematocrit 25.8 (L) 35.0 - 47.0 % MCV 87.8 77.0 - 99.0 fL MCH 28.9 26.0 - 34.0 pg MCHC 32.9 30.5 - 36.0 % RDW 14.6 11.5 - 15.0 % Platelets 199 140 - 440 10*3/uL MPV 9.5 9.0 - 12.7 fL Hemoglobin and hematocrit, blood Collection Time: 08/21/25 5:26 AM Result Value Ref Range Hemoglobin 8.1 (L) 11.7 - 16.0 g/dL Hematocrit 25.1 (L) 35.0 - 47.0 % Basic metabolic panel Collection Time: 08/21/25 5:26 AM Result Value Ref Range SODIUM 138 136 - 145 mmol/L POTASSIUM 3.7 3.5 - 5.1 mmol/L CHLORIDE 107 98 - 107 mmol/L CARBON DIOXIDE 26 23 - 31 mmol/L UREA NITROGEN 25 (H) 9 - 23 mg/dL CREATININE 0.66 0.58 - 1.12 mg/dL GLUCOSE 127 (H) 82 - 115 mg/dL CALCIUM 7.8 (L) 8.8 - 10.0 mg/dL ANION GAP 5 3 - 13 mmol/L eGFR >90.0 >60.0 mL/min/1.73m*2 POCT glucose meter Collection Time: 08/21/25 5:32 AM Result Value Ref Range Glucose 142 (H) 70 - 100 mg/dL Radiology Personal review: Repeat CTH shows stable left SDH and IVH with mild mass effect and midline shift of 3-4 mm on my review ASSESSMENT / PLAN : 69 yo female s/p assault by horse with stable SDH and IVH on imaging No neurosurgical intervention indicated at this time No need for AED May start DVT ppx tomorrow evening Hold asa/plavix until OP follow up with CT Ok for DC from NSGY standpoint I spent 50 min reviewing images, labs, examining pt, and discussing plan with pt and other providers regarding SDH/IVH. [1] Past Medical History: Diagnosis Date Anemia Coronary artery disease Diabetes mellitus (HCC) Disease of thyroid gland Goiter Hypertension Stroke (HCC) [2] Past Surgical History: Procedure Laterality Date CARDIAC SURGERY THYROIDECTOMY, PARTIAL [3] No family history on file. Cosigned by Cruz Martinez MD at 08/21/2025 4:20 PM EDT [facility] 08-20-2025 History and physical note Images from the original note were not included. [facility] Trauma H&P 08/20/2025 4:21 PM Trauma Attending: Dr. Wills Level of Initial Activation: Direct Admit Upgraded: No Mechanism of Injury: Other Assault by horse Mechanism of Arrival:Transfer from [facility] Chief Complaint: Left hip/flank pain, headache History of Traumatic Injury: 69 y.o. female status post assault by horse. The incident happened around 9 AM on 08/20/2025 at. When the event happened the patient was standing near a horse that her was showing to a potential customer. The horse got spooked and then proceeded to trampled the patient. She states she did hit her head and had a brief moment of loss of consciousness however does recall the events that preceded. Patient states she fell backwards and the horse began to step on her. Patient pain level currently is 6/10. Past medical history includes hypothyroidism, depression, and diabetes for which patient takes metformin and insulin. Patient did have a three-vessel bypass surgery and a stroke with some residual right sided weakness for which she takes aspirin and Plavix. Did the Patient have LOC?Yes C-collar in place on arrival? No Was the patient on an antiplatelet or anticoagulant medication? Yes If yes, which one? Aspirin and Plavix. Patient did receive DDAVP at outside facility. Medical History[1] Surgical History[2] Family History[3] Social History Socioeconomic History Marital status: Spouse name: Not on file Number of children: Not on file Years of education: Not on file Highest education level: Not on file Occupational History Not on file Tobacco Use Smoking status: Not on file Smokeless tobacco: Not on file Substance and Sexual Activity Alcohol use: Not on file Drug use: Not on file Sexual activity: Not on file Other Topics Concern Not on file Social History Narrative Not on file Social Drivers of Health Financial Resource Strain: Not on file Food Insecurity: Not on file Transportation Needs: Not on file Physical Activity: Not on file Stress: Not on file Social Connections: Not on file Intimate Partner Violence: Not on file Housing Stability: Not on file Medications Ordered Prior to Encounter[4] Current Medications[5] Who is healthcare POA or next of kin? Does the patient have a DNR? No Living Will? Unable to assess at this time Allergies[6] PRIMARY SURVEY: AIRWAY: Airway Normal EMS Airway Absent Noisy respirations Absent Vomiting/bleeding: Absent BREATHING: Spontaneous Respirations: Present Midaxillary breath sound left: Present Midaxillary breath sound right: Present CIRCULATION: Left Femoral pulse rate: Normal Left Femoral pulse intensity: Present Right Femoral pulse rate: Normal Right Femoral pulse intensity: Present INITIAL VITALS: BP 122/52 HR 76 RR 13 Temp 35.6 SpO2 100 on 2L NC FAST EXAM: Performed: No Results: N/A DISABILITY: GCS Initial Eye Verbal Motor 4 - Opens eyes on own 5 - Alert and oriented 6 - Follows simple motor commands Neuromuscular blockade: No Pupil size: Left 2mm Right 2mm Pupil reaction: Yes Wiggles fingers: Left Yes Right Yes Wiggles toes: Left Yes Right Yes Hand grasp: Left Normal Right Normal Plantar flexion: Left Normal Right Normal Secondary Survey: SECONDARY VITALS: BP 122/52 HR 76 RR 19 temp afebrile SpO2 99% on 2 L nasal cannula Review of Systems Constitutional: Negative for appetite change, fatigue and fever. HENT: Positive for facial swelling. Eyes: Positive for pain. Respiratory: Negative. Cardiovascular: Negative. Gastrointestinal: Negative. Endocrine: Negative. Musculoskeletal: Positive for myalgias. Skin: Positive for wound. Left flank/hip hematoma Neurological: Positive for headaches. Psychiatric/Behavioral: Negative. Physical Exam General Appearance: Awake and Appears well-developed and well-nourished Patient in minimal distress and appropriate to situation. Head: Comments: Patient complaining of headache however head is overall atraumatic Eyes: PERRL and EOM's grossly normal Patient has large periorbital ecchymosis over the left eye. ENT: Nares clear , No nasal septal hematoma , and Moist Mucous Membranes Neck: There is no cervical midline tenderness to palpation, step-offs or acute deformities, Trachea midline , and No Crepitus Chest: Non-tender, No crepitus, and No deformities Lungs: Clear, unlabored respirations Heart/Cardiovascular: Rhythm Regular , Upper extremity pulses Present, and Lower extremity pulses Present Abdomen: Soft , Non-Tender , and Non-distended Patient has some flank tenderness on the left side and a notable contusion over the left flank, left hip and extending into the lateral aspect of the abdomen on the left side. : Normal external genitalia Rectal: Positive Gluteal Squeeze Musculoskeletal: Upper and lower extremities have no acute deformities and they are non-tender to palpation, Log-roll negative for pain, and No thoracic or lumbar midline tenderness to palpation, step-offs or acute deformities. Patient does have abrasions over the left kneecap and lateral aspect of the left knee. Patient has a notable contusion over the medial aspect of the right knee. Extremities: Radial Pulses palpable and Dorsalis Pedis Pulses Palpable Skin: Warm Neurologic: Alert and oriented to person, place, and time. , CN II-XII grossly normal, no focal deficits. , Moving all extremities willfully, able to wiggle all fingers and toes. , and Sensation grossly intact throughout. Psych: Affect Normal CBC: No results found for: WBC, RBC, HGB, HCT, MCV, MCH, MCHC, RDW, PLT, MPV BMP: No results found for: NA, K, CL, CO2, BUN, CREATININE, CALCIUM, LABGLOM, GLUCOSE, GLU Urine Toxicology: No components found for: IAMMENTA, IBARBIT, IBENZO, ICOCAINE, IMARTHC, IOPIATES, IPHENCYC IV Access: Posterior right hand NG/OG: No Casarez: No Radiology: No results found. ASSESSMENT: Problem List[7] PLAN: PLAN: Neuro / Spine # Left subdural hematoma #Acute pain - Repeat CT head in 6H -at 7 PM - any worsening contact Dr. Martinez -CT C-spine at 7 PM -CT head neck at 7pm - Neurosurgery consulted - Seizure ppx: Not indicated at this time - Pain control: Scheduled Tylenol, oxycodone as needed for breakthrough - Elevate HOB 30 degrees - Neuro checks q1hr # History of stroke with right-sided residual weakness - Resume home atorvastatin 10 mg nightly -Resume home losartan 50 mg daily #Depression - Resume home fluoxetine HEENT # Left periorbital ecchymosis -CT max/face tonight at 7 PM # Hypothyroidism - Resume home Synthroid daily Cardiovascular # History of three-vessel bypass surgery #Hypertension # Hyperlipidemia -Resume home losartan -Hold home Coreg - Hemodynamically stable - BP Goal <150 SBP - Labetalol/hydralazine prn - Telemetry Pulmonary - Standard O2 protocol - IS FEN/GI - NPO until repeat CT scan - NS at 100 cc/h until tolerating diet - Zofran PRN - Daily BMP, CBC, Mg, Phos -Senna and MiraLAX daily - No acute issues - Monitor I/Os - Goal UOP > 0.5 ml/kg/hr Endocrine # DM -ISS - Norgg-fz-toey glucose test Heme # Left iliacus hematoma - Hgb stable - No transfusions indicated - Serial H&H q6 to monitor - Application of abdominal binder ID - No acute issues -Tetanus shot to be given - Mupirocin prophylaxis for 5 days Lines/Devices: - PIV -right dorsal wrist Prophylaxis: DVT: SCDs, no chemoppx Has DVT PPX been started? Yes If no, why? Patient with Acute Head Bleed GI: Protonix Pressure Ulcer: Continue to monitor, q2 turns Musculoskeletal: - PT/OT - Up with assist - Left knee x-ray Neurosurgery Dr Martinez was notified at 4:45 PM and responded at 4:58 PM. He evaluated imaging and the following plan was discussed: Repeat CT head in 6 hours at 7 PM this evening. Maintain systolic blood pressures less than 150. Elevate head of bed to 30 degrees. No antiepileptic medications indicated at this time. Dr. Martinez would like to be updated if there is any worsening on repeat CT scan. Can DVT PPX be started? No If no, why? Patient with Acute Head Bleed If DVT PPX can be started, has order been placed? N/A Consultants: Neurosurgery when Reached: 4:45 PM FRAIL SCALE for Patients Greater than Age 65 - All others choose N/A: F:Fatigue - Does the patient fatigue or get exhausted easily? Yes R:Resistance - Does the patient have trouble walking up one flight of stairs independently? Yes A:Ambulation - Does the patient have trouble walking one block (1/4 Mile)? No I:Illnesses - Does the patient have five or more illnesses (comorbidities)? No L:Loss of weight - Has the patient lost weight (5 to 10 percent) over the last 6 months to one year? No Greater than 2 Yes answers consider palliative consult. [1] No past medical history on file. [2] No past surgical history on file. [3] No family history on file. [4] No current facility-administered medications on file prior to encounter. No current outpatient medications on file prior to encounter. [5] No current facility-administered medications for this encounter. [6] Not on File [7] There is no problem list on file for this patient. Cosigned by Elio Wills MD at 08/20/2025 9:04 PM EDT Associated attestation - Elio Wills MD - 08/20/2025 9:04 PM EDT ATTENDING ADDENDUM I independently saw the above patient and reviewed the recent events, imaging, labs, vital signs; I performed a physical exam and ROS. My findings agree with the above note except for any details corrected below. Problem List[1] A complete review of systems was obtained and is negative except as stated in HPI. HPI: 69F who tripped near a horse and was trampled. + head strike. + LOC. Complains of headache and L sided abdominal pain. The patient is on dual antiplatelet therapy for history of WI/stroke. PMHx: T2DM, Hypothyroidism, HTN Imaging reviewed and independently interpreted: CTH -left subdural hematoma Ct abd and pelvis - noted soft tissue injury to LLQ/L flank with multiple areas of active extravasation within the abdominal muscles and iliacus muscle. Soft tissue injury to R hip Problem list: Acute, acute on chronic, unstable or uncontrolled chronic problems/diagnoses: Traumatic L SDH Traumatic L soft tissue injury to abdominal wall and iliacus muscles with active extrav of contrast/hematoma Traumatic right hip soft tissue injury L periorbital ecchymosis Bilateral knee ecchymoses and abrasions Stable chronic problems, affecting patient care: T2DM Hypothyroidism hypertension 24h: GCS 15 Patient received DDAVP Ordering TDAP SDH worsened by DAPT L periorbital ecchymosis Recommend CT max face CT neck Plan: Neurological system #Traumatic SDH - s/p DDAVP - HOLD plavix/ASA - NSG - repeat CTH in 6h #Depression - fluoxetine Acute pain - Multimodal pain control At risk for delirium/acute encephalopathy - Delirium precautions: limit nighttime disturbances and avoid anticholinergic meds, benzos, etc Circulatory system Hx of WI s/p CABG x 3, HTN, HLD - consider restarting coreg if BP amenable - start losartan - SBP 110-140 - PRN anti-htn med Respiratory system - O2 protocol - Aggressive pulmonary hygiene Gastrointestinal system Diet: Reg At risk for constipation - Bowel regimen Renal function - Strict I/Os Immunologic system [x] Mupirocin for empiric MRSA decolonization x5 days - Monitor for fevers Hematologic system Iliacus and L abd wall hematoma Acute blood loss anemia (hgb at OSH 11.8) - abd binder - Ice 20 min on and 20 min off - q6 h/h - Monitor hemoglobin Endocrine system Hypothyroidism (s/p R lobectomy) - home levothyroxine T2DM - ISS - start home insulin regimen tomorrow - Hold home metformin - Monitor glucose Integumentary system (GI and cutaneous) - Skin checks Scattered abrasions - bacitracin Musculoskeletal system - PTOT Ppx - DVT prophylaxis: SCDs and encourage ambulation - GI prophylaxis: []PPI, []Pepcid Patient evaluated on 08/20/2025 MEDS: Scheduled PRN Scheduled Meds[2] PRN Meds[3] Continuous Continuous Meds[4] Critical Care time spent 43 min. The time involved in the performance of this care was exclusive of separately billable procedures, teaching time and treating other patients. The time was spent personally by the attending physician for the following activities: examination of the patient, ordering and/or performing treatment, reviewing the laboratory and radiographic studies, and if applicable, ventilator management and blood gas interpretation. Critical Care was necessary because of an illness or injury that actively impaired one or more vital organ systems such that there was a high probability of imminent life treatening deterioration in the patient's condition. The following organ systems are involved: Neurologic, CV Level of Medical Decision Making: risk of morbidity from additional diagnostic testing or treatment due to Trauma - TBI on plavix and [x]High []Moderate []Low Complexity: Acute or chronic illness posing a threat to life (HIGH) Personally Reviewed/Independently interpreted patient's: [x]Epic notes [x]Radiology studies [x]Labs []EKG []Ordering tests []Other Discussed/ With: [x]Patient/Family [x]RN []Consultants []SW/TCC []Other Elio Wills MD Division of Trauma Department of Surgery [facility] ~~~~~~~~~~~~~~~~~~~~~~~~~~~~~~~~~ ~~~~~~~~~~~~~~~~~~~~~~~~~~~~~~~~~ ~~~~~ This note may have been dictated using [employer] Edition 2.6 and/or [employer] Voice Recognition Feature. The document was proofread; however, unrecognized voice recognition managing partner errors may be present. [1] Patient Active Problem List Diagnosis Struck by horse, initial encounter [2] acetaminophen, 1,000 mg, Oral, q8h atorvastatin, 10 mg, Oral, Nightly [Held by provider] carvedilol, 6.25 mg, Oral, BID WC FLUoxetine, 10 mg, Oral, Nightly influenza, 0.5 mL, IntraMUSCular, Prior to discharge insulin lispro, 0-12 Units, SubCUTAneous, q6h [START ON 08/21/2025] levothyroxine, 50 mcg, Oral, Daily [START ON 08/21/2025] losartan, 50 mg, Oral, Daily mupirocin, 1 Application, Nasal, BID [3] PRN medications: dextrose, dextrose, glucagon (rDNA), glucose, hydrALAZINE, labetalol, naloxone, ondansetron ODT OR ondansetron, oxyCODONE OR oxyCODONE, polyethylene glycol (PEG) 3350 [4] sodium chloride, 100 mL/hr, Last Rate: 100 mL/hr (08/20/25 8596) [facility] 08-20-2025 Note Attestation signed by Elio Wills MD at 08/20/2025 9:04 PM (Updated) ATTENDING ADDENDUM I independently saw the above patient and reviewed the recent events, imaging, labs, vital signs; I performed a physical exam and ROS. My findings agree with the above note except for any details corrected below. Problem List[1] A complete review of systems was obtained and is negative except as stated in HPI. HPI: 69F who tripped near a horse and was trampled. + head strike. + LOC. Complains of headache and L sided abdominal pain. The patient is on dual antiplatelet therapy for history of WI/stroke. PMHx: T2DM, Hypothyroidism, HTN Imaging reviewed and independently interpreted: CTH -left subdural hematoma Ct abd and pelvis - noted soft tissue injury to LLQ/L flank with multiple areas of active extravasation within the abdominal muscles and iliacus muscle. Soft tissue injury to R hip Problem list: Acute, acute on chronic, unstable or uncontrolled chronic problems/diagnoses: Traumatic L SDH Traumatic L soft tissue injury to abdominal wall and iliacus muscles with active extrav of contrast/hematoma Traumatic right hip soft tissue injury L periorbital ecchymosis Bilateral knee ecchymoses and abrasions Stable chronic problems, affecting patient care: T2DM Hypothyroidism hypertension 24h: GCS 15 Patient received DDAVP Ordering TDAP SDH worsened by DAPT L periorbital ecchymosis Recommend CT max face CT neck Plan: Neurological system #Traumatic SDH - s/p DDAVP - HOLD plavix/ASA - NSG - repeat CTH in 6h #Depression - fluoxetine Acute pain - Multimodal pain control At risk for delirium/acute encephalopathy - Delirium precautions: limit nighttime disturbances and avoid anticholinergic meds, benzos, etc Circulatory system Hx of WI s/p CABG x 3, HTN, HLD - consider restarting coreg if BP amenable - start losartan - SBP 110-140 - PRN anti-htn med Respiratory system - O2 protocol - Aggressive pulmonary hygiene Gastrointestinal system Diet: Reg At risk for constipation - Bowel regimen Renal function - Strict I/Os Immunologic system [x] Mupirocin for empiric MRSA decolonization x5 days - Monitor for fevers Hematologic system Iliacus and L abd wall hematoma Acute blood loss anemia (hgb at OSH 11.8) - abd binder - Ice 20 min on and 20 min off - q6 h/h - Monitor hemoglobin Endocrine system Hypothyroidism (s/p R lobectomy) - home levothyroxine T2DM - ISS - start home insulin regimen tomorrow - Hold home metformin - Monitor glucose Integumentary system (GI and cutaneous) - Skin checks Scattered abrasions - bacitracin Musculoskeletal system - PTOT Ppx - DVT prophylaxis: SCDs and encourage ambulation - GI prophylaxis: []PPI, []Pepcid Patient evaluated on 08/20/2025 MEDS: Scheduled PRN Scheduled Meds[2] PRN Meds[3] Continuous Continuous Meds[4] Critical Care time spent 43 min. The time involved in the performance of this care was exclusive of separately billable procedures, teaching time and treating other patients. The time was spent personally by the attending physician for the following activities: examination of the patient, ordering and/or performing treatment, reviewing the laboratory and radiographic studies, and if applicable, ventilator management and blood gas interpretation. Critical Care was necessary because of an illness or injury that actively impaired one or more vital organ systems such that there was a high probability of imminent life treatening deterioration in the patient's condition. The following organ systems are involved: Neurologic, CV Level of Medical Decision Making: risk of morbidity from additional diagnostic testing or treatment due to Trauma - TBI on plavix and [x]High []Moderate []Low Complexity: Acute or chronic illness posing a threat to life (HIGH) Personally Reviewed/Independently interpreted patient's: [x]Epic notes [x]Radiology studies [x]Labs []EKG []Ordering tests []Other Discussed/ With: [x]Patient/Family [x]RN []Consultants []SW/TCC []Other Elio Wills MD Division of Trauma Department of Surgery [facility] ~~~~~~~~~~~~~~~~~~~~~~~~~~~~~~~~~ ~~~~~~~~~~~~~~~~~~~~~~~~~~~~~~~~~ ~~~~~ This note may have been dictated using [employer] Medical Practice Edition 2.6 and/or [employer] Voice Recognition Feature. The document was proofread; however, unrecognized voice recognition managing partner errors may be present. [1] Patient Active Problem List Diagnosis Struck by horse, initial encounter [2] acetaminophen, 1,000 mg, Oral, q8h atorvastatin, 10 mg, Oral, Nightly [Held by provider] carvedilol, 6.25 mg, Oral, BID WC FLUoxetine, 10 mg, Oral, Nightly influenza, 0.5 mL, IntraMUSCular, Prior to discharge insulin lispro, 0-12 Units, SubCUTAneous, q (more content not included)... [facility] 08-20-2025 History and physical note Images from the original note were not included. [facility] Trauma H&P 08/20/2025 4:21 PM Trauma Attending: Dr. Wills Level of Initial Activation: Direct Admit Upgraded: No Mechanism of Injury: Other Assault by horse Mechanism of Arrival:Transfer from [facility] Chief Complaint: Left hip/flank pain, headache History of Traumatic Injury: 69 y.o. female status post assault by horse. The incident happened around 9 AM on 08/20/2025 at. When the event happened the patient was standing near a horse that her was showing to a potential customer. The horse got spooked and then proceeded to trampled the patient. She states she did hit her head and had a brief moment of loss of consciousness however does recall the events that preceded. Patient states she fell backwards and the horse began to step on her. Patient pain level currently is 6/10. Past medical history includes hypothyroidism, depression, and diabetes for which patient takes metformin and insulin. Patient did have a three-vessel bypass surgery and a stroke with some residual right sided weakness for which she takes aspirin and Plavix. Did the Patient have LOC?Yes C-collar in place on arrival? No Was the patient on an antiplatelet or anticoagulant medication? Yes If yes, which one? Aspirin and Plavix. Patient did receive DDAVP at outside facility. Medical History[1] Surgical History[2] Family History[3] Social History Socioeconomic History Marital status: Spouse name: Not on file Number of children: Not on file Years of education: Not on file Highest education level: Not on file Occupational History Not on file Tobacco Use Smoking status: Not on file Smokeless tobacco: Not on file Substance and Sexual Activity Alcohol use: Not on file Drug use: Not on file Sexual activity: Not on file Other Topics Concern Not on file Social History Narrative Not on file Social Drivers of Health Financial Resource Strain: Not on file Food Insecurity: Not on file Transportation Needs: Not on file Physical Activity: Not on file Stress: Not on file Social Connections: Not on file Intimate Partner Violence: Not on file Housing Stability: Not on file Medications Ordered Prior to Encounter[4] Current Medications[5] Who is healthcare POA or next of kin? Does the patient have a DNR? No Living Will? Unable to assess at this time Allergies[6] PRIMARY SURVEY: AIRWAY: Airway Normal EMS Airway Absent Noisy respirations Absent Vomiting/bleeding: Absent BREATHING: Spontaneous Respirations: Present Midaxillary breath sound left: Present Midaxillary breath sound right: Present CIRCULATION: Left Femoral pulse rate: Normal Left Femoral pulse intensity: Present Right Femoral pulse rate: Normal Right Femoral pulse intensity: Present INITIAL VITALS: BP 122/52 HR 76 RR 13 Temp 35.6 SpO2 100 on 2L NC FAST EXAM: Performed: No Results: N/A DISABILITY: GCS Initial Eye Verbal Motor 4 - Opens eyes on own 5 - Alert and oriented 6 - Follows simple motor commands Neuromuscular blockade: No Pupil size: Left 2mm Right 2mm Pupil reaction: Yes Wiggles fingers: Left Yes Right Yes Wiggles toes: Left Yes Right Yes Hand grasp: Left Normal Right Normal Plantar flexion: Left Normal Right Normal Secondary Survey: SECONDARY VITALS: BP 122/52 HR 76 RR 19 temp afebrile SpO2 99% on 2 L nasal cannula Review of Systems Constitutional: Negative for appetite change, fatigue and fever. HENT: Positive for facial swelling. Eyes: Positive for pain. Respiratory: Negative. Cardiovascular: Negative. Gastrointestinal: Negative. Endocrine: Negative. Musculoskeletal: Positive for myalgias. Skin: Positive for wound. Left flank/hip hematoma Neurological: Positive for headaches. Psychiatric/Behavioral: Negative. Physical Exam General Appearance: Awake and Appears well-developed and well-nourished Patient in minimal distress and appropriate to situation. Head: Comments: Patient complaining of headache however head is overall atraumatic Eyes: PERRL and EOM's grossly normal Patient has large periorbital ecchymosis over the left eye. ENT: Nares clear , No nasal septal hematoma , and Moist Mucous Membranes Neck: There is no cervical midline tenderness to palpation, step-offs or acute deformities, Trachea midline , and No Crepitus Chest: Non-tender, No crepitus, and No deformities Lungs: Clear, unlabored respirations Heart/Cardiovascular: Rhythm Regular , Upper extremity pulses Present, and Lower extremity pulses Present Abdomen: Soft , Non-Tender , and Non-distended Patient has some flank tenderness on the left side and a notable contusion over the left flank, left hip and extending into the lateral aspect of the abdomen on the left side. : Normal external genitalia Rectal: Positive Gluteal Squeeze Musculoskeletal: Upper and lower extremities have no acute deformities and they are non-tender to palpation, Log-roll negative for pain, and No thoracic or lumbar midline tenderness to palpation, step-offs or acute deformities. Patient does have abrasions over the left kneecap and lateral aspect of the left knee. Patient has a notable contusion over the medial aspect of the right knee. Extremities: Radial Pulses palpable and Dorsalis Pedis Pulses Palpable Skin: Warm Neurologic: Alert and oriented to person, place, and time. , CN II-XII grossly normal, no focal deficits. , Moving all extremities willfully, able to wiggle all fingers and toes. , and Sensation grossly intact throughout. Psych: Affect Normal CBC: No results found for: WBC, RBC, HGB, HCT, MCV, MCH, MCHC, RDW, PLT, MPV BMP: No results found for: NA, K, CL, CO2, BUN, CREATININE, CALCIUM, LABGLOM, GLUCOSE, GLU Urine Toxicology: No components found for: IAMMENTA, IBARBIT, IBENZO, ICOCAINE, IMARTHC, IOPIATES, IPHENCYC IV Access: Posterior right hand NG/OG: No Casarez: No Radiology: No results found. ASSESSMENT: Problem List[7] PLAN: PLAN: Neuro / Spine # Left subdural hematoma #Acute pain - Repeat CT head in 6H -at 7 PM - any worsening contact Dr. Martinez -CT C-spine at 7 PM -CT head neck at 7pm - Neurosurgery consulted - Seizure ppx: Not indicated at this time - Pain control: Scheduled Tylenol, oxycodone as needed for breakthrough - Elevate HOB 30 degrees - Neuro checks q1hr # History of stroke with right-sided residual weakness - Resume home atorvastatin 10 mg nightly -Resume home losartan 50 mg daily #Depression - Resume home fluoxetine HEENT # Left periorbital ecchymosis -CT max/face tonight at 7 PM # Hypothyroidism - Resume home Synthroid daily Cardiovascular # History of three-vessel bypass surgery #Hypertension # Hyperlipidemia -Resume home losartan -Hold home Coreg - Hemodynamically stable - BP Goal <150 SBP - Labetalol/hydralazine prn - Telemetry Pulmonary - Standard O2 protocol - IS FEN/GI - NPO until repeat CT scan - NS at 100 cc/h until tolerating diet - Zofran PRN - Daily BMP, CBC, Mg, Phos -Senna and MiraLAX daily - No acute issues - Monitor I/Os - Goal UOP > 0.5 ml/kg/hr Endocrine # DM -ISS - Edspw-wo-rgtt glucose test Heme # Left iliacus hematoma - Hgb stable - No transfusions indicated - Serial H&H q6 to monitor - Application of abdominal binder ID - No acute issues -Tetanus shot to be given - Mupirocin prophylaxis for 5 days Lines/Devices: - PIV -right dorsal wrist Prophylaxis: DVT: SCDs, no chemoppx Has DVT PPX been started? Yes If no, why? Patient with Acute Head Bleed GI: Protonix Pressure Ulcer: Continue to monitor, q2 turns Musculoskeletal: - PT/OT - Up with assist - Left knee x-ray Neurosurgery Dr Martinez was notified at 4:45 PM and responded at 4:58 PM. He evaluated imaging and the following plan was discussed: Repeat CT head in 6 hours at 7 PM this evening. Maintain systolic blood pressures less than 150. Elevate head of bed to 30 degrees. No antiepileptic medications indicated at this time. Dr. Martinez would like to be updated if there is any worsening on repeat CT scan. Can DVT PPX be started? No If no, why? Patient with Acute Head Bleed If DVT PPX can be started, has order been placed? N/A Consultants: Neurosurgery when Reached: 4:45 PM FRAIL SCALE for Patients Greater than Age 65 - All others choose N/A: F:Fatigue - Does the patient fatigue or get exhausted easily? Yes R:Resistance - Does the patient have trouble walking up one flight of stairs independently? Yes A:Ambulation - Does the patient have trouble walking one block (1/4 Mile)? No I:Illnesses - Does the patient have five or more illnesses (comorbidities)? No L:Loss of weight - Has the patient lost weight (5 to 10 percent) over the last 6 months to one year? No Greater than 2 Yes answers consider palliative consult. [1] No past medical history on file. [2] No past surgical history on file. [3] No family history on file. [4] No current facility-administered medications on file prior to encounter. No current outpatient medications on file prior to encounter. [5] No current facility-administered medications for this encounter. [6] Not on File [7] There is no problem list on file for this patient. Cosigned by Elio Wills MD at 08/20/2025 9:04 PM EDT Associated attestation - Elio Wills MD - 08/20/2025 9:04 PM EDT ATTENDING ADDENDUM I independently saw the above patient and reviewed the recent events, imaging, labs, vital signs; I performed a physical exam and ROS. My findings agree with the above note except for any details corrected below. Problem List[1] A complete review of systems was obtained and is negative except as stated in HPI. HPI: 69F who tripped near a horse and was trampled. + head strike. + LOC. Complains of headache and L sided abdominal pain. The patient is on dual antiplatelet therapy for history of WI/stroke. PMHx: T2DM, Hypothyroidism, HTN Imaging reviewed and independently interpreted: CTH -left subdural hematoma Ct abd and pelvis - noted soft tissue injury to LLQ/L flank with multiple areas of active extravasation within the abdominal muscles and iliacus muscle. Soft tissue injury to R hip Problem list: Acute, acute on chronic, unstable or uncontrolled chronic problems/diagnoses: Traumatic L SDH Traumatic L soft tissue injury to abdominal wall and iliacus muscles with active extrav of contrast/hematoma Traumatic right hip soft tissue injury L periorbital ecchymosis Bilateral knee ecchymoses and abrasions Stable chronic problems, affecting patient care: T2DM Hypothyroidism hypertension 24h: GCS 15 Patient received DDAVP Ordering TDAP SDH worsened by DAPT L periorbital ecchymosis Recommend CT max face CT neck Plan: Neurological system #Traumatic SDH - s/p DDAVP - HOLD plavix/ASA - NSG - repeat CTH in 6h #Depression - fluoxetine Acute pain - Multimodal pain control At risk for delirium/acute encephalopathy - Delirium precautions: limit nighttime disturbances and avoid anticholinergic meds, benzos, etc Circulatory system Hx of WI s/p CABG x 3, HTN, HLD - consider restarting coreg if BP amenable - start losartan - SBP 110-140 - PRN anti-htn med Respiratory system - O2 protocol - Aggressive pulmonary hygiene Gastrointestinal system Diet: Reg At risk for constipation - Bowel regimen Renal function - Strict I/Os Immunologic system [x] Mupirocin for empiric MRSA decolonization x5 days - Monitor for fevers Hematologic system Iliacus and L abd wall hematoma Acute blood loss anemia (hgb at OSH 11.8) - abd binder - Ice 20 min on and 20 min off - q6 h/h - Monitor hemoglobin Endocrine system Hypothyroidism (s/p R lobectomy) - home levothyroxine T2DM - ISS - start home insulin regimen tomorrow - Hold home metformin - Monitor glucose Integumentary system (GI and cutaneous) - Skin checks Scattered abrasions - bacitracin Musculoskeletal system - PTOT Ppx - DVT prophylaxis: SCDs and encourage ambulation - GI prophylaxis: []PPI, []Pepcid Patient evaluated on 08/20/2025 MEDS: Scheduled PRN Scheduled Meds[2] PRN Meds[3] Continuous Continuous Meds[4] Critical Care time spent 43 min. The time involved in the performance of this care was exclusive of separately billable procedures, teaching time and treating other patients. The time was spent personally by the attending physician for the following activities: examination of the patient, ordering and/or performing treatment, reviewing the laboratory and radiographic studies, and if applicable, ventilator management and blood gas interpretation. Critical Care was necessary because of an illness or injury that actively impaired one or more vital organ systems such that there was a high probability of imminent life treatening deterioration in the patient's condition. The following organ systems are involved: Neurologic, CV Level of Medical Decision Making: risk of morbidity from additional diagnostic testing or treatment due to Trauma - TBI on plavix and [x]High []Moderate []Low Complexity: Acute or chronic illness posing a threat to life (HIGH) Personally Reviewed/Independently interpreted patient's: [x]Epic notes [x]Radiology studies [x]Labs []EKG []Ordering tests []Other Discussed/ With: [x]Patient/Family [x]RN []Consultants []SW/TCC []Other Elio Wills MD Division of Trauma Department of Surgery [facility] ~~~~~~~~~~~~~~~~~~~~~~~~~~~~~~~~~ ~~~~~~~~~~~~~~~~~~~~~~~~~~~~~~~~~ ~~~~~ This note may have been dictated using [employer] Edition 2.6 and/or [employer] Voice Recognition Feature. The document was proofread; however, unrecognized voice recognition managing partner errors may be present. [1] Patient Active Problem List Diagnosis Struck by horse, initial encounter [2] acetaminophen, 1,000 mg, Oral, q8h atorvastatin, 10 mg, Oral, Nightly [Held by provider] carvedilol, 6.25 mg, Oral, BID WC FLUoxetine, 10 mg, Oral, Nightly influenza, 0.5 mL, IntraMUSCular, Prior to discharge insulin lispro, 0-12 Units, SubCUTAneous, q6h [START ON 08/21/2025] levothyroxine, 50 mcg, Oral, Daily [START ON 08/21/2025] losartan, 50 mg, Oral, Daily mupirocin, 1 Application, Nasal, BID [3] PRN medications: dextrose, dextrose, glucagon (rDNA), glucose, hydrALAZINE, labetalol, naloxone, ondansetron ODT OR ondansetron, oxyCODONE OR oxyCODONE, polyethylene glycol (PEG) 3350 [4] sodium chloride, 100 mL/hr, Last Rate: 100 mL/hr (08/20/25 1716) documented in this encounter [facility] 08-20-2025 Nurse Note Patient to T2 ICU from [facility] 04-22-2025 Discharge summary [facility] 04-22-2025 Radiology Diagnostic study note [facility] Imaging Services [address] [place] [id number] Chest, Abd, Pel w/Contrast MR#: [id number] Acct: [id number] Name: ABISAI LAMAS Rep #: [id number] : 1955 F 69 From: Mónica Nance MD PCP: Joyce Washburn, LICENSED CLINICIAN-C Status: RE G ER Study:CT Chest, Abd, Pel w/Contrast Date of E xam: 04/22/25 Exam# [id number] Ordering Dr: Aditya Grullon DO PROCEDURE: CT CHEST, ABD, PEL W/CONTRAST 04/22/2025 REASON FOR EXAM: FALL ON WEDNESDAY, RIGHT RIB PAIN, RIGHT SIDE PAIN TECHNIQUE: Chest, abdomen and pelvis CT with intravenous contrast. Coronal and Sagittal reconstruction series were provided. One or more dose reduction techniques were used (e.g., Automated exposure control, adjustment of the mA and/or kV according to patient size, use of iterative reconstruction technique. PATIENT PREPARATION: Per protocol ORAL CONTRAST TYPE: None. AMOUNT: mL CONTRAST: Isovue 370 VOLUME: 97mL Gauge IV RADIATION DOSE SUMMARY: CTDlvol: 60 mGy DLP: 1594 mGycm COMPARISON: No FINDINGS: Unremarkable base of neck and axilla. Thoracic spine scoliosis and degeneration. Normal esophagus. Borderline prominent heart size. Status post CABG. No acute vascular injury. Acute right 10th and 11th rib fracture. Central airways are patent. Dependent atelectasis. No contusion, pneumothorax,. Tiny right-sided effusion. Status post cholecystectomy. Upper abdominal solid organs show no acute findings. Bilateral renal scarring. No hydronephrosis. Unremarkable bladder. Normal uterus and ovaries. No retroperitoneal or pelvic adenopathy. No free air. Nondistended bowel. Moderate stool. No acute large bowel findings otherwise. Lumbar spine degeneration. CT/CT Chest, Abd, Pel w/Contrast IMPRESSION: Right-sided chest wall injury and tiny right effusion. Reading Location: [place] [address] CC: LICENSED CLINICIAN-C Joyce Washburn; Dr. Nilson Grullon DO ~ Quality Control Inspector Heading: Signed [facility] 04-22-2025 Discharge summary Note Date/Time April 22, 2025 10:34pm [facility] Medical Records Department [address] [place] [id number] Emergency Department Summary 04/22/25 MR#: [id number] Acct: [id number] Name: ABISAI LAMAS Rep #:[id number] : 1955 69 From: Nilson Grullon DO PCP: Joyce Washburn, LICENSED CLINICIAN-C Status:RE G ER Location: ED HPI History of Present Illness Chief Complaint: Abd Pain Narrative Narrative: Patient is a 69-year-old female with past medical history of CVA, hypothyroidism, type 2 diabetes, hypertension, CAD who presents to the emergencydepartment the chief complaint of right-sided abdominal pain and rib pain. States on she slipped and fell down concrete stairs and originally states that she was having right sided flank pain. She notes that she originally started to get better however noted that recently the pain became severe again prompting her to come here for further evaluation management. She states that the Motrin is not helping her pain anymore. 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 Home Medications ?Medication ?Instructions ?Recorded ?Last Taken ?Type aspirin 81 mg chewable tablet 81 mg PO DAILY@0800 06/0807/02/15 History folic acid 0.8 mg capsule 0.8 mg PO DAILY 07/02/1506/08 History lovastatin 40 mg tablet 40 mg PO DAILY 07/02/1505/08 History metformin 1,000 mg tablet 1,000 mg PO BIDCM 07/02/15 0 07/02/15 History cholecalciferol (vitamin D3) 125 5,000 unit PO DAILY 0 11/05/17 Unknown History mcg (5,000 unit) capsule ferrous sulfate 325 mg (65 mg 325 mg PO DAILY 11/05/17 Unknown History iron) tablet fluoxetine 10 mg capsule 10 mg PO QHS 11/05/17 Unknow n History multivitamin 1 tab PO QAM 11/05/17 Unknow n History insulin glargine 100 unit/mL (3 unit subcut 10/14/23 U nknown History mL) subcutaneous pen (Lantus Solostar U-100 Insulin) insulin lispro 100 unit/mL 1 sliding scale dose subcut 10/14/23 Unknown History subcutaneous pen (Admelog SoloStar U-100 Insulin lispro) levothyroxine 25 mcg tablet 50 mcg PO DAILY 10/14/23 U nknown History carvedilol 6.25 mg tablet 6.25 mg PO BID #180 tabs 03/17 Unknown Rx losartan 50 mg tablet See Rx Instructions .Route 0 05/29/24 Unknown Rx .COMPLEX #90 tabs clopidogrel 75 mg tablet 75 mg PO DAILY #90 tabs 05/06/18 Unknown Rx cyclobenzaprine 10 mg tablet 10 mg PO TID PRN muscle s pasm #14 04/22/25 Unknown Rx tabs lidocaine 5 % topical patch 1 patch topical DAILY #15 ea 04/22/25 Unknown Rx (Lidoderm) ondansetron 4 mg disintegrating 4 mg PO Q6H PRN nausea and 04/22/25 Unknown Rx tablet vomiting #20 tabs oxycodone-acetaminophen 5 mg-325 1 tab PO Q6H PRN pain 3 days #12 04/22/25 Unknown Rx mg tablet (Endocet) tabs Allergy/AdvReac Type Severity Reaction Status Date / Time lisinopril AdvReac Intermediate cough Verified 04/22/25 20:22 Family History Sister Breast cancer Brother Diabetes Cancer Father CAD (coronary artery disease) Surgical History History of bilateral cataract extraction H/O partial thyroidectomy History of tonsillectomy History of cholecystectomy History of appendectomy H/O coronary artery bypass surgery (06/25/15) History of left heart catheterization (06/25/15) Hx of biopsy Hx of section Social History household members: spouse housing: house Smoking Status: Never smoker second hand exposure: No alcohol intake: never substance use type: does not use caffeine: No what type of physical activity do you participate in: none frequency: does not exercise seatbelt use: always ROS ROS ED ROS Narrative Constitutional: Denies any fevers, chills Eyes: Denies changes double vision blurred vision Cardiovascular: Denies chest pain Respiratory: Denies shortness of breath Abdomen: Complains of right side abdominal pain as noted above : Denies urinary symptoms Neurological: Denies numbness, weeks, tingling Musculoskeletal: Complains of right flank pain/rib pain as noted above Skin: Denies any rashes or lesions EXAM Physical Exam Narrative Exam Narrative: General: Patient was lying bed rest comfortably did appear to be uncomfortable secondary to her pain Head: Atraumatic, normocephalic Eyes: PERRL bilaterally, EOMI bilaterally, no conjunctival injection noted Neck: Soft, supple, trachea midline Cardiovascular: Regular rate and rhythm Respiratory: Clear to auscultation bilaterally Abdomen: Soft, nondistended, tenderness to palpation the right upper quadrant and lower quadrant no rebound or guarding on exam Musculoskeletal: Patient has tenderness palpation over the right rib cage Extremities: +5/5 strength noted in the bilateral upper and lower extremities Neurological: Patient following commands and that she was at [facility] year is 2024 Skin: Warm, dry, tact no rashes or lesions noted no bruising or ecchymosis noted Const Vital Signs: 04/22/25 20:22 04/22/25 20:26 Temperature 98.7 F Temperature Source Oral Pulse Rate 78 Respiratory Rate 18 Respiratory Effort Normal Non-Labored Respiratory Depth Normal Respiratory Pattern Normal Blood Pressure 161/87 H Blood Pressure Mean 111 Pulse Ox 97 Oxygen Delivery Method Room Air MDM MDM MDM Narrative Medical decision making narrative: Patient is a 69-year-old female who presented to the emergency department with achief complaint of right rib pain and back/abdomen pain after a fall on . On the differential diagnosis includes but not limited to rib fractures, pneumothorax, liver laceration, cholecystitis, pancreatitis. Once workup is obtained reviewed she will be reevaluated. Patient given IV fluids, morphine Zofran. Patient's CBC reviewed showed no evidence of leukocytosis white blood count normal at 6.5, hemoglobin was stable at 12.7, platelet count was 245. Patient'sINR normal at 0.9, PT 12.7. Patient sodium was normal 139, potassium normal 4.8, creatinine normal at 0.88. Patient's AST and ALT were 32 and 20 respectively. Patient lipase normal at 42, urinalysis reviewed and showed no evidence of infection. Patient's CT chest, abdomen and pelvis was reviewed which showed acute right 10th and 11th rib fractures tiny right sided effusion. Discussed results with the patient she would like to go home at this point in time we will use multimodal pain therapy with rotating Tylenol and ibuprofen [id number], Lidoderm patch, Endocet and Zofran for severe pain. She is encouraged to use the incentive spirometer as well. She was encouraged follow-up with her doctor outpatient setting return with worsening symptoms or concerns. She is agreeable to plan all question concerns answered she was discharged home in stable condition. Lab Data Labs: Laboratory Results - last 24 hr 04/22/25 04/22/25 20:32 20:48 WBC 6.5 RBC 4.52 Hgb 12.7 Hct 38.5 MCV 85.2 MCH 28.1 MCHC 33.0 RDW Std Deviation 45.3 H RDW Coeff of Michael 14.7 H Plt Count 245 MPV 10.1 Immature Gran % (Auto) 0.500 Neut % (Auto) 56.6 Lymph % (Auto) 26.8 Kleberg % (Auto) 7.2 Eos % (Auto) 8.1 H Baso % (Auto) 0.8 Absolute Neuts (auto) 3.7 Absolute Lymphs (auto) 1.75 Nucleated RBC % 0 PT 12.7 INR 0.9 APTT 25.7 Sodium 139 Potassium 4.8 Chloride 103 Carbon Dioxide 22.2 Anion Gap 14 BUN 22 H Creatinine 0.88 Est GFR (MDRD) Non-Af 72 BUN/Creatinine Ratio 24.7 H Glucose 177 H Calcium 9.3 Total Bilirubin 0.52 AST 32 ALT 20 Alkaline Phosphatase 65 Total Protein 6.9 Albumin 4.1 Globulin 2.9 Albumin/Globulin Ratio 1.4 Lipase 42 Urine Color Yellow Urine Clarity Clear Urine pH 6.5 Ur Specific [place] 1.010 Urine Protein 15 H Urine Glucose (UA) 50 H Urine Ketones Negative Urine Occult Blood Negative Urine Nitrite Negative Urine Bilirubin Negative Urine Urobilinogen Normal Ur Leukocyte Esterase Negative Urine RBC 0 SEEN Urine WBC 0-5 SEEN Ur Squamous Epith Cells 0-5 SEEN Urine Bacteria 0 SEEN Urine Mucus 0 SEEN Radiography Diagnostic Testing: Clinical Impression(s) from Imaging Studies Chest/Abdomen/Pelvis CT 04/22/25 20:40 IMPRESSION: Right-sided chest wall injury and tiny right effusion. Reading Location: [place] [address] Discharge Plan Triage Chief Complaint: Abd Pain Other Complaint: Fall ED Provider: Nilson Grullon Dx/Rx/DC Orders Clinical Impression: Fracture, ribs, Essential (primary) hypertension, Fall, Pleural effusion Prescriptions: New lidocaine [Lidoderm] 5 % adhesive patch,medicated 1 patch topical DAILY Qty: 15 0RF Rx Instructions: leave on most painful area for up to 12 hrs oxycodone-acetaminophen [Endocet] 5-325 mg tablet 1 tab PO Q6H PRN (Reason: pain) 3 Days Qty: 12 0RF ondansetron 4 mg tablet,disintegrating 4 mg PO Q6H PRN (Reason: nausea and vomiting) Qty: 20 0RF cyclobenzaprine 10 mg tablet 10 mg PO TID PRN (Reason: muscle spasm) Qty: 14 0RF No Action fluoxetine 10 mg capsule 10 mg PO QHS cholecalciferol (vitamin D3) 5,000 unit capsule 5,000 unit PO DAILY multivitamin tablet 1 tab PO QAM levothyroxine 25 mcg tablet 50 mcg PO DAILY Patient Comments: take 1 tablet by mouth once daily insulin lispro [Admelog SoloStar U-100 Insulin] 100 unit/mL insulin pen 1 sliding scale dose subcut Patient Comments: inject 4 to 6 units subcutaneously three times a day before meals as directed insulin glargine [Lantus Solostar U-100 Insulin] 100 unit/mL (3 mL) insulin pen subcut Patient Comments: inject 18 units subcutaneously once daily lovastatin 40 MG tablet 40 mg PO DAILY Patient Comments: cholesterol metformin 1,000 MG tablet 1,000 mg PO BIDCM Patient Comments: diabetes aspirin 81 MG tablet,chewable 81 mg PO DAILY@0800 Patient Comments: WILL STOP 1 WEEK PRIOR TO SURGERY folic acid 0.8 MG capsule 0.8 mg PO DAILY Patient Comments: supplement ferrous sulfate 325 MG tablet 325 mg PO DAILY Patient Comments: supplement losartan 50 mg tablet See Rx Instructions .ROUTE .COMPLEX Qty: 90 3RF Dose Instruction: take 1 tablet by mouth once daily Rx Instructions: take 1 tablet by mouth once daily carvedilol 6.25 mg tablet 6.25 mg PO BID Qty: 180 3RF clopidogrel 75 mg tablet 75 mg PO DAILY Qty: 90 3RF Primary Care Provider: Joyce Washburn NP Referrals: Care Physician,No Primary [Non-Staff] - Activity Restrictions/Additional Instructions: Follow-up your doctor in outpatient setting. Your CT scan did show that you broke your 10th and 11th rib on the right side. Use incentive spirometry as we discussed. Rotate Tylenol and ibuprofen [id number] when you do this can take some every 3 hours max dose of Tylenol in 24 hours 4000 mg max dose of ibuprofen in 24 hours 3200 mg. Use the Endocet and Zofran for severe pain. Usethe muscle relaxer as prescribed. Return with worsening symptoms and concerns Print Language: Azerbaijani Disposition Disposition: Home, Self Care What to do if you have Problems For any increased pain, shortness of breath, bleeding, nausea or vomiting, chestpain, or any unexpected problems, contact your Primary Care Provider. Call [facility] ([phone]) or report to the closest Emergency Room. Call 911 if necessary. 04/22/252233 <Electronically signed by Nilson Grullon DO> Marcosigner Signature (if applicable): CC: KAMINI Washburn ~ Signed [facility] Work Phone: Evaluation + Plan note Future Appointments Appointment Date:12/18/2021 10:30:00 AM Scheduled Provider:RHOAN CASTILLO MD Location:[place] Appointment Type:ENDO OV [facility] Evaluation + Plan note Future Appointments Appointment Date:04/16/2022 11:30:00 AM Scheduled Provider:ROHAN CASTILLO MD Location:[place] Appointment Type:ENDO OV Future Scheduled Tests Laboratory* Thyroid Stimulating Hormone 03/17/22 [facility] Evaluation + Plan note Future Appointments Appointment Date:11/26/2022 10:15:00 AM Scheduled Provider:ROHAN CASTILLO MD Location:[place] Appointment Type:ENDO OV Future Scheduled Tests Laboratory* Thyroid Stimulating Hormone 03/17/22 * Microalbumin Level Urine 10/16/22 [facility] Evaluation noteNo assessment information available [facility] Work Phone: Evcsurpipz note* Diagnosis Struck by horse, initial encounter SDH (subdural hematoma) (CMS/HCC) Subdural hemorrhage Struck by horse, initial encounter documented in this encounter [facility] course Narrative No data available for this section [facility] Hospital Discharge instructions No data available for this section [facility] Hospital Discharge instructionsAdditional Instructions Follow-up your doctor in outpatient setting. Your CT scan did show that you broke your 10th and 11th rib on the right side. Use incentive spirometry as we discussed. Rotate Tylenol and ibuprofen [id number] when you do this can take some every 3 hours max dose of Tylenol in 24 hours 4000 mg max dose of ibuprofen in 24 hours 3200 mg. Use the Endocet and Zofran for severe pain. Use the muscle relaxer as prescribed. [facility] Work Phone: Progress note No data available for this section [facility] Reason for referral (narrative)No reason for referral information availableWMercy [facility] Work Phone: Reason for visit Narrative* Auth/Cert (Routine) Specialty Diagnoses / Procedures Referred By Contac t Referred To Contact Diagnoses Struck by horse, initial encounter Intracranial Hemorrhage Procedures . Elio Wills MD [address] [place] [id number] Phone: tel: fax: [facility] Surgical Trauma Neuro Intensive Care Unit [facility] ICU T[address] [place] [phone] Phone: tel: Referral ID Status Reason Start Date Expiration Date Visits Re quested Visits Authorized [id number] 1 1 [facility] Summary Purpose Family History No Family History Records Found Relationship Condition Age at Onset Recorded Date/T adilene sister Malignant neoplasm of breast Unknown brother Diabetes mellitus Unknown Malignant neoplasm Unknown father Coronary artery disease Unknown Advance Directives No Advanced Directives Records Found Advance Directive Response Recorded Date/ Time Do you have a Healthcare Power of Councilperson? No April 22, 2025 8:26pm Advance Directives No June 9:54pm Date Activated Date Inactivated Comments 08/20/2025 4:26 PM 08/21/2025 5:46 PM Date Activated Date Inactivated Comments 08/20/2025 4:26 PM 08/21/2025 5:46 PM Chief Complaint and Reason for Visit Chief Complaint Admit Date abd pain, fall April 22, 2025 8:20 pm Additional Source Comments Care Team (unrecognized sect ion and content) Team Status: Active Member Role/Relationship Status Dates Joyce Washburn LICENSED CLINICIAN, LICENSED CLINICIAN-C Primary Care Provider Activ e Team Status: Inactive Member Role/Relationship Status Dates Dr. Nilson Grullon DO Emergency Provider Active Start: April 22, 2025 End: April 22, 2025 Joyce Washburn LICENSED CLINICIAN, LICENSED CLINICIAN-C Primary Care Provider Activ e Start: April 22, 2025 End: April 22, 2025 Care Team (unrecognized sect ion and content) Care Team Personnel Name: KARTHIKEYAN JANSEN III, MD Member Role: Primary Care Physician Address: Address: [address] [place] [address]- Care Team Related Persons Name: CHRISTINA LAMAS Address: Home [address], [place] [id number] [place] INFORMATION SOURCE (unrecogn ized section and content) DATE CREATED AUTHOR 09/19/2023 [facility] ([place]) DATE CREATED AUTHOR AUTHOR'S ORGANIZ ATION 08/31/2025 [facility] DATE CREATED AUTHOR AUTHOR'S ORGANIZ ATION 09/02/2025 [facility] Goals (unrecognized section and content) Goals may be documented in a n alternate section Scheduled Active and Recently Administ ered Medications (unrecognized section and content) Medication Order 08/19/2025 08/20/2025 08/21/2025 acetaminophen (Tylenol) tablet 1,000 mg(Linked Group 1) 1,000 mg, Oral, Every 8 hours, First dose on Wed08/20/25 at 1630, Maximum dose of acetaminophen is 4000 mg from all sources in 24 hours. 1801 (See Alternative - Provider: Joyce Fry RN)1813 (Given - Provider: Pravin Will RN) 0105 (Given - Provider: Lanny Gutierrez, REJI)0818 (Given - Provider: Pravin Will RN)1630 (Canceled Entry - Provider: Automatic Discharge Provider - Comment: Automatically canceled at discontinue of medication order) atorvastatin (Lipitor) tablet 10 mg 10 mg, Oral, Nightly, First dose on Wed08/20/25 at 2100, Substituted for lovastatin (Mevacor). 2112 (Given - Provider: Lanny Gutierrez, REJI) carvedilol (Coreg) tablet 6.25 mg 6.25 mg, Oral, 2 times daily with meals, First dose on Wed08/20/25 at 1700, On hold since Wed08/20/2025 at 1700 until manually unheld 1700 (Held by provider - Provider: Emani Aguilar MD - Reason: Other)1800 (Canceled Entry - Provider: Joyce Fry RN) 0800 (Dose Auto Held - Provider: Emani Aguilar MD)1746 (Unheld by provider - Provider: Automatic Discharge Provider) FLUoxetine (PROzac) capsule 10 mg 10 mg, Oral, Nightly, First dose on Wed08/20/25 at 2100 2113 (Given - Provider: Lanny Gutierrez RN) influenza vaccine A&B surf ant adjuvanted (Fluad) HIGH-DOSE injection 0.5 mL 0.5 mL, IntraMUSCular, Prior to discharge, Starting on Wed08/20/25 at 1634, For 1 dose Insulin Lispro (Humalog) injection 0-12 Units 0-12 Units, SubCUTAneous, Every 6 hours, First dose on Wed08/20/25 at 1700, NPO Medium Dose Correction Algorithm Glucose: Dose: If LESS than 150 No Insulin 150-199 2 Units 200-249 4 Units 250-299 6 Units 300-349 8 Units 350-400 10 Units Above 400 12 Units 1801 (Not Given - Provider: Joyce Fry RN - Reason: NPO)1813 (Given - Provider: Pravin Will RN)2234 (Given - Provider: Lanny Gutierrez RN) 0618 (Not Given - Provider: Lanny Gutierrez RN - Reason: Order parameters not met - Comment: MBS 142)1423 (Not Given - Provider: Joyce Fry RN - Reason: Contraindicated)1700 (Canceled Entry - Provider: Automatic Discharge Provider - Comment: Automatically canceled at discontinue of medication order) levothyroxine (Synthroid, Levoxyl) tablet 50 mcg 50 mcg, Oral, Daily, First dose on Wed08/21/25 at 0900, Tube feeding (TF) interaction, obtain physician order to manage, recommend holding TF for 30 minutes before and after dose. 0818 (Given - Provid er: Pravin Will RN) losartan (Cozaar) tablet 50 mg 50 mg, Oral, Daily, First dose on Wed08/21/25 at 0900 0818 (Given - Provid er: Pravin Will RN) methocarbamol (Robaxin) tablet 500 mg 500 mg, Oral, Every 8 hours scheduled (3 times per day), First dose on Wed08/21/25 at 0630 0818 (Given - Provid er: Pravin Will RN)1534 (Not Given - Provider: Pravin Will RN - Reason: Other) mupirocin (Bactroban) 2 % ointment 1 Application 1 Application, Nasal, 2 times daily, First dose on Wed08/20/25 at 2100, For 5 days, Apply to: nares, Indications: MRSA Nasal Decolonization 2131 (Given - Provider: Lanny Gutierrez RN) 0820 (Given - Provider: Pravin Will RN) Continuous Medication Order 08/19/2025 08/20/2025 08/21/2025 sodium chloride 0.9 % infusion 100 mL/hr, IntraVENous, Continuous, Starting on Wed08/20/25 at 1645 1716 (New Bag - Provider: Pravin Will RN) 1746 (Due: Order Ending - Provider: Automatic Discharge Provider - Comment: [Order ends at this time. Document the following action when infusion is complete: Stopped]) PRN Medication Order 08/19/2025 08/20/2025 08/21/2025 dextrose 5 % infusion 100 mL/hr, IntraVENous, PRN, Blood sugar less than 70mg/dL, Starting on Wed08/20/25 at 1655, Start infusion following administration of dextrose 50% or glucagon. dextrose 50 % solution 12.5 g 12.5 g, IntraVENous, PRN, low blood sugar, Blood glucose less than 70 mg/dL and patient NOT ALERT or NPO., Starting on Wed08/20/25 at 1655, If patient does not respond within 5 minutes, repeat dose x1. Start D5W at 100 mL/hour until ordering provider can be reached. Repeat blood glucose in 15 minutes. If blood glucose is less than 70 mg/dL, repeat treatment and recheck blood glucose in 15 minutes x2. If using Glucostabilizer, dose as instructed per system. glucagon (human recombinant) injection 1 mg 1 mg, IntraMUSCular, PRN, low blood sugar, Blood glucose less than 70 mg/dL and patient NOT ALERT or NPO and does not have IV access., Starting on Wed08/20/25 at 1655, After administration, attempt intravenous access and start D5W at 100 mL/hr. Repeat blood glucose in 15 minutes x2 and notify provider. glucose oral gel 15 g 15 g, Oral, As needed, low blood sugar, Starting on Wed08/20/25 at 1655, If blood glucose less than 50 mg/dL and patient ALERT and NOT NPO, give 2 tubes glucose gel. If blood glucose less than 70 mg/dL and patient ALERT and NOT NPO, give 1 tube glucose gel. Repeat blood glucose in 15 minutes. If blood glucose is less than 70 mg/dL, repeat treatment and recheck blood glucose in 15 minutes x2 and notify provider. hydrALAZINE (Apresoline) injection 10 mg 10 mg, IntraVENous, Every 2 hour PRN, high blood pressure, Second line, give for blood pressure greater than 140 hold for heart greater than 100 bpm, Starting on Wed08/20/25 at 1647 iopamidol (Isovue-370) 76 % injection 75 mL (COMPLETED) 75 mL, IntraVENous, IMG once PRN, contrast, Starting on Wed08/20/25 at 2018, For 1 dose 2018 (Given - Provider: Anastasia Flynn) labetalol (Normodyne,Trandate) injection 10 mg 10 mg, IntraVENous, Every 2 hour PRN, high blood pressure, First line, give for blood pressure greater than 140 hold for heart rate less than 60 bpm, Starting on Wed08/20/25 at 1647 naloxone (Narcan) injection 0.4 mg 0.4 mg, IntraVENous, Every 5 min PRN, opioid reversal, respiratory depression, Starting on Wed08/20/25 at 1633, +++ For RR <10, pinpoint pupils, over sedation for opioid reversal - MUST notify casino controller provider immediately after first dose, may give IM or SQ if no IV access +++ ondansetron (Zofran) injection 4 mg(Linked Group 2) 4 mg, IntraVENous, Every 6 hours PRN, nausea, vomiting, Starting on Wed08/20/25 at 1624, 1st Line. Give IV if patient is unable to take orally. If inadequate response within 60 minutes, proceed to next-line agent or contact provider if no further options ordered. 2140 (See Alternative - Provider: Lanny Gutierrez RN) ondansetron ODT (Zofran-ODT) disintegrating tablet 4 mg(Linked Group 2) 4 mg, Oral, Every 8 hours PRN, nausea, vomiting, Starting on Wed08/20/25 at 1624, 1st Line. If inadequate response within 60 minutes, proceed to next-line agent or contact provider if no further options ordered. Patient should allow tablet to dissolve on tongue. Do not remove from blister pack until just before administering. 2140 (Given - Provider: Gianluca Gutierrez RN) oxyCODONE (Roxicodone) immediate release tablet 10 mg(Linked Group 3) 10 mg, Oral, Every 4 hours PRN, severe pain (7-10), Starting on Wed08/20/25 at 1625 oxyCODONE (Roxicodone) immediate release tablet 5 mg(Linked Group 3) 5 mg, Oral, Every 4 hours PRN, moderate pain (4-6), Starting on Wed08/20/25 at 1625 polyethylene glycol (PEG) 3350 (Miralax) packet 17 g 17 g, Oral, Daily PRN, constipation, Starting on Wed08/20/25 at 1624, 1st line for treatment of constipation - give scheduled if no bowel movement in past 24 hours. Linked Groups Order Group 1: acetaminophen (Tylenol) tablet 1,000 mgJump to med 1,000 mg, Oral, Every 8 hours, First dose on Wed08/20/25 at 1630, Maximum dose of acetaminophen is 4000 mg from all sources in 24 hours. Or Acetaminophen (Tylenol) 650 MG/20.3ML solution 1,000 mg (CANCELED) 1,000 mg, Per G Tube, Every 8 hours, First dose on Wed08/20/25 at 1630 Group 2: ondansetron ODT (Zofran-ODT) disintegrating tablet 4 mgJump to med 4 mg, Oral, Every 8 hours PRN, nausea, vomiting, Starting on Wed08/20/25 at 1624, 1st Line. If inadequate response within 60 minutes, proceed to next-line agent or contact provider if no further options ordered. Patient should allow tablet to dissolve on tongue. Do not remove from blister pack until just before administering. Or ondansetron (Zofran) injection 4 mgJump to med 4 mg, IntraVENous, Every 6 hours PRN, nausea, vomiting, Starting on Wed08/20/25 at 1624, 1st Line. Give IV if patient is unable to take orally. If inadequate response within 60 minutes, proceed to next-line agent or contact provider if no further options ordered. Group 3: oxyCODONE (Roxicodone) immediate release tablet 5 mgJump to med 5 mg, Oral, Every 4 hours PRN, moderate pain (4-6), Starting on Wed08/20/25 at 1625 Or oxyCODONE (Roxicodone) immediate release tablet 10 mgJump to med 10 mg, Oral, Every 4 hours PRN, severe pain (7-10), Starting on Wed08/20/25 at 1625 FOR RECORDS PERTAINING TO PATIENTS WHO ARE [...] BE BASED ON THE PRIMARY CLINICAL RECORDS. [employer] [facility]. provides no warranty or guarantee of the accuracy or completeness of information [id number]
== END | disposition home or self-care (01) ==
PROVIDERS: PCP Nurse Practitioner Family
DX: S06.5XAA Traumatic subdural hemorrhage with loss of consciousness status unknown, initial encounter (principal); W55.12XA Struck by horse, initial encounter
CPT/HCPCS: 70450